=== PATIENT | male | born 1945 | race Caucasian/White ===

== ENCOUNTER 2017-03-28 13:10 | Inpatient (IN) | payer MEDICARE, MEDICAID ==
[2017-03-28 13:56] LABS: #Basophils 0.1 thou/uL (0.0-0.2); #Eosinphils 0.2 thou/uL (0.0-0.7); #Lymphocytes 1.6 thou/uL (1.20-3.40); #Monocytes 0.7 thou/uL (0.11-0.59); %Basophils 0.9 % (0.0-1.0); %Lymphocytes 18.8 % (21.0-51.0); %Monocytes 7.8 % (0.0-10.0); Hematocrit 55.1 % (42.0-52.0); Mean Platelet Volume 7.5 fL (7.4-10.4); Red Blood Cell (RBC) Count 5.49 mill/uL (4.70-6.10); White Blood Cell (WBC) Count 8.6 thou/uL (4.8-10.8)
[2017-03-28 14:22] LABS: ALT (SGPT) 9 U/L (8-55); AST (SGOT) 11 U/L (5-34); Alkaline Phosphatase 122 U/L (40-150); Anion Gap 17 mmol/L (10-20); BUN (Urea Nitrogen) 10 mg/dL (8.4-25.7); Bilirubin, Total 0.6 mg/dL (0.2-1.2); CK (CPK) 36 U/L (30-200); Calc. Creatinine Clearance 0 mL/min (70-130); Calcium 9.3 mg/dL (7.8-10.44); Carbon Dioxide 26 mmol/L (23-31); Chloride 103 mmol/L (98-107); Estimated GFR-MDRD 83; Globulin 3.9 g/dL (2.4-3.5); Magnesium 2.2 mg/dL (1.6-2.6); Protein, Total 7.6 g/dL (5.8-8.1)
[2017-03-28 14:24] LABS: Troponin I 0.022 ng/mL (< 0.028)
--- NOTE | 2017-03-28 14:33 | RAD ---
CHEST ONE VIEW: HISTORY: Atrial fibrillation. COMPARISON: 11/19/2015 FINDINGS: The cardiac silhouette and pulmonary vasculature are unremarkable. The mediastinum is midline with aortic calcification. The lungs remain hyperinflated. Scarring at the left base has progressed shamir ewhat since the previous study. Metallic fragments projecting over the left chest are stable. No l obar consolidation or pneumothorax is apparent. IMPRESSION: 1. Chronic obstructive pulmonary disease. 2. Increase in scarring at the left lung base. 3. Atherosclerosis. POS: MELISSA
--- NOTE | 2017-03-28 16:06 | HP ---
PRIMARY CARE PHYSICIAN: [facility]. REASON FOR ADMISSION: Transfer from primary care physician's office for AFIB with RVR. HISTORY OF PRESENT ILLNESS: A 72-year-old male who had regular followup visit with the primary care physician at [facility]. When they evaluated him there, the patient was having AFIB with RVR and that is why he was sent to emergency room for evaluation. The patient reports that for the last 2-3 days, he is feeling funny in his chest with palpitations, some intermittent dizziness. The patient reports that he is taking all his medications. In the emergency room, his heart rate was 153 and i rregularly irregular. He was given 2 time Cardizem bolus. Even after that, his heart rate was not slowing down and that is why Cardizem drip was started at 10 mg/hour. While on Cardizem drip, rose jara was having fluctuating heart rate with AFIB with RVR and sinus rhythm. He was going back and for th in sinus and AFIB rhythm with RVR. The patient denies any chest pain. He denies any fever or ch ills. He denies any syncope. He denies any orthopnea, PND or leg swelling. REVIEW OF SYSTEMS: The following complete review of systems was negative, unless otherwise mentione d in the HPI or below: Constitutional: Weight loss or gain, ability to conduct usual activities. Skin: Rash, itching. Eyes: Double vision, pain. ENT/Mouth: Nose bleeding, neck stiffness, pain, tenderness. Cardiovascular: Palpitations, dyspnea on exertion, orthopnea. Respiratory: Shortness of breath, wheezing, cough, hemoptysis, fever or night sweats. Gastrointestinal: Poor appetite, abdominal pain, heartburn, nausea, vomiting, constipation, or diar tasha. Genitourinary: Urgency, frequency, dysuria, nocturia. Musculoskeletal: Pain, swelling. Neurologic/Psychiatric: Anxiety, depression. Allergy/Immunologic: Skin rash, bleeding tendency. Please see my HPI for pertinent positive and negative. All other review of systems reviewed and neg ative except as mentioned in the HPI. PAST MEDICAL HISTORY: Peripheral vascular disease, required aortobifemoral bypass grafting; diabete s type 2, on insulin; hypertension; dyslipidemia; morbid obesity; obstructive sleep apnea on CPAP; C OPD; chronic systolic heart failure with EF 30%-35%; paroxysmal atrial fibrillation/flutter on chron ic anticoagulation with warfarin. PAST SURGICAL HISTORY: Bilateral inguinal hernia repair, left humeral fracture repair, aortobifemor al bypass grafting with endarterectomy of bilateral common femoral artery in 2015, facial and neck l aceration repair. PAST PSYCHIATRIC HISTORY: Anxiety and depression. ALLERGIES: ZARA INHIBITOR. FAMILY HISTORY: No strong family history of premature coronary artery disease, stroke or cancer. SOCIAL HISTORY: Patient is smoking about 1 or 2 packs per day. He also drinks alcohol periodically . He denies any other illicit drug abuse. He lives by himself in [place]. CODE STATUS: Patient is FULL CODE. Patient's sister is surrogate decision maker. CURRENT HOME MEDICATIONS: The patient did not bring his home medication, but based on our hospital record, the patient is on following medications; amiodarone 200 mg p.o. daily, aspirin 81 mg p.o. da evette, Lipitor 40 mg p.o. at bedtime, diclofenac 75 mg p.o. b.i.d., Lasix 40 mg p.o. daily, Neurontin 300 mg p.o. b.i.d., Humalog insulin 20 units subcu t.i.d., Lantus insulin 45 units subcu b.i.d., met oprolol tartrate 50 mg p.o. b.i.d., potassium chloride 20 mEq p.o. daily, clonazepam 0.5 mg p.o. dean ly, metformin 1000 mg p.o. b.i.d., tramadol 100 mg p.o. b.i.d. EMERGENCY ROOM COURSE: Patient is given Cardizem bolus x2 and subsequently Cardizem drip was starte d. PHYSICAL EXAMINATION: VITAL SIGNS: Currently, blood pressure 147/108, pulse 144 irregularly irregular, respiratory rate 2 0, temperature 98.2, saturation 95% on room air, and weight 81.6 kilograms. GENERAL: Patient is currently alert, awake, no obvious acute distress. HEAD: Normocephalic, atraumatic. EYES: Pupils round, reactive to light. Extraocular muscles intact. ENT: Oropharynx within normal limits. Moist mucous membranes. No oral lesions. No pharyngeal tanya thema, no exudates. NECK: Supple. Range of motion is normal. No meningeal signs of irritation. LUNGS: Clear to auscultation without any rhonchi or rales. CARDIAC: S1 and S2 irregularly irregular. No murmur, no gallop, no rub. ABDOMEN: Obesity present. Bowel sounds present. Nontender, nondistended. No organomegaly, no mas s, no suprapubic tenderness. Surgical scar present. GENITALIA: Within normal limits. EXTREMITIES: Trace edema noted. Good peripheral pulsation. SKIN: No skin rash. HEMATOLOGICAL SYSTEM: No lymphadenopathy. PSYCHIATRIC: Normal affect. SIGNIFICANT LABORATORY DATA: 1. CBC: WBC 8.6, hemoglobin 18.0, MCV 100, platelet 258. INR 1.6. 2. BMP: Sodium 142, potassium 4.0, chloride 103, carbon dioxide 26, BUN 10, creatinine 0.90, gluco se 114, calcium 9.3, magnesium 2.2. 3. LFT: AST 11, ALT 9, alkaline phosphatase 122, albumin 3.7. CK 36, CK-MB 1.1, troponin I 0.022, BNP 203.4. ASSESSMENT AND PLAN/IMPRESSION: 1. Atrial fibrillation with rapid ventricular response. The patient is on Cardizem drip. At this point, patient has paroxysmal rapid ventricular rate in the emergency room even on Cardizem drip, everardo elva will require admission. We will continue amiodarone 200 mg p.o. daily. We will consult Cardi ology for medication adjustment. We will obtain echocardiography to assess ejection fraction and ot her structural abnormality. We will do serial cardiac enzymes x3 and check thyroid function test. 2. Chronic systolic heart failure. Currently, patient is euvolemic. We will continue Lasix 40 mg p.o. b.i.d. We will continue with metoprolol 50 mg p.o. b.i.d. The patient is allergic to ZARA INHI BITOR and that is why he is not on ZARA inhibitor. We will obtain echocardiography to assess ejectio n fraction and other structural abnormality. If this time, patient's ejection fraction is still low , then we will consider changing metoprolol tartrate to Coreg during this admission. 3. Chronic obstructive pulmonary disease. We will continue with DuoNeb therapy q.6 hourly p.r.n. 4. Obstructive sleep apnea on continuous positive airway pressure. Patient can use his home contin uous positive airway pressure machine while in hospital. 5. Diabetes type 2. We will continue insulin as per sliding scale protocol. Diabetic diet will be given. We will continue Levemir 45 units subcu b.i.d. 6. Diabetic neuropathy. We will continue gabapentin 300 mg twice daily. 7. Dyslipidemia. We will check lipid profile tomorrow and continue Lipitor 40 mg p.o. at bedtime. 8. Morbid obesity. Dietary education given, weight loss education given. Healthy lifestyle measur es discussed with the patient. 9. Tobacco and alcohol abuse. Patient is given counseling to avoid tobacco and alcohol product. 10. Deep venous thrombosis prophylaxis. We will verify patient's home dose of chronic anticoagulat ion, which we will resume while in hospital. 11. Code status: The patient is FULL CODE. Patient's sister is surrogate decision maker. Disposition and plan based on clinical course. We are expecting patient's stay in hospital more guillaume n 2 midnights. Plan of care discussed with the patient in detail.
[2017-03-28] MEDS ORDERED: Artificial Tears 18 DROP/0.9 ML EA EYE PRN (16:51)
[2017-03-28] MEDS ORDERED: Dextrose 50% Abboject 50 ML SYRINGE SLOW IVP PRN (16:51)
[2017-03-28] MEDS ORDERED: Senokot 8.6 MG TAB PO PRN (16:51)
[2017-03-28] MEDS ORDERED: Ondansetron HCl/PF 4 MG/2 ML Vial IVP PRN (16:51)
[2017-03-28] MEDS ORDERED: Sodium Chloride 0.65% Nasal 44 ML BOT EA NARE PRN (16:51)
[2017-03-28] MEDS ORDERED: HumaLOG 300 UNITS/3 ML VIAL SC PRN (16:51)
[2017-03-28] MEDS ORDERED: Mag-Al 1200 mg/1200 mg/30 ML UDCUP PO PRN (16:51)
[2017-03-28] MEDS ORDERED: Acetaminophen 325 MG TAB PO PRN (16:51)
[2017-03-28] MEDS ORDERED: Nitroglycerin 0.4 MG TAB (25 Tab Bottle) SL PRN (16:51)
[2017-03-28] MEDS ORDERED: HYDROcodone/Acetaminophen 5/325 mg Tablet PO PRN (16:51)
[2017-03-28] MEDS ORDERED: Ondansetron ODT 4 MG TAB PO PRN (16:51)
[2017-03-28] MEDS ORDERED: Dextrose 5% in Water 1,000 ML IV PRN (16:51)
[2017-03-28] MEDS ORDERED: Diabetic Tussin 200 MG/10 ML UDCUP PO PRN (16:51)
[2017-03-28] MEDS ORDERED: Loperamide HCl 2 MG CAP PO PRN (16:51)
[2017-03-28] MEDS ORDERED: Milk Of Magnesia 30 ML UDCUP PO PRN (16:51)
[2017-03-28] MEDS ORDERED: Eucerin (Mineral Oil/Petrolatum,White) 30 gm Jar TOP PRN (16:51)
[2017-03-28] MEDS ORDERED: Loratadine 10 MG TAB PO PRN (16:51)
[2017-03-28 17:06] VITALS: BMI 31.2
[2017-03-28 17:11] LABS: Troponin I 0.034 ng/mL (< 0.028)
[2017-03-28 20:14] LABS: Bilirubin Negative (Negative); Blood, Urine Negative (Negative); Glucose, Urine (Dipstick) Negative (Negative); Ketone, Urine Negative (Negative); Nitrite Negative (Negative); Protein, Urine (Dipstick) 30 mg/dL (Neg-Trace); Urobilinogen 0.2 mg/dL (0.2-1.0)
[2017-03-28 20:19] LABS: Bacteria/HPF None Seen HPF (None Seen); Hyaline Casts/LPF 0-3 HYALINE CAST LPF (0-3 Hyaline); RBC/HPF 0-3 HPF (0-3); Squamous Epithelial None Seen HPF (0-3); WBC/HPF None Seen HPF (0-3)
[2017-03-28 20:28] LABS: Troponin I 0.023 ng/mL (< 0.028)
[2017-03-28] MEDS: Zolpidem Tartrate 5 MG TAB PO PRN (23:17)
--- NOTE | 2017-03-29 01:02 | CON ---
DATE OF CONSULTATION: 03/28/2017 REFERRING PHYSICIAN: Dr. Marie REASON FOR CONSULTATION: Atrial fibrillation with rapid ventricular response. PRIMARY CARE PHYSICIAN: Dr. Desouza PRIMARY NEUROSCIENCE SPECIALIST: Dr. Juan Carlos Freeman. HISTORY OF PRESENT ILLNESS: Mr. Briceno is a 72-year-old gentleman who was seeing his primary care phys smiley at [facility] when he was noted to be in rapid atrial fibrillation. He has had rapid irregul ar heartbeats over the last 2-3 days, which making \\\\"feel funny in his chest\\\\" and presented for e valuation. He was sent over to the Emergency Department for further evaluation and treatment, and h eart rates in the 150s-160s on arrival. He was started on a Cardizem drip, which ultimately getting better controlled. He has known paroxysmal atrial fibrillation, it is pretty well controlled, on amiodarone orally and was recently seen in the office with Dr. Freeman in January and due to a rectus sheath hematoma in the past, on Coumadin, was placed on Xarelto 20 mg daily at that time. PAST MEDICAL HISTORY: Significant for: 1. Paroxysmal atrial fibrillation. It is relatively well controlled on amiodarone and Xarelto. Th ere has been no bleeding issues with Xarelto since January. 2. Peripheral vascular disease. 3. Type 2 diabetes mellitus. 4. Hypertension. 5. Dyslipidemia. 6. Obstructive sleep apnea, on CPAP. 7. Chronic obstructive pulmonary disease. 8. Chronic systolic congestive heart failure (ejection fraction of 30%-35%). PAST SURGICAL HISTORY: 1. Bilateral inguinal hernia repair. 2. Left humeral fracture repair. 3. Aortobifemoral bypass grafting. 4. Facial and neck laceration repair. ALLERGIES: ZARA INHIBITORS. SOCIAL HISTORY: He smokes 1-2 packs per day, drinks alcohol periodically. Denies illicit drug use. Lives by himself. FAMILY HISTORY: Negative with respect to premature atherosclerosis. CURRENT MEDICATIONS AT HOME: Include: 1. Pacerone 200 mg daily. 2. Gabapentin 300 mg 3 times daily. 3. Lasix 40 mg b.i.d. 4. Metformin 1000 mg b.i.d. 5. NovoLog q. a.c. 6. Levemir daily. 7. Sertraline 50 mg daily. 8. Klor-Con 10 mEq b.i.d. 9. Lipitor 80 mg daily. 10. Ecotrin 80 mg daily. 11. Xarelto 20 mg daily. 12. Metoprolol 50 mg b.i.d. REVIEW OF SYSTEMS: As per the history of present illness. Remainder of 12-system review is negativ e. PHYSICAL EXAMINATION: VITAL SIGNS: Blood pressure 158/81 pulse 71 and irregular, respiratory rate 20 and nonlabored, temp erature 99.2, oxygen saturation 100% on room air. GENERAL: This is a well-developed, overweight 72-year-old gentleman, in no acute distress . He is alert and oriented x4, answers questions appropriately. HEENT: The head was atraumatic, normocephalic. Pupils are equally round and reactive. Sclerae and conjunctivae are clear. There are no oral lesions. NECK: Supple, no JVD, thyromegaly, carotid bruits. CHEST: Symmetrical inspiration and expiration. HEART: Irregularly irregular. No obvious murmur. PMI is enlarged and laterally displaced. LUNGS: Diminished breath sounds noted in the bases bilaterally. There are no adventitious sounds a ppreciated. ABDOMEN: Soft, nontender, nondistended, without mass or organomegaly. Bowel sounds are present in all 4 quadrants. No flank bruits auscultated. EXTREMITIES: 2+ pulses noted bilaterally. Upper and lower extremity strength 5/5 bilaterally. No clubbing, cyanosis or edema. NEUROLOGIC: Grossly intact with no focal motor deficits appreciated. DATABASE: EKG revealed atrial fibrillation with rapid ventricular response. LABORATORY DATA: CBC reveals a white count 8, H\\T\\H 18 and 55, platelet count 258,000. Differentia l white blood cells normal. Red cell indices normocytic. Coagulation studies: PT 19, INR 1.6. Chemistries: Electrolytes are normal. BUN and creatinine 10 and 0.9, GFR is estimated at 83. LFTs are normal. CK and CK-MB measurements are normal. Troponin indeterminately elevated with a peak of 0.034. BNP is mildly elevated at 203. ASSESSMENTS: 1. Atrial fibrillation with rapid ventricular response. He has a history of paroxysmal atrial fibr illation. 2. Chronic anticoagulation, on Xarelto. We will resume. 3. Chronic systolic heart failure, compensated currently. 4. Chronic obstructive pulmonary disease. 5. Obstructive sleep apnea, using CPAP. 6. Type 2 diabetes mellitus, on oral agents plus insulin. 7. Dyslipidemia, on therapy. 8. Hypertension, marginally controlled. RECOMMENDATIONS: 1. From a cardiac standpoint, he is stable and rate controlled currently. He may come off the dilt iazem drip and resume amiodarone. Recommend resuming Xarelto 20 mg every evening. 2. We would recommend resumption of his routine home medications as listed above. These are his cu rrent medications as documented on his office visit in late 01/2017. Dr. Freeman will resume care tomorrow morning. I appreciate the opportunity to participate.
[2017-03-29] MEDS: Zolpidem Tartrate 5 MG TAB PO PRN (01:17)
[2017-03-29 05:20] LABS: #Basophils 0.1 thou/uL (0.0-0.2); #Eosinphils 0.1 thou/uL (0.0-0.7); #Lymphocytes 1.9 thou/uL (1.20-3.40); #Monocytes 0.8 thou/uL (0.11-0.59); #Neutrophils 7.6 thou/uL (1.40-6.50); %Basophils 1.2 % (0.0-1.0); %Eosinophils 1.2 % (0.0-10.0); %Lymphocytes 18.1 % (21.0-51.0); %Monocytes 7.2 % (0.0-10.0); Hematocrit 51.8 % (42.0-52.0); Mean Platelet Volume 7.2 fL (7.4-10.4); Red Blood Cell (RBC) Count 5.09 mill/uL (4.70-6.10); White Blood Cell (WBC) Count 10.5 thou/uL (4.8-10.8)
[2017-03-29 05:36] LABS: ALT (SGPT) Less than 7 U/L (8-55); AST (SGOT) 10 U/L (5-34); Alkaline Phosphatase 107 U/L (40-150); Anion Gap 11 mmol/L (10-20); BUN (Urea Nitrogen) 9 mg/dL (8.4-25.7); Bilirubin, Total 0.8 mg/dL (0.2-1.2); Calc. Creatinine Clearance 116 mL/min (70-130); Carbon Dioxide 27 mmol/L (23-31); Chloride 104 mmol/L (98-107); Cholesterol 134 mg/dl (< 200 Desired); Estimated GFR-MDRD Greater than 90; Globulin 3.5 g/dL (2.4-3.5); LDL Cholesterol, Calculated 70 mg/dL
[2017-03-29] MEDS: HumaLOG 300 UNITS/3 ML VIAL SC PRN (05:50)
[2017-03-29] MEDS ORDERED: Non-Formulary Item 1 EACH (Metformin Hcl [Metformin Hcl] 1,000 MG) PO SCH (08:00)
[2017-03-29] MEDS: Potassium Chloride 10 MEQ TAB PO SCH ×2 (08:55→17:39)
[2017-03-29] MEDS: Gabapentin 300 MG CAP PO SCH ×3 (08:56→21:36)
[2017-03-29] MEDS: Furosemide 40 MG TAB PO SCH ×2 (08:57→21:36)
[2017-03-29] MEDS: clonazePAM 0.5 MG TAB PO SCH (08:57)
[2017-03-29] MEDS ORDERED: Non-Formulary Item 1 EACH (Atorvastatin Calcium [Atorvastatin Calcium] 80 MG) PO SCH (09:00)
[2017-03-29] MEDS ORDERED: Non-Formulary Item 1 EACH (Sertraline Hcl [Sertraline Hcl] 50 MG) PO SCH (09:00)
[2017-03-29] MEDS ORDERED: Metoprolol Tartrate 50 MG TAB PO SCH (09:00)
[2017-03-29] MEDS ORDERED: ADMIXTURE FEE IVPB SCH ×3 (09:15)
[2017-03-29] MEDS ORDERED: Digoxin 0.5 MG/2 ML AMP SLOW IVP SCH (09:15)
[2017-03-29] MEDS ORDERED: WATER IVPB SCH ×3 (09:15)
[2017-03-29] MEDS ORDERED: DEXTROSE IVPB SCH ×3 (09:15)
[2017-03-29] MEDS ORDERED: AMIODARONE HCL IVPB SCH ×3 (09:15)
--- NOTE | 2017-03-29 13:12 | PDOC.PN ---
- Subjective Encounter Start Date: 03/29/17 Encounter Start Time: 07:00 -: old records requested/rev this morning pt is again in afib with rvr, so cardizem drip restarted, no chest pain - Objective Resuscitation Status: Resuscitation Status FULL:Full Resuscitation MAR Reviewed: Yes Vital Signs & Weight: Vital Signs (12 hours) Temp Pulse Resp BP Pulse Ox 03/29/17 11:35 97.6 F 123 H 24 H 136/91 H 94 L 03/29/17 10:28 122 H 03/29/17 08:00 97.6 F 122 H 16 03/29/17 07:46 97.6 F 122 H 12 143/71 H 94 L 03/29/17 04:00 98.2 F 131 H 18 155/60 H 96 Weight Weight 218 lb I&O: 03/28/17 03/29/17 03/30/17 06:59 06:59 06:59 Intake Total 600 Output Total 925 Balance -325 Result Diagrams: 03/29/17 05:01 03/29/17 05:01 Additional Labs: Accuchecks 03/29/17 03/29/17 03/28/17 10:51 05:06 20:11 POC Glucose 195 H 162 H 139 H 03/28/17 18:35 POC Glucose 133 H EKG Reviewed by me: Yes (afib with rvr) Phys Exam - Physical Examination Constitutional: NAD HEENT: PERRLA, moist MMs, sclera anicteric Neck: no JVD, supple Respiratory: no wheezing, no rales, no rhonchi Cardiovascular: no significant murmur, irregular RVR Gastrointestinal: soft, non-tender, no distention, positive bowel sounds Musculoskeletal: no edema, pulses present Neurological: non-focal, normal sensation, moves all 4 limbs Lymphatic: no nodes Psychiatric: normal affect, A&O x 3 Skin: no rash, normal turgor Dx/Plan (1) Atrial fibrillation with RVR Code(s): I48.91 - UNSPECIFIED ATRIAL FIBRILLATION Status: Acute (2) Anxiety and depression Code(s): F41.8 - OTHER SPECIFIED ANXIETY DISORDERS Status: Chronic (3) COPD (chronic obstructive pulmonary disease) Status: Chronic (4) Chronic anticoagulation Code(s): Z79.01 - JAIL (CURRENT) USE OF 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 Status: Chronic (5) Chronic systolic (congestive) heart failure Code(s): I50.22 - CHRONIC SYSTOLIC (CONGESTIVE) HEART FAILURE Status: Chronic (6) Diabetes type 2, controlled Code(s): E11.9 - TYPE 2 DIABETES MELLITUS WITHOUT COMPLICATIONS Status: Chronic (7) Dyslipidemia Code(s): E78.5 - HYPERLIPIDEMIA, UNSPECIFIED Status: Chronic (8) HTN (hypertension) Code(s): I10 - ESSENTIAL (PRIMARY) HYPERTENSION Status: Chronic (9) Macrocytosis Code(s): D75.89 - OTHER SPECIFIED DISEASES OF BLOOD AND BLOOD-FORMING ORGANS Status: Chronic (10) MEJIA on CPAP Code(s): G47.33 - OBSTRUCTIVE SLEEP APNEA (ADULT) (PEDIATRIC); Z99.89 - DEPENDENCE ON OTHER ENABLING MACHINES AND DEVICES Status: Chronic (11) Obesity (BMI 30.0-34.9) Code(s): E66.9 - OBESITY, UNSPECIFIED Status: Chronic (12) Paroxysmal atrial fibrillation Code(s): I48.0 - PAROXYSMAL ATRIAL FIBRILLATION Status: Chronic - Plan cont current plan of care * cardiology started amiodaron drip with cardizem drip * after this rate was dropped, so cardizem drip kept on hold * will continue amiodaron drip * echo done and result pending * will monitor on tele * medication reviewed as below * symptomatic treatment. Review of Systems - Review of Systems ENT: negative: Ear Pain, Ear Discharge, Nose Pain, Nose Discharge, Nose Congestion, Mouth Pain, Mouth Swelling, Throat Pain, Throat Swelling, Other Respiratory: negative: Cough, Dry, Shortness of Breath, Hemoptysis, SOB with Excertion, Pleuritic Pain, Sputum, Wheezing Cardiovascular: negative: Chest Pain, Palpitations, Orthopnea, Paroxysmal Noc. Dyspnea, Edema, Light Headedness, Other Gastrointestinal: negative: Nausea, Vomiting, Abdominal Pain, Diarrhea, Constipation, Melena, Hematochezia, Other Genitourinary: negative: Dysuria, Frequency, Incontinence, Hematuria, Retention , Other Musculoskeletal: negative: Neck Pain, Shoulder Pain, Arm Pain, Back Pain, Hand Pain, Leg Pain, Foot Pain, Other Skin: negative: Rash, Lesions, Nixon, Bruising, Other - Medications/Allergies Allergies/Adverse Reactions: Allergies Allergy/AdvReac Type Severity Reaction Status Date / Time ZARA Inhibitors Allergy Severe ANGIOEDEMA Verified 10/29/15 00:24 Medications: Current Medications Acetaminophen (Tylenol) 650 mg PO Q4H PRN PRN Reason: Headache/Fever or Pain Hydrocodone Bitart/Acetaminophen ([place] 5/325) 1 tab PO Q4H PRN PRN Reason: Moderate Pain (4-6) Al Hydroxide/Mg Hydroxide (Maalox) 30 ml PO Q6H PRN PRN Reason: Heartburn or Indigestion Albuterol/Ipratropium (Duoneb) 3 ml NEB [id number] PRN PRN Reason: SOB &/or Wheezing Artificial Tears (Tears Naturale) 0 drop EA EYE PRN PRN PRN Reason: Dry Eyes Aspirin (Aspirin Chewable) 81 mg PO QAM [facility] Last Admin: 03/29/17 08:56 Dose: 81 mg Atorvastatin Calcium (Lipitor) 80 mg PO HS [facility] Clonazepam (Klonopin) 0.5 mg PO DAILY [facility] Last Admin: 03/29/17 08:57 Dose: 0.5 mg Dextrose/Water (Dextrose 50%) 25 gm SLOW IVP PRN PRN PRN Reason: Hypoglycemia Furosemide (Lasix) 40 mg PO BID [facility] Last Admin: 03/29/17 08:57 Dose: 40 mg Gabapentin (Neurontin) 300 mg PO TID [facility] Last Admin: 03/29/17 08:56 Dose: 300 mg Glucagon (Glucagon) 1 mg IM PRN PRN PRN Reason: Hypoglycemia Guaifenesin (Robitussin Sf) 200 mg PO Q4H PRN PRN Reason: Cough Hydralazine HCl (Apresoline) 10 mg SLOW IVP Q4H PRN PRN Reason: Systolic BP > 180 Dextrose/Water (D5w) 1,000 mls @ 0 mls/hr IV .Q0M PRN; As Directed PRN Reason: Hypoglycemia Diltiazem HCl 125 mg/ Sodium (Chloride) 125 mls @ 5 mls/hr IVPB INF MARISOL; 5 MG/ HR PRN Reason: Protocol Last Admin: 03/29/17 06:20 Dose: 125 mls Amiodarone HCl 450 mg/Miscellaneous Medication 1 each/ Dextrose/Water 259 mls @ 0 mls/hr IVPB INF MARISOL; Per Protocol PRN Reason: Protocol Last Admin: 03/29/17 10:30 Dose: 259 mls Insulin Human Lispro (Humalog) 0 units SC .AGGRESSIVE SLIDING PRN PRN Reason: Aggressive Correctional Scale Last Admin: 03/29/17 05:50 Dose: 3 unit Insulin Human Lispro (Humalog) 0 units SC .BEDTIME SLIDING SC PRN PRN Reason: Bedtime Correctional Scale Loperamide HCl (Imodium) 2 mg PO PRN PRN PRN Reason: Diarrhea/Loose Stools Loratadine (Claritin) 10 mg PO DAILYPRN PRN PRN Reason: Sinus Symptoms Magnesium Hydroxide (Milk Of Magnesium) 30 ml PO DAILYPRN PRN PRN Reason: Constipation Metformin HCl (Glucophage) 1,000 mg PO BID-[facility] Last Admin: 03/29/17 08:55 Dose: 1,000 mg Metoprolol Tartrate (Lopressor) 50 mg PO BID [facility] Mineral Oil/White Petrolatum (Eucerin Cream) 0 gm TOP BIDPRN PRN PRN Reason: Dry Skin Nitroglycerin (Nitrostat) 0.4 mg SL Q5MIN PRN PRN Reason: Chest Pain Ondansetron HCl (Zofran Odt) 4 mg PO Q6H PRN PRN Reason: Nausea/Vomiting Ondansetron HCl (Zofran) 4 mg IVP Q6H PRN PRN Reason: Nausea/Vomiting Potassium Chloride (Klor-Con 10) 10 meq PO BID-[facility] Last Admin: 03/29/17 08:55 Dose: 10 meq Rivaroxaban (Xarelto) 20 mg PO 1800 [facility] Senna (Senokot) 2 tab PO HSPRN PRN PRN Reason: Constipation Sertraline HCl (Zoloft) 50 mg PO DAILY [facility] Last Admin: 03/29/17 08:56 Dose: 50 mg Sodium Chloride ([place] Nasal Nunda 0.65%) 0 ml EA NARE QIDPRN PRN PRN Reason: Nasal Congestion Sodium Chloride (Flush - Normal Saline) 10 ml IVF Q12HR [facility] Last Admin: 03/29/17 08:57 Dose: Not Given Sodium Chloride (Flush - Normal Saline) 10 ml IVF PRN PRN PRN Reason: Saline Flush Zolpidem Tartrate (Ambien) 5 mg PO HSPRN PRN PRN Reason: Insomnia Last Admin: 03/29/17 01:17 Dose: 5 mg
[2017-03-29] MEDS ORDERED: Rivaroxaban 10 MG TAB PO SCH ×2 (18:00)
[2017-03-29] MEDS ORDERED: Atorvastatin Calcium 40 MG TAB PO SCH (21:00)
[2017-03-29] MEDS: Metoprolol Tartrate 50 MG TAB PO SCH (21:37)
[2017-03-30] MEDS: HumaLOG 300 UNITS/3 ML VIAL SC PRN ×2 (06:10→12:41)
--- NOTE | 2017-03-30 09:32 | PDOC.PN ---
- Subjective Encounter Start Date: 03/30/17 Encounter Start Time: 09:30 Mr. Briceno does not have any medical complaints. He admits that he may need some help at home, with medications ect. - Objective Resuscitation Status: Resuscitation Status FULL:Full Resuscitation MAR Reviewed: Yes Vital Signs & Weight: Vital Signs (12 hours) Temp Pulse Resp BP Pulse Ox 03/30/17 07:58 97.7 F 58 L 22 H 136/63 97 03/30/17 04:00 97.7 F 56 L 20 141/78 H 98 03/30/17 00:00 98.3 F 56 L 20 146/68 H 98 Weight Weight 217 lb 10.598 oz I&O: 03/29/17 03/30/17 03/31/17 06:59 06:59 06:59 Intake Total 600 1678 Output Total 925 1620 Balance -325 58 Result Diagrams: 03/29/17 05:01 03/29/17 05:01 Additional Labs: Accuchecks 03/30/17 03/29/17 03/29/17 05:37 21:29 16:58 POC Glucose 164 H 106 140 H 03/29/17 10:51 POC Glucose 195 H Phys Exam - Physical Examination HEENT: PERRLA Respiratory: no rales, wheezing present Cardiovascular: RRR, no significant murmur, no rub Gastrointestinal: soft, non-tender, positive bowel sounds Musculoskeletal: no edema Dx/Plan (1) Atrial fibrillation with RVR Code(s): I48.91 - UNSPECIFIED ATRIAL FIBRILLATION Status: Acute (2) COPD (chronic obstructive pulmonary disease) Status: Chronic (3) Chronic anticoagulation Code(s): Z79.01 - SKILLED NURSING (CURRENT) USE OF 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 Status: Chronic (4) Diabetes type 2, controlled Code(s): E11.9 - TYPE 2 DIABETES MELLITUS WITHOUT COMPLICATIONS Status: Chronic (5) Dyslipidemia Code(s): E78.5 - HYPERLIPIDEMIA, UNSPECIFIED Status: Chronic (6) HTN (hypertension) Code(s): I10 - ESSENTIAL (PRIMARY) HYPERTENSION Status: Chronic - Plan * AFIB with RVR- his heart rate is stable, he has been placed back on his usual medications for AFIB * He admits that he may not know which medications he should be taking. He went to the pharmacy and knew one or two may have been missing, but not which ones. He also says he needs help making a decision about housing, and help at home * Will consult Case Management, and will recommend Home Health at least .
[2017-03-30] MEDS: Gabapentin 300 MG CAP PO SCH ×2 (09:45→14:49)
[2017-03-30] MEDS: Furosemide 40 MG TAB PO SCH (09:45)
[2017-03-30] MEDS: Metoprolol Tartrate 50 MG TAB PO SCH (09:45)
[2017-03-30] MEDS: Potassium Chloride 10 MEQ TAB PO SCH (09:45)
[2017-03-30] MEDS: clonazePAM 0.5 MG TAB PO SCH (09:46)
--- NOTE | 2017-03-30 11:09 | DIS ---
DATE OF ADMISSION: 03/28/2017 DATE OF DISCHARGE: 03/30/2017 PRIMARY CARE PHYSICIAN: Jahaira Cosme. DISCHARGE DISPOSITION: Home likely with home health. DISCHARGE DIAGNOSES: 1. Atrial fibrillation with rapid ventricular response. 2. Diabetes mellitus, type 2. 3. Chronic obstructive pulmonary disease. 4. Obstructive sleep apnea. 5. Chronic systolic heart failure with an ejection fraction of 30%-35%. 6. Hypertension. 7. Peripheral vascular disease. DISCHARGE MEDICATIONS: Include amiodarone 200 mg daily, metoprolol 50 mg twice a day, metformin 100 0 mg twice daily, clonazepam 0.5 mg daily, sertraline 50 mg daily, Xarelto 20 mg daily, potassium ch loride 10 mEq daily, Neurontin 300 mg t.i.d., Lasix 40 mg twice daily, Lipitor 80 mg at bedtime, and aspirin 81 mg a day. CODE STATUS: FULL CODE. ALLERGIES: To ZARA INHIBITOR. HOSPITAL COURSE: Mr. Briceno is a pleasant 72-year-old gentleman who presented to the emergency room wi complaints of palpitations and a funny feeling in his chest and some intermittent dizziness. He was seen in the ER and found to have a heart rate of 153, which was irregular. He was given Cardize m IV and admitted on a Cardizem drip. He was seen by Cardiology and by the following day, he was ab le to be weaned off of the Cardizem drip. It was noted that he had previously been on metoprolol as well as amiodarone. This was not listed in the patient's home medications and the patient admitted that he does get confused with his medications. He says that he did go to the pharmacy to hot die picker these medicines and knew there were some missing medications, but he did not know which they were an d what they were for. He also says that he has been trying to get some information about different types of housing and what assistance he can achieve at home; however, he has not had any help with t [facility]. Therefore, prior to him being discharged home, we will have him speak with the case management . I have already put him a consult for home health evaluation, so that at minimum, he will likely g o home with home health to help with his medications and disease management, and then possibly they can even give him some additional information about more services which may be available to him. Th erefore, the atrial fibrillation was likely as a result of him being off of his medications, metopro lol and amiodarone which he had been prescribed before by Dr. Freeman.
[2017-03-30 12:15] VITALS: BP 161/79; TEMP 97.9
== END 2017-03-30 15:20 | disposition home health service (06) | DRG 309 ==
LOC: ERS 13:10 → 2SE 15:17
PROVIDERS: ADMIT Internal Medicine; ATTEND Internal Medicine
DX: I48.0 Paroxysmal atrial fibrillation (principal); I50.22 Chronic systolic (congestive) heart failure; E11.40 Type 2 diabetes mellitus with diabetic neuropathy, unspecified; I11.0 Hypertensive heart disease with heart failure; J44.9 Chronic obstructive pulmonary disease, unspecified; E11.9 Type 2 diabetes mellitus without complications; D75.89 Other specified diseases of blood and blood-forming organs; G47.33 Obstructive sleep apnea (adult) (pediatric); E78.00 Pure hypercholesterolemia, unspecified; I73.9 Peripheral vascular disease, unspecified; E66.9 Obesity, unspecified; Z68.32 Body mass index [BMI] 32.0-32.9, adult; F41.8 Other specified anxiety disorders; F17.210 Nicotine dependence, cigarettes, uncomplicated; F10.10 Alcohol abuse, uncomplicated; Z91.19 Patient's noncompliance with other medical treatment and regimen; Z79.01 Long term (current) use of anticoagulants
CPT/HCPCS: 36415; 36416; 71010; 80053; 80061; 81001; 82553; 83735; 83880; 84443; 84484; 85025; 85610; 93005; 93306; 94660; 96365; 96376; A4216; G8978-GP-CL; G8979-GP-CJ; J0282; J1160; J7050; J7070

== ENCOUNTER 2017-03-31 02:38 | Observation (INO) | payer MEDICARE, MEDICAID ==
[2017-03-31 03:13] LABS: #Basophils 0.1 thou/uL (0.0-0.2); #Eosinphils 0.2 thou/uL (0.0-0.7); #Lymphocytes 1.8 thou/uL (1.20-3.40); #Monocytes 0.8 thou/uL (0.11-0.59); #Neutrophils 8.3 thou/uL (1.40-6.50); %Basophils 0.6 % (0.0-1.0); %Eosinophils 1.4 % (0.0-10.0); %Lymphocytes 16.3 % (21.0-51.0); %Monocytes 7.5 % (0.0-10.0); Hematocrit 54.8 % (42.0-52.0); Mean Platelet Volume 7.3 fL (7.4-10.4); Red Blood Cell (RBC) Count 5.51 mill/uL (4.70-6.10); White Blood Cell (WBC) Count 11.1 thou/uL (4.8-10.8)
[2017-03-31 03:39] LABS: PTT 26.6 SEC (22.9-36.1); Prothrombin Time 13.8 SEC (12.0-14.7)
[2017-03-31 03:41] LABS: ALT (SGPT) 12 U/L (8-55); AST (SGOT) 14 U/L (5-34); Alkaline Phosphatase 123 U/L (40-150); Anion Gap 17 mmol/L (10-20); BUN (Urea Nitrogen) 11 mg/dL (8.4-25.7); Bilirubin, Total 0.7 mg/dL (0.2-1.2); CK (CPK) 67 U/L (30-200); Calc. Creatinine Clearance 0 mL/min (70-130); Calcium 9.6 mg/dL (7.8-10.44); Carbon Dioxide 23 mmol/L (23-31); Chloride 102 mmol/L (98-107); Estimated GFR-MDRD Greater than 90; Globulin 4.1 g/dL (2.4-3.5); Magnesium 2.1 mg/dL (1.6-2.6); Protein, Total 8.1 g/dL (5.8-8.1)
[2017-03-31 03:50] LABS: Troponin I 0.013 ng/mL (< 0.028)
[2017-03-31] MEDS ORDERED: Multivitamins, Adult 10 ML, Thiamine HCl 100 MG, Folic Acid 1 MG in Dextrose 5 %-0.45 %... IV SCH ×4 (04:15)
[2017-03-31] MEDS ORDERED: Aspirin 325 MG TAB ONE (04:34)
[2017-03-31] MEDS ORDERED: Enoxaparin Sodium 100 MG/ML SYRINGE ONE (04:34)
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
[2017-03-31] MEDS ORDERED: Ondansetron ODT 4 MG TAB SL PRN (06:07)
[2017-03-31] MEDS ORDERED: Acetaminophen 325 MG TAB PO PRN ×2 (06:07→06:25)
[2017-03-31] MEDS ORDERED: Ondansetron HCl/PF 4 MG/2 ML Vial IVP PRN ×2 (06:07→06:25)
[2017-03-31 06:21] VITALS: BMI 29.1
[2017-03-31] MEDS ORDERED: Diabetic Tussin 200 MG/10 ML UDCUP PO PRN (06:25)
[2017-03-31] MEDS ORDERED: Mag-Al 1200 mg/1200 mg/30 ML UDCUP PO PRN (06:25)
[2017-03-31] MEDS ORDERED: Senokot 8.6 MG TAB PO PRN (06:25)
[2017-03-31] MEDS ORDERED: Ondansetron ODT 4 MG TAB PO PRN (06:25)
[2017-03-31] MEDS ORDERED: Loperamide HCl 2 MG CAP PO PRN (06:25)
[2017-03-31] MEDS ORDERED: Zolpidem Tartrate 5 MG TAB PO PRN (06:25)
[2017-03-31] MEDS ORDERED: Milk Of Magnesia 30 ML UDCUP PO PRN (06:25)
[2017-03-31] MEDS ORDERED: HumaLOG 300 UNITS/3 ML VIAL SC PRN ×2 (06:25)
[2017-03-31] MEDS ORDERED: Eucerin (Mineral Oil/Petrolatum,White) 30 gm Jar TOP PRN (06:25)
[2017-03-31] MEDS ORDERED: Nitroglycerin 0.4 MG TAB (25 Tab Bottle) SL PRN (06:25)
[2017-03-31] MEDS ORDERED: Dextrose 5% in Water 1,000 ML IV PRN (06:25)
[2017-03-31] MEDS ORDERED: Loratadine 10 MG TAB PO PRN (06:25)
[2017-03-31] MEDS ORDERED: Sodium Chloride 0.65% Nasal 44 ML BOT EA NARE PRN (06:25)
[2017-03-31] MEDS ORDERED: HYDROcodone/Acetaminophen 5/325 mg Tablet PO PRN (06:25)
[2017-03-31] MEDS ORDERED: Dextrose 50% Abboject 50 ML SYRINGE SLOW IVP PRN (06:25)
[2017-03-31 06:28] LABS: Troponin I 0.025 ng/mL (< 0.028)
--- NOTE | 2017-03-31 07:43 | RAD ---
SINGLE VIEW OF THE CHEST: COMPARISON: 03/28/17. HISTORY: Atrial fibrillation with rapid ventricular response. FINDINGS: A single view of the chest shows a normal-size cardiomediastinal silhouette. There is no evidence o f consolidation, mass, or pleural effusion. Shrapnel projects over the left chest. IMPRESSION: No evidence of acute cardiopulmonary disease. POS: [facility]
[2017-03-31] MEDS: Potassium Chloride 10 MEQ TAB PO SCH ×2 (08:31→16:44)
[2017-03-31] MEDS: Metoprolol Tartrate 50 MG TAB PO SCH ×2 (08:33→16:44)
[2017-03-31] MEDS: Gabapentin 300 MG CAP PO SCH ×2 (08:34→14:25)
[2017-03-31] MEDS ORDERED: clonazePAM 0.5 MG TAB PO SCH (09:00)
[2017-03-31] MEDS ORDERED: Atorvastatin Calcium 40 MG TAB PO SCH (09:00)
[2017-03-31] MEDS ORDERED: Famotidine 20 MG TAB PO SCH (09:00)
[2017-03-31] MEDS ORDERED: Aspirin 325 MG TAB PO SCH (09:00)
[2017-03-31] MEDS ORDERED: Furosemide 40 MG TAB PO SCH (09:00)
[2017-03-31] MEDS ORDERED: Enoxaparin Sodium 100 MG/ML SYRINGE SC SCH (09:00)
[2017-03-31 09:35] LABS: Troponin I 0.015 ng/mL (< 0.028)
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
[2017-03-31 15:54] VITALS: BP 115/66; TEMP 97.4
[2017-03-31] MEDS ORDERED: Rivaroxaban 10 MG TAB PO SCH (17:00)
[2017-03-31] MEDS ORDERED: Insulin Regular 300 UNITS/3 ML VIAL SC SCH (17:00)
[2017-03-31] MEDS ORDERED: INSULIN REGULAR SC SCH (17:00)
[2017-03-31] MEDS ORDERED: Insulin Detemir 100 UNITS/ML 55 UNITS in Pre-Filled Syringe 1 EACH SC SCH (21:00)
[2017-03-31] MEDS ORDERED: Varenicline Tartrate 0.5 MG TAB PO SCH (21:00)
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
== END 2017-03-31 16:55 ==
LOC: ERS 02:38 → 2NO 04:30
PROVIDERS: ADMIT Internal Medicine; ATTEND Internal Medicine
DX: I48.0 Paroxysmal atrial fibrillation (principal); I11.0 Hypertensive heart disease with heart failure; I50.22 Chronic systolic (congestive) heart failure; E11.51 Type 2 diabetes mellitus with diabetic peripheral angiopathy without gangrene; J44.9 Chronic obstructive pulmonary disease, unspecified; E78.5 Hyperlipidemia, unspecified; F41.9 Anxiety disorder, unspecified; F32.9 Major depressive disorder, single episode, unspecified; G47.33 Obstructive sleep apnea (adult) (pediatric); F10.10 Alcohol abuse, uncomplicated; F17.210 Nicotine dependence, cigarettes, uncomplicated; E66.01 Morbid (severe) obesity due to excess calories; Z68.29 Body mass index [BMI] 29.0-29.9, adult; Z88.8 Allergy status to other drugs, medicaments and biological substances; Z79.01 Long term (current) use of anticoagulants; Z79.4 Long term (current) use of insulin; Z79.899 Other long term (current) drug therapy; Z95.1 Presence of aortocoronary bypass graft; Z91.19 Patient's noncompliance with other medical treatment and regimen; Z99.89 Dependence on other enabling machines and devices
CPT/HCPCS: 71010; 80053; 82550; 82553; 82962; 83735; 83880; 84484 ×2; 85025; 85610; 85730; 93005; 94660; 96365; 96366 ×2; 96372; 96376; 99291; G0378; 36415; 36416; J1650; J1815; J3411; J7042

== ENCOUNTER 2017-10-19 11:52 | Outpatient (CLI) | payer MEDICARE, MEDICAID | END 2017-10-19 11:53 | disposition home or self-care (01) | LOC: BICRAD 11:52 | PROVIDERS: ATTEND Internal Medicine Cardiovascular Disease | DX: I42.9 Cardiomyopathy, unspecified (principal) | CPT/HCPCS: 71046 ==

== ENCOUNTER 2018-01-26 08:16 | Inpatient (IN) | payer MEDICARE, MEDICAID ==
[2018-01-26 08:38] LABS: #Eosinphils 0.1 thou/uL (0.0-0.7); #Monocytes 0.6 thou/uL (0.11-0.59); #Neutrophils 7.5 thou/uL (1.40-6.50); %Basophils 0.5 % (0.0-1.0); %Eosinophils 1.2 % (0.0-10.0); %Lymphocytes 11.1 % (21.0-51.0); %Monocytes 6.8 % (0.0-10.0); %Neutrophils 80.4 % (42.0-75.0); Hemoglobin 13.7 g/dL (14.0-18.0); Mean Corpuscular HGB CONC 32.9 g/dL (32.0-36.0); Mean Corpuscular Hemoglobin 29.9 pg (27.0-31.0); Mean Corpuscular Volume 91.1 fL (78.0-98.0); Mean Platelet Volume 7.5 fL (7.4-10.4); Platelet Count 208 thou/uL (130-400); RBC Distribution Width 15.1 % (11.5-14.5); Red Blood Cell (RBC) Count 4.56 mill/uL (4.70-6.10); White Blood Cell (WBC) Count 9.4 thou/uL (4.8-10.8)
--- NOTE | 2018-01-26 08:55 | RAD ---
CHEST 1 VIEW: HISTORY: Atrial fibrillation. Chest pain. COMPARISON: Chest radiograph 03/31/17. FINDINGS: Mild increased airspace opacity in the left upper lobe. There is mild interstitial prominence in the lower lobes. Layering osseous fusion versus chronic scar. Radiopacities project over the left uppe r lobe. IMPRESSION: 1. Mild cardiomegaly with what appears to be some low-grade edema. 2. Likely some scarring left lateral costophrenic sulcus. 3. Radiopaque material projecting over the left chest wall, likely radiopaque debris. POS: [facility]
[2018-01-26 09:04] LABS: ALT (SGPT) 15 U/L (8-55); AST (SGOT) 14 U/L (5-34); Albumin 3.7 g/dL (3.4-4.8); Alkaline Phosphatase 153 U/L (40-150); Anion Gap 11 mmol/L (10-20); BUN (Urea Nitrogen) 12 mg/dL (8.4-25.7); Bilirubin, Total 0.5 mg/dL (0.2-1.2); CK (CPK) 59 U/L (30-200); Calc. Creatinine Clearance 0 mL/min (70-130); Calcium 9.2 mg/dL (7.8-10.44); Carbon Dioxide 30 mmol/L (23-31); Chloride 101 mmol/L (98-107); Estimated GFR-MDRD Greater than 90; Globulin 3.6 g/dL (2.4-3.5); Glucose 232 mg/dL (83-110); Protein, Total 7.3 g/dL (5.8-8.1); Sodium 138 mmol/L (136-145)
[2018-01-26 09:13] LABS: CKMB 1.7 ng/mL (0-6.6); Troponin I Less than 0.010 ng/mL (< 0.028)
[2018-01-26] MEDS ORDERED: Digoxin 0.5 MG/2 ML AMP ONE (11:24)
[2018-01-26] MEDS ORDERED: Ondansetron ODT 4 MG TAB PO PRN (13:40)
[2018-01-26 14:46] VITALS: BMI 29.7
[2018-01-26] MEDS: Furosemide 20 MG/2 ML VIAL SLOW IVP SCH (14:59)
[2018-01-26 15:34] LABS: Hemoglobin 13.8 g/dL (14.0-18.0); Platelet Count 210 thou/uL (130-400)
--- NOTE | 2018-01-26 16:59 | HP ---
DATE OF ADMISSION: 01/26/2018 CHIEF COMPLAINT: Palpitations, nausea and sweating. HISTORY OF PRESENT ILLNESS: This is a 73-year-old white male with a known history of paroxysmal atri al fibrillation, was in his usual state of health until yesterday. He noticed severe sweating when e verybody were doing fine and he was having severe nausea along with some dizziness. He was having so me palpitations and some chest tightness, so he decided to come to the ER for further evaluation. Wh en patient arrived in the ER, he had markedly elevated blood pressures and his heart rate was in 140s , so the patient actually was brought through EMS. During his way to the hospital, he received almos t 2 boluses of Cardizem of 20 and 30 mg, so altogether 50 mg received and his heart rate was still hi gh at around 130. The patient mentioned that while he was getting the Cardizem bolus, the patient di d feel his sweating was improved. When the patient arrived in the ER, he had amiodarone started by E R physician with 150 mg bolus. Heart rate was still high around 130s, so Cardiology was called and dusty kwan suggested the patient to be started on digoxin along with amiodarone. The patient was alert and o riented, did not appear to be in acute distress, but he continues to complain of swelling of his face , which correlates with a high heart rate. The patient denies having any chest pain at this time. N o nausea, no vomiting. PAST MEDICAL HISTORY: 1. Uncontrolled hypertension. 2. Type 2 diabetes mellitus. 3. Dyslipidemia. 4. Morbid obesity. 5. History of obstructive sleep apnea. 6. History of COPD. 7. History of congestive heart failure with low EF of 30%-35%. 8. Paroxysmal atrial fibrillation, on chronic anticoagulation. PAST SURGICAL HISTORY: 1. Bilateral inguinal hernia repair. 2. Left humeral fracture repair. 3. Aortobifemoral bypass grafting and endarterectomy. ALLERGIES: ZARA INHIBITORS. FAMILY HISTORY: The patient has no significant family history of coronary artery disease, stroke or cancer. SOCIAL HISTORY: The patient is a smoker. No history of alcohol. No history of illicit drug use. H e smokes 1 to 1-1/2 pack a day. He denies drinking any alcohol. CODE STATUS: Has been discussed, he is FULL CODE and the patient's sister is a surrogate decision haim carrera. HOME MEDICATIONS: Amiodarone 200 mg p.o. daily, aspirin 81 mg p.o. daily, atorvastatin 80 mg p.o. da evette, clonazepam 0.5 mg p.o. daily, Lasix 40 mg p.o. b.i.d., gabapentin 300 mg p.o. daily, insulin det yesika 55 units subcu daily, metformin 1000 mg p.o. daily, metoprolol tartrate 50 mg p.o. daily, pantop razole 40 mg p.o. daily, potassium 10 mEq p.o. daily, Xarelto 20 mg p.o. daily, sertraline 50 mg p.o. daily. REVIEW OF SYSTEMS: All 12 systems are reviewed with the patient thoroughly and found to be negative at this time. 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 PHYSICAL EXAMINATION: VITAL SIGNS: Blood pressure is 150/105, pulse is 132, respiratory rate 22, saturation 98% on 2 liter s. GENERAL: The patient is moderately built and moderately nourished, who does not appear to be in acut e distress at this time, alert, oriented x3. HEENT: Atraumatic, normocephalic, PERRLA. Extraocular muscles intact. Oral mucosa is pink and moist . CARDIOVASCULAR: S1, S2 normal. No murmurs, rubs or gallops. LUNGS: Bilateral air entry was equal. No wheezing, no crackles. ABDOMEN: Soft, nontender. No guarding or rebound tenderness. Bowel sounds normal. MUSCULOSKELETAL: No calf tenderness. No pedal edema. No joint tenderness, no joint swelling. SKIN: No cyanosis, no erythema, no rash, no pallor. NEUROLOGIC: Cranial nerve examination II-XII intact. No focal deficits were noted. LABORATORY DATA: WBC 9.5, hemoglobin 13.7, hematocrit is 41.5, platelets 208. Sodium 138, potassium 4.0, chloride 101, bicarb is 30, BUN is 12, creatinine 0.8, glucose 232, alkaline phosphatase 153. BNP 854. Chest x-ray was unremarkable. No evidence of any acute cardiopulmonary process. ASSESSMENT: 1. Atrial fibrillation with rapid ventricular rate. 2. Acute on chronic congestive heart failure with diastolic dysfunction. disease. 3. Chronic obstructive pulmonary disease. 4. Obstructive sleep apnea. 5. Uncontrolled hypertension. 6. Type 2 diabetes mellitus. PLAN: 1. Plan is to closely monitor this patient. At this time, we will continue the amiodarone drip per Cardiology and will continue with the digoxin per his recommendations. The patient is also on metopr olol 50 mg p.o. b.i.d. We will continue with this medication. 2. The patient has evidence of congestive heart failure with elevated BNP and evidence of pulmonary edema on the chest x-ray. We will continue the patient on Lasix 20 mg IV b.i.d. along with potassium supplementation as the patient will be on digoxin. 3. The patient has uncontrolled hypertension. The patient has ZARA INHIBITOR allergy. I would not s tart him on any ZARA inhibitors at this time. We will closely monitor and we will optimize other bloo d pressure medications. We will increase metoprolol from 50 to 100 mg b.i.d. 4. Type 2 diabetes mellitus, well controlled. We will restart the patient's home medications. The patient is on Lantus. We will continue the sliding scale insulin. Plan to keep the blood sugar is 1 40-180. We will get a 2D echo to look for any evidence of wall motion abnormality. 5. Deep venous thrombosis prophylaxis. The patient is on Xarelto. We will continue Xarelto. I spent 75 minutes with this patient. I discussed the patient about the surrogate decision maker. I spent 30 minutes with advance care valentin nning.
[2018-01-26] MEDS ORDERED: Dextrose 5% in Water 1,000 ML IV PRN (17:17)
[2018-01-26] MEDS ORDERED: Dextrose 50% Abboject 50 ML SYRINGE IVP PRN (17:17)
[2018-01-26] MEDS ORDERED: HumaLOG 300 UNITS/3 ML VIAL SC PRN (17:17)
[2018-01-26] MEDS: metFORMIN 500 MG TAB PO SCH (18:00)
[2018-01-26] MEDS: Potassium Chloride 10 MEQ TAB PO SCH (18:00)
[2018-01-26] MEDS: Amiodarone HCl 450 MG, Admixture Fee 1 EACH in Dextrose 5% in Water 250 ML IVPB SCH (19:49)
[2018-01-26] MEDS ORDERED: Enoxaparin Sodium 100 MG/ML SYRINGE SC SCH (21:00)
[2018-01-26] MEDS ORDERED: INSULIN DETEMIR SQ SCH (21:00)
[2018-01-26] MEDS ORDERED: Rivaroxaban 10 MG TAB PO SCH (21:00)
[2018-01-26] MEDS ORDERED: Enoxaparin Sodium 40 MG/0.4 ML SYRINGE SC SCH (21:00)
[2018-01-26] MEDS: Digoxin 0.5 MG/2 ML AMP SLOW IVP SCH (21:02)
[2018-01-26] MEDS: Gabapentin 300 MG CAP PO SCH (21:03)
[2018-01-26] MEDS: Docusate 100 MG CAP PO SCH (21:03)
[2018-01-26] MEDS: Metoprolol Tartrate 50 MG TAB PO SCH (21:04)
[2018-01-26] MEDS: Varenicline Tartrate 0.5 MG TAB PO SCH (21:04)
[2018-01-27] MEDS: HYDROcodone/Acetaminophen 5/325 mg Tablet PO PRN (01:35)
[2018-01-27 05:35] LABS: Anion Gap 13 mmol/L (10-20); BUN (Urea Nitrogen) 12 mg/dL (8.4-25.7); Calc. Creatinine Clearance 101 mL/min (70-130); Calcium 9.4 mg/dL (7.8-10.44); Carbon Dioxide 27 mmol/L (23-31); Chloride 99 mmol/L (98-107); Estimated GFR-MDRD 88; Glucose 176 mg/dL (83-110); Potassium 4.4 mmol/L (3.5-5.1); Sodium 135 mmol/L (136-145)
[2018-01-27 05:38] LABS: Digoxin 1.01 ng/mL (0.8-2.0)
[2018-01-27 05:49] LABS: Band 11 % (5-11); Eosinophils 1 % (0-10); Hemoglobin 14.1 g/dL (14.0-18.0); Lymphocytes 21 % (21-51); MDiff Complete? YES; Mean Corpuscular HGB CONC 32.3 g/dL (32.0-36.0); Mean Corpuscular Hemoglobin 29.3 pg (27.0-31.0); Mean Corpuscular Volume 90.5 fL (78.0-98.0); Mean Platelet Volume 8.1 fL (7.4-10.4); Metamyelocyte 1 % (0-0); Monocytes 5 % (0-10); Neutrophil 61 % (42-75); PLT Morphology Comment Appears Adequate; Platelet Count 232 thou/uL (130-400); RBC Distribution Width 14.8 % (11.5-14.5); Red Blood Cell (RBC) Count 4.81 mill/uL (4.70-6.10); White Blood Cell (WBC) Count 10.9 thou/uL (4.8-10.8)
[2018-01-27] MEDS: Furosemide 20 MG/2 ML VIAL SLOW IVP SCH ×2 (05:49→15:05)
[2018-01-27] MEDS: Insulin Glargine 30 UNITS in Pre-Filled Syringe 1 EACH SC SCH ×2 (08:16→20:55)
[2018-01-27] MEDS: Potassium Chloride 10 MEQ TAB PO SCH ×2 (08:17→17:16)
[2018-01-27] MEDS: metFORMIN 500 MG TAB PO SCH ×2 (08:17→17:17)
[2018-01-27] MEDS: Atorvastatin Calcium 40 MG TAB PO SCH (08:17)
[2018-01-27] MEDS: Gabapentin 300 MG CAP PO SCH ×3 (08:18→21:04)
[2018-01-27] MEDS: Docusate 100 MG CAP PO SCH ×2 (08:18→21:04)
[2018-01-27] MEDS: Digoxin 0.125 MG TAB PO SCH (08:18)
[2018-01-27] MEDS: Metoprolol Tartrate 50 MG TAB PO SCH ×2 (08:19→21:03)
[2018-01-27] MEDS: Insulin Regular 300 UNITS/3 ML VIAL SC SCH ×2 (08:26→17:15)
[2018-01-27] MEDS ORDERED: Lisinopril 2.5 MG TAB PO SCH (09:00)
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
[2018-01-27] MEDS: Varenicline Tartrate 0.5 MG TAB PO SCH ×2 (09:27→21:02)
[2018-01-27] MEDS: clonazePAM 0.5 MG TAB PO SCH (09:28)
[2018-01-27] MEDS ORDERED: Diltiazem 125 MG in Sodium Chloride 0.9% 100 ML IVPB SCH (10:00)
[2018-01-27] MEDS ORDERED: Iopamidol 370 76% 100 ML VIAL ONE (11:33)
[2018-01-27] MEDS: Amiodarone HCl 450 MG, Admixture Fee 1 EACH in Dextrose 5% in Water 250 ML IVPB SCH (11:34)
[2018-01-27] MEDS ORDERED: Amiodarone 200 MG TAB PO SCH (13:00)
--- NOTE | 2018-01-27 14:21 | PDOC.PN ---
- Subjective Encounter Start Date: 01/27/18 Encounter Start Time: 10:00 Brant is seen today, alert and oiented, He is going for CT abd, and pelvis, he has persistent Sweating and nausea. - Objective Resuscitation Status: Resuscitation Status FULL:Full Resuscitation MAR Reviewed: Yes Vital Signs & Weight: Vital Signs (12 hours) Temp Pulse Resp BP BP Pulse Ox 01/27/18 11:11 97.6 F 121 H 18 152/93 H 95 01/27/18 08:18 132 H 01/27/18 08:10 97.6 F 121 H 18 95 01/27/18 08:00 97.8 F 132 H 18 149/110 H 95 01/27/18 07:41 90 L 01/27/18 04:00 99.7 F H 127 H 18 120/84 91 L Weight Weight 199 lb 1.6 oz I&O: 01/26/18 01/27/18 01/28/18 06:59 06:59 06:59 Intake Total 951 Output Total 1100 Balance -149 Result Diagrams: 01/27/18 04:52 01/27/18 04:52 Additional Labs: Accuchecks 01/27/18 01/27/18 01/26/18 10:31 06:04 20:50 POC Glucose 191 H 175 H 172 H 01/26/18 16:46 POC Glucose 234 H Radiology Reviewed by me: Yes Phys Exam - Physical Examination HEENT: PERRLA, moist MMs Neck: no nodes, no JVD Respiratory: no wheezing, no rales Cardiovascular: RRR, no significant murmur Gastrointestinal: soft, non-tender Musculoskeletal: no edema, pulses present Neurological: non-focal, normal sensation Lymphatic: no nodes Dx/Plan (1) Pheochromocytoma Code(s): D35.00 - BENIGN NEOPLASM OF UNSPECIFIED ADRENAL GLAND Status: Acute Comment: Posisble, with Episodic symptoms, will get meanephrin urine and plasma, Jeremie ge CT abd/ pelvis with contrast for Adrenal gland tumor. (2) Atrial fibrillation with RVR Code(s): I48.91 - UNSPECIFIED ATRIAL FIBRILLATION Status: Acute Comment: PT on Amiodarone Drip pr Cardilogy, continued on Bblocker (3) Anxiety and depression Code(s): F41.8 - OTHER SPECIFIED ANXIETY DISORDERS Status: Chronic (4) COPD (chronic obstructive pulmonary disease) Status: Chronic Comment: deanna, Continue on Nebs. (5) Chronic anticoagulation Code(s): Z79.01 - [facility] (CURRENT) USE OF 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 Status: Chronic Comment: Continue on Xaelto (6) Chronic systolic (congestive) heart failure Code(s): I50.22 - CHRONIC SYSTOLIC (CONGESTIVE) HEART FAILURE Status: Chronic Comment: Likely Diastolic HF, contributing to Afib. Will continue with lasix , cannot USe for Allergy. (7) Diabetes type 2, controlled Code(s): E11.9 - TYPE 2 DIABETES MELLITUS WITHOUT COMPLICATIONS Status: Chronic Comment: Continue with lantus/ SSI. (8) Dyslipidemia Code(s): E78.5 - HYPERLIPIDEMIA, UNSPECIFIED Status: Chronic (9) HTN (hypertension) Code(s): I10 - ESSENTIAL (PRIMARY) HYPERTENSION Status: Chronic Comment: remains unconrolled, need to r/o Adenal tumors or secondary HTN causes. - Plan cont current plan of care, plan discussed w/ family, PT/OT, social services technician, respiratory therapy, incentive spirometry, out of bed/ambulate, DVT proph w/ lovenox * . Review of Systems - Review of Systems Eyes: negative: Pain, Vision Change, Conjunctivae Inflammation, Eyelid Inflammation, Redness, Other ENT: negative: Ear Pain, Ear Discharge, Nose Pain, Nose Discharge, Nose Congestion, Mouth Pain, Mouth Swelling, Throat Pain, Throat Swelling, Other Respiratory: negative: Cough, Dry, Shortness of Breath, Hemoptysis, SOB with Excertion, Pleuritic Pain, Sputum, Wheezing Cardiovascular: negative: chest pain, palpitations, orthopnea, paroxysmal nocturnal dyspnea, edema, light headedness, other Gastrointestinal: negative: Nausea, Vomiting, Abdominal Pain, Diarrhea, Constipation, Melena, Hematochezia, Other Genitourinary: negative: Dysuria, Frequency, Incontinence, Hematuria, Retention , Other Musculoskeletal: negative: Neck Pain, Shoulder Pain, Arm Pain, Back Pain, Hand Pain, Leg Pain, Foot Pain, Other - Medications/Allergies Allergies/Adverse Reactions: Allergies Allergy/AdvReac Type Severity Reaction Status Date / Time ZARA Inhibitors Allergy Severe ANGIOEDEMA Verified 10/29/15 00:24 Medications: Current Medications Hydrocodone Bitart/Acetaminophen ([place] 5/325) 1 tab PO Q4H PRN PRN Reason: Moderate Pain (4-6) Last Admin: 01/27/18 01:35 Dose: 1 tab Amiodarone HCl (Cordarone) 400 mg PO TID [facility] Aspirin (Aspirin Chewable) 81 mg PO QAM [facility] Last Admin: 01/27/18 08:17 Dose: 81 mg Atorvastatin Calcium (Lipitor) 80 mg PO DAILY [facility] Last Admin: 01/27/18 08:17 Dose: 80 mg Clonazepam (Klonopin) 0.5 mg PO DAILY [facility] Last Admin: 01/27/18 09:28 Dose: 0.5 mg Dextrose/Water (Dextrose 50%) 25 gm IVP PRN PRN PRN Reason: HYPOGLYCEMIA PROTOCOL Digoxin (Lanoxin) 0.25 mg SLOW IVP NOW [facility] Stop: 01/27/18 22:00 Last Admin: 01/26/18 21:02 Dose: 0.25 mg Digoxin (Lanoxin) 0.125 mg PO DAILY [facility] Last Admin: 01/27/18 08:18 Dose: 0.125 mg Docusate Sodium (Colace) 100 mg PO BID [facility] Last Admin: 01/27/18 08:18 Dose: Not Given Folic Acid (Folvite) 1 mg PO DAILY [facility] Furosemide (Lasix) 20 mg SLOW IVP 0600,1400 [facility] Last Admin: 01/27/18 05:49 Dose: 20 mg Gabapentin (Neurontin) 300 mg PO TID [facility] Last Admin: 01/27/18 08:18 Dose: 300 mg Glucagon (Glucagon) 1 mg IM PRN PRN PRN Reason: HYPOGLYCEMIA PROTOCOL Dextrose/Water (D5w) 1,000 mls @ 0 mls/hr IV INF PRN; As Directed PRN Reason: HYPOGLYCEMIA PROTOCOL Insulin Glargine 30 units/ (Miscellaneous Medication) 0.3 mls @ 0 mls/hr SC BID [facility] Last Admin: 01/27/18 08:16 Dose: 0.3 mls Thiamine HCl 100 mg/ Sodium (Chloride) 51 mls @ 100 mls/hr IVPB Q24HR [facility] Last Admin: 01/27/18 12:55 Dose: 51 mls Insulin Human Lispro (Humalog) 0 units SC .MODERATE SLIDING SC PRN; Protocol PRN Reason: MODERATE SLIDING SCALE Insulin Human Regular (Humulin R) 15 units SC BID-[facility] Last Admin: 01/27/18 08:26 Dose: Not Given Metformin HCl (Glucophage) 1,000 mg PO BID-[facility] Last Admin: 01/27/18 08:17 Dose: 1,000 mg Metoprolol Tartrate (Lopressor) 50 mg PO BID [facility] Last Admin: 01/27/18 08:19 Dose: 50 mg Ondansetron HCl (Zofran Odt) 4 mg PO Q6H PRN PRN Reason: Nausea/Vomiting Pantoprazole Sodium (Protonix) 40 mg PO DAILY [facility] Last Admin: 01/27/18 08:19 Dose: 40 mg Potassium Chloride (Klor-Con 10) 10 meq PO BID-[facility] Last Admin: 01/27/18 08:17 Dose: 10 meq Rivaroxaban (Xarelto) 20 mg PO QPM-[facility] Sertraline HCl (Zoloft) 50 mg PO DAILY [facility] Last Admin: 01/27/18 08:19 Dose: 50 mg Varenicline (Chantix) 1 mg PO BID [facility] Last Admin: 01/27/18 09:27 Dose: 1 mg
[2018-01-27] MEDS: Amiodarone 200 MG TAB PO SCH ×2 (15:06→21:03)
--- NOTE | 2018-01-27 15:19 | CT ---
CT ABDOMEN WITH AND WITHOUT CONTRAST CT PELVIS WITH CONTRAST: DATE: 01/27/18. HISTORY: A 73-year-old male with hypertension. Rule out pheochromocytoma. COMPARISON: 10/28/15. TECHNIQUE: IV Contrast: 100 mL of Isovue 370. Precontrast, 60-second delayed post contrast, and 10-minute delayed postcontrast, scans of abdomen. Sixty-second delayed postcontrast scan of pelvis. FINDINGS: There is no adrenal mass. There are multiple scattered slightly enlarged paraaortic retroperitoneal lymph nodes, unchanged since the previous CT. Again noted are the aortobifemoral graft surgery sánchez es. There are multiple small gallstones. No signs of acute cholecystitis. No hydronephrosis of the kidneys. 2 cortical exophytic cysts protruding from the lateral aspect of the right renal cortex, u nchanged since 2016. There is a 1.5 cm cyst in the medial aspect of the right renal upper pole, unch anged since the previous CT. No other renal abnormality. Liver, adrenals, pancreas, and spleen are normal. No pleural effusion. Numerous diverticula throughout descending colon and sigmoid colon, wi thout acute diverticulitis. The previously demonstrated hematoma of the right rectus abdominus sheat h, is no longer present. Urinary bladder appears normal. No small bowel dilation. No iliac chain l ymphadenopathy. No intrapelvic mass or free fluid. Normal appendix. The left anterior abdominal wa ll is very thin, and results in a mild broad bulge of intraperitoneal contents towards the overlying thin subcutaneous fat. This is somewhat worse than on the previous CT. IMPRESSION: 1. No pheochromocytoma. 2. Colonic diverticulosis without diverticulitis. 3. Status post aortobifemoral bypass graft surgery. 4. Cholelithiasis. POS: [facility]
[2018-01-27] MEDS: Rivaroxaban 10 MG TAB PO SCH (17:17)
[2018-01-27] MEDS: Digoxin 0.5 MG/2 ML AMP SLOW IVP SCH (21:09)
[2018-01-28] MEDS: HYDROcodone/Acetaminophen 5/325 mg Tablet PO PRN (02:41)
[2018-01-28] MEDS: Furosemide 20 MG/2 ML VIAL SLOW IVP SCH ×2 (05:50→13:56)
[2018-01-28 05:55] LABS: Digoxin 1.09 ng/mL (0.8-2.0)
[2018-01-28] MEDS: clonazePAM 0.5 MG TAB PO SCH (08:49)
[2018-01-28] MEDS: Varenicline Tartrate 0.5 MG TAB PO SCH ×2 (08:49→21:37)
[2018-01-28] MEDS: Potassium Chloride 10 MEQ TAB PO SCH ×2 (08:49→16:20)
[2018-01-28] MEDS: Digoxin 0.125 MG TAB PO SCH (08:49)
[2018-01-28] MEDS: Amiodarone 200 MG TAB PO SCH ×3 (08:49→21:04)
[2018-01-28] MEDS: Atorvastatin Calcium 40 MG TAB PO SCH (08:50)
[2018-01-28] MEDS: metFORMIN 500 MG TAB PO SCH (08:50)
[2018-01-28] MEDS: Gabapentin 300 MG CAP PO SCH ×3 (08:50→21:04)
[2018-01-28] MEDS: Folic Acid 1 MG TAB PO SCH (08:50)
[2018-01-28] MEDS: Metoprolol Tartrate 50 MG TAB PO SCH ×2 (08:50→21:04)
[2018-01-28] MEDS: Docusate 100 MG CAP PO SCH ×2 (08:50→21:05)
[2018-01-28] MEDS: Insulin Glargine 30 UNITS in Pre-Filled Syringe 1 EACH SC SCH (08:51)
[2018-01-28] MEDS: Insulin Regular 300 UNITS/3 ML VIAL SC SCH (09:02)
--- NOTE | 2018-01-28 10:26 | PDOC.CTH ---
<Kyung Telles - Last Filed: 01/28/18 10:24> Cardiology Progress Note - Subjective Patient without CP/SOB or LUO. Denies palpitations. felt flushed this morning. Tele shows AF with RVR converted to sinus tushar twice yesterday afternoon. IV Amio stopped. Currently AF 90s. - Objective Vital Signs Temp Pulse Resp BP Pulse Ox 01/28/18 08:49 100 01/28/18 08:41 97.7 F 100 18 131/89 93 L 01/28/18 05:39 91 L 01/28/18 04:00 97.7 F 73 21 H 131/81 91 L Weight 199 lb 3.2 oz 01/27/18 01/28/18 01/29/18 06:59 06:59 06:59 Intake Total 951 1556 Output Total 1100 1225 350 Balance -149 331 -350 - Physical Examination General/Neuro: alert & oriented x3 Lungs: CTA Heart: other: (IRR) Abdomen: soft Extremities: other: (no edema) - Labs Result Diagrams: 01/27/18 04:52 01/27/18 04:52 Troponin/CKMB CK-MB (CK-2) 1.7 ng/mL (0-6.6) 01/26/18 08:31 Troponin I Less than 0.010 ng/mL (< 0.028) 01/26/18 08:31 - Assessment/Plan 1. AF with RVR 2. Acute on chronic systolic CHF 3. History of noncompliance 4. Tobacco Abuse 5. HTN Continue Amio po and Xarelto. Change IV lasix to po starting tomorrow. <Ganga Hernandez - Last Filed: 01/28/18 16:38> Cardiology Progress Note - Objective Vital Signs Temp Pulse Pulse Pulse Resp BP BP 01/28/18 16:23 97.9 F 49 L 18 01/28/18 15:13 47 L 60 124/58 L 145/70 H 01/28/18 12:24 97.8 F 109 H 20 01/28/18 08:49 100 01/28/18 08:41 97.7 F 100 18 01/28/18 05:39 BP Pulse Ox Pulse Ox Pulse Ox 01/28/18 16:23 155/67 H 92 L 01/28/18 15:13 94 L 92 L 01/28/18 12:24 136/89 94 L 01/28/18 08:49 01/28/18 08:41 131/89 93 L 01/28/18 05:39 91 L Weight 199 lb 3.2 oz 01/27/18 01/28/18 01/29/18 06:59 06:59 06:59 Intake Total 951 1556 Output Total 1100 1225 550 Balance -149 331 -550 - Labs Result Diagrams: 01/28/18 14:43 01/28/18 11:56 Troponin/CKMB CK-MB (CK-2) 1.7 ng/mL (0-6.6) 01/26/18 08:31 Troponin I Less than 0.010 ng/mL (< 0.028) 01/26/18 08:31 - Assessment/Plan Pt personally seen and examined. Agree with above. Pt continues with PAF. NOw SR. Continue amiodarone and NOAC. Reassess in am. Not sure [place]/ CV beneficial if continues with intermittent afib.
[2018-01-28 11:34] LABS: Anion Gap 17 mmol/L (10-20); BUN (Urea Nitrogen) 19 mg/dL (8.4-25.7); Calc. Creatinine Clearance 100 mL/min (70-130); Calcium 9.2 mg/dL (7.8-10.44); Carbon Dioxide 22 mmol/L (23-31); Chloride 100 mmol/L (98-107); Estimated GFR-MDRD 87; Glucose 21 mg/dL (83-110); Magnesium 2.3 mg/dL (1.6-2.6); Potassium 4.3 mmol/L (3.5-5.1); Sodium 135 mmol/L (136-145)
[2018-01-28] MEDS ORDERED: Insulin Regular 300 UNITS/3 ML VIAL SC PRN (11:41)
[2018-01-28 12:15] LABS: Glucose 95 mg/dL (83-110)
[2018-01-28 14:50] LABS: Hemoglobin 15.4 g/dL (14.0-18.0); Platelet Count 284 thou/uL (130-400)
[2018-01-28] MEDS: Rivaroxaban 10 MG TAB PO SCH (16:20)
--- NOTE | 2018-01-28 18:53 | PDOC.PN ---
- Subjective Encounter Start Date: 01/28/18 Encounter Start Time: 11:30 Patient seen and examined for CHF/Afib. SOB improving. No CP/Palpitations. No overnight events - Objective Resuscitation Status: Resuscitation Status FULL:Full Resuscitation MAR Reviewed: Yes Vital Signs & Weight: Vital Signs (12 hours) Temp Pulse Pulse Pulse Resp BP BP 01/28/18 16:23 97.9 F 49 L 18 01/28/18 15:13 47 L 60 124/58 L 145/70 H 01/28/18 12:24 97.8 F 109 H 20 01/28/18 08:49 100 01/28/18 08:41 97.7 F 100 18 BP Pulse Ox Pulse Ox Pulse Ox 01/28/18 16:23 155/67 H 92 L 01/28/18 15:13 94 L 92 L 01/28/18 12:24 136/89 94 L 01/28/18 08:49 01/28/18 08:41 131/89 93 L Weight Weight 199 lb 3.2 oz I&O: 01/27/18 01/28/18 01/29/18 06:59 06:59 06:59 Intake Total 951 1556 Output Total 1100 1225 550 Balance -149 331 -550 Result Diagrams: 01/28/18 14:43 01/28/18 11:56 Additional Labs: Accuchecks 01/28/18 01/28/18 01/28/18 17:37 11:40 05:39 POC Glucose 248 H 94 131 H Radiology Reviewed by me: Yes (CT abd - no acute findings) EKG Reviewed by me: Yes (Tele Afib) Phys Exam - Physical Examination Constitutional: NAD Neck: no JVD Respiratory: no wheezing, no rhonchi Scat rales at bases, Symmetrical Cardiovascular: no rub, irregular no heaves/pulsations Gastrointestinal: soft, non-tender, no distention, positive bowel sounds Musculoskeletal: no edema Neurological: non-focal, moves all 4 limbs Psychiatric: normal affect, A&O x 3 Dx/Plan - Plan IMPRESSION: -Afib with RVR - Off Amiodarone drip -Acute on Chronic systolic HF - ACC stage C -DM2 -COPD -MEJIA -HTN -HLD PLAN: Cont Amiodarone loading with Digoxin Monitor electrolytes Cont diuretics AM labs Cont to monitor Hold Metformin due to contrast yesterday Cont current meds as below Start CPAP HS Review of Systems - Review of Systems Constitutional: negative: fever, chills, sweats, weakness, malaise, other Gastrointestinal: negative: Nausea, Vomiting, Abdominal Pain, Diarrhea, Constipation, Melena, Hematochezia, Other - Medications/Allergies Allergies/Adverse Reactions: Allergies Allergy/AdvReac Type Severity Reaction Status Date / Time ZARA Inhibitors Allergy Severe ANGIOEDEMA Verified 10/29/15 00:24 Medications: Current Medications Hydrocodone Bitart/Acetaminophen ([place] 5/325) 1 tab PO Q4H PRN PRN Reason: Moderate Pain (4-6) Last Admin: 01/28/18 02:41 Dose: 1 tab Amiodarone HCl (Cordarone) 400 mg PO TID [facility] Last Admin: 01/28/18 13:56 Dose: 400 mg Aspirin (Aspirin Chewable) 81 mg PO QAM [facility] Last Admin: 01/28/18 08:50 Dose: 81 mg Atorvastatin Calcium (Lipitor) 80 mg PO DAILY [facility] Last Admin: 01/28/18 08:50 Dose: 80 mg Clonazepam (Klonopin) 0.5 mg PO DAILY [facility] Last Admin: 01/28/18 08:49 Dose: 0.5 mg Dextrose/Water (Dextrose 50%) 25 gm IVP PRN PRN PRN Reason: HYPOGLYCEMIA PROTOCOL Digoxin (Lanoxin) 0.125 mg PO DAILY [facility] Last Admin: 01/28/18 08:49 Dose: 0.125 mg Docusate Sodium (Colace) 100 mg PO BID [facility] Last Admin: 01/28/18 08:50 Dose: 100 mg Folic Acid (Folvite) 1 mg PO DAILY [facility] Last Admin: 01/28/18 08:50 Dose: 1 mg Furosemide (Lasix) 20 mg PO 0900,1400 [facility] Gabapentin (Neurontin) 300 mg PO TID [facility] Last Admin: 01/28/18 13:56 Dose: 300 mg Glucagon (Glucagon) 1 mg IM PRN PRN PRN Reason: HYPOGLYCEMIA PROTOCOL Dextrose/Water (D5w) 1,000 mls @ 0 mls/hr IV INF PRN; As Directed PRN Reason: HYPOGLYCEMIA PROTOCOL Thiamine HCl 100 mg/ Sodium (Chloride) 51 mls @ 100 mls/hr IVPB Q24HR [facility] Last Admin: 01/28/18 11:03 Dose: 51 mls Insulin Glargine 30 units/ (Miscellaneous Medication) 0.3 mls @ 0 mls/[facility] [place] Insulin Human Regular (Humulin R) 0 units SC .MILD SLIDING SCALE PRN PRN Reason: Mild Correctional Scale Last Admin: 01/28/18 17:36 Dose: 3 unit Insulin Human Regular (Humulin R) 0 units SC .BEDTIME SLIDING SC PRN PRN Reason: Bedtime Correctional Scale Metoprolol Tartrate (Lopressor) 50 mg PO BID [facility] Last Admin: 01/28/18 08:50 Dose: 50 mg Ondansetron HCl (Zofran Odt) 4 mg PO Q6H PRN PRN Reason: Nausea/Vomiting Pantoprazole Sodium (Protonix) 40 mg PO DAILY [facility] Last Admin: 01/28/18 08:50 Dose: 40 mg Potassium Chloride (Klor-Con 10) 10 meq PO BID[facility] Last Admin: 01/28/18 16:20 Dose: 10 meq Rivaroxaban (Xarelto) 20 mg PO QPM-[facility] Last Admin: 01/28/18 16:20 Dose: 20 mg Sertraline HCl (Zoloft) 50 mg PO DAILY [facility] Last Admin: 01/28/18 08:50 Dose: 50 mg Varenicline (Chantix) 1 mg PO BID [facility] Last Admin: 01/28/18 08:49 Dose: 1 mg
[2018-01-29 05:32] LABS: Anion Gap 12 mmol/L (10-20); BUN (Urea Nitrogen) 29 mg/dL (8.4-25.7); Calc. Creatinine Clearance 89 mL/min (70-130); Carbon Dioxide 28 mmol/L (23-31); Chloride 102 mmol/L (98-107); Estimated GFR-MDRD 76; Glucose 150 mg/dL (83-110); Magnesium 1.9 mg/dL (1.6-2.6); Potassium 4.2 mmol/L (3.5-5.1); Sodium 138 mmol/L (136-145)
[2018-01-29] MEDS: Furosemide 20 MG TAB PO SCH ×3 (06:00→14:18)
--- NOTE | 2018-01-29 09:31 | PDOC.CTH ---
Cardiology Progress Note - Subjective No complaints. Feeling much better overall. Converted to NSR yesterday around 1pm and sinus tushar 47-50bpm since that time. - Objective Vital Signs Temp Pulse Resp Pulse Ox 01/29/18 05:33 96 01/29/18 04:00 97.9 F 58 L 18 96 Weight 199 lb 3.2 oz 01/28/18 01/29/18 01/30/18 06:59 06:59 06:59 Intake Total 1556 Output Total 1225 550 Balance 331 -550 - Physical Examination General/Neuro: alert & oriented x3 Neck: no JVD present Lungs: CTA Heart: RRR Abdomen: NT/ND, other: (abdominal wall hernia) Extremities: other: (no edema) - Telemetry Telemetry Rhythm: SB 48bpm - Labs Result Diagrams: 01/28/18 14:43 01/29/18 04:41 Troponin/CKMB CK-MB (CK-2) 1.7 ng/mL (0-6.6) 01/26/18 08:31 Troponin I Less than 0.010 ng/mL (< 0.028) 01/26/18 08:31 - Assessment/Plan 1. AF with RVR - now converted on IV and po Amio to sinus tushar 2. Acute on chronic systolic CHF 3. History of noncompliance 4. Tobacco Abuse 5. HTN overall more euvolemic. Will decrease Amio to 400mg BID and continue to monitor. ? home tomorrow.
[2018-01-29] MEDS ORDERED: Amiodarone 200 MG TAB PO SCH ×2 (09:45→21:00)
[2018-01-29] MEDS: Potassium Chloride 10 MEQ TAB PO SCH ×2 (09:55→17:55)
[2018-01-29] MEDS: Gabapentin 300 MG CAP PO SCH ×3 (09:57→22:52)
[2018-01-29] MEDS: Atorvastatin Calcium 40 MG TAB PO SCH (09:57)
[2018-01-29] MEDS: Folic Acid 1 MG TAB PO SCH (09:58)
[2018-01-29] MEDS: Docusate 100 MG CAP PO SCH ×2 (09:58→22:52)
[2018-01-29] MEDS: Digoxin 0.125 MG TAB PO SCH (10:18)
[2018-01-29] MEDS: Insulin Glargine 30 UNITS in Pre-Filled Syringe 1 EACH SC SCH (10:19)
[2018-01-29] MEDS: Metoprolol Tartrate 50 MG TAB PO SCH ×2 (10:19→23:00)
[2018-01-29] MEDS: Varenicline Tartrate 0.5 MG TAB PO SCH ×2 (10:58→22:53)
[2018-01-29] MEDS: clonazePAM 0.5 MG TAB PO SCH (10:59)
[2018-01-29] MEDS: Amiodarone 200 MG TAB PO SCH (11:37)
--- NOTE | 2018-01-29 11:37 | PDOC.PN ---
- Subjective Encounter Start Date: 01/29/18 Encounter Start Time: 10:00 Patient seen and examined for CHF and RVR - Feels better. No CP/SOB at rest. No overnight events - Objective Resuscitation Status: Resuscitation Status FULL:Full Resuscitation MAR Reviewed: Yes Vital Signs & Weight: Vital Signs (12 hours) Temp Pulse Pulse Pulse Resp BP BP 01/29/18 10:18 51 L 01/29/18 09:10 98.7 F 51 L 18 01/29/18 09:08 55 L 52 L 155/70 H 156/70 H 01/29/18 05:33 01/29/18 04:00 97.9 F 58 L 18 BP Pulse Ox Pulse Ox Pulse Ox 01/29/18 10:18 01/29/18 09:10 141/67 H 94 L 01/29/18 09:08 93 L 94 L 01/29/18 05:33 96 01/29/18 04:00 96 Weight Weight 199 lb 3.2 oz I&O: 01/28/18 01/29/18 01/30/18 06:59 06:59 06:59 Intake Total 1556 Output Total 1225 550 Balance 331 -550 Result Diagrams: 01/28/18 14:43 01/29/18 04:41 Additional Labs: Accuchecks 01/29/18 01/28/18 01/28/18 05:23 20:08 17:37 POC Glucose 143 H 204 H 248 H 01/28/18 11:40 POC Glucose 94 EKG Reviewed by me: Yes (Tele SB) Phys Exam - Physical Examination Constitutional: NAD Respiratory: no wheezing, no rhonchi Scat rales at bases Cardiovascular: RRR, no rub Gastrointestinal: soft, non-tender, positive bowel sounds Musculoskeletal: no edema Neurological: moves all 4 limbs Dx/Plan - Plan IMPRESSION: -Afib with RVR - on Amiodarone loading - in SR -Acute on Chronic systolic HF - ACC stage C - improving -DM2 with hypoglycemia - Lantus dose reduced to 30 units daily 01/28 -COPD -MEJIA - on CPAP -HTN -HLD PLAN: Cont Amiodarone, Toprol with Digoxin Cont PO Lasix BMP in AM Metformin on hold Cont mild sliding scale Cont Cardiac Rehab Cont current meds as below Review of Systems - Review of Systems Respiratory: negative: Cough, Dry, Shortness of Breath, Hemoptysis, SOB with Excertion, Pleuritic Pain, Sputum, Wheezing Cardiovascular: negative: chest pain, palpitations, orthopnea, paroxysmal nocturnal dyspnea, edema, light headedness, other - Medications/Allergies Allergies/Adverse Reactions: Allergies Allergy/AdvReac Type Severity Reaction Status Date / Time ZARA Inhibitors Allergy Severe ANGIOEDEMA Verified 10/29/15 00:24 Medications: Current Medications Hydrocodone Bitart/Acetaminophen ([place] 5/325) 1 tab PO Q4H PRN PRN Reason: Moderate Pain (4-6) Last Admin: 01/28/18 02:41 Dose: 1 tab Amiodarone HCl (Cordarone) 400 mg PO BID [facility] Amiodarone HCl (Cordarone) 400 mg PO NOW [facility] Stop: 01/29/18 11:45 Last Admin: 01/29/18 10:20 Dose: Not Given Aspirin (Aspirin Chewable) 81 mg PO QAM [facility] Last Admin: 01/29/18 09:55 Dose: 81 mg Atorvastatin Calcium (Lipitor) 80 mg PO DAILY [facility] Last Admin: 01/29/18 09:57 Dose: 80 mg Clonazepam (Klonopin) 0.5 mg PO DAILY [facility] Last Admin: 01/29/18 10:59 Dose: 0.5 mg Dextrose/Water (Dextrose 50%) 25 gm IVP PRN PRN PRN Reason: HYPOGLYCEMIA PROTOCOL Digoxin (Lanoxin) 0.125 mg PO DAILY [facility] Last Admin: 01/29/18 10:18 Dose: 0.125 mg Docusate Sodium (Colace) 100 mg PO BID [facility] Last Admin: 01/29/18 09:58 Dose: Not Given Folic Acid (Folvite) 1 mg PO DAILY [facility] Last Admin: 01/29/18 09:58 Dose: 1 mg Furosemide (Lasix) 20 mg PO 0900,1400 [facility] Last Admin: 01/29/18 09:58 Dose: 20 mg Gabapentin (Neurontin) 300 mg PO TID [facility] Last Admin: 01/29/18 09:57 Dose: 300 mg Glucagon (Glucagon) 1 mg IM PRN PRN PRN Reason: HYPOGLYCEMIA PROTOCOL Dextrose/Water (D5w) 1,000 mls @ 0 mls/hr IV INF PRN; As Directed PRN Reason: HYPOGLYCEMIA PROTOCOL Thiamine HCl 100 mg/ Sodium (Chloride) 51 mls @ 100 mls/hr IVPB Q24HR [facility] Last Admin: 01/28/18 11:03 Dose: 51 mls Insulin Glargine 30 units/ (Miscellaneous Medication) 0.3 mls @ 0 mls/hr SC QAM [facility] Last Admin: 01/29/18 10:19 Dose: 0.3 mls Insulin Human Regular (Humulin R) 0 units SC .MILD SLIDING SCALE PRN PRN Reason: Mild Correctional Scale Last Admin: 01/28/18 17:36 Dose: 3 unit Insulin Human Regular (Humulin R) 0 units SC .BEDTIME SLIDING SC PRN PRN Reason: Bedtime Correctional Scale Metoprolol Tartrate (Lopressor) 50 mg PO BID [facility] Last Admin: 01/29/18 10:19 Dose: Not Given Ondansetron HCl (Zofran Odt) 4 mg PO Q6H PRN PRN Reason: Nausea/Vomiting Pantoprazole Sodium (Protonix) 40 mg PO DAILY [facility] Last Admin: 01/29/18 09:58 Dose: 40 mg Potassium Chloride (Klor-Con 10) 10 meq PO BID-[facility] Last Admin: 01/29/18 09:55 Dose: 10 meq Rivaroxaban (Xarelto) 20 mg PO QPM-[facility] Last Admin: 01/28/18 16:20 Dose: 20 mg Sertraline HCl (Zoloft) 50 mg PO DAILY [facility] Last Admin: 01/29/18 09:55 Dose: 50 mg Varenicline (Chantix) 1 mg PO BID [facility] Last Admin: 01/29/18 10:58 Dose: 1 mg
[2018-01-29] MEDS: Insulin Regular 300 UNITS/3 ML VIAL SC PRN ×2 (14:29→17:55)
[2018-01-29] MEDS: Rivaroxaban 10 MG TAB PO SCH (17:54)
[2018-01-30 05:45] LABS: Anion Gap 13 mmol/L (10-20); BUN (Urea Nitrogen) 21 mg/dL (8.4-25.7); Calc. Creatinine Clearance 104 mL/min (70-130); Calcium 8.8 mg/dL (7.8-10.44); Carbon Dioxide 26 mmol/L (23-31); Chloride 102 mmol/L (98-107); Estimated GFR-MDRD Greater than 90; Glucose 151 mg/dL (83-110); Sodium 137 mmol/L (136-145)
[2018-01-30] MEDS: Insulin Regular 300 UNITS/3 ML VIAL SC PRN ×2 (10:22→12:17)
[2018-01-30] MEDS: Insulin Glargine 30 UNITS in Pre-Filled Syringe 1 EACH SC SCH (10:23)
[2018-01-30] MEDS: Atorvastatin Calcium 40 MG TAB PO SCH (10:24)
[2018-01-30] MEDS: Varenicline Tartrate 0.5 MG TAB PO SCH ×2 (10:25→21:17)
[2018-01-30] MEDS: clonazePAM 0.5 MG TAB PO SCH (10:25)
[2018-01-30] MEDS: Gabapentin 300 MG CAP PO SCH ×3 (10:25→20:39)
[2018-01-30] MEDS: Docusate 100 MG CAP PO SCH ×2 (10:26→20:38)
[2018-01-30] MEDS: Folic Acid 1 MG TAB PO SCH (10:26)
[2018-01-30] MEDS: Amiodarone 200 MG TAB PO SCH ×2 (10:28→20:40)
[2018-01-30] MEDS: hydrALAZINE 25 MG TAB PO SCH ×2 (10:30→20:38)
[2018-01-30] MEDS: Metoprolol Tartrate 25 MG TAB PO SCH ×2 (10:30→20:38)
[2018-01-30] MEDS: Rivaroxaban 10 MG TAB PO SCH (17:37)
--- NOTE | 2018-01-30 18:33 | PDOC.PN ---
- Subjective Encounter Start Date: 01/30/18 Encounter Start Time: 07:15 Patient seen and examined for CHF/ Afib. No new complaints. No overnight events - Objective Resuscitation Status: Resuscitation Status FULL:Full Resuscitation Vital Signs & Weight: Vital Signs (12 hours) Temp Pulse Pulse Pulse Resp BP BP 01/30/18 15:25 97.7 F 59 L 20 01/30/18 12:12 97.7 F 50 L 20 01/30/18 10:30 62 160/95 H 01/30/18 09:13 65 63 186/81 H 01/30/18 07:37 97.7 F 50 L 20 BP BP Pulse Ox Pulse Ox Pulse Ox 01/30/18 15:25 163/72 H 97 01/30/18 12:12 156/69 H 01/30/18 10:30 01/30/18 09:13 190/79 H 96 95 01/30/18 07:37 160/95 H 93 L Weight Weight 197 lb 14.4 oz I&O: 01/29/18 01/30/18 01/31/18 06:59 06:59 06:59 Intake Total 1117 Output Total 550 2180 Balance -550 -1063 Result Diagrams: 01/28/18 14:43 01/30/18 05:06 Additional Labs: Accuchecks 01/30/18 01/30/18 01/30/18 16:56 10:32 06:35 POC Glucose 123 H 242 H 156 H 01/29/18 21:28 POC Glucose 195 H Phys Exam - Physical Examination Constitutional: NAD Respiratory: no wheezing, no rhonchi Cardiovascular: RRR, no rub Gastrointestinal: soft, positive bowel sounds Musculoskeletal: no edema Neurological: moves all 4 limbs Dx/Plan - Plan IMPRESSION: -Afib with RVR - in SR -Acute on Chronic systolic HF - ACC stage C - improving -DM2 with hypoglycemia - Lantus dose reduced to 30 units daily 01/28 -COPD -MEJIA - on CPAP -HTN -HLD PLAN: Cont Amiodarone Metoprolol dose reduced Digoxin on hold Cont PO Lasix at 40 mg daily CBC, BMP in AM Cont mild sliding scale Cont Cardiac Rehab Cont current meds as below Review of Systems - Review of Systems Respiratory: negative: Cough, Dry, Shortness of Breath, Hemoptysis, SOB with Excertion, Pleuritic Pain, Sputum, Wheezing Cardiovascular: negative: chest pain, palpitations, orthopnea, paroxysmal nocturnal dyspnea, edema, light headedness, other - Medications/Allergies Allergies/Adverse Reactions: Allergies Allergy/AdvReac Type Severity Reaction Status Date / Time ZARA Inhibitors Allergy Severe ANGIOEDEMA Verified 10/29/15 00:24 Medications: Current Medications Hydrocodone Bitart/Acetaminophen ([place] 5/325) 1 tab PO Q4H PRN PRN Reason: Moderate Pain (4-6) Last Admin: 01/28/18 02:41 Dose: 1 tab Amiodarone HCl (Cordarone) 200 mg PO BID [facility] Last Admin: 01/30/18 10:28 Dose: 200 mg Aspirin (Aspirin Chewable) 81 mg PO QAM [facility] Last Admin: 01/30/18 10:26 Dose: 81 mg Atorvastatin Calcium (Lipitor) 80 mg PO DAILY [facility] Last Admin: 01/30/18 10:24 Dose: 80 mg Clonazepam (Klonopin) 0.5 mg PO DAILY [facility] Last Admin: 01/30/18 10:25 Dose: 0.5 mg Dextrose/Water (Dextrose 50%) 25 gm IVP PRN PRN PRN Reason: HYPOGLYCEMIA PROTOCOL Docusate Sodium (Colace) 100 mg PO BID [facility] Last Admin: 01/30/18 10:26 Dose: 100 mg Folic Acid (Folvite) 1 mg PO DAILY [facility] Last Admin: 01/30/18 10:26 Dose: 1 mg Furosemide (Lasix) 40 mg PO DAILY-[facility] Gabapentin (Neurontin) 300 mg PO TID [facility] Last Admin: 01/30/18 15:33 Dose: 300 mg Glucagon (Glucagon) 1 mg IM PRN PRN PRN Reason: HYPOGLYCEMIA PROTOCOL Hydralazine HCl (Apresoline) 25 mg PO BID [facility] Last Admin: 01/30/18 10:30 Dose: 25 mg Dextrose/Water (D5w) 1,000 mls @ 0 mls/hr IV INF PRN; As Directed PRN Reason: HYPOGLYCEMIA PROTOCOL Thiamine HCl 100 mg/ Sodium (Chloride) 51 mls @ 100 mls/hr IVPB Q24HR [facility] Last Admin: 01/30/18 12:17 Dose: 51 mls Insulin Glargine 30 units/ (Miscellaneous Medication) 0.3 mls @ 0 mls/hr SC QAM [facility] Last Admin: 01/30/18 10:23 Dose: 0.3 mls Insulin Human Regular (Humulin R) 0 units SC .BEDTIME SLIDING SC PRN PRN Reason: Bedtime Correctional Scale Last Admin: 01/29/18 17:55 Dose: 2 units Insulin Human Regular (Humulin R) 0 units SC .MODERATE SLIDING SC PRN PRN Reason: Moderate Correctional Scale Last Admin: 01/30/18 12:17 Dose: 4 unit Metoprolol Tartrate (Lopressor) 25 mg PO BID [facility] Last Admin: 01/30/18 10:30 Dose: 25 mg Ondansetron HCl (Zofran Odt) 4 mg PO Q6H PRN PRN Reason: Nausea/Vomiting Pantoprazole Sodium (Protonix) 40 mg PO DAILY [facility] Last Admin: 01/30/18 10:25 Dose: 40 mg Potassium Chloride (Klor-Con 10) 10 meq PO QAM-[facility] Rivaroxaban (Xarelto) 20 mg PO QPM-[facility] Last Admin: 01/30/18 17:37 Dose: 20 mg Sertraline HCl (Zoloft) 50 mg PO DAILY [facility] Last Admin: 01/30/18 10:26 Dose: 50 mg Sodium Chloride (Flush - Normal Saline) 10 ml IVF Q12HR [facility] Varenicline (Chantix) 1 mg PO BID [facility] Last Admin: 01/30/18 10:25 Dose: 1 mg
[2018-01-31] MEDS: Potassium Chloride 10 MEQ TAB PO SCH ×2 (04:10→08:26)
[2018-01-31 06:13] LABS: #Eosinphils 0.1 thou/uL (0.0-0.7); #Lymphocytes 1.8 thou/uL (1.20-3.40); #Monocytes 0.9 thou/uL (0.11-0.59); #Neutrophils 7.2 thou/uL (1.40-6.50); %Basophils 0.4 % (0.0-1.0); %Eosinophils 0.7 % (0.0-10.0); %Lymphocytes 17.9 % (21.0-51.0); %Monocytes 9.3 % (0.0-10.0); %Neutrophils 71.6 % (42.0-75.0); Hemoglobin 15.4 g/dL (14.0-18.0); Mean Corpuscular HGB CONC 32.7 g/dL (32.0-36.0); Mean Corpuscular Hemoglobin 29.3 pg (27.0-31.0); Mean Corpuscular Volume 89.7 fL (78.0-98.0); Mean Platelet Volume 7.3 fL (7.4-10.4); Platelet Count 266 thou/uL (130-400); RBC Distribution Width 14.7 % (11.5-14.5); Red Blood Cell (RBC) Count 5.24 mill/uL (4.70-6.10); White Blood Cell (WBC) Count 10.1 thou/uL (4.8-10.8)
[2018-01-31 06:26] LABS: Anion Gap 11 mmol/L (10-20); BUN (Urea Nitrogen) 16 mg/dL (8.4-25.7); Calc. Creatinine Clearance 104 mL/min (70-130); Calcium 9.4 mg/dL (7.8-10.44); Carbon Dioxide 28 mmol/L (23-31); Chloride 103 mmol/L (98-107); Estimated GFR-MDRD Greater than 90; Glucose 164 mg/dL (83-110); Magnesium 2.1 mg/dL (1.6-2.6); Potassium 4.2 mmol/L (3.5-5.1); Sodium 138 mmol/L (136-145)
[2018-01-31] MEDS ORDERED: Metoprolol Tartrate 5 MG/5 ML VIAL IVP ONE (08:00)
[2018-01-31] MEDS: Atorvastatin Calcium 40 MG TAB PO SCH (08:22)
[2018-01-31] MEDS: Varenicline Tartrate 0.5 MG TAB PO SCH ×2 (08:24→22:45)
[2018-01-31] MEDS: clonazePAM 0.5 MG TAB PO SCH (08:24)
[2018-01-31] MEDS: Amiodarone 200 MG TAB PO SCH ×2 (08:25→21:29)
[2018-01-31] MEDS: hydrALAZINE 25 MG TAB PO SCH (08:25)
[2018-01-31] MEDS: Metoprolol Tartrate 25 MG TAB PO SCH (08:25)
[2018-01-31] MEDS: Gabapentin 300 MG CAP PO SCH ×3 (08:25→21:29)
[2018-01-31] MEDS: Folic Acid 1 MG TAB PO SCH (08:25)
[2018-01-31] MEDS: Docusate 100 MG CAP PO SCH ×2 (08:25→21:29)
[2018-01-31] MEDS: Furosemide 40 MG TAB PO SCH (08:26)
[2018-01-31] MEDS: Insulin Glargine 30 UNITS in Pre-Filled Syringe 1 EACH SC SCH (09:30)
[2018-01-31] MEDS ORDERED: Enoxaparin Sodium 80 MG/0.8 ML SYRINGE SC SCH ×2 (12:00)
--- NOTE | 2018-01-31 14:55 | PDOC.PN ---
- Subjective Encounter Start Date: 01/31/18 Encounter Start Time: 09:00 Patient seen and examined for Afib/CHF. Palpitations +. No CP. No overnight events - Objective Resuscitation Status: Resuscitation Status FULL:Full Resuscitation MAR Reviewed: Yes Vital Signs & Weight: Vital Signs (12 hours) Temp Pulse Resp BP BP Pulse Ox 01/31/18 11:25 93 L 01/31/18 11:24 95 20 128/94 H 93 L 01/31/18 08:25 119 H 119/74 01/31/18 07:11 96.8 F L 119 H 18 92 L 01/31/18 06:55 96.8 F L 119 H 18 119/74 92 L 01/31/18 04:00 97.5 F L 110 H 18 135/73 93 L Weight Weight 196 lb 9.6 oz I&O: 01/30/18 01/31/18 02/01/18 06:59 06:59 06:59 Intake Total 1117 1452 Output Total 2180 2400 Balance -1063 -694 Result Diagrams: 01/31/18 05:40 01/31/18 05:40 Additional Labs: Accuchecks 01/31/18 01/31/18 01/30/18 10:53 05:45 20:36 POC Glucose 142 H 150 H 166 H 01/30/18 01/30/18 16:56 10:32 POC Glucose 123 H 242 H Radiology Reviewed by me: No (Echo - EF 40-45%) EKG Reviewed by me: Yes (Tele Afib with RVR) Phys Exam - Physical Examination Constitutional: NAD Respiratory: no wheezing, no rhonchi Cardiovascular: no rub, irregular Gastrointestinal: soft, non-tender, positive bowel sounds Musculoskeletal: no edema Neurological: moves all 4 limbs Dx/Plan - Plan DVT proph w/lovenox IMPRESSION: -Afib with RVR -Acute on Chronic systolic HF - ACC stage C - improving -DM2 with hypoglycemia - Lantus dose reduced to 30 units daily 01/28 -COPD -MEJIA - on CPAP -HTN -HLD PLAN: Cont Amiodarone - dose increased to 400 mg BID One dose IV Metoprolol Metoprolol dose increased Xarelto on hold Lovenox started Cont PO Lasix at 40 mg daily CBC and BMP in AM Cont mild sliding scale with Lantus 30 units daily Cont other meds as below Review of Systems - Review of Systems Respiratory: negative: Cough, Dry, Shortness of Breath, Hemoptysis, SOB with Excertion, Pleuritic Pain, Sputum, Wheezing Cardiovascular: palpitations. negative: chest pain, orthopnea, paroxysmal nocturnal dyspnea, edema, light headedness, other - Medications/Allergies Allergies/Adverse Reactions: Allergies Allergy/AdvReac Type Severity Reaction Status Date / Time ZARA Inhibitors Allergy Severe ANGIOEDEMA Verified 10/29/15 00:24 Medications: Current Medications Hydrocodone Bitart/Acetaminophen ([place] 5/325) 1 tab PO Q4H PRN PRN Reason: Moderate Pain (4-6) Last Admin: 01/28/18 02:41 Dose: 1 tab Amiodarone HCl (Cordarone) 400 mg PO BID [facility] Aspirin (Aspirin Chewable) 81 mg PO QAM [facility] Last Admin: 01/31/18 08:26 Dose: 81 mg Atorvastatin Calcium (Lipitor) 80 mg PO DAILY [facility] Last Admin: 01/31/18 08:22 Dose: 80 mg Clonazepam (Klonopin) 0.5 mg PO DAILY [facility] Last Admin: 01/31/18 08:24 Dose: 0.5 mg Dextrose/Water (Dextrose 50%) 25 gm IVP PRN PRN PRN Reason: HYPOGLYCEMIA PROTOCOL Docusate Sodium (Colace) 100 mg PO BID [facility] Last Admin: 01/31/18 08:25 Dose: 100 mg Enoxaparin Sodium (Lovenox) 90 mg SC 1200,0000 [facility] Stop: 02/01/18 15:00 Last Admin: 01/31/18 11:51 Dose: 90 mg Folic Acid (Folvite) 1 mg PO DAILY [facility] Last Admin: 01/31/18 08:25 Dose: 1 mg Furosemide (Lasix) 40 mg PO DAILY-[facility] Last Admin: 01/31/18 08:26 Dose: 40 mg Gabapentin (Neurontin) 300 mg PO TID [facility] Last Admin: 01/31/18 08:25 Dose: 300 mg Glucagon (Glucagon) 1 mg IM PRN PRN PRN Reason: HYPOGLYCEMIA PROTOCOL Dextrose/Water (D5w) 1,000 mls @ 0 mls/hr IV INF PRN; As Directed PRN Reason: HYPOGLYCEMIA PROTOCOL Insulin Glargine 30 units/ (Miscellaneous Medication) 0.3 mls @ 0 mls/hr SC QAM [facility] Last Admin: 01/31/18 09:30 Dose: 0.3 mls Insulin Human Regular (Humulin R) 0 units SC .BEDTIME SLIDING SC PRN PRN Reason: Bedtime Correctional Scale Last Admin: 01/29/18 17:55 Dose: 2 units Insulin Human Regular (Humulin R) 0 units SC .MODERATE SLIDING SC PRN PRN Reason: Moderate Correctional Scale Last Admin: 01/30/18 12:17 Dose: 4 unit Metoprolol Tartrate (Lopressor) 50 mg PO BID [facility] Ondansetron HCl (Zofran Odt) 4 mg PO Q6H PRN PRN Reason: Nausea/Vomiting Pantoprazole Sodium (Protonix) 40 mg PO DAILY [facility] Last Admin: 01/31/18 08:25 Dose: 40 mg Potassium Chloride (Klor-Con 10) 10 meq PO QAM-[facility] Last Admin: 01/31/18 08:26 Dose: 10 meq Sertraline HCl (Zoloft) 50 mg PO DAILY [facility] Last Admin: 01/31/18 08:22 Dose: 50 mg Sodium Chloride (Flush - Normal Saline) 10 ml IVF Q12HR [facility] Last Admin: 01/31/18 08:21 Dose: 10 ml Thiamine HCl (Thiamine) 100 mg PO DAILY [facility] Last Admin: 01/31/18 08:24 Dose: 100 mg Varenicline (Chantix) 1 mg PO BID [facility] Last Admin: 01/31/18 08:24 Dose: 1 mg
[2018-01-31] MEDS: Metoprolol Tartrate 50 MG TAB PO SCH (21:29)
[2018-01-31] MEDS: Enoxaparin Sodium 100 MG/ML SYRINGE SC SCH (23:47)
[2018-02-01] MEDS: Insulin Regular 300 UNITS/3 ML VIAL SC PRN (02:12)
[2018-02-01 06:07] LABS: Hemoglobin 16.4 g/dL (14.0-18.0); Platelet Count 272 thou/uL (130-400)
[2018-02-01 06:23] LABS: Anion Gap 14 mmol/L (10-20); BUN (Urea Nitrogen) 16 mg/dL (8.4-25.7); Calc. Creatinine Clearance 99 mL/min (70-130); Calcium 9.4 mg/dL (7.8-10.44); Carbon Dioxide 26 mmol/L (23-31); Chloride 102 mmol/L (98-107); Estimated GFR-MDRD 87; Magnesium 2.1 mg/dL (1.6-2.6); Potassium 4.3 mmol/L (3.5-5.1); Sodium 138 mmol/L (136-145)
[2018-02-01 06:27] LABS: Glucose 43 mg/dL (83-110)
[2018-02-01] MEDS: Docusate 100 MG CAP PO SCH ×2 (09:02→20:37)
[2018-02-01] MEDS: Gabapentin 300 MG CAP PO SCH ×3 (09:02→20:36)
[2018-02-01] MEDS: Amiodarone 200 MG TAB PO SCH ×2 (09:02→20:36)
[2018-02-01] MEDS: Metoprolol Tartrate 50 MG TAB PO SCH ×2 (09:02→20:36)
[2018-02-01] MEDS: Atorvastatin Calcium 40 MG TAB PO SCH (09:02)
[2018-02-01] MEDS: Furosemide 40 MG TAB PO SCH (09:03)
[2018-02-01] MEDS: Folic Acid 1 MG TAB PO SCH (09:03)
[2018-02-01] MEDS: clonazePAM 0.5 MG TAB PO SCH (09:03)
[2018-02-01] MEDS: Potassium Chloride 10 MEQ TAB PO SCH (09:03)
[2018-02-01] MEDS: Insulin Glargine 15 UNITS in Pre-Filled Syringe 1 EACH SC SCH (09:04)
[2018-02-01] MEDS: Varenicline Tartrate 0.5 MG TAB PO SCH ×2 (09:12→20:36)
[2018-02-01] MEDS: Enoxaparin Sodium 100 MG/ML SYRINGE SC SCH (11:30)
[2018-02-01 13:22] LABS: Metanephrine,Plasma <10 pg/mL (0-62); Normetanephrine,Pl 22 pg/mL (0-145)
--- NOTE | 2018-02-01 19:58 | PDOC.PN ---
- Subjective Encounter Start Date: 02/01/18 Encounter Start Time: 08:30 Patient seen and examined for Afib. No new complaints. No overnight events - Objective Resuscitation Status: Resuscitation Status FULL:Full Resuscitation MAR Reviewed: Yes Vital Signs & Weight: Weight Weight 197 lb 3.2 oz I&O: 01/31/18 02/01/18 02/02/18 06:59 06:59 06:59 Intake Total 1452 1042 Output Total 2400 1275 Balance -948 -233 Result Diagrams: 02/01/18 05:13 02/01/18 05:13 Additional Labs: Accuchecks 02/01/18 02/01/18 02/01/18 16:32 11:18 06:32 POC Glucose 258 H 213 H 127 H 02/01/18 02/01/18 01/31/18 05:42 02:01 19:53 POC Glucose 68 L 335 H 81 EKG Reviewed by me: Yes (Tele Afib) Phys Exam - Physical Examination Constitutional: NAD Respiratory: no wheezing, no rhonchi Cardiovascular: no rub, irregular Gastrointestinal: soft, non-tender, positive bowel sounds Musculoskeletal: no edema Neurological: moves all 4 limbs Dx/Plan - Plan DVT proph w/SCDs IMPRESSION: -Afib with RVR - on Amiodarone loading -Acute on Chronic systolic HF - ACC stage C - improving -DM2 with hypoglycemia -COPD -MEJIA - on CPAP -HTN -HLD PLAN: Reduce Lantus to 15 units daily NPO past MN for PM Cont Amiodarone/Metoprolol/Lasix Xarelto on hold CBC and BMP in AM Cont other meds as below Review of Systems - Review of Systems Respiratory: negative: Cough, Dry, Shortness of Breath, Hemoptysis, SOB with Excertion, Pleuritic Pain, Sputum, Wheezing Cardiovascular: negative: chest pain, palpitations, orthopnea, paroxysmal nocturnal dyspnea, edema, light headedness, other - Medications/Allergies Allergies/Adverse Reactions: Allergies Allergy/AdvReac Type Severity Reaction Status Date / Time ZARA Inhibitors Allergy Severe ANGIOEDEMA Verified 10/29/15 00:24 Medications: Current Medications Hydrocodone Bitart/Acetaminophen ([place] 5/325) 1 tab PO Q4H PRN PRN Reason: Moderate Pain (4-6) Last Admin: 01/28/18 02:41 Dose: 1 tab Amiodarone HCl (Cordarone) 400 mg PO BID [facility] Last Admin: 02/01/18 09:02 Dose: 400 mg Aspirin (Aspirin Chewable) 81 mg PO QAM [facility] Last Admin: 02/01/18 09:03 Dose: 81 mg Atorvastatin Calcium (Lipitor) 80 mg PO DAILY [facility] Last Admin: 02/01/18 09:02 Dose: 80 mg Clonazepam (Klonopin) 0.5 mg PO DAILY [facility] Last Admin: 02/01/18 09:03 Dose: 0.5 mg Dextrose/Water (Dextrose 50%) 25 gm IVP PRN PRN PRN Reason: HYPOGLYCEMIA PROTOCOL Docusate Sodium (Colace) 100 mg PO BID [facility] Last Admin: 02/01/18 09:02 Dose: 100 mg Folic Acid (Folvite) 1 mg PO DAILY [facility] Last Admin: 02/01/18 09:03 Dose: 1 mg Furosemide (Lasix) 40 mg PO DAILY-AC [facility] Last Admin: 02/01/18 09:03 Dose: 40 mg Gabapentin (Neurontin) 300 mg PO TID [facility] Last Admin: 02/01/18 15:51 Dose: 300 mg Glucagon (Glucagon) 1 mg IM PRN PRN PRN Reason: HYPOGLYCEMIA PROTOCOL Dextrose/Water (D5w) 1,000 mls @ 0 mls/hr IV INF PRN; As Directed PRN Reason: HYPOGLYCEMIA PROTOCOL Insulin Glargine 15 units/ (Miscellaneous Medication) 0.15 mls @ 0 mls/hr [place] [facility] Last Admin: 02/01/18 09:04 Dose: 0.15 mls Sodium Chloride (Normal Saline 0.9%) 1,000 mls @ 50 mls/hr IV .Q20H [facility] Insulin Human Regular (Humulin R) 0 units SC .BEDTIME SLIDING SC PRN PRN Reason: Bedtime Correctional Scale Last Admin: 02/01/18 02:12 Dose: 4 units Insulin Human Regular (Humulin R) 0 units SC .MODERATE SLIDING SC PRN PRN Reason: Moderate Correctional Scale Last Admin: 01/30/18 12:17 Dose: 4 unit Metoprolol Tartrate (Lopressor) 50 mg PO BID [facility] Last Admin: 02/01/18 09:02 Dose: 50 mg Ondansetron HCl (Zofran Odt) 4 mg PO Q6H PRN PRN Reason: Nausea/Vomiting Pantoprazole Sodium (Protonix) 40 mg PO DAILY [facility] Last Admin: 02/01/18 09:03 Dose: 40 mg Potassium Chloride (Klor-Con 10) 10 meq PO QAM-WM [facility] Last Admin: 02/01/18 09:03 Dose: 10 meq Sertraline HCl (Zoloft) 50 mg PO DAILY [facility] Last Admin: 02/01/18 09:03 Dose: 50 mg Sodium Chloride (Flush - Normal Saline) 10 ml IVF Q12HR [facility] Sodium Chloride (Flush - Normal Saline) 10 ml IVF PRN PRN PRN Reason: Saline Flush Thiamine HCl (Thiamine) 100 mg PO DAILY [facility] Last Admin: 02/01/18 09:03 Dose: 100 mg Varenicline (Chantix) 1 mg PO BID [facility] Last Admin: 02/01/18 09:12 Dose: 1 mg
[2018-02-02] MEDS ORDERED: CEFAZOLIN/Water 2 GM/20 ML SYRINGE SLOW IVP SCH (03:15)
[2018-02-02] MEDS: Furosemide 40 MG TAB PO SCH (05:48)
[2018-02-02] MEDS ORDERED: Sodium Chloride 0.9% 1,000 ML IV SCH (06:00)
[2018-02-02 06:23] LABS: #Basophils 0.1 thou/uL (0.0-0.2); #Eosinphils 0.2 thou/uL (0.0-0.7); #Lymphocytes 2.1 thou/uL (1.20-3.40); #Monocytes 0.7 thou/uL (0.11-0.59); #Neutrophils 5.9 thou/uL (1.40-6.50); %Basophils 1.2 % (0.0-1.0); %Eosinophils 2.1 % (0.0-10.0); %Monocytes 8.1 % (0.0-10.0); %Neutrophils 65.6 % (42.0-75.0); Hemoglobin 15.2 g/dL (14.0-18.0); Mean Corpuscular HGB CONC 31.9 g/dL (32.0-36.0); Mean Corpuscular Hemoglobin 28.8 pg (27.0-31.0); Mean Corpuscular Volume 90.3 fL (78.0-98.0); Mean Platelet Volume 7.5 fL (7.4-10.4); Platelet Count 279 thou/uL (130-400); RBC Distribution Width 14.7 % (11.5-14.5); Red Blood Cell (RBC) Count 5.27 mill/uL (4.70-6.10)
[2018-02-02 06:42] LABS: Anion Gap 14 mmol/L (10-20); BUN (Urea Nitrogen) 20 mg/dL (8.4-25.7); Calc. Creatinine Clearance 90 mL/min (70-130); Calcium 9.4 mg/dL (7.8-10.44); Carbon Dioxide 26 mmol/L (23-31); Chloride 102 mmol/L (98-107); Estimated GFR-MDRD 78; Glucose 183 mg/dL (83-110); Potassium 4.6 mmol/L (3.5-5.1); Sodium 137 mmol/L (136-145)
[2018-02-02] MEDS ORDERED: CEFAZOLIN/Water 2 GM/20 ML SYRINGE ONE (08:48)
[2018-02-02] MEDS ORDERED: Gentamicin 80 MG/2 ML VIAL ONE (08:48)
[2018-02-02] MEDS ORDERED: CEFAZOLIN 1 GM VIAL ONE (08:48)
[2018-02-02] MEDS ORDERED: Lidocaine 1% (PF) 30 ML VIAL ONE ×2 (09:14→09:38)
[2018-02-02] MEDS ORDERED: Midazolam HCl 2 mg/2 ml Vial ONE (09:27)
[2018-02-02] MEDS ORDERED: Fentanyl 100 MCG/2 ML VIAL ONE (09:27)
[2018-02-02] MEDS ORDERED: Acetaminophen/Codeine 30-300mg Tablet PO PRN ×2 (11:02)
[2018-02-02] MEDS: Gabapentin 300 MG CAP PO SCH ×3 (12:05→20:54)
[2018-02-02] MEDS: Insulin Glargine 15 UNITS in Pre-Filled Syringe 1 EACH SC SCH (12:05)
[2018-02-02] MEDS: Varenicline Tartrate 0.5 MG TAB PO SCH ×2 (12:12→20:55)
[2018-02-02] MEDS: Amiodarone 200 MG TAB PO SCH ×2 (12:13→20:55)
[2018-02-02] MEDS: Potassium Chloride 10 MEQ TAB PO SCH (12:13)
[2018-02-02] MEDS: clonazePAM 0.5 MG TAB PO SCH (12:13)
[2018-02-02] MEDS: Docusate 100 MG CAP PO SCH ×2 (12:14→20:55)
[2018-02-02] MEDS: Atorvastatin Calcium 40 MG TAB PO SCH (12:14)
[2018-02-02] MEDS: Metoprolol Tartrate 50 MG TAB PO SCH ×2 (12:14→20:55)
[2018-02-02] MEDS: Folic Acid 1 MG TAB PO SCH (12:14)
[2018-02-02 12:15] LABS: Metanephrine,Ur 65 ug/L (Undefined); Metanephrines Total-24H 138 ug/24 hr (45-290); Normetanephrine,Ur 163 ug/L (Undefined); Normetanephrines-24H U 346 ug/24 hr (82-500)
--- NOTE | 2018-02-02 13:22 | RAD ---
CHEST 1 VIEW: Date: 02/02/18 HISTORY: Post cardiac device placement. COMPARISON: 01/26/18. FINDINGS: Dual lead pacer is present. Radiopaque material projects over the left hemithorax. No pneumothorax. Mild pulmonary venous congestion. Chronic scarring left lateral costophrenic sulcus. IMPRESSION: Uncomplicated placement of dual lead pacer. POS: [facility]
--- NOTE | 2018-02-02 13:48 | PDOC.PN ---
- Subjective Encounter Start Date: 02/02/18 Encounter Start Time: 08:00 Patient seen and examined for Afib/CHF. Converted to SR earlier today. No new complaints. No overnight events - Objective Resuscitation Status: Resuscitation Status FULL:Full Resuscitation MAR Reviewed: Yes Vital Signs & Weight: Vital Signs (12 hours) Temp Pulse Resp BP BP Pulse Ox 02/02/18 07:36 97.6 F 48 L 16 98 02/02/18 07:35 97.6 F 48 L 16 119/58 L 98 02/02/18 04:47 46 L 20 149/74 H 02/02/18 03:59 98.4 F 91 20 155/73 H 95 Weight Weight 197 lb 8 oz I&O: 02/01/18 02/02/18 02/03/18 06:59 06:59 06:59 Intake Total 1042 315 Output Total 1275 925 Balance -233 -610 Result Diagrams: 02/02/18 06:04 02/02/18 06:04 Additional Labs: Accuchecks 02/02/18 02/02/18 02/01/18 05:47 01:45 20:27 POC Glucose 167 H 153 H 248 H 02/01/18 02/01/18 16:32 11:18 POC Glucose 258 H 213 H EKG Reviewed by me: Yes (Tele SB) Phys Exam - Physical Examination Constitutional: NAD Respiratory: no wheezing, no rhonchi Cardiovascular: RRR, no rub Gastrointestinal: soft, non-tender, positive bowel sounds Musculoskeletal: no edema Neurological: moves all 4 limbs Dx/Plan - Plan DVT proph w/SCDs IMPRESSION: 1. Afib with RVR - in SR For dual chamber PM today Cont Amiodarone 400 mg BID with Lopressor Anticoag on hold due to PM 2. Acute on Chronic systolic HF - ACC stage C - improving (10 lb wt loss since admission) Cont PO Lasix with Potassium chloride AM labs Cont Fluid restriction 3. DM2 with hypoglycemia Cont Lantus at 15 units daily with sliding scale 4. MEJIA Cont CPAP HS 5. HTN Cont current meds as below 6. HLD Cont Statins 7. Depression Cont Zoloft 8. GERD Cont PPI Review of Systems - Review of Systems Respiratory: negative: Cough, Dry, Shortness of Breath, Hemoptysis, SOB with Excertion, Pleuritic Pain, Sputum, Wheezing Cardiovascular: negative: chest pain, palpitations, orthopnea, paroxysmal nocturnal dyspnea, edema, light headedness, other - Medications/Allergies Allergies/Adverse Reactions: Allergies Allergy/AdvReac Type Severity Reaction Status Date / Time ZARA Inhibitors Allergy Severe ANGIOEDEMA Verified 10/29/15 00:24 Medications: Current Medications Acetaminophen/Codeine Phosphate (Tylenol #3) 1 tab PO Q4H PRN PRN Reason: Mild Pain (1-3) Acetaminophen/Codeine Phosphate (Tylenol #3) 2 tab PO Q4H PRN PRN Reason: Moderate Pain (4-6) Hydrocodone Bitart/Acetaminophen ([place] 5/325) 1 tab PO Q4H PRN PRN Reason: Moderate Pain (4-6) Last Admin: 01/28/18 02:41 Dose: 1 tab Amiodarone HCl (Cordarone) 400 mg PO BID [facility] Last Admin: 02/02/18 12:13 Dose: 400 mg Aspirin (Aspirin Chewable) 81 mg PO QAM [facility] Last Admin: 02/02/18 12:14 Dose: 81 mg Atorvastatin Calcium (Lipitor) 80 mg PO DAILY [facility] Last Admin: 02/02/18 12:14 Dose: 80 mg Cephalexin (Keflex) 250 mg PO TID [facility] Stop: 02/07/18 15:01 Clonazepam (Klonopin) 0.5 mg PO DAILY [facility] Last Admin: 02/02/18 12:13 Dose: 0.5 mg Dextrose/Water (Dextrose 50%) 25 gm IVP PRN PRN PRN Reason: HYPOGLYCEMIA PROTOCOL Docusate Sodium (Colace) 100 mg PO BID [facility] Last Admin: 02/02/18 12:14 Dose: 100 mg Folic Acid (Folvite) 1 mg PO DAILY [facility] Last Admin: 02/02/18 12:14 Dose: 1 mg Furosemide (Lasix) 40 mg PO DAILY-AC [facility] Last Admin: 02/02/18 05:48 Dose: 40 mg Gabapentin (Neurontin) 300 mg PO TID [facility] Last Admin: 02/02/18 12:05 Dose: Not Given Glucagon (Glucagon) 1 mg IM PRN PRN PRN Reason: HYPOGLYCEMIA PROTOCOL Dextrose/Water (D5w) 1,000 mls @ 0 mls/hr IV INF PRN; As Directed PRN Reason: HYPOGLYCEMIA PROTOCOL Insulin Glargine 15 units/ (Miscellaneous Medication) 0.15 mls @ 0 mls/hr SC QAM [facility] Last Admin: 02/02/18 12:05 Dose: Not Given Insulin Human Regular (Humulin R) 0 units SC .BEDTIME SLIDING SC PRN PRN Reason: Bedtime Correctional Scale Last Admin: 02/01/18 02:12 Dose: 4 units Insulin Human Regular (Humulin R) 0 units SC .MODERATE SLIDING SC PRN PRN Reason: Moderate Correctional Scale Last Admin: 01/30/18 12:17 Dose: 4 unit Metoprolol Tartrate (Lopressor) 50 mg PO BID [facility] Last Admin: 02/02/18 12:14 Dose: 50 mg Ondansetron HCl (Zofran Odt) 4 mg PO Q6H PRN PRN Reason: Nausea/Vomiting Pantoprazole Sodium (Protonix) 40 mg PO DAILY [facility] Last Admin: 02/02/18 12:13 Dose: 40 mg Potassium Chloride (Klor-Con 10) 10 meq PO QAM-WM [facility] Last Admin: 02/02/18 12:13 Dose: 10 meq Sertraline HCl (Zoloft) 50 mg PO DAILY [facility] Last Admin: 02/02/18 12:14 Dose: 50 mg Sodium Chloride (Flush - Normal Saline) 10 ml IVF Q12HR [facility] Last Admin: 02/02/18 12:15 Dose: 10 ml Sodium Chloride (Flush - Normal Saline) 10 ml IVF PRN PRN PRN Reason: Saline Flush Last Admin: 02/02/18 05:50 Dose: 10 ml Thiamine HCl (Thiamine) 100 mg PO DAILY [facility] Last Admin: 02/02/18 12:14 Dose: 100 mg Varenicline (Chantix) 1 mg PO BID [facility] Last Admin: 02/02/18 12:12 Dose: 1 mg
[2018-02-02] MEDS: Cephalexin 250 MG CAP PO SCH ×2 (14:54→20:55)
[2018-02-02] MEDS: Insulin Regular 300 UNITS/3 ML VIAL SC PRN (17:24)
[2018-02-02] MEDS: HYDROcodone/Acetaminophen 5/325 mg Tablet PO PRN ×2 (17:26→21:53)
--- NOTE | 2018-02-02 18:34 | CCL ---
INDICATION: Atrial fibrillation with fast ventricular response, extremely sinus bradycardia when in sinus rhythm with heart rates in the 30s. PROCEDURE: Dual chamber pacemaker insertion. The patient was brought to the cardiac lab pack chemist and left subclavian prepped and draped. 1% lidocaine was infiltrated. The patient received Versed 1 mg IV and fentanyl 25 mg IV for moderate conscious sedation for 90 minutes. A J-wire was placed into the left subclavian vein. Pacemaker pocket was manufactured using blunt and sharp dissection with electrocautery for hemostasis. Antibiotic solution soaked gauze was placed into the subcutaneous pocket. A second J-wire was placed in the left subclavian vein. Using 7- Swazi peel- away sheaths, the atrial and ventricular leads were inserted. The ventricular lead was advanced to the RV apex and screwed in place. The atrial lead was screwed into the right atrium. Right ventricular lead - R-wave 10.0, impedance, 617 threshold 0.5 volts. Right atrial lead - P-wave 6.1, impedance 714, threshold 1.2 volts. With 10 volt pacing from each wire, there was no muscle or diaphragmatic stimulation. The tabs on the suture tie downs were removed and both leads were secured in place with two sutures of 0 silk. The leads were attached to the pacemaker generator. The pocket was irrigated with copious amounts of antibiotic solution after the gauze had been removed. The pacemaker was placed into the pocket and secured in place with one suture of 0 silk. The incision was closed using two layers of running 3-0 Vicryl, one layer running 4-0 Vicryl. Dermabond was placed on the incision. Patient tolerated the procedure well This is an MRI compatible pacemaker with atrial therapies. [facility]
[2018-02-03] MEDS: Insulin Regular 300 UNITS/3 ML VIAL SC PRN ×2 (01:43→21:54)
[2018-02-03] MEDS: HYDROcodone/Acetaminophen 5/325 mg Tablet PO PRN ×2 (02:29→08:15)
[2018-02-03 06:09] LABS: #Basophils 0.1 thou/uL (0.0-0.2); #Eosinphils 0.2 thou/uL (0.0-0.7); #Lymphocytes 1.6 thou/uL (1.20-3.40); #Monocytes 0.7 thou/uL (0.11-0.59); #Neutrophils 5.1 thou/uL (1.40-6.50); %Basophils 1.1 % (0.0-1.0); %Eosinophils 2.2 % (0.0-10.0); %Lymphocytes 20.7 % (21.0-51.0); %Monocytes 9.5 % (0.0-10.0); %Neutrophils 66.5 % (42.0-75.0); Hemoglobin 15.4 g/dL (14.0-18.0); Mean Corpuscular HGB CONC 33.4 g/dL (32.0-36.0); Mean Corpuscular Hemoglobin 30.3 pg (27.0-31.0); Mean Corpuscular Volume 90.7 fL (78.0-98.0); Mean Platelet Volume 7.2 fL (7.4-10.4); Platelet Count 234 thou/uL (130-400); RBC Distribution Width 14.7 % (11.5-14.5); Red Blood Cell (RBC) Count 5.07 mill/uL (4.70-6.10); White Blood Cell (WBC) Count 7.7 thou/uL (4.8-10.8)
[2018-02-03 06:27] LABS: Anion Gap 13 mmol/L (10-20); BUN (Urea Nitrogen) 21 mg/dL (8.4-25.7); Calc. Creatinine Clearance 99 mL/min (70-130); Calcium 9.1 mg/dL (7.8-10.44); Carbon Dioxide 26 mmol/L (23-31); Chloride 102 mmol/L (98-107); Estimated GFR-MDRD 87; Glucose 161 mg/dL (83-110); Potassium 4.6 mmol/L (3.5-5.1); Sodium 136 mmol/L (136-145)
[2018-02-03] MEDS: Furosemide 40 MG TAB PO SCH (08:13)
[2018-02-03] MEDS: Cephalexin 250 MG CAP PO SCH ×3 (08:13→21:56)
[2018-02-03] MEDS: Gabapentin 300 MG CAP PO SCH ×3 (08:14→21:56)
[2018-02-03] MEDS: Amiodarone 200 MG TAB PO SCH ×2 (08:14→21:56)
[2018-02-03] MEDS: Docusate 100 MG CAP PO SCH ×2 (08:15→21:56)
[2018-02-03] MEDS: Potassium Chloride 10 MEQ TAB PO SCH (08:15)
[2018-02-03] MEDS: Folic Acid 1 MG TAB PO SCH (08:15)
[2018-02-03] MEDS: Atorvastatin Calcium 40 MG TAB PO SCH (08:15)
[2018-02-03] MEDS: Metoprolol Tartrate 50 MG TAB PO SCH ×2 (08:15→21:56)
[2018-02-03] MEDS: Silver Sulfadiazine 1% Cream 50 GM JAR TOP SCH ×2 (08:16→21:57)
[2018-02-03] MEDS: Insulin Glargine 15 UNITS in Pre-Filled Syringe 1 EACH SC SCH (08:17)
[2018-02-03] MEDS: Varenicline Tartrate 0.5 MG TAB PO SCH ×2 (10:00→21:58)
[2018-02-03] MEDS: clonazePAM 0.5 MG TAB PO SCH (10:00)
[2018-02-03] MEDS ORDERED: Labetalol HCl 100 MG/20 ML VIAL SLOW IVP PRN (12:38)
[2018-02-03] MEDS ORDERED: hydrALAZINE 20 MG/ML VIAL SLOW IVP PRN (12:38)
--- NOTE | 2018-02-03 20:57 | PDOC.PN ---
- Subjective Encounter Start Date: 02/03/18 Encounter Start Time: 16:00 Patient seen and examined for Afib/CHF. No new complaints. No overnight events - Objective Resuscitation Status: Resuscitation Status FULL:Full Resuscitation MAR Reviewed: Yes Vital Signs & Weight: Vital Signs (12 hours) Temp Pulse Resp BP Pulse Ox 02/03/18 15:52 97.8 F 61 18 159/81 H 96 02/03/18 12:05 98.3 F 56 L 18 134/70 97 Weight Weight 198 lb 3.2 oz I&O: 02/02/18 02/03/18 02/04/18 06:59 06:59 06:59 Intake Total 315 1364 1288 Output Total 925 1125 1680 Balance -610 239 -392 Result Diagrams: 02/04/18 05:08 02/04/18 05:08 Additional Labs: Accuchecks 02/03/18 02/03/18 02/03/18 20:21 16:17 11:05 POC Glucose 321 H 168 H 251 H 02/03/18 02/03/18 05:42 01:38 POC Glucose 167 H 203 H EKG Reviewed by me: Yes (Tele paced) Phys Exam - Physical Examination Constitutional: NAD Respiratory: no wheezing, no rhonchi Cardiovascular: RRR, no rub Gastrointestinal: soft, non-tender, positive bowel sounds Musculoskeletal: no edema Neurological: moves all 4 limbs Dx/Plan - Plan IMPRESSION: 1. Afib with RVR - in SR s/p dual chamber PM today Cont Amiodarone 400 mg BID taper with Lopressor Anticoag to be restarted on 02/07 2. Acute on Chronic systolic HF - ACC stage C - improving (10 lb wt loss since admission) Cont PO Lasix with Potassium chloride Cont Fluid restriction 3. DM2 with hypoglycemia Cont Lantus at 15 units daily with sliding scale 4. MEJIA Cont CPAP HS 5. HTN Cont current meds as below 6. HLD Cont Statins 7. Depression Cont Zoloft 8. GERD Cont PPI Stable for dc. Med rec completed. However, [place] unable to take him today. Review of Systems - Review of Systems Respiratory: negative: Cough, Dry, Shortness of Breath, Hemoptysis, SOB with Excertion, Pleuritic Pain, Sputum, Wheezing Cardiovascular: negative: chest pain, palpitations, orthopnea, paroxysmal nocturnal dyspnea, edema, light headedness, other - Medications/Allergies Allergies/Adverse Reactions: Allergies Allergy/AdvReac Type Severity Reaction Status Date / Time ZARA Inhibitors Allergy Severe ANGIOEDEMA Verified 10/29/15 00:24 Medications: Current Medications Acetaminophen/Codeine Phosphate (Tylenol #3) 1 tab PO Q4H PRN PRN Reason: Mild Pain (1-3) Acetaminophen/Codeine Phosphate (Tylenol #3) 2 tab PO Q4H PRN PRN Reason: Moderate Pain (4-6) Hydrocodone Bitart/Acetaminophen ([place] 5/325) 1 tab PO Q4H PRN PRN Reason: Moderate Pain (4-6) Last Admin: 02/03/18 08:15 Dose: 1 tab Amiodarone HCl (Cordarone) 400 mg PO BID [facility] Last Admin: 02/03/18 08:14 Dose: 400 mg Aspirin (Aspirin Chewable) 81 mg PO QAM [facility] Last Admin: 02/03/18 08:15 Dose: 81 mg Atorvastatin Calcium (Lipitor) 80 mg PO DAILY [facility] Last Admin: 02/03/18 08:15 Dose: 80 mg Cephalexin (Keflex) 250 mg PO TID [facility] Stop: 02/07/18 15:01 Last Admin: 02/03/18 15:50 Dose: 250 mg Clonazepam (Klonopin) 0.5 mg PO DAILY [facility] Last Admin: 02/03/18 10:00 Dose: 0.5 mg Dextrose/Water (Dextrose 50%) 25 gm IVP PRN PRN PRN Reason: HYPOGLYCEMIA PROTOCOL Docusate Sodium (Colace) 100 mg PO BID [facility] Last Admin: 02/03/18 08:15 Dose: 100 mg Folic Acid (Folvite) 1 mg PO DAILY [facility] Last Admin: 02/03/18 08:15 Dose: 1 mg Furosemide (Lasix) 40 mg PO DAILY-AC [facility] Last Admin: 02/03/18 08:13 Dose: 40 mg Gabapentin (Neurontin) 300 mg PO TID [facility] Last Admin: 02/03/18 15:50 Dose: 300 mg Glucagon (Glucagon) 1 mg IM PRN PRN PRN Reason: HYPOGLYCEMIA PROTOCOL Hydralazine HCl (Apresoline) 10 mg SLOW IVP Q4H PRN PRN Reason: SBP Greater Than 180 Dextrose/Water (D5w) 1,000 mls @ 0 mls/hr IV INF PRN; As Directed PRN Reason: HYPOGLYCEMIA PROTOCOL Insulin Glargine 15 units/ (Miscellaneous Medication) 0.15 mls @ 0 mls/hr SC QAM [facility] Last Admin: 02/03/18 08:17 Dose: 0.15 mls Insulin Human Regular (Humulin R) 0 units SC .BEDTIME SLIDING SC PRN PRN Reason: Bedtime Correctional Scale Last Admin: 02/03/18 01:43 Dose: 2 units Insulin Human Regular (Humulin R) 0 units SC .MODERATE SLIDING SC PRN PRN Reason: Moderate Correctional Scale Last Admin: 02/02/18 17:24 Dose: 4 unit Labetalol HCl (Normodyne) 10 mg SLOW IVP Q4H PRN PRN Reason: Systolic BP > 180 Metoprolol Tartrate (Lopressor) 50 mg PO BID [facility] Last Admin: 02/03/18 08:15 Dose: 50 mg Ondansetron HCl (Zofran Odt) 4 mg PO Q6H PRN PRN Reason: Nausea/Vomiting Pantoprazole Sodium (Protonix) 40 mg PO DAILY [facility] Last Admin: 02/03/18 08:15 Dose: 40 mg Potassium Chloride (Klor-Con 10) 10 meq PO QAM[facility] Last Admin: 02/03/18 08:15 Dose: 10 meq Sertraline HCl (Zoloft) 50 mg PO DAILY [facility] Last Admin: 02/03/18 10:00 Dose: 50 mg Silver Sulfadiazine (Silvadene) 0 gm TOP BID [facility] Last Admin: 02/03/18 08:16 Dose: 1 applic Sodium Chloride (Flush - Normal Saline) 10 ml IVF Q12HR [facility] Last Admin: 02/03/18 10:01 Dose: 10 ml Sodium Chloride (Flush - Normal Saline) 10 ml IVF PRN PRN PRN Reason: Saline Flush Last Admin: 02/02/18 05:50 Dose: 10 ml Thiamine HCl (Thiamine) 100 mg PO DAILY [facility] Last Admin: 02/03/18 08:14 Dose: 100 mg Varenicline (Chantix) 1 mg PO BID [facility] Last Admin: 02/03/18 10:00 Dose: 1 mg
[2018-02-04 05:59] LABS: #Basophils 0.1 thou/uL (0.0-0.2); #Eosinphils 0.2 thou/uL (0.0-0.7); #Lymphocytes 1.5 thou/uL (1.20-3.40); #Monocytes 0.6 thou/uL (0.11-0.59); #Neutrophils 5.5 thou/uL (1.40-6.50); %Basophils 1.3 % (0.0-1.0); %Eosinophils 2.2 % (0.0-10.0); %Lymphocytes 18.8 % (21.0-51.0); %Neutrophils 69.7 % (42.0-75.0); Hemoglobin 14.4 g/dL (14.0-18.0); Mean Corpuscular HGB CONC 32.9 g/dL (32.0-36.0); Mean Corpuscular Hemoglobin 29.7 pg (27.0-31.0); Mean Corpuscular Volume 90.2 fL (78.0-98.0); Mean Platelet Volume 7.6 fL (7.4-10.4); Platelet Count 224 thou/uL (130-400); RBC Distribution Width 14.5 % (11.5-14.5); Red Blood Cell (RBC) Count 4.87 mill/uL (4.70-6.10); White Blood Cell (WBC) Count 7.9 thou/uL (4.8-10.8)
[2018-02-04 06:18] LABS: Anion Gap 14 mmol/L (10-20); BUN (Urea Nitrogen) 17 mg/dL (8.4-25.7); Calc. Creatinine Clearance 103 mL/min (70-130); Calcium 9.1 mg/dL (7.8-10.44); Carbon Dioxide 27 mmol/L (23-31); Chloride 100 mmol/L (98-107); Estimated GFR-MDRD 90; Glucose 174 mg/dL (83-110); Potassium 4.4 mmol/L (3.5-5.1); Sodium 137 mmol/L (136-145)
[2018-02-04] MEDS: Potassium Chloride 10 MEQ TAB PO SCH (08:34)
[2018-02-04] MEDS: Amiodarone 200 MG TAB PO SCH (08:34)
[2018-02-04] MEDS: Furosemide 40 MG TAB PO SCH (08:34)
[2018-02-04] MEDS: Insulin Glargine 15 UNITS in Pre-Filled Syringe 1 EACH SC SCH (08:35)
[2018-02-04] MEDS: Cephalexin 250 MG CAP PO SCH (08:35)
[2018-02-04] MEDS: Gabapentin 300 MG CAP PO SCH (08:35)
[2018-02-04] MEDS: Atorvastatin Calcium 40 MG TAB PO SCH (08:35)
[2018-02-04] MEDS: Folic Acid 1 MG TAB PO SCH (08:35)
[2018-02-04] MEDS: Docusate 100 MG CAP PO SCH (08:35)
[2018-02-04] MEDS: Metoprolol Tartrate 50 MG TAB PO SCH (08:36)
[2018-02-04] MEDS: Silver Sulfadiazine 1% Cream 50 GM JAR TOP SCH (08:37)
[2018-02-04] MEDS: Varenicline Tartrate 0.5 MG TAB PO SCH (09:31)
[2018-02-04] MEDS: clonazePAM 0.5 MG TAB PO SCH (09:31)
[2018-02-04 11:06] VITALS: BP 140/67; TEMP 98
--- NOTE | 2018-02-04 12:08 | DIS ---
DATE OF ADMISSION: 01/26/2018 DATE OF DISCHARGE: 02/03/2018 Please note that patient was unable to leave due to social issues. He will be discharged today (10/2017). DISCHARGE DISPOSITION: Home. FOLLOWUP: 1. Follow up with Cardiology, Dr. Juan Carlos Freeman in 3-4 weeks. 2. Follow up with primary care physician Dr. Desouza next week. 3. Heart Failure Clinic has been arranged. ALLERGIES: The patient is allergic to ZARA INHIBITOR. DISCHARGE MEDICATIONS: 1. Amiodarone taper. 2. Aspirin 81 mg daily. 3. Lipitor 80 mg daily. 4. Keflex for infection prophylaxis due to recent pacemaker. 5. Clonazepam 0.5 mg daily. 6. Lasix 40 mg daily. 7. Gabapentin 300 mg 3 times daily. 8. Levemir 30 units b.i.d. 9. Novolin R 15 units b.i.d. with meals. 10. Metformin 1000 mg b.i.d. 11. Lopressor 50 mg b.i.d. 12. Protonix 40 mg daily. 13. Xarelto to be restarted on 02/07/2018. 14. Potassium chloride 10 mEq daily. 15. Zoloft 50 mg daily. 16. Thiamine 100 mg daily. INPATIENT CONSULTANTS: Cardiology, Dr. Freeman. INPATIENT PROCEDURES: Dual-chamber pacemaker placement on 02/02/[address] Freeman. BRIEF HOSPITAL COURSE: The patient is a 73-year-old male with diabetes mellitus type 2, hypertension , chronic systolic heart failure and atrial fibrillation on anticoagulation who presented to the hosp ital with nausea, vomiting along with palpitations. Please refer to the history and physical for fur ther details. The patient was admitted to the hospital with a diagnosis of congestive heart failure exacerbation as well as atrial fibrillation with rapid ventricular response. The patient was seen by Cardiology, Dr Aidan Freeman. He showed good improvement with diuretics. He was placed on amiodarone drip that was la ter changed to oral. The patient went back and forth from rapid ventricular tachycardia with signifi cant sinus bradycardia. For this reason, a dual chamber pacemaker has been placed by Dr. Freeman. Anticoagulation will be resumed on 02/07/2018. He has been cleared by Cardiology for discharge. FINAL DIAGNOSES: 1. Atrial fibrillation with rapid ventricular response. 2. Acute on chronic systolic heart failure exacerbation, improved. 3. Diabetes mellitus type 2. 4. Episodes of hypoglycemia. The patient was advised to monitor his blood sugar on a daily basis. He was also advised to cut his insulin dose into half if his blood sugar remains on the lower side. 5. Hypertension. 6. Hyperlipidemia. 7. Depression. 8. Gastroesophageal reflux disease. 9. Chronic obstructive pulmonary disease. Plan of care was discussed with the patient in detail. He stated understanding. [facility] LABORATORIES: 1. Urine metanephrines were negative. 2. Digoxin level was 1.09. Total time coordinating the discharge of this patient was 38 minutes.
--- NOTE | 2018-02-05 23:14 | EKG ---
Test Reason : Blood Pressure : / mmHG Vent. Rate : 064 BPM Atrial Rate : 064 BPM P-R Int : 154 ms QRS Dur : 170 ms QT Int : 514 ms P-R-T Axes : 000 -72 080 degrees QTc Int : 530 ms AV sequential or dual chamber electronic pacemaker When compared with ECG of 26-JAN-2018 08:24, Electronic ventricular pacemaker has replaced Atrial fibrillation Vent. rate has decreased BY 54 BPM Confirmed by Markus WU ([id number]) on 02/05/2018 11:14:16 PM Referred By: WOLF Confirmed By:Markus WU
== END 2018-02-04 11:57 | disposition home or self-care (01) | DRG 242 ==
LOC: ERS 08:16 → ERHOLD 11:12 → 2NO 14:21
PROVIDERS: ADMIT Family Medicine; ATTEND Family Medicine
PROC: 0JH606Z Insertion of Pacemaker, Dual Chamber into Chest Subcutaneous Tissue and Fascia, Open Approach (ICD-10-PCS; principal; 2018-01-26)
PROC: 02H63JZ Insertion of Pacemaker Lead into Right Atrium, Percutaneous Approach (ICD-10-PCS; 2018-01-26)
PROC: 02HK3JZ Insertion of Pacemaker Lead into Right Ventricle, Percutaneous Approach (ICD-10-PCS; 2018-01-26)
DX: I48.0 Paroxysmal atrial fibrillation (principal); I50.23 Acute on chronic systolic (congestive) heart failure; I11.0 Hypertensive heart disease with heart failure; E78.5 Hyperlipidemia, unspecified; E66.01 Morbid (severe) obesity due to excess calories; G47.33 Obstructive sleep apnea (adult) (pediatric); J44.9 Chronic obstructive pulmonary disease, unspecified; Z79.01 Long term (current) use of anticoagulants; F17.210 Nicotine dependence, cigarettes, uncomplicated; Z79.82 Long term (current) use of aspirin; Z79.4 Long term (current) use of insulin; Z79.84 Long term (current) use of oral hypoglycemic drugs; E11.649 Type 2 diabetes mellitus with hypoglycemia without coma; F32.9 Major depressive disorder, single episode, unspecified; K21.9 Gastro-esophageal reflux disease without esophagitis; Z91.14 Patient's other noncompliance with medication regimen; E11.51 Type 2 diabetes mellitus with diabetic peripheral angiopathy without gangrene; E78.00 Pure hypercholesterolemia, unspecified
CPT/HCPCS: 33208; 36415; 36416; 71045; 74178; 80048; 80053; 80162; 82550; 82553; 83735; 83835; 83880; 84443; 84484; 85014; 85018; 85025; 85049; 93005; 93010; 93306; 93798; 94660; 94760; 96361; 96365; 96366; 96375; 96376; 99152; 99153; A4216; C1785; C1898; G8978-GP-CI; G8979-GP-CI; G8980-GP-CI; G8987-GO-CI; G8988-GO-CI; G8989-GO-CI; J0282; J0690; J1160; J1580; J1650; J1815; J1940; J2001; J2250; J3010; J3411; J7050; J7070

== ENCOUNTER 2018-03-16 10:55 | Inpatient (IN) | payer MEDICARE, MEDICAID ==
[2018-03-16 11:27] LABS: #Eosinphils 0.1 thou/uL (0.0-0.7); #Lymphocytes 1.8 thou/uL (1.20-3.40); #Monocytes 1.1 thou/uL (0.11-0.59); #Neutrophils 7.4 thou/uL (1.40-6.50); %Basophils 0.2 % (0.0-1.0); %Eosinophils 0.7 % (0.0-10.0); %Monocytes 10.4 % (0.0-10.0); %Neutrophils 71.7 % (42.0-75.0); Hemoglobin 15.1 g/dL (14.0-18.0); Mean Corpuscular HGB CONC 33.4 g/dL (32.0-36.0); Mean Corpuscular Hemoglobin 30.3 pg (27.0-31.0); Mean Corpuscular Volume 90.8 fL (78.0-98.0); Mean Platelet Volume 8.1 fL (7.4-10.4); Platelet Count 259 thou/uL (130-400); RBC Distribution Width 14.5 % (11.5-14.5); Red Blood Cell (RBC) Count 4.99 mill/uL (4.70-6.10); White Blood Cell (WBC) Count 10.3 thou/uL (4.8-10.8)
[2018-03-16 11:50] LABS: ALT (SGPT) 17 U/L (8-55); AST (SGOT) 14 U/L (5-34); Albumin 3.6 g/dL (3.4-4.8); Alkaline Phosphatase 146 U/L (40-150); Anion Gap 16 mmol/L (10-20); BUN (Urea Nitrogen) 44 mg/dL (8.4-25.7); Bilirubin, Total 0.4 mg/dL (0.2-1.2); CK (CPK) 198 U/L (30-200); Calc. Creatinine Clearance 0 mL/min (70-130); Calcium 9.3 mg/dL (7.8-10.44); Carbon Dioxide 21 mmol/L (23-31); Estimated GFR-MDRD 25; Globulin 4.1 g/dL (2.4-3.5); Glucose 255 mg/dL (83-110); Potassium 4.6 mmol/L (3.5-5.1); Protein, Total 7.7 g/dL (5.8-8.1)
[2018-03-16 11:55] LABS: Troponin I Less than 0.010 ng/mL (< 0.028)
[2018-03-16 11:59] LABS: CKMB 8.5 ng/mL (0-6.6)
[2018-03-16 12:02] LABS: Chloride 99 mmol/L (98-107); Sodium 131 mmol/L (136-145)
--- NOTE | 2018-03-16 12:17 | RAD ---
CHEST 1 VIEW: HISTORY: Syncope. COMPARISON: Chest radiograph 02/02/18. FINDINGS: There is blunting of the left lateral costophrenic sulcus. Radiopacity projects below the hemithorax , similar. Mild increased interstitial markings lung bases may be sequelae of fibrosis. No pneumothorax. Cardiac device is similar. IMPRESSION: Chronic changes. No acute intrathoracic abnormality. POS: [facility]
--- NOTE | 2018-03-16 12:28 | CT ---
CT BRAIN WITHOUT CONTRAST: HISTORY: Trauma. Fall. COMPARISON: CT brain from 2009. FINDINGS: No acute hemorrhage or infarct. NO midline shift or mass effect. Ventricular size and extraaxial CS F spaces are normal for age. Left parietal soft tissue contusion is present. The underlying calvarium is without fracture. The m astoids are clear. IMPRESSION: No acute posttraumatic intracranial sequelae. POS: [facility]
--- NOTE | 2018-03-16 12:38 | CT ---
CT CERVICAL SPINE WITHOUT COTNRAST: HISTORY: Fall. COMPARISON: CT cervical spine from 2009. FINDINGS: The occipital condyles are intact. The odontoid process is intact. The skull base is intact. There are erosive degenerative changes of the right C4-C7 facets. Severe degenerative disk space hei ght loss at C6-7. There is lack of normal cortical medullary differentiation and suggests hyperparat hyroidism. The visualized portion of the thyroid is unremarkable. There are emphysematous changes in the lung a pices. Visualized ribs are without fracture. No paraspinal hematoma. No adenopathy. IMPRESSION: 1. No acute cervical spine fracture. 2. Evidence of hyperparathyroidism. 3. Progressive spondylosis from 2008. POS: [facility]
[2018-03-16 12:39] LABS: Digoxin Less than 0.15 ng/mL (0.8-2.0)
[2018-03-16 15:35] LABS: Lactic Acid 1.9 mmol/L (0.5-2.2)
[2018-03-16 15:44] LABS: Troponin I 0.015 ng/mL (< 0.028)
[2018-03-16] MEDS ORDERED: Ondansetron HCl/PF 4 MG/2 ML Vial IVP PRN ×2 (15:52→16:25)
[2018-03-16] MEDS ORDERED: Ondansetron ODT 4 MG TAB SL PRN (15:52)
[2018-03-16] MEDS ORDERED: Acetaminophen 325 MG TAB PO PRN (15:52)
[2018-03-16] MEDS ORDERED: cloNIDine 0.1 MG TAB PO PRN (16:25)
[2018-03-16] MEDS ORDERED: Dextrose 5% in Water 1,000 ML IV PRN (16:25)
[2018-03-16] MEDS ORDERED: Dextrose 50% Abboject 50 ML SYRINGE SLOW IVP PRN (16:25)
[2018-03-16] MEDS ORDERED: hydrALAZINE 20 MG/ML VIAL SLOW IVP PRN (16:25)
[2018-03-16 17:03] VITALS: BMI 28.5
[2018-03-16] MEDS: Sodium Chloride 0.9% 1,000 ML IV SCH (17:33)
[2018-03-16] MEDS: Acetaminophen 500 MG TAB PO PRN (17:34)
[2018-03-16] MEDS: HumaLOG 300 UNITS/3 ML VIAL SC PRN ×2 (17:34→20:12)
[2018-03-16 17:54] LABS: Troponin I 0.014 ng/mL (< 0.028)
--- NOTE | 2018-03-16 19:17 | ULT ---
CAROTID ULTRASOUND 03/16/18 COMPARISON: None. HISTORY: Syncope. TECHNIQUE: Multiplanar snell scale and color doppler images were obtained in a carotid ultrasound. Spectral abdulkadir sis of the doppler waveforms were performed. FINDINGS: There is complex plaque in the proximal left internal carotid artery. A small amount of plaque is see n in the right internal carotid artery. Normal waveforms could not be seen in the left common or inte rnal carotid artery. There may be a minimal amount of monophasic flow in these vessels. Peak systolic velocity in the right ICA is 118 cm/s. Peak systolic velocity in the right CCA is 87 cm /s. The right ICA/CCA ratio is 1.4. Peak systolic velocities in the common carotid artery and internal carotid artery on the left could n ot be performed as good waveforms could not be obtained. There may be a small amount of trickle flow. The vertebral arteries were not visualized. IMPRESSION: There is either occlusion or high grade stenosis of the left internal carotid artery and common carot id artery. A CTA of the neck is recommended for further evaluation. POS: [facility]
[2018-03-16] MEDS: Amiodarone 200 MG TAB PO SCH (20:11)
[2018-03-16] MEDS: Gabapentin 300 MG CAP PO SCH (20:12)
[2018-03-16] MEDS: Insulin Glargine 30 UNITS in Pre-Filled Syringe 1 EACH SC SCH (20:12)
[2018-03-16] MEDS ORDERED: Non-Formulary Item 1 EACH (Insulin Detemir 100 Units/Ml [Levemir] 30 UNIT) SQ SCH (21:00)
[2018-03-16] MEDS: traZODone HCl 150 MG TAB PO SCH (21:17)
--- NOTE | 2018-03-17 00:10 | HP ---
DATE OF ADMISSION: 03/16/2018 PRIMARY CARE PHYSICIAN: Dr. Franklyn Desouza. CHIEF COMPLAINT: Passing out. HISTORY OF PRESENT ILLNESS: This is a 73-year-old male who presents to [facility] and transported by EMS personnel after apparently sustaining a syncopal episode while attempting to get out of a vehicle and go into [facility] this morning. Patient states that he took an Uber taxi to [facility] when he was attempting to get his rolling walker out of the back of the vehicle. Patient states he became dizzy and was holding onto the side of the vehicle and suddenly passed out , striking his head on the pavement. Patient states he is unsure of the amount of time he was lying on the pavement, but when he woke up many people were standing around and telling him to lie still. Patient sustained contusion to the back portion of his scalp with small laceration. Patient admits t o multiple falling episodes over the last 6 to 8 months up to 5 episodes that he can recall. Patient does admit that he is taking Xarelto due to history of atrial fibrillation and tachyarrhythmias. Velasquez stevenson also admits that his chronic medications are somewhat disorganized and he is confused about wha t he is supposed to be taking at home. Patient states he resides at [facility] and re ceives approximately 18 hours of assistance with daily chores laundry and meal preparation. Patient admits to feeling dizzy over the last 48 hours, but denied any unilateral weakness, difficulty with s peech, or facial asymmetry. Patient states he did take his morning insulin regimen after noting his sugar was elevated over 300. Patient took an additional 10 units of NovoLog in addition to his regul ar maintenance regimen of Levemir. Patient states he took the insulin approximately an hour prior to this episode of syncope occurring. Patient's history also significant for recent severe sinus tushar cardia undergoing a dual-chamber pacemaker placement on 02/02/2018. In the emergency room, patient u nderwent general evaluation including CT of the brain showing no acute intracranial process. Patient received IV normal saline x1 liter after patient was noted with hypotension and acute kidney injury. Patient was transferred to the stroke unit for further evaluation. PAST MEDICAL HISTORY: 1. Sick sinus syndrome, status post dual-chamber pacemaker placement on 02/02/2018. 2. History of atrial fibrillation with rapid ventricular response. 3. Acute on chronic systolic congestive heart failure with ejection fraction of 45%-50%. 4. Diabetes mellitus type 2, insulin-requiring. 5. History of hypoglycemia. 6. Hypertension. 7. Hyperlipidemia. 8. Depression. 9. Gastroesophageal reflux disease. 10. History of multiple falls. 11. Chronic obstructive pulmonary disease. 12. Tobacco abuse. PAST SURGICAL HISTORY: 1. Status post bilateral inguinal hernia repair. 2. Status post left humeral fracture repair. 3. Status post aortobifemoral bypass grafting and endarterectomy. CURRENT MEDICATIONS: Based on previous admission: 1. Lipitor 80 mg p.o. daily. 2. Clonazepam 0.5 mg p.o. daily. 3. Gabapentin 300 mg p.o. t.i.d. 4. Levemir 30 units subcutaneously b.i.d. 5. Regular insulin 15 units subcutaneously b.i.d. with meals. 6. Metformin 1000 mg p.o. b.i.d. 7. Protonix 40 mg p.o. daily. 8. Sertraline 50 mg p.o. daily. 9. Amiodarone 200 mg p.o. daily. 10. Aspirin 81 mg p.o. daily. 11. Lasix 40 mg p.o. daily. 12. Metoprolol tartrate 50 mg p.o. b.i.d. 13. Potassium chloride 10 mEq p.o. daily. 14. Xarelto 20 mg p.o. daily. 15. Thiamin 100 mg p.o. daily. ALLERGIES: ZARA INHIBITORS. FAMILY HISTORY: No inheritable diseases per patient report. SOCIAL HISTORY: Patient smokes up to one and a half pack of cigarettes daily. Occasional alcohol us e. No illicit drug use. Ambulates with a rolling walker with history of multiple falls. REVIEW OF SYSTEMS: The following complete review of systems was otherwise negative, except as stated per HPI: Constitutional: Weight loss or gain, ability to conduct usual activities. Skin: Rash, i tching. Eyes: Double vision, pain. ENT/Mouth: Nose bleeding, neck stiffness, pain, tenderness. C ardiovascular: Palpitations, dyspnea on exertion, orthopnea. Respiratory: Shortness of breath, whe ezing, cough, hemoptysis, fever, or night sweats. Gastrointestinal: Poor appetite, abdominal pain, heartburn, nausea, vomiting, constipation, or diarrhea. Genitourinary: Urgency, frequency, dysuria, nocturia. Musculoskeletal: Pain, swelling. Neurologic/Psychiatric: Anxiety, depression. Allergy /Immunologic: Skin rash, bleeding tendency. PHYSICAL EXAMINATION: VITAL SIGNS: On admission blood pressure 111/72, pulse 104, respiratory rate 22, temperature 98 degr ees Fahrenheit, O2 saturation 98% on room air. GENERAL APPEARANCE: This is a 73-year-old male, alert and oriented x3, pleasant and in no acute distress. HEENT: Pupils are equal, round, and reactive to light and accommodation. Extraocular muscles are in tact. No scleral icterus, no conjunctival injection. Nares patent. OP is clear. Teeth in fair rep air. Left occiput with large hematoma with tenderness to palpation. No active bleeding noted. NECK: Supple, no cervical adenopathy, no thyromegaly, no carotid bruits, no JVD appreciated. Cervic al spine with full active and passive range of motion. No meningeal signs appreciated. CHEST: Lungs are clear to auscultation bilaterally. CARDIOVASCULAR: S1, S2 with distant heart sounds. ABDOMEN: Obese, soft, nontender, nondistended. Bowel sounds are positive in all four quadrants. Th ere is no hepatosplenomegaly, no abdominal bruits, no rebound or guarding appreciated. EXTREMITIES: Warm and dry with fair turgor. No clubbing, cyanosis, or asymmetric edema appreciated. Pulses palpable distally at the dorsalis pedis, posterior tibial, and popliteal arteries bilaterall y. Capillary refill less than 2 seconds. NEUROLOGIC: Cranial nerves II-XII are grossly intact. No focal or lateralizing signs appreciated. Patient not observed ambulatory during this exam. PERTINENT LABORATORY AND X-RAY FINDINGS: Sodium 131, potassium 4.6, chloride 99, CO2 of 21, BUN 44, creatinine 2.51, estimated GFR of 25. Previous creatinine noted 0.84 on 02/04/2018. Lactic acid lev el ranged between 1.9-3.1. LFTs within normal limits. Troponin I negative x2. Albumin 3.6. CBC sh owed a white blood cell count of 10.3, hemoglobin 15, hematocrit 45, platelet count 259 with 72% neut rophils. Portable chest x-ray dated 03/16/2018 showed chronic changes without acute process. CT of the cervical spine dated 03/16/2018 showed degenerative changes without acute process. CT of the bra in without contrast dated 03/16/2018 showed large parietal soft tissue contusion without acute intrac ranial process. EKG dated 03/16/2018 by my interpretation shows sinus tachycardia with heart rates i n the 110s. Normal R-wave progression noted in the precordial leads. Right bundle branch block tiara yasemin noted. Normal axis. ASSESSMENT AND PLAN: 1. Syncopal episode. Exact etiology unclear. Patient with significant cardiac history with sick si nus syndrome, status post pacemaker placement on 02/02/2018. We will continue general syncopal hetal p to include orthostatic vital signs. Initiate intravenous normal saline at 50 mL per hour. Continu e telemetry monitoring. Check carotid ultrasounds. 2. Acute kidney injury likely secondary to dehydration. We will continue intravenous normal saline at 50 mL per hour. Avoid nephrotoxic agents and contrast media. Repeat creatinine in the a.m. 3. Dehydration. We will continue IV fluids as outlined previously. Encourage increased free oral i ntake of water. 4. Sick sinus syndrome, status post pacemaker placement. We will continue telemetry monitoring. In terrogate pacemaker device. Rule out underlying acute arrhythmia. 5. Multiple falls. Obtain PT evaluation for functional assessment. Patient may benefit from [facility] nursing facility placement and ongoing home physical therapy. General fall risk precautions. 6. Chronic combined congestive heart failure. Stable currently. No evidence of clinical decompensa tion. Hold Lasix due to dehydration and acute kidney injury. 7. Prophylaxis. Sequential compression devices while in bed. Pepcid 20 mg p.o. b.i.d. 8. Physical therapy evaluation in the a.m. 9. Code status is FULL. Surrogate medical decision maker is patient's nephew.
[2018-03-17 04:41] LABS: Band 11 % (5-11); Eosinophils 1 % (0-10); Hemoglobin 13.7 g/dL (14.0-18.0); Lymphocytes 27 % (21-51); MDiff Complete? YES; Mean Corpuscular HGB CONC 33.8 g/dL (32.0-36.0); Mean Corpuscular Hemoglobin 30.7 pg (27.0-31.0); Mean Corpuscular Volume 90.8 fL (78.0-98.0); Mean Platelet Volume 8.5 fL (7.4-10.4); Monocytes 12 % (0-10); Neutrophil 49 % (42-75); Platelet Count 230 thou/uL (130-400); RBC Distribution Width 14.2 % (11.5-14.5); Red Blood Cell (RBC) Count 4.45 mill/uL (4.70-6.10); White Blood Cell (WBC) Count 9.5 thou/uL (4.8-10.8)
[2018-03-17 04:45] LABS: Anion Gap 13 mmol/L (10-20); BUN (Urea Nitrogen) 40 mg/dL (8.4-25.7); Calc. Creatinine Clearance 65 mL/min (70-130); Calcium 8.7 mg/dL (7.8-10.44); Carbon Dioxide 24 mmol/L (23-31); Chloride 103 mmol/L (98-107); Estimated GFR-MDRD 51; Glucose 124 mg/dL (83-110); Sodium 136 mmol/L (136-145)
[2018-03-17] MEDS: Amiodarone 200 MG TAB PO SCH ×2 (08:28→20:47)
[2018-03-17] MEDS: Gabapentin 300 MG CAP PO SCH ×3 (08:28→20:47)
[2018-03-17] MEDS: Famotidine 20 MG TAB PO SCH (08:28)
[2018-03-17] MEDS: Atorvastatin Calcium 40 MG TAB PO SCH (08:29)
[2018-03-17] MEDS ORDERED: Prevnar 13-Val Conj/PF 0.5 ML SYRINGE IM ONE (09:00)
--- NOTE | 2018-03-17 09:46 | PRG ---
DATE OF SERVICE: 03/17/2018 SUBJECTIVE: The patient reports that he feels generally okay this morning. He has no specific compl aints or concerns. PHYSICAL EXAMINATION: VITAL SIGNS: Temperature 97.9, pulse 113, respirations 16, O2 sat 94% on nasal cannula, BP 96/59 to 118/73. GENERAL: Age appropriate male in no distress. Awake, alert, oriented, pleasant, cooperative. HEART: Faint, irregular, tachycardic with no murmurs. LUNGS: Diminished throughout with no wheezes or rales. ABDOMEN: Soft, nontender. Very large ventral hernia. EXTREMITIES: Warm and dry without edema. LABORATORY DATA: White count 9.5, hemoglobin 13.7, platelets 230, BUN 40, creatinine 1.37, glucose 1 24 up to 306, calcium 8.7. Carotid Doppler study reports there is either occlusion or high grade dustin nosis in the left internal carotid artery and common carotid artery. CT is recommended. IMPRESSION AND PLAN: 1. Syncopal episode. Currently, there are multiple potential etiologies including carotid stenosis, atrial fibrillation with RVR and/or related hypotension. Hypoglycemia was also in the differential, but looks less likely. 2. Atrial fibrillation with rapid ventricular response. The patient has a history of atrial fibrill ation, had sick sinus syndrome, had a pacemaker placed last month. He had been on amiodarone, but is not currently rate controlled. His amiodarone has been increased to 400 mg p.o. b.i.d. from 200 zuhair ry day. We will go ahead and consult Cardiology as well. His blood pressure is too low to add signi ficant addition of beta blockade or calcium channel blockers. We will also get a pacemaker interroga tion report. 3. Possible left carotid stenosis. The patient has a history of vascular disease. He reports he powell d bilateral iliac disease addressed by Dr. Domínguez. He continues to smoke until fairly recently. We will need a confirmatory study with a CT or MRA of neck with angiogram; however, given his renal func tion can hold off on that for now. 4. Acute renal insufficiency. The patient's creatinine is substantially improved today. It is not back to baseline. We will continue with hydration and continue to monitor. Still avoiding nephrotox ins. 5. Diabetes mellitus. The patient has variable blood sugars, but most recent are improved. We will continue to monitor and use insulin as needed. 6. Tobacco abuse. The patient reports he has substantially decreased, especially now because he is living in assisted living. 7. History of alcohol use. The patient has a history of multiple DWI charges. There is no evidence that he is actively involved in significant use. 8. Dehydration. The patient had some evidence of prerenal azotemia based on his lab work. He also had borderline blood pressures. He received initial fluid resuscitation. His numbers are improved. It is unclear if this was prerenal azotemia secondary to pure dehydration or if there was some eleme nt of poor pump function related to the atrial fibrillation and hypotension. It is improving with hy dration. 9. History of combined chronic congestive heart failure. The patient has no evidence of decompensat ion at this point. Diuretics are being held in light of his renal function. 10. Large ventral hernia, stable. 11. Lightheadedness. The patient reports multiple episodes lightheadedness with multiple recurrent falls. He has some peripheral neuropathy because of the diabetes and is using a walker primarily bec ause of the dizziness and to avoid falls. Physical therapy has been asked to evaluate the patient. 12. History of hyperlipidemia. Continue with the oral Lipitor.
[2018-03-17] MEDS: Insulin Glargine 30 UNITS in Pre-Filled Syringe 1 EACH SC SCH ×2 (10:20→20:48)
[2018-03-17] MEDS: HumaLOG 300 UNITS/3 ML VIAL SC PRN ×2 (11:58→17:49)
[2018-03-17] MEDS: Sodium Chloride 0.9% 1,000 ML IV SCH (11:59)
[2018-03-17] MEDS: Diltiazem 125 MG in Sodium Chloride 0.9% 100 ML IVPB SCH (13:35)
--- NOTE | 2018-03-17 16:36 | CON ---
DATE OF CONSULTATION: 03/17/2018 HISTORY OF PRESENT ILLNESS: The patient is a 73-year-old gentleman with a history of atrial fibrillation/flutter who presented after losing consciousness. The patient has a history of peripheral vascular disease. He is status post an aortofemoral bypass. He also has a history of a cardiomyopathy. The patient has previously undergone ablation for atrial flutter. The patient has a history of atrial fibrillation and has been on amiodarone. The patient has had difficulty with several falls. The patient most recently had a loop monitor placed. The patient presented after once again losing consciousness. The patient was getting out of a car when he suddenly became dizzy, fell down and lost consciousness. The patient denied having any chest pain or palpitations. He subsequently had placement of an electronic pacemaker. PAST MEDICAL HISTORY: 1. Atrial flutter/fibrillation. 2. Cardiomyopathy. 3. Peripheral vascular disease. 4. Hypertension. 5. History of a left atrial thrombus. 6. Diabetes mellitus. PAST SURGICAL HISTORY: Femoral endarterectomy, aortobifemoral bypass, left shoulder surgery, hernia surgery. SOCIAL HISTORY: The patient has a long history of tobacco abuse. MEDICATIONS: See nursing list. ALLERGIES: ZARA INHIBITOR THERAPY. FAMILY HISTORY: No strong family history of heart disease. REVIEW OF SYSTEMS: Ten-point system otherwise unremarkable. No history of easy bruising or bleeding, bright red blood per rectum. PHYSICAL EXAMINATION: GENERAL: This is an elderly gentleman, in no acute distress. VITAL SIGNS: Blood pressure was 122/71. NECK: Showed no jugular venous distention. LUNGS: Clear to auscultation. HEART: Regular rate and rhythm, normal S1, S2 with no murmurs. ABDOMEN: Distended with a ventral hernia and a midline scar. EXTREMITIES: Showed no edema. VASCULAR: Radial pulses are 2+. LABORATORY DATA: White blood cell count 9.5, hemoglobin 13.7, hematocrit 40.4 and platelets are 230,000. Sodium was 136, potassium 4.0, chloride 103, bicarbonate 24, BUN 40, creatinine is 1.37, glucose 124, troponin 0.014. EKG revealed atrial flutter with 2:1 conduction and right bundle branch block and a left anterior fascicular block. IMAGING: His EKG today revealed atrial flutter 2:1 conduction. IMPRESSION: 1. Syncope. 2. Recurrent atrial flutter. 3. History of cardiomyopathy. 4. History of pacemaker placement. 5. Hypertension. 6. Peripheral vascular disease. 7. Diabetes mellitus. 8. History of noncompliance. This gentleman presents with recurrent syncope and atrial flutter. He has an electronic ventricular pacemaker. From a cardiac standpoint, we will ask EP to evaluate whether he should undergo repeat ablation for atrial flutter. We will start the patient on IV Cardizem. We will hold anticoagulation with this patient's history of falls. He may not be an appropriate patient for taking Xarelto. KAREND
[2018-03-17] MEDS: Vancomycin HCl 1.75 GM in Sodium Chloride 0.9% 500 ML IVPB SCH (17:41)
[2018-03-17] MEDS ORDERED: Piperacillin/Tazobactam 3.375 GM in Sodium Chloride 0.9% 100 ML IVPB SCH (18:00)
[2018-03-17] MEDS: Piperacillin/Tazobactam 3.375 GM in Sodium Chloride 0.9% 100 ML IVPB SCH (20:47)
[2018-03-17] MEDS ORDERED: Vancomycin HCl 1 GM in Premix Bag 1 BAG IVPB SCH (21:00)
[2018-03-17] MEDS: traZODone HCl 150 MG TAB PO SCH (23:00)
[2018-03-18] MEDS: Piperacillin/Tazobactam 3.375 GM in Sodium Chloride 0.9% 100 ML IVPB SCH ×4 (03:03→20:28)
[2018-03-18 04:42] LABS: #Basophils 0.1 thou/uL (0.0-0.2); #Lymphocytes 2.3 thou/uL (1.20-3.40); #Monocytes 0.9 thou/uL (0.11-0.59); #Neutrophils 6.9 thou/uL (1.40-6.50); %Basophils 0.6 % (0.0-1.0); %Eosinophils 0.3 % (0.0-10.0); %Lymphocytes 22.6 % (21.0-51.0); %Monocytes 9.2 % (0.0-10.0); %Neutrophils 67.4 % (42.0-75.0); Hemoglobin 13.7 g/dL (14.0-18.0); Mean Corpuscular HGB CONC 32.9 g/dL (32.0-36.0); Mean Corpuscular Hemoglobin 30.1 pg (27.0-31.0); Mean Corpuscular Volume 91.6 fL (78.0-98.0); Mean Platelet Volume 8.6 fL (7.4-10.4); Platelet Count 222 thou/uL (130-400); RBC Distribution Width 14.3 % (11.5-14.5); Red Blood Cell (RBC) Count 4.55 mill/uL (4.70-6.10); White Blood Cell (WBC) Count 10.2 thou/uL (4.8-10.8)
[2018-03-18 05:04] LABS: Anion Gap 13 mmol/L (10-20); BUN (Urea Nitrogen) 21 mg/dL (8.4-25.7); Calc. Creatinine Clearance 90 mL/min (70-130); Calcium 8.3 mg/dL (7.8-10.44); Carbon Dioxide 24 mmol/L (23-31); Chloride 103 mmol/L (98-107); Estimated GFR-MDRD 75; Glucose 165 mg/dL (83-110); Potassium 3.9 mmol/L (3.5-5.1); Sodium 136 mmol/L (136-145)
[2018-03-18] MEDS: Diltiazem 125 MG in Sodium Chloride 0.9% 100 ML IVPB SCH (06:23)
[2018-03-18] MEDS ORDERED: Enoxaparin Sodium 40 MG/0.4 ML SYRINGE SC SCH (09:00)
[2018-03-18] MEDS: Amiodarone 200 MG TAB PO SCH (09:35)
[2018-03-18] MEDS: Acetaminophen 500 MG TAB PO PRN (09:35)
[2018-03-18] MEDS: Insulin Glargine 30 UNITS in Pre-Filled Syringe 1 EACH SC SCH ×2 (09:35→20:30)
[2018-03-18] MEDS: Atorvastatin Calcium 40 MG TAB PO SCH (09:36)
[2018-03-18] MEDS: Gabapentin 300 MG CAP PO SCH ×3 (09:36→20:29)
[2018-03-18] MEDS: Famotidine 20 MG TAB PO SCH (09:36)
--- NOTE | 2018-03-18 10:43 | CON ---
DATE OF CONSULTATION: 03/17/2018 REFERRING PHYSICIAN: Dr. Aldair Cline PRIMARY FURNISHINGS CONSERVATOR: Juan Carlos Freeman M.D. PRIMARY CARE PROVIDER: Franklyn Desouza M.D. CHIEF COMPLAINT: Upon presentation was passing out and dizziness. HISTORY OF PRESENT ILLNESS: Ms. Briceno is a gentleman who is previously known to our practice for histo ry of typical atrial flutter as well as atrial fibrillation. Some back story, he was initially under going workup for an aortobifemoral bypass with Dr. Domínguez and was found to be in atrial flutter with RVR. He was brought for [place] and ablation, but was found to have a left atrial appendage thrombus, wa s anticoagulated and then brought back for ablation. He was placed on amiodarone in 2013 for suppres reji of atrial fibrillation as well. We have not seen him back in clinic since 03/2014. He is regul wilfred patient of Dr. Freeman's and has a history of cardiomyopathy with an ejection fraction previous ly 30%-35%, but since returned to 60%-65% by transthoracic echo on 08/25/2017. Currently, he is a re sident at [facility] living and has a substantial amount of assistance with his ADLs. He end orses being very overwhelmed and inconsistent with his medications and is not confident that he is ta christine his medications appropriately. He does have amiodarone and Xarelto prescribed for his atrial fi brillation and stroke prophylaxis. Compliance is suspect in the past. He had a more recent history of severe bradycardia and sick sinus syndrome and underwent dual-chamber pacemaker implantation on with Dr. Freeman. He thinks that he finished his antibiotic course, but was concerned that there were some complications at the site, though did not further seek out medical attention or jerad tional evaluation. He presented to the emergency room on the after having an episode of syncope and collapse. He w as getting out of an [employer] taxi at [facility] and had stood up out of his door, turned to get the walker out from the backseat and became dizzy and passed out, striking his head on the ground. 911 was call ed and he was moved to a stretcher and brought into the hospital for additional evaluation. Since ar riving to the hospital, he has had his device interrogated, has been placed on a diltiazem drip for r ate control as he was found to be in atrial fibrillation/atrial flutter with RVR with rates sustainin g at 120-130 beats per minute. By review of records from Dr. Freeman's office, he had recently incr eased Mr. Briceno's amiodarone to 400 mg daily, though it is unsure if the patient was taking this medica tion at all or as prescribed. The patient endorses that he has had multiple dizzy episodes that happ en upon standing. He denies any dizziness or syncopal episodes that happened at rest. He denies any heart racing, palpitations, chest pain, pressure, stroke or stroke-like symptoms. His most pressing concern is wishing for help at home with his medications and also chronic fatigue. REVIEW OF SYSTEMS: A 12-point review of systems was conducted and is negative except that listed abo ve in the HPI. PAST MEDICAL HISTORY: 1. Typical atrial flutter, status post ablation in 09/[address] Schmitz. 2. Paroxysmal atrial fibrillation with increasing burden, would prescribe amiodarone for suppression . 3. History of left atrial appendage thrombus by [place] in 06/2013, near the time of diagnosis of his at rial arrhythmias. 4. Prior aortobifemoral bypass with Dr. Domínguez. 5. Ventral hernia. 6. Anticoagulation, on warfarin initially, but most recently documented on Xarelto. 7. Sick sinus syndrome, prompting dual chamber pacemaker implantation on 02/02/2018. 8. Type 2 diabetes, insulin-dependent. 9. Hypertension 10. Chronic systolic congestive heart failure, cardiomyopathy with an ejection fraction most recentl y documented at 60%-65%, though previously as low as 30%-35% by Dr. Freeman's records. 11. Peripheral vascular disease. 12. Hypercholesterolemia. 13. Depression. 14. Gastroesophageal reflux disease. 15. COPD. 16. Tobacco abuse. ALLERGIES: ZARA INHIBITORS. HOME MEDICATIONS: The patient does not have an accurate list reflecting his home medications, but ac cording to office visit by Dr. Freeman in October of this year, this list was determined. 1. Gabapentin 300 mg p.o. t.i.d. 2. Metformin 1000 mg p.o. b.i.d. 3. NovoLog FlexPen as directed. 4. Levemir FlexPen as directed. 5. Sertraline 100 mg p.o. daily. 6. Clonazepam 0.5 mg p.o. b.i.d. 7. Pravastatin 40 mg 2 tabs b.i.d. 8. Aspirin 81 mg p.o. daily. 9. Xarelto 20 mg daily with evening meal. 10. Metoprolol tartrate 50 mg b.i.d. 11. Potassium chloride 10 mEq p.o. b.i.d. 12. Furosemide 40 mg daily. 13. Amiodarone 400 mg p.o. daily. 14. Atorvastatin 80 mg p.o. daily. FAMILY HISTORY: As far as the patient can recall, negative for sudden cardiac or early onset c oronary artery disease. SOCIAL HISTORY: Current tobacco abuse up to 1-1/2 packs daily. Occasional alcohol. Denies illicit drug use. Lives in [facility]. Minimal support structure, ambulates with a ro llator, but has multiple falls. Home Health For ADLs. No assistance with medications. PHYSICAL EXAMINATION: VITAL SIGNS: Most recent vital signs include 97.6 degrees Fahrenheit, pulse 115, respirations 20, ox ygen is 98% on room air, blood pressure is 107/70. GENERAL: This is a 73-year-old gentleman who appears much older than his stated age. He is alert an d oriented. He is a poor historian. He is pleasant, in no apparent distress, resting comfortably in bed during: He is normocephalic. He does have a small hematoma in the occipital portion of his hea d just consistent with him falling and hitting the pavement. Pupils are equal, round, reactive and a ccommodating to light. His sclerae are anicteric. His oral mucosa is moist and pink with fair denti tion. NECK: Supple without jugular venous distention. His thyroid is nonpalpable. LUNGS: Clear to auscultation bilaterally. Respirations are even and unlabored with good bilateral e xcursion. CARDIAC: Heart rate is irregularly irregular, with distant heart tones. No obvious murmur, rubs or gallops are appreciated. EXTREMITIES: Warm and dry to touch. No clubbing or cyanosis. There is some trace bilateral edema t o lower extremities. ABDOMEN: Obese, soft, and nontender without tenderness or guarding. There is a large ventral hernia appreciated. Positive bowel tones are noted throughout. NEUROLOGIC: Grossly intact and nonfocal. Gait was not assessed. DATABASE: Recent Hematology: WBC 9.5, hemoglobin 13.7, hematocrit 40.4, platelet count 230. Chemis try: Sodium 136, potassium 4.0, BUN is 40, creatinine 1.37. AST and ALT are within normal limits. Serial troponins are negative. Glucose levels are consistently elevated. Digoxin level less than 0. 15. Carotid Doppler study on 03/16/2018 indicated either occlusion or high grade stenosis of the lef t ICA and CCA recommending CT of the neck for further evaluation. Chest x-ray on 03/16/2018, chronic changes, but no acute intrathoracic abnormalities. Review of telemetry and EKG were personally reviewed and largely reflect atrial fibrillation/atypical atrial flutter with RVR, ventricular rates are least in between 110 and 130 beats per minute. Device interrogation: Patient has a [employer] [place] dual chamber pacemaker that was implanted 2017. Lead parameters are stable with adequate sensing and threshold impedances are stable to AP 32. 7%. PRECONSTRUCTION MANAGER 1.2%. MODE is currently AAIR-DDDR with a lower rate limit of 60 beats per minute. Interroga tion reveals a substantial atrial arrhythmia burden calculated at 60%, though appears to have some un dersensing. There is frequent RVR with average ventricular rates of 130-140 beat per minute range. Overall, reveals substantial atrial fibrillation and atypical atrial flutter burden with poorly contr olled ventricular rates. Otherwise, device is functioning normally. IMPRESSION: 1. Recurrent atrial arrhythmias, now with a burden currently 60% and poorly controlled ventricular r ates. 2. History of typical atrial flutter, status post CTI ablation in 09/2013. 3. Chronic amiodarone use since 2013 for suppression of atrial fibrillation and atypical atrial flut ter. 4. Recent dual chamber pacemaker implantation on 02/02/2018 for sick sinus syndrome, now with an inc isional infection. 5. Right bundle branch block. 6. History of cardiomyopathy, ejection fraction as low as 30%-35% in the past, but most recently ass essed at 60%-65% by echo on 08/25/2017. 7. Recent falls. 8. Acute kidney injury as well as chronic combined congestive heart failure. PLAN: I have spoken with the hospitalist for initiation of broad spectrum antibiotics in the setting of possibly infected pacemaker. I have ordered wound culture and blood cultures were performed on 0 03/16/2018 which so far do not reflect any growth. I will have wound care stop by, evaluate and begin treatment for the pacemaker site. He does have high burden of atrial arrhythmias, so oral anticoagu lation is needed with an elevated CHADS VASc score of 5 on the basis of advancing age, vascular disea se, heart failure, diabetes and hypertension, so anticoagulation is indicated. The patient did not r eport Xarelto, as home medications and though it is on record that anticoagulation has been ordered d ecreasing. For now, we will order therapeutically dosed Lovenox, but the patient will require long-t erm anticoagulation upon discharge. We will reevaluate his heart function with a repeat transthoraci c echocardiogram and he may have some tachycardia-induced cardiomyopathy. His pacemaker site is quit e concerning and he may require extraction early next week if he does not significantly improve betwe en now and then. We will keep him on amiodarone 400 mg daily for his atrial fibrillation. He is com pliant with his medication at home is unknown, so for now, we will just continue with this and the di ltiazem for rate control as per Cardiology. Thank you for allowing us to participate in the care of this patient. We will continue to follow and will reevaluate on Tuesday.
[2018-03-18] MEDS ORDERED: Amiodarone In Dextrose 200 ML IVPB SCH (10:45)
[2018-03-18] MEDS: Amiodarone HCl 450 MG, Admixture Fee 1 EACH in Dextrose 5% in Water 250 ML IVPB SCH ×2 (11:48→20:26)
[2018-03-18] MEDS: HumaLOG 300 UNITS/3 ML VIAL SC PRN ×2 (11:48→17:19)
[2018-03-18] MEDS: Sodium Chloride 0.9% 1,000 ML IV SCH (11:58)
--- NOTE | 2018-03-18 12:09 | PRG ---
DATE OF SERVICE: 03/18/2018 SUBJECTIVE: The patient has no specific physical complaints today. He is a little grumpy, wants to know when he will be able to get out of here. He says he was tired telling people about his pacemake r problem and nobody doing anything about it and then recounted back to me all the things that had be en done about it including a trial of antibiotics. OBJECTIVE: VITAL SIGNS: T-max 98.5, pulse 82-109, respirations 16-20, O2 sat 93%-95% on room air, BP 109/75 wit h a low of 88/70. GENERAL: Age-appropriate male. He is in no distress. He is awake, alert, oriented, pleasant, coope rative. HEENT: PERRL. No OP lesions. NECK: Supple, symmetric. HEART: Regular, without murmurs. LUNGS: Diminished, but clear bilaterally without significant wheezes or rales. Left chest pacemaker site has some halo of erythema around the incision site with a slight lateral dehiscence and some mu coid-type purulence around that area. ABDOMEN: A large ventral hernia. No tenderness to palpation. Positive bowel sounds. EXTREMITIES: Warm and dry without any edema. LABORATORY DATA: White count 10.2, hemoglobin 13.7. Sodium 136, potassium 3.9, chloride 103, CO2 of 24, glucose 165-291, calcium 8.3. Wound culture from pacemaker site growing Staph aureus. IMPRESSION AND PLAN: 1. Syncopal episode, likely secondary to arrhythmia. The patient has a pacemaker in place, shows so me recurrent atrial arrhythmias, is now in atrial fibrillation with rapid ventricular response, curre ntly getting IV Cardizem to the degree his blood pressure will allow along with amiodarone. Cardiolo gy and EP following. 2. History of cardiomyopathy with an EF of 30%-35%, most recently found to be up to 60%-65%. 3. Infected pacemaker site. The patient is on vancomycin and Zosyn, growing Staphylococcus. EP ant icipates likely needing to remove the pacemaker next week. 4. Acute renal insufficiency. Creatinine has normalized with fluids. Likely combination of arrhyth katie with poor forward flow from cardiac dysfunction and possibly some dehydration. 5. Possible left carotid stenosis. The patient will need a CT angiogram once he is more stable from a cardiac perspective with reasonable rate control and blood pressure before going on to CT. 6. Dehydration, improved. 7. Combined chronic congestive heart failure, well compensated. 8. Large ventral hernia, stable. 9. Hyperlipidemia. Continue with the Lipitor. 10. Tobacco abuse. 11. Diabetes mellitus with variable control, no change at this time.
[2018-03-18] MEDS: Vancomycin HCl 1.75 GM in Sodium Chloride 0.9% 500 ML IVPB SCH (17:19)
[2018-03-18] MEDS: Enoxaparin Sodium 100 MG/ML SYRINGE SC SCH (20:28)
[2018-03-18] MEDS: traZODone HCl 150 MG TAB PO SCH (20:29)
[2018-03-19] MEDS: Piperacillin/Tazobactam 3.375 GM in Sodium Chloride 0.9% 100 ML IVPB SCH ×4 (03:01→21:24)
[2018-03-19 04:59] LABS: #Eosinphils 0.1 thou/uL (0.0-0.7); #Lymphocytes 1.6 thou/uL (1.20-3.40); #Monocytes 0.6 thou/uL (0.11-0.59); #Neutrophils 5.6 thou/uL (1.40-6.50); %Basophils 0.2 % (0.0-1.0); %Eosinophils 1.7 % (0.0-10.0); %Lymphocytes 19.5 % (21.0-51.0); %Monocytes 8.1 % (0.0-10.0); %Neutrophils 70.5 % (42.0-75.0); Hemoglobin 12.4 g/dL (14.0-18.0); Mean Corpuscular HGB CONC 33.3 g/dL (32.0-36.0); Mean Corpuscular Hemoglobin 30.8 pg (27.0-31.0); Mean Corpuscular Volume 92.5 fL (78.0-98.0); Mean Platelet Volume 8.7 fL (7.4-10.4); Platelet Count 189 thou/uL (130-400); RBC Distribution Width 14.2 % (11.5-14.5); Red Blood Cell (RBC) Count 4.05 mill/uL (4.70-6.10)
[2018-03-19 05:15] LABS: Anion Gap 14 mmol/L (10-20); BUN (Urea Nitrogen) 12 mg/dL (8.4-25.7); Calc. Creatinine Clearance 97 mL/min (70-130); Calcium 8.3 mg/dL (7.8-10.44); Carbon Dioxide 21 mmol/L (23-31); Chloride 108 mmol/L (98-107); Estimated GFR-MDRD 81; Glucose 167 mg/dL (83-110); Potassium 3.8 mmol/L (3.5-5.1); Sodium 139 mmol/L (136-145)
[2018-03-19] MEDS: Sodium Chloride 0.9% 1,000 ML IV SCH ×2 (05:41→14:10)
[2018-03-19] MEDS: Insulin Glargine 30 UNITS in Pre-Filled Syringe 1 EACH SC SCH ×2 (09:02→21:14)
[2018-03-19] MEDS: Enoxaparin Sodium 100 MG/ML SYRINGE SC SCH ×2 (09:02→21:14)
[2018-03-19] MEDS: Famotidine 20 MG TAB PO SCH (09:03)
[2018-03-19] MEDS: Atorvastatin Calcium 40 MG TAB PO SCH (09:03)
[2018-03-19] MEDS: Gabapentin 300 MG CAP PO SCH ×3 (09:03→21:14)
--- NOTE | 2018-03-19 13:26 | PDOC.PN ---
- Subjective Encounter Start Date: 03/19/18 Encounter Start Time: 13:23 Feels ok. No new complaints. No pain with the PM site. - Objective Resuscitation Status: Resuscitation Status FULL:Full Resuscitation Vital Signs & Weight: Vital Signs (12 hours) Temp Pulse Resp BP BP Pulse Ox 03/19/18 12:00 98.5 F 67 20 139/66 91 L 03/19/18 08:00 98.4 F 51 L 20 119/63 94 L 03/19/18 04:00 97.8 F 53 L 17 101/65 95 Weight Admit Weight 205 lb 1.6 oz Weight 205 lb I&O: 03/18/18 03/19/18 03/20/18 06:59 06:59 06:59 Intake Total 480 Output Total 600 625 Balance -120 -625 Result Diagrams: 03/19/18 03:57 03/19/18 03:57 Additional Labs: Accuchecks 03/19/18 03/19/18 03/18/18 10:37 05:23 20:25 POC Glucose 151 H 162 H 160 H 03/18/18 16:31 POC Glucose 169 H Phys Exam - Physical Examination Constitutional: NAD Respiratory: no wheezing, no rales, no rhonchi, clear to auscultation bilateral Cardiovascular: no significant murmur Irreg Gastrointestinal: soft, non-tender, no distention, positive bowel sounds Large ventral hernia Deviation from normal: Left upper chest PPM site dressed with modest drainage. Dx/Plan (1) Syncope Code(s): R55 - SYNCOPE AND COLLAPSE Status: Acute Comment: Multifactorial. Infection, atrial arrhythmias, dehydration, possibly carotid disease. (2) Infection of pacemaker pocket Code(s): T82.7XXA - INFECT/INFLM REACT D/T OTH CARDI/VASC DEV/IMPLNT/GRFT, INIT Status: Acute Comment: On Vanc and Zosyn. May need removal. Growing staph. (3) Paroxysmal atrial fibrillation Code(s): I48.0 - PAROXYSMAL ATRIAL FIBRILLATION Status: Chronic Comment: EP following. Will need to address the infection of the PPM pocket. On amiodarone gtt. (4) Acute renal insufficiency Code(s): N28.9 - DISORDER OF KIDNEY AND URETER, UNSPECIFIED Status: Acute Comment: Much improved with hydration. (5) Carotid stenosis Code(s): I65.29 - OCCLUSION AND STENOSIS OF UNSPECIFIED CAROTID ARTERY Status : Acute Comment: Based on US. Have not been able to get CT to confirm because of the renal insufficiency. Should be able to arrange that tomorrow. (6) Dehydration Code(s): E86.0 - DEHYDRATION Status: Resolved (7) Diabetes mellitus Code(s): E11.9 - TYPE 2 DIABETES MELLITUS WITHOUT COMPLICATIONS Status: Acute Qualifiers: Diabetes mellitus type: type 2 Comment: Controlled with Insulin Glargine 30 bid. SSI just in case. (8) Tobacco abuse Code(s): Z72.0 - TOBACCO USE Status: Acute (9) Hyperlipidemia Code(s): E78.5 - HYPERLIPIDEMIA, UNSPECIFIED Status: Acute Comment: Continue home statin. - Plan * above.
[2018-03-19] MEDS: HumaLOG 300 UNITS/3 ML VIAL SC PRN (17:12)
[2018-03-19] MEDS: Vancomycin HCl 1.75 GM in Sodium Chloride 0.9% 500 ML IVPB SCH (17:12)
[2018-03-19] MEDS: Vancomycin HCl 1.25 GM in Sodium Chloride 0.9% 250 ML 250 ML IVPB SCH (17:45)
[2018-03-19] MEDS: traZODone HCl 150 MG TAB PO SCH (21:14)
[2018-03-19] MEDS ORDERED: Amiodarone HCl 150 MG, Admixture Fee 1 EACH in Dextrose 5% in Water 100 ML IVPB SCH (23:30)
[2018-03-20] MEDS: Sodium Chloride 0.9% 1,000 ML IV SCH (01:02)
[2018-03-20] MEDS: Piperacillin/Tazobactam 3.375 GM in Sodium Chloride 0.9% 100 ML IVPB SCH ×4 (02:04→20:40)
[2018-03-20 04:37] LABS: #Eosinphils 0.1 thou/uL (0.0-0.7); #Lymphocytes 1.5 thou/uL (1.20-3.40); #Monocytes 0.7 thou/uL (0.11-0.59); #Neutrophils 5.4 thou/uL (1.40-6.50); %Basophils 0.3 % (0.0-1.0); %Eosinophils 1.2 % (0.0-10.0); %Lymphocytes 19.1 % (21.0-51.0); %Monocytes 9.2 % (0.0-10.0); %Neutrophils 70.3 % (42.0-75.0); Hemoglobin 12.2 g/dL (14.0-18.0); Mean Corpuscular HGB CONC 33.6 g/dL (32.0-36.0); Mean Corpuscular Hemoglobin 30.7 pg (27.0-31.0); Mean Corpuscular Volume 91.3 fL (78.0-98.0); Mean Platelet Volume 8.4 fL (7.4-10.4); Platelet Count 170 thou/uL (130-400); RBC Distribution Width 14.1 % (11.5-14.5); Red Blood Cell (RBC) Count 3.98 mill/uL (4.70-6.10); White Blood Cell (WBC) Count 7.6 thou/uL (4.8-10.8)
[2018-03-20 04:45] LABS: Anion Gap 12 mmol/L (10-20); BUN (Urea Nitrogen) 10 mg/dL (8.4-25.7); Calc. Creatinine Clearance 107 mL/min (70-130); Calcium 8.4 mg/dL (7.8-10.44); Carbon Dioxide 22 mmol/L (23-31); Chloride 110 mmol/L (98-107); Estimated GFR-MDRD Greater than 90; Glucose 121 mg/dL (83-110); Potassium 3.9 mmol/L (3.5-5.1); Sodium 140 mmol/L (136-145)
[2018-03-20] MEDS: Vancomycin HCl 1.25 GM in Sodium Chloride 0.9% 250 ML 250 ML IVPB SCH ×2 (06:38→18:29)
[2018-03-20] MEDS: Enoxaparin Sodium 100 MG/ML SYRINGE SC SCH ×2 (08:30→20:40)
[2018-03-20] MEDS: Insulin Glargine 30 UNITS in Pre-Filled Syringe 1 EACH SC SCH ×2 (08:30→20:40)
[2018-03-20] MEDS: Gabapentin 300 MG CAP PO SCH ×3 (08:31→20:40)
[2018-03-20] MEDS: Atorvastatin Calcium 40 MG TAB PO SCH (08:31)
[2018-03-20] MEDS: Famotidine 20 MG TAB PO SCH (08:31)
--- NOTE | 2018-03-20 08:50 | PDOC.PN ---
- Subjective Encounter Start Date: 03/20/18 Encounter Start Time: 08:48 Feels ok. Concerned about the dressing change on the PM site. - Objective Resuscitation Status: Resuscitation Status FULL:Full Resuscitation Vital Signs & Weight: Vital Signs (12 hours) Temp Pulse Resp BP BP Pulse Ox 03/20/18 07:57 97.9 F 114 H 16 116/82 94 L 03/20/18 04:00 97.6 F 120 H 20 115/70 97 03/19/18 23:54 97.6 F 125 H 20 108/65 94 L Weight Admit Weight 205 lb 1.6 oz Weight 205 lb I&O: 03/19/18 03/20/18 03/21/18 06:59 06:59 06:59 Intake Total 2232 Output Total 625 2000 Balance -625 232 Result Diagrams: 03/20/18 04:09 03/20/18 04:09 Additional Labs: Accuchecks 03/20/18 03/19/18 03/19/18 06:26 21:33 16:28 POC Glucose 82 111 H 269 H 03/19/18 10:37 POC Glucose 151 H Phys Exam - Physical Examination Constitutional: NAD Respiratory: no wheezing, no rales, no rhonchi, clear to auscultation bilateral Diminished Cardiovascular: no significant murmur Irreg Gastrointestinal: soft, non-tender, no distention, positive bowel sounds Large ventral hernia Psychiatric: normal affect, A&O x 3 Dx/Plan (1) Syncope Code(s): R55 - SYNCOPE AND COLLAPSE Status: Acute Comment: Multifactorial. Infection, atrial arrhythmias, dehydration, possibly carotid disease. (2) Infection of pacemaker pocket Code(s): T82.7XXA - INFECT/INFLM REACT D/T OTH CARDI/VASC DEV/IMPLNT/GRFT, INIT Status: Acute Comment: MRSA. On Vanc and Zosyn. Will stop the Zosyn. May need removal. (3) Paroxysmal atrial fibrillation Code(s): I48.0 - PAROXYSMAL ATRIAL FIBRILLATION Status: Chronic Comment: EP following. Will need to address the infection of the PPM pocket. On amiodarone gtt. PPM report apparently indicated that he has been in afib the majority of time. (4) Acute renal insufficiency Code(s): N28.9 - DISORDER OF KIDNEY AND URETER, UNSPECIFIED Status: Acute Comment: Much improved with hydration. (5) Carotid stenosis Code(s): I65.29 - OCCLUSION AND STENOSIS OF UNSPECIFIED CAROTID ARTERY Status : Acute Comment: Based on US. Have not been able to get CT to confirm because of the renal insufficiency. Should be able to arrange that tomorrow. (6) Dehydration Code(s): E86.0 - DEHYDRATION Status: Resolved (7) Diabetes mellitus Code(s): E11.9 - TYPE 2 DIABETES MELLITUS WITHOUT COMPLICATIONS Status: Acute Qualifiers: Diabetes mellitus type: type 2 Comment: Controlled with Insulin Glargine 30 bid. SSI just in case. (8) Tobacco abuse Code(s): Z72.0 - TOBACCO USE Status: Acute (9) Hyperlipidemia Code(s): E78.5 - HYPERLIPIDEMIA, UNSPECIFIED Status: Acute Comment: Continue home statin. - Plan * EP to address the PM infection and the afib. Cardiology following as well. * Attempt to get CTA of carotid today as well.
[2018-03-20] MEDS: Amiodarone HCl 450 MG, Admixture Fee 1 EACH in Dextrose 5% in Water 250 ML IVPB SCH (09:08)
[2018-03-20] MEDS: HumaLOG 300 UNITS/3 ML VIAL SC PRN ×2 (12:17→17:13)
[2018-03-20] MEDS ORDERED: Metoprolol Tartrate 25 MG TAB PO SCH (13:45)
[2018-03-20] MEDS ORDERED: Digoxin 0.5 MG/2 ML AMP SLOW IVP SCH (14:00)
--- NOTE | 2018-03-20 14:52 | CT ---
CT ANGIOGRAM NECK WITH CONTRAST: HISTORY: Carotid stenosis. COMPARISON: Ultrasound 03/16/18. TECHNIQUE: CT angiogram of the neck preformed after the intravenous administration of contrast. Thre e-D rendering provided. FINDINGS: Severe emphysematous changes lung apices. No solid mass. Advanced degenerative change of the cervical spine. There is anterolisthesis at C3-4 due to severe f acet arthropathy. No adenopathy. There is occlusion of the left internal carotid artery from the origin of the aortic arch with some faint distal reconstitution of the cavernous and clinoid portion. There is also faint contrast at the level of C1-C3. Right common carotid artery is patent. There is occlusion of the right vertebral artery of the level of C2. There is a high-grade stenosis left vertebral artery with basilic confluence. IMPRESSION: 1. Occlusion of the left common carotid artery at the aortic origin with some distal faint reconstit ution of the level of C3. 2. Occluded right vertebral artery at the level of C2. The vertebral artery is patent from the orig in to the level of C2. 3. Severe emphysematous changes of the lungs. POS: SENG
--- NOTE | 2018-03-20 17:57 | ULT ---
LATERAL UPPER LEFT CHEST LIMITED SOFT TISSUE ULTRASOUND: 03/20/2018 HISTORY: Fluid adjacent to pacemaker. TECHNIQUE: A limited sonographic evaluation of the left upper chest is performed. FINDINGS: There is shadowing secondary to the patient's electronic device from a cardiac pacemaker, in the left upper chest region. No fluid or fluid collection is appreciated on this examination, adjacent to th e cardiac pacemaker device. IMPRESSION: No fluid or fluid collection is seen adjacent to the cardiac pacemaker device on this examination. POS: SENG
--- NOTE | 2018-03-20 19:00 | CON ---
DATE OF CONSULTATION: 03/20/2018 REQUESTING PHYSICIAN: Francesco Bautista M.D. CHIEF COMPLAINT: Syncope. 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 The patient is followe d in our practice for his peripheral vascular disease, having undergone an aortobifemoral procedure 3 years ago. I saw him as part of his regular followup on 02/28/2018. At that time, the patient desc ribes relatively frequent falls, prompting his use of a walker. [facility] and completely lost consciousness and fell. Here, at the emergency r oom, he was found to be in atrial fibrillation with a rapid ventricular response that has since been brought under better control and the working supposition at this point is that his syncope was relate d to his arrhythmia. The patient denies any antecedent focal eye, speech, facial or extremity sympto ms that suggest TIAs. PAST MEDICAL HISTORY: Significant for vascular disease, cardiomyopathy, although by echocardiography , he has recently had significant improvement in the EF, has atrial fibrillation and has undergone a previous ablation procedure, diabetes, COPD and obstructive sleep apnea. There has been sufficient q uestion about medical management compliance that in our office notes, he is even listed as medical no ncompliance as a diagnosis in his past medical history. HOME MEDICATIONS: His stated home medications are insulin, metformin, Xarelto, baby aspirin, Lopress or, amiodarone, clonazepam, Zoloft, Neurontin, trazodone and he is currently taking a course of cipro floxacin. SOCIAL HISTORY: He only recently quit smoking, previously smoked 1-2 packs of cigarettes a day for m any years. FAMILY HISTORY: Significant for Alzheimer's in his father. Mother lived to age 93. REVIEW OF SYSTEMS: As above. PHYSICAL EXAMINATION: GENERAL: He appears older than his stated age. VITAL SIGNS: Heart rate currently is 120 with blood pressure 138/86, room air O2 sats are 94%, tempe rature is 97.9 and he has been afebrile his entire hospital stay. NECK: He has no carotid bruits. LUNGS: Chest is clear to auscultation. CARDIOVASCULAR: He has an irregular rate and rhythm. ABDOMEN: Obese with a large reducible hernia. EXTREMITIES: He has palpable femoral pulses, but no palpable pulses in his feet. NEUROLOGIC: Cranial nerves II-XII and extremity strength are grossly intact. He has deformity of hi s left foot from an old crush injury. Capillary refill in his feet is around 1 to 1-1/2 seconds. LABORATORY DATA: Shows white count of 10.3 on admission, 7.6 today, hemoglobin is 15.1, hematocrit 4 5.3, MCV 90.8, his platelet count was 259,000. His hemoglobins have drifted down and this morning wa s 12.2. On admission, his glucose was 255, BUN 44 and creatinine 2.51. His blood sugars have come u nder better control and this morning his BUN was 10 and his creatinine 0.83. Carotid ultrasonography showed no apparent flow in the cervical carotid with right-sided carotid velocities of 118, 106 and 69 in the internal and 64, 83 and 68 in the common for a ratio of 1.36. On CT angiography, one can s ee a little bit of plaque in the right carotid system, but no apparent stenosis, but the left carotid system was occluded starting near the arch. IMPRESSION AND RECOMMENDATIONS: The patient did not appear to have any transient ischemic attacks. It is unclear how long his left carotid has been occluded. With it completely occluded, there probab ly is no particular benefit, only risk to attempting any sort of revascularization, which would have to involve carotid subclavian bypass. It is probably worth including carotid studies as part of his annual followup, which I can arrange through the office.
[2018-03-20] MEDS: traZODone HCl 150 MG TAB PO SCH (20:40)
[2018-03-20] MEDS: Metoprolol Tartrate 25 MG TAB PO SCH (20:40)
--- NOTE | 2018-03-20 22:25 | PRG ---
DATE OF SERVICE: 03/20/2018 ELECTROPHYSIOLOGY FOLLOWUP NOTE SUBJECTIVE: Mr. Briceno seems to be doing fair, still has mild palpitations. Denies dizziness, loss of consciousness. No fever, chills, or cough. No stroke-like symptoms. OBJECTIVE: VITAL SIGNS: Blood pressure is 138/86, heart rate 120, respirations 20, temperature 97.9 degrees Fah renheit. GENERAL: Alert and oriented man in no apparent distress. NECK: Supple. Jugular veins not distended. CHEST: Coarse without crackles. CARDIOVASCULAR: Heart sounds are regular to rate and rhythm. No murmur or gallop. ABDOMEN: Benign. Bowel sounds positive. EXTREMITIES: No edema, clubbing or cyanosis. LABORATORY DATA: White count 7.6, hemoglobin 12.2, platelet count is 170. Electrolytes with normal sodium, potassium, BUN and creatinine. The microbiology cultures revealed from the th and 14, no growth 48 hours from the blood, but the wound culture grows methicillin-resistant Staph aureus. Telemetry strips do reveal persisting atrial fibrillation with rapid rates on intermittent conversion to sinus rhythm is noted this afternoon at 3:00 p.m. ASSESSMENT AND PLAN: Mr. Briceno is a 73-year-old man with a prior history of atrial arrhythmias, typica l atrial flutter, status post cavotricuspid isthmus ablation in the past. Now, he has atrial fibrill ation. He recently had a dual-chamber pacemaker implantation by Dr. Freeman in 02/2018, since then had epis ode of syncope which was associated with documented atrial fibrillation. His device is functioning a dequately though but his device site seems to have positive discharge, which is growing MRSA. Amioda cedric was increased, but still intermittently is in atrial fibrillation with rapid rates. He received extra beta blockers today. PLAN: At this point: 1. We will discuss the progress of wound care with Dr. Freeman as well as the wound care team. If indeed, low chance of saving his device present likely removal of device might need to be necessary. 2. Atrial fibrillation is difficult to control with increasing dose of amiodarone. At this point, I would recommend rate control until resolution of his infectious issues are made. We can continue am iodarone during the interim. 3. He is a [id number] score likely would benefit from anticoagulation long-term and continue Loveno x in the interim. 4. We will follow.
[2018-03-21] MEDS: Piperacillin/Tazobactam 3.375 GM in Sodium Chloride 0.9% 100 ML IVPB SCH ×3 (03:18→14:06)
[2018-03-21] MEDS: Sodium Chloride 0.9% 1,000 ML IV SCH ×2 (04:47→16:56)
[2018-03-21] MEDS: Amiodarone HCl 450 MG, Admixture Fee 1 EACH in Dextrose 5% in Water 250 ML IVPB SCH ×2 (04:47→20:31)
[2018-03-21] MEDS: Vancomycin HCl 1.25 GM in Sodium Chloride 0.9% 250 ML 250 ML IVPB SCH ×2 (06:06→18:32)
[2018-03-21 06:39] LABS: Vancomycin, Trough 16.4 ug/mL
[2018-03-21 06:43] LABS: Anion Gap 12 mmol/L (10-20); BUN (Urea Nitrogen) 11 mg/dL (8.4-25.7); Calc. Creatinine Clearance 96 mL/min (70-130); Calcium 8.7 mg/dL (7.8-10.44); Carbon Dioxide 24 mmol/L (23-31); Cardiac Risk 3.1 (Less than 4.5); Chloride 108 mmol/L (98-107); Cholesterol 133 mg/dl (< 200 Desired); Estimated GFR-MDRD 80; Glucose 192 mg/dL (83-110); HDL Cholesterol 43 mg/dL (>60 Neg Risk); LDL Cholesterol, Calculated 65 mg/dL; Potassium 3.8 mmol/L (3.5-5.1); Sodium 140 mmol/L (136-145); Triglycerides 127 mg/dL (Less than 150)
[2018-03-21 06:51] LABS: #Lymphocytes 1.2 thou/uL (1.20-3.40); #Monocytes 0.6 thou/uL (0.11-0.59); #Neutrophils 5.9 thou/uL (1.40-6.50); %Basophils 0.2 % (0.0-1.0); %Eosinophils 0.6 % (0.0-10.0); %Lymphocytes 15.8 % (21.0-51.0); %Monocytes 8.2 % (0.0-10.0); %Neutrophils 75.1 % (42.0-75.0); Hemoglobin 11.5 g/dL (14.0-18.0); Mean Corpuscular HGB CONC 31.5 g/dL (32.0-36.0); Mean Corpuscular Hemoglobin 29.6 pg (27.0-31.0); Mean Corpuscular Volume 93.8 fL (78.0-98.0); Mean Platelet Volume 8.6 fL (7.4-10.4); Platelet Count 213 thou/uL (130-400); RBC Distribution Width 14.3 % (11.5-14.5); Red Blood Cell (RBC) Count 3.88 mill/uL (4.70-6.10); White Blood Cell (WBC) Count 7.8 thou/uL (4.8-10.8)
[2018-03-21] MEDS ORDERED: Digoxin 0.5 MG/2 ML AMP SLOW IVP SCH (08:00)
[2018-03-21] MEDS: Atorvastatin Calcium 40 MG TAB PO SCH (08:36)
[2018-03-21] MEDS: Metoprolol Tartrate 25 MG TAB PO SCH ×2 (08:36→20:29)
[2018-03-21] MEDS: Gabapentin 300 MG CAP PO SCH ×3 (08:37→20:29)
[2018-03-21] MEDS: Enoxaparin Sodium 100 MG/ML SYRINGE SC SCH ×2 (08:37→20:29)
[2018-03-21] MEDS: Famotidine 20 MG TAB PO SCH (08:37)
[2018-03-21] MEDS: Insulin Glargine 30 UNITS in Pre-Filled Syringe 1 EACH SC SCH ×2 (08:38→20:30)
--- NOTE | 2018-03-21 09:48 | PDOC.PN ---
- Subjective Encounter Start Date: 03/21/18 Encounter Start Time: 09:46 Feels well. Has no specific complaints. - Objective Resuscitation Status: Resuscitation Status FULL:Full Resuscitation Vital Signs & Weight: Vital Signs (12 hours) Temp Pulse Resp BP Pulse Ox 03/21/18 08:31 90 03/21/18 08:00 97.4 F L 72 18 101/73 94 L 03/21/18 04:00 97.9 F 100 20 119/61 94 L 03/21/18 00:00 97.9 F 96 19 154/90 H 95 Weight Admit Weight 205 lb 1.6 oz Weight 205 lb I&O: 03/20/18 03/21/18 03/22/18 06:59 06:59 06:59 Intake Total 223 970 Output Total 1999 1900 Balance 232 -930 Result Diagrams: 03/21/18 05:22 03/21/18 05:22 Additional Labs: Accuchecks 03/20/18 03/20/18 03/20/18 20:20 16:47 10:45 POC Glucose 181 H 174 H 161 H Phys Exam - Physical Examination Constitutional: NAD Respiratory: no wheezing, no rales, no rhonchi, clear to auscultation bilateral Cardiovascular: no significant murmur, irregular Gastrointestinal: soft, non-tender, no distention, positive bowel sounds Musculoskeletal: no edema Deviation from normal: PPM site dressed with wound dressing. Dx/Plan (1) Syncope Code(s): R55 - SYNCOPE AND COLLAPSE Status: Acute Comment: Multifactorial. Infection, atrial arrhythmias, dehydration, possibly carotid disease. (2) Infection of pacemaker pocket Code(s): T82.7XXA - INFECT/INFLM REACT D/T OTH CARDI/VASC DEV/IMPLNT/GRFT, INIT Status: Acute Comment: MRSA. Substantial resistance pattern. On Vanc. May need removal. (3) Paroxysmal atrial fibrillation Code(s): I48.0 - PAROXYSMAL ATRIAL FIBRILLATION Status: Chronic Comment: EP following. Will need to address the infection of the PPM pocket. On amiodarone gtt. PPM report apparently indicated that he has been in afib the majority of time. (4) Acute renal insufficiency Code(s): N28.9 - DISORDER OF KIDNEY AND URETER, UNSPECIFIED Status: Acute Comment: Much improved with hydration. (5) Carotid stenosis Code(s): I65.29 - OCCLUSION AND STENOSIS OF UNSPECIFIED CAROTID ARTERY Status : Acute Comment: CT confirmed complete occlusion of the left carotid very proximally. Appreciate CV surg consult. No intervention indicated now. (6) Dehydration Code(s): E86.0 - DEHYDRATION Status: Resolved (7) Diabetes mellitus Code(s): E11.9 - TYPE 2 DIABETES MELLITUS WITHOUT COMPLICATIONS Status: Acute Qualifiers: Diabetes mellitus type: type 2 Comment: Controlled with Insulin Glargine 30 bid. SSI just in case. (8) Tobacco abuse Code(s): Z72.0 - TOBACCO USE Status: Acute (9) Hyperlipidemia Code(s): E78.5 - HYPERLIPIDEMIA, UNSPECIFIED Status: Acute Comment: Continue home statin. - Plan * EP to make decision on removing the PPM with the infected pocket vs continued abx. Given the nature of the MRSA, doubt it can be salvaged. Amio gtt starting to slow the rate of afib a bit.
[2018-03-21] MEDS: HumaLOG 300 UNITS/3 ML VIAL SC PRN ×2 (11:13→16:58)
[2018-03-21] MEDS: Acetaminophen 500 MG TAB PO PRN ×2 (14:13→23:06)
--- NOTE | 2018-03-21 16:52 | PDOC.CTH ---
Cardiology Progress Note - Subjective EP progress note: patient seen and evaluated. No new cardiac concerns or complaints. Denies heart racing, palpitations, chest pain/pressure, dizziness, passing out. + groin pain /itching - Objective Vital Signs Temp Pulse Resp BP Pulse Ox 03/21/18 15:15 97.8 F 59 L 18 115/59 L 91 L 03/21/18 11:53 97.9 F 102 H 20 115/64 94 L 03/21/18 08:38 94 L 03/21/18 08:31 90 03/21/18 08:00 97.4 F L 72 18 101/73 94 L Admit Weight 205 lb 1.6 oz Weight 205 lb 03/20/18 03/21/18 03/22/18 06:59 06:59 06:59 Intake Total 2232 970 500 Output Total 1999 1900 675 Balance 232 -790 -175 - Physical Examination General/Neuro: alert & oriented x3, NAD Neck: carotid US brisk, no JVD present Lungs: CTA, unlabored respirations Heart: PMI normal, RRR (just converted to NSR) Abdomen: NT/ND, soft (large hernia) Other PE findings: groin red/excoriated. - Telemetry Telemetry Rhythm: was AF RVR now SR - Labs Result Diagrams: 03/21/18 05:22 03/21/18 05:22 Troponin/CKMB CK-MB (CK-2) 8.5 ng/mL (0-6.6) H* 03/16/18 11:16 Troponin I 0.014 ng/mL (< 0.028) 03/16/18 17:19 - Assessment/Plan 1. Atrial fibrillation with RVR, on amiodarone gtt. Converted to SR this afternoon. Ventricular rates 50-65. Continue amio gtt. 2. Dual chamber PPM that was placed for tachy/tushar, currently set to VVI 40, minimal pacing seen. Wound care is involved. Site continues to show purulent drainage and had culture + for MRSA. ID was consulted today. Will keep NPO after MN and schedule for extraction tomorrow afternoon around 2:30. The question remains whether he will require immediate re-implant of right sided device now that he is on AAD which will inevitably slow his heart rate. Ideally we would allow him to heal and this infection resolve before new device implant. Will watch rhythm overnight and make final decision tomorrow. Appreciate ID recommendations. 3. Elevated chads-vasc: on lovenox for CVA prophylaxis with atrial arrhythmias. Will require resumed OAC once device has been dealt with and for intermediate treatment.
[2018-03-21] MEDS: traZODone HCl 150 MG TAB PO SCH (20:29)
--- NOTE | 2018-03-21 23:58 | CON ---
DATE OF CONSULTATION: 03/21/2018 REASON FOR CONSULTATION: Pacemaker site infection. HISTORY OF PRESENT ILLNESS: A 73-year-old gentleman who has a history of prior sick sinus syndrome with pacemaker placement in February with episodes of syncopal event after that. This precipitated his admission to this time. On , he has had some problems taking his medications and being confused about the long list of medications he takes and he was brought to the emergency room and had a CT of brain with no acute intracranial process, given IV fluids because of initial hypotension. Initial blood pressure 111/72, pulse 104, respirations 22. He was alert, oriented, pleasant. Patient had noticed inflammatory changes in the left pacemaker site from this February with purulent drainage, but this is not described in the admit note. Initial labs demonstrated white cell count 10.3, hemoglobin 15, platelets 259 with 71% neutrophils and creatinine 2.51, and sodium of 131. The patient had cultures from the site, which revealed methicillin-resistant Staphylococcus aureus. The vancomycin WILLOW was 1, was sensitive to gentamicin also linezolid, rifampin, tetracycline, Bactrim. Two sets of blood cultures have been submitted. He had evaluation by the compo caster and a soft tissue ultrasound was obtained. No evidence of fluid collection seen adjacent to the cardiac pacemaker device. Currently, he denies any headaches, no visual symptoms, sore throat, odynophagia, dysphagia, no back pain. He has abdominal protrusion because of chronic mid abdominal hernia. He has chronic neuropathic symptoms in the lower extremities. PAST MEDICAL HISTORY: Type 2 diabetes, peripheral vascular disease with prior aortobifemoral bypass, CHF, EF 45% to 50%, hypertension, hyperlipidemia, recurrent falls, COPD. Former smoker. PAST SURGICAL HISTORY: Inguinal hernia repair, left humeral fracture repair, aortobifemoral bypass, endarterectomy. ALLERGIES: ZARA INHIBITORS. FAMILY HISTORY: Noncontributory. SOCIAL HISTORY: Still actively smoking. Drinks occasionally. Lives in [place]. CURRENT MEDICATIONS: Tylenol, amiodarone, aspirin, atorvastatin, clonidine, dextrose, diltiazem, enoxaparin, gabapentin, famotidine, insulin, metoprolol, Zosyn, vancomycin. PHYSICAL EXAMINATION: VITAL SIGNS: T-max 98, blood pressure 115/59, pulse 59, respirations 18, O2 sat 91%. SKIN: Remarkable for the pacer site with erythema surrounding the incision. There is a dehiscence at the lateral margin of the incision, the last 1.5 cm. A little bit of area of purulence noticed at the edge. I could not visualize any parts of the pacemaker being exposed at this time. No lymphadenopathy. Patient has peripheral IV access. HEENT: Ocular movements conjugate. Oral cavity normal. NECK: Supple. LUNGS: Symmetric clear breath sounds. HEART: S1, S2, regular rate. No S3, S4. ABDOMEN: With the midline hernia with protrusion. The patient has an area of erythema in the left side of his perineal area next to the scrotum with some tenderness and induration. EXTREMITIES: No joint inflammatory activity. Pulses are 1+ in dorsalis pedis and 2+ in popliteals. Cap refill less than 3 seconds. He is able to move extremities equally. NEUROLOGIC: His cognitive function appears to be intact. LABORATORY AND X-RAY FINDINGS: White cell count now is 7.8, hemoglobin 11, platelets 213, 75% neutrophils. Sodium 131, creatinine 2.51. Liver profile within normal limits. Vancomycin was started apparently on 03/17/2018. ASSESSMENT: Ischemic cardiomyopathy, atrial fibrillation on sick sinus syndrome with syncopal events with a pacemaker placement few weeks ago. Inflammatory changes, pacemaker site. No evidence of fluid around the pacemaker pocket. There is cellulitis a little bit of dehiscence at the lateral edge of the incision. The patient also has an area of inflammatory change, likely skin abscess with some cellulitis left groin region and perineal region, likely due to methicillin-resistant Staphylococcus aureus as well. DISCUSSION: Pacemaker/AICD site infection are divided in superficial cellulitis vs pocket infection. Pocket infections will lead to removal of the device. Superficial cellulitis can be treated conservatively. Although there is no evidence of fluid around the device, a deeper inflammatory process is not ruled out. Discontinue Zosyn, continue vancomycin, target vancomycin trough between 15 and 20 mcg per mL. The eventual outcome will depend of the next few days progress. He has been receiving treatment now since the 14 and this is the fifth day after admission and not a lot of improvement, may be, I would say 40% improvement. If not much improvement in the next 48 hours, may have to have the device removed. [facility]
[2018-03-22] MEDS: Vancomycin HCl 1.25 GM in Sodium Chloride 0.9% 250 ML 250 ML IVPB SCH ×2 (06:49→19:19)
[2018-03-22 08:33] LABS: #Basophils 0.1 thou/uL (0.0-0.2); #Eosinphils 0.1 thou/uL (0.0-0.7); #Lymphocytes 1.3 thou/uL (1.20-3.40); #Monocytes 0.8 thou/uL (0.11-0.59); #Neutrophils 5.9 thou/uL (1.40-6.50); %Basophils 1.1 % (0.0-1.0); %Eosinophils 0.6 % (0.0-10.0); %Lymphocytes 15.8 % (21.0-51.0); %Monocytes 9.7 % (0.0-10.0); %Neutrophils 72.8 % (42.0-75.0); Hemoglobin 10.8 g/dL (14.0-18.0); Mean Corpuscular HGB CONC 30.5 g/dL (32.0-36.0); Mean Corpuscular Hemoglobin 28.5 pg (27.0-31.0); Mean Corpuscular Volume 93.6 fL (78.0-98.0); Mean Platelet Volume 8.1 fL (7.4-10.4); Platelet Count 214 thou/uL (130-400); RBC Distribution Width 14.6 % (11.5-14.5); Red Blood Cell (RBC) Count 3.78 mill/uL (4.70-6.10); White Blood Cell (WBC) Count 8.1 thou/uL (4.8-10.8)
[2018-03-22 08:54] LABS: Anion Gap 8 mmol/L (10-20); BUN (Urea Nitrogen) 13 mg/dL (8.4-25.7); Calc. Creatinine Clearance 105 mL/min (70-130); Calcium 8.5 mg/dL (7.8-10.44); Carbon Dioxide 26 mmol/L (23-31); Chloride 110 mmol/L (98-107); Estimated GFR-MDRD 89; Glucose 64 mg/dL (83-110); Potassium 4.2 mmol/L (3.5-5.1); Sodium 140 mmol/L (136-145)
[2018-03-22] MEDS: Gabapentin 300 MG CAP PO SCH ×3 (09:01→22:00)
[2018-03-22] MEDS: Metoprolol Tartrate 25 MG TAB PO SCH ×2 (09:01→22:00)
[2018-03-22] MEDS: Famotidine 20 MG TAB PO SCH (09:01)
[2018-03-22] MEDS: Enoxaparin Sodium 100 MG/ML SYRINGE SC SCH ×2 (09:42→22:00)
[2018-03-22] MEDS: Insulin Glargine 30 UNITS in Pre-Filled Syringe 1 EACH SC SCH ×2 (09:43→22:01)
[2018-03-22] MEDS ORDERED: Glycopyrrolate 0.2 MG/ML 5 ML SYRINGE ONE (09:57)
[2018-03-22] MEDS ORDERED: PROPOFOL 200 MG/20 ML VIAL ONE (09:57)
[2018-03-22] MEDS ORDERED: PHENYLEPHRINE-NS 100 MCG/ML 10 ML SYRINGE ONE (09:57)
[2018-03-22] MEDS ORDERED: Ondansetron HCl/PF 4 MG/2 ML Vial ONE (09:57)
[2018-03-22] MEDS ORDERED: Succinylcholine Chloride 20 MG/ML 10 ml SYRINGE FS ONE (09:57)
[2018-03-22] MEDS ORDERED: Dexamethasone 20 MG/5 ML VIAL ONE (09:57)
[2018-03-22] MEDS: Acetaminophen 500 MG TAB PO PRN (12:37)
[2018-03-22] MEDS ORDERED: CEFAZOLIN/Water 2 GM/20 ML SYRINGE ONE (13:37)
[2018-03-22] MEDS ORDERED: Lidocaine 1% (PF) 30 ML VIAL ONE (13:37)
[2018-03-22] MEDS ORDERED: Midazolam HCl 2 mg/2 ml Vial ONE (15:27)
--- NOTE | 2018-03-22 15:30 | PDOC.PN ---
- Subjective Encounter Start Date: 03/22/18 Encounter Start Time: 11:30 Feels ok. No specific complaints except being hungry while NPO for possible procedure. - Objective Resuscitation Status: Resuscitation Status FULL:Full Resuscitation Vital Signs & Weight: Vital Signs (12 hours) Temp Pulse Resp BP Pulse Ox 03/22/18 12:00 96.1 F L 58 L 18 170/81 H 92 L 03/22/18 08:00 97.2 F L 48 L 18 103/59 L 97 03/22/18 04:00 98.0 F 57 L 19 119/65 98 Weight Admit Weight 205 lb 1.6 oz Weight 205 lb I&O: 03/21/18 03/22/18 03/23/18 06:59 06:59 06:59 Intake Total 970 1815 Output Total 1900 900 Balance -930 915 Result Diagrams: 03/22/18 08:26 03/22/18 08:26 Additional Labs: Accuchecks 03/22/18 03/22/18 03/22/18 13:49 13:03 10:52 POC Glucose 62 L 52 L* 63 L 03/22/18 03/21/18 03/21/18 06:29 20:27 16:43 POC Glucose 82 194 H 455 H Phys Exam - Physical Examination Constitutional: NAD Respiratory: no wheezing, no rales, no rhonchi, clear to auscultation bilateral Cardiovascular: RRR, no significant murmur Gastrointestinal: soft, non-tender, no distention, positive bowel sounds Musculoskeletal: no edema Neurological: non-focal Psychiatric: normal affect Deviation from normal: Dressing over left chest PPM site. Erythema of the parascrotal area. Dx/Plan (1) Syncope Code(s): R55 - SYNCOPE AND COLLAPSE Status: Acute Comment: Multifactorial. Infection, atrial arrhythmias, dehydration, possibly carotid disease. (2) Infection of pacemaker pocket Code(s): T82.7XXA - INFECT/INFLM REACT D/T OTH CARDI/VASC DEV/IMPLNT/GRFT, INIT Status: Acute Comment: MRSA. Substantial resistance pattern. On Vanc. Anticipate removal today. (3) Paroxysmal atrial fibrillation Code(s): I48.0 - PAROXYSMAL ATRIAL FIBRILLATION Status: Chronic Comment: converted to sinus. EP following. (4) Acute renal insufficiency Code(s): N28.9 - DISORDER OF KIDNEY AND URETER, UNSPECIFIED Status: Acute Comment: Much improved with hydration. (5) Carotid stenosis Code(s): I65.29 - OCCLUSION AND STENOSIS OF UNSPECIFIED CAROTID ARTERY Status : Acute Comment: CT confirmed complete occlusion of the left carotid very proximally. Appreciate CV surg consult. No intervention indicated now. (6) Dehydration Code(s): E86.0 - DEHYDRATION Status: Resolved (7) Diabetes mellitus Code(s): E11.9 - TYPE 2 DIABETES MELLITUS WITHOUT COMPLICATIONS Status: Acute Qualifiers: Diabetes mellitus type: type 2 Comment: Controlled with Insulin Glargine 30 bid. SSI just in case. (8) Tobacco abuse Code(s): Z72.0 - TOBACCO USE Status: Acute (9) Hyperlipidemia Code(s): E78.5 - HYPERLIPIDEMIA, UNSPECIFIED Status: Acute Comment: Continue home statin. - Plan * above.
[2018-03-22] MEDS ORDERED: Propofol 500 MG/50 ML VIAL ONE (15:45)
[2018-03-22] MEDS ORDERED: Fentanyl 100 MCG/2 ML VIAL ONE ×2 (17:12→18:08)
[2018-03-22] MEDS: Sodium Chloride 0.9% 1,000 ML IV SCH ×2 (18:26→22:02)
[2018-03-22 21:42] LABS: Vancomycin, Trough 44.1 ug/mL
[2018-03-22] MEDS: traZODone HCl 150 MG TAB PO SCH (22:00)
[2018-03-22] MEDS: Atorvastatin Calcium 40 MG TAB PO SCH (22:00)
[2018-03-23] MEDS: Acetaminophen 500 MG TAB PO PRN ×2 (00:43→11:58)
[2018-03-23 05:16] LABS: #Eosinphils 0.1 thou/uL (0.0-0.7); #Lymphocytes 0.7 thou/uL (1.20-3.40); #Monocytes 0.4 thou/uL (0.11-0.59); #Neutrophils 10.2 thou/uL (1.40-6.50); %Eosinophils 0.9 % (0.0-10.0); %Lymphocytes 6.1 % (21.0-51.0); %Monocytes 3.8 % (0.0-10.0); %Neutrophils 89.2 % (42.0-75.0); Hemoglobin 12.2 g/dL (14.0-18.0); Mean Corpuscular HGB CONC 32.1 g/dL (32.0-36.0); Mean Corpuscular Hemoglobin 30.2 pg (27.0-31.0); Mean Corpuscular Volume 94.2 fL (78.0-98.0); Mean Platelet Volume 8.5 fL (7.4-10.4); Platelet Count 257 thou/uL (130-400); RBC Distribution Width 14.2 % (11.5-14.5); Red Blood Cell (RBC) Count 4.05 mill/uL (4.70-6.10); White Blood Cell (WBC) Count 11.5 thou/uL (4.8-10.8)
[2018-03-23 05:24] LABS: Anion Gap 11 mmol/L (10-20); BUN (Urea Nitrogen) 14 mg/dL (8.4-25.7); Calc. Creatinine Clearance 86 mL/min (70-130); Calcium 8.3 mg/dL (7.8-10.44); Carbon Dioxide 23 mmol/L (23-31); Chloride 104 mmol/L (98-107); Estimated GFR-MDRD 70; Glucose 387 mg/dL (83-110); Potassium 4.7 mmol/L (3.5-5.1); Sodium 133 mmol/L (136-145); Vancomycin, Trough 22.9 ug/mL
[2018-03-23] MEDS: HumaLOG 300 UNITS/3 ML VIAL SC PRN ×3 (06:26→18:23)
[2018-03-23] MEDS: Vancomycin HCl 1.25 GM in Sodium Chloride 0.9% 250 ML 250 ML IVPB SCH (08:08)
--- NOTE | 2018-03-23 08:52 | PDOC.PN ---
- Subjective Encounter Start Date: 03/23/18 Encounter Start Time: 08:30 Feels well. Only complaint it about his breakfast order not being exactly correct. No pain. - Objective Resuscitation Status: Resuscitation Status FULL:Full Resuscitation Vital Signs & Weight: Vital Signs (12 hours) Temp Pulse Resp BP BP Pulse Ox 03/23/18 08:00 97.6 F 78 16 115/63 92 L 03/23/18 04:00 98.2 F 97 20 89/54 L 88 L 03/23/18 00:00 98.1 F 107 H 18 101/59 L 95 Weight Admit Weight 205 lb 1.6 oz Weight 205 lb I&O: 03/22/18 03/23/18 03/24/18 06:59 06:59 06:59 Intake Total 8108 693 3371 Output Total 900 1500 Balance 915 480 -100 Result Diagrams: 03/23/18 04:54 03/23/18 04:54 Additional Labs: Accuchecks 03/23/18 03/22/18 03/22/18 06:03 20:28 19:10 POC Glucose 343 H 99 92 03/22/18 03/22/18 03/22/18 18:03 15:30 13:49 POC Glucose 68 L 67 L 62 L 03/22/18 03/22/18 13:03 10:52 POC Glucose 52 L* 63 L Phys Exam - Physical Examination Constitutional: NAD Respiratory: no wheezing, no rales, no rhonchi, clear to auscultation bilateral Cardiovascular: RRR, no significant murmur Gastrointestinal: soft, non-tender, no distention, positive bowel sounds Musculoskeletal: no edema Deviation from normal: L upper chest with packing in the old PPM site that was extracted. -: New PPM, R upper chest looks good. Dx/Plan (1) Syncope Code(s): R55 - SYNCOPE AND COLLAPSE Status: Acute Comment: Multifactorial. Infection, atrial arrhythmias, dehydration, possibly carotid disease. (2) Infection of pacemaker pocket Code(s): T82.7XXA - INFECT/INFLM REACT D/T OTH CARDI/VASC DEV/IMPLNT/GRFT, INIT Status: Acute Comment: MRSA. Substantial resistance pattern. On Vanc. PPM removed. Pocket packed with iodoform packing. Given the MRSA, suspect he will need continued IV abx for a period of time to ensure the new PM does not get seeded. ID following. (3) Paroxysmal atrial fibrillation Code(s): I48.0 - PAROXYSMAL ATRIAL FIBRILLATION Status: Chronic Comment: converted to sinus. EP following. New PPM placed. (4) Acute renal insufficiency Code(s): N28.9 - DISORDER OF KIDNEY AND URETER, UNSPECIFIED Status: Acute Comment: Much improved with hydration. (5) Carotid stenosis Code(s): I65.29 - OCCLUSION AND STENOSIS OF UNSPECIFIED CAROTID ARTERY Status : Acute Comment: CT confirmed complete occlusion of the left carotid very proximally. Appreciate CV surg consult. No intervention indicated now. (6) Dehydration Code(s): E86.0 - DEHYDRATION Status: Resolved (7) Diabetes mellitus Code(s): E11.9 - TYPE 2 DIABETES MELLITUS WITHOUT COMPLICATIONS Status: Acute Qualifiers: Diabetes mellitus type: type 2 Comment: Controlled with Insulin Glargine 30 bid. SSI just in case. (8) Tobacco abuse Code(s): Z72.0 - TOBACCO USE Status: Acute (9) Hyperlipidemia Code(s): E78.5 - HYPERLIPIDEMIA, UNSPECIFIED Status: Acute Comment: Continue home statin. - Plan * .
--- NOTE | 2018-03-23 09:02 | RAD ---
RADIOGRAPH CHEST: DATE: 03/23/18. COMPARISON: 10/29/15. HISTORY: Evaluate chest following cardiac device placement. FINDINGS: There is a new dual-lead transvenous acing device inserted via right subclavian approach. There is n o evidence for pneumothorax. There is diffuse increased linear interstitial density with pulmonary h yperinflation, suggesting air trapping on the basis of COPD in the proper clinical setting. Multiple punctate metallic densities overlie the left hemithorax, stable. Stable blunting of the left costop hrenic angle, which may signify left pleural effusion and/or pleural scar/thickening. IMPRESSION: New transvenous pacing device with no evidence for pneumothorax. POS: SENG
--- NOTE | 2018-03-23 09:09 | OP ---
DATE OF PROCEDURE: 03/22/2018 This is a dual-pacemaker system evacuation report. REFERRING PHYSICIAN: Dr. Freeman. REASON FOR PROCEDURE: Mr. Briceno is a 73-year-old male with history of paroxysmal atrial fibrillation, on amiodarone; tachybrady syndrome with syncopal spells, seen with sick sinus syndrome with over 3-se cond pauses, which were symptomatic, who underwent a dual-chamber pacemaker implantation in 02/2018. He presented with positive drainage with MRSA-positive wound cultures, but negative blood cultures. He underwent dual-chamber pacemaker implantation on the control lateral side. The pacemaker generat or and lead extraction were performed hence persisting infection. DESCRIPTION OF PROCEDURE: The patient received propofol by anesthesia specialist. After adequate le sabine of sedation achieved, the left prepectoral area was prepped and the incision was made over the pr e-existing device with an eye-shaped pattern. The infected edges of the previous wound were removed. Hemostasis was obtained. The pacemaker itself was removed from the pocket. The pacemaker leads we re removed from the device and the lead sutures were freed up. Stylets were placed and under fluoros copy, the leads were removed from the body with single traction without difficulty. The patient tole rated the procedure well. No complication noted. The wound was left open and packed with iodoform tape. CONCLUSION: 1. Successful evacuation of a dual-lead pacing system due to methicillin-resistant Staphylococcus au reus infection. 2. Wound was left open for secondary healing. Wound culture was sent. 3. Wound Care Team consult is to continue.
[2018-03-23] MEDS: Sodium Chloride 0.9% 1,000 ML IV SCH ×2 (09:37→18:36)
[2018-03-23] MEDS: Enoxaparin Sodium 100 MG/ML SYRINGE SC SCH (09:37)
[2018-03-23] MEDS: Metoprolol Tartrate 25 MG TAB PO SCH (09:37)
[2018-03-23] MEDS: Gabapentin 300 MG CAP PO SCH ×3 (09:38→22:26)
[2018-03-23] MEDS: Famotidine 20 MG TAB PO SCH (09:38)
[2018-03-23] MEDS: Cepastat Lozenges 1 LOZ PO PRN (10:31)
[2018-03-23] MEDS: Insulin Glargine 30 UNITS in Pre-Filled Syringe 1 EACH SC SCH ×2 (10:31→22:27)
[2018-03-23] MEDS: Vancomycin HCl 1 GM in Premix Bag 1 BAG IVPB SCH ×2 (12:31→23:26)
[2018-03-23] MEDS ORDERED: Digoxin 0.5 MG/2 ML AMP SLOW IVP SCH (16:45)
[2018-03-23] MEDS: Rivaroxaban 10 MG TAB PO SCH (18:21)
[2018-03-23] MEDS: traZODone HCl 150 MG TAB PO SCH (22:26)
[2018-03-23] MEDS: Atorvastatin Calcium 40 MG TAB PO SCH (22:26)
[2018-03-23] MEDS: Amiodarone 200 MG TAB PO SCH (22:26)
[2018-03-23] MEDS: Metoprolol Tartrate 50 MG TAB PO SCH (22:27)
[2018-03-24 05:43] LABS: #Eosinphils 0.3 thou/uL (0.0-0.7); #Monocytes 0.8 thou/uL (0.11-0.59); #Neutrophils 5.3 thou/uL (1.40-6.50); %Basophils 0.2 % (0.0-1.0); %Eosinophils 3.2 % (0.0-10.0); %Lymphocytes 23.3 % (21.0-51.0); %Monocytes 9.7 % (0.0-10.0); %Neutrophils 63.6 % (42.0-75.0); Hemoglobin 10.6 g/dL (14.0-18.0); Mean Corpuscular HGB CONC 31.7 g/dL (32.0-36.0); Mean Corpuscular Hemoglobin 29.7 pg (27.0-31.0); Mean Corpuscular Volume 93.7 fL (78.0-98.0); Mean Platelet Volume 8.4 fL (7.4-10.4); Platelet Count 229 thou/uL (130-400); RBC Distribution Width 14.3 % (11.5-14.5); Red Blood Cell (RBC) Count 3.57 mill/uL (4.70-6.10); White Blood Cell (WBC) Count 8.4 thou/uL (4.8-10.8)
[2018-03-24 05:54] LABS: ALT (SGPT) 18 U/L (8-55); AST (SGOT) 22 U/L (5-34); Albumin 2.9 g/dL (3.4-4.8); Alkaline Phosphatase 88 U/L (40-150); Anion Gap 9 mmol/L (10-20); BUN (Urea Nitrogen) 16 mg/dL (8.4-25.7); Bilirubin, Total 0.3 mg/dL (0.2-1.2); Calc. Creatinine Clearance 105 mL/min (70-130); Calcium 8.7 mg/dL (7.8-10.44); Carbon Dioxide 26 mmol/L (23-31); Chloride 109 mmol/L (98-107); Estimated GFR-MDRD 89; Glucose 167 mg/dL (83-110); Potassium 4.2 mmol/L (3.5-5.1); Protein, Total 5.9 g/dL (5.8-8.1); Sodium 140 mmol/L (136-145)
[2018-03-24] MEDS: HumaLOG 300 UNITS/3 ML VIAL SC PRN ×2 (06:38→17:50)
[2018-03-24] MEDS: Sodium Chloride 0.9% 1,000 ML IV SCH ×3 (06:39→21:17)
[2018-03-24] MEDS: Insulin Glargine 30 UNITS in Pre-Filled Syringe 1 EACH SC SCH ×2 (09:14→21:45)
[2018-03-24] MEDS: Metoprolol Tartrate 50 MG TAB PO SCH ×2 (09:14→20:19)
[2018-03-24] MEDS: Amiodarone 200 MG TAB PO SCH ×2 (09:15→20:18)
[2018-03-24] MEDS: Famotidine 20 MG TAB PO SCH (09:15)
[2018-03-24] MEDS: Gabapentin 300 MG CAP PO SCH ×3 (09:15→20:19)
--- NOTE | 2018-03-24 11:56 | PDOC.PN ---
- Subjective Encounter Start Date: 03/24/18 Encounter Start Time: 09:15 Subjective: no sob or palp -: feels a bit weak -: no fever - Objective Resuscitation Status: Resuscitation Status FULL:Full Resuscitation MAR Reviewed: Yes Vital Signs & Weight: Vital Signs (12 hours) Temp Pulse Resp BP Pulse Ox 03/24/18 11:43 98.1 F 99 18 130/73 92 L 03/24/18 08:35 95 03/24/18 07:53 98.4 F 63 18 114/60 95 03/24/18 03:00 97.6 F 62 18 95 Weight Admit Weight 205 lb 1.6 oz Weight 205 lb I&O: 03/23/18 03/24/18 03/25/18 06:59 06:59 06:59 Intake Total 480 1400 Output Total 1500 Balance 480 -100 Result Diagrams: 03/24/18 05:23 03/24/18 05:23 Additional Labs: Accuchecks 03/24/18 03/24/18 03/23/18 10:41 06:27 21:14 POC Glucose 144 H 218 H 211 H 03/23/18 17:13 POC Glucose 340 H Phys Exam - Physical Examination HEENT: PERRLA, moist MMs Neck: no JVD, supple Respiratory: no wheezing, no rales Cardiovascular: RRR, no significant murmur Gastrointestinal: soft, non-tender, positive bowel sounds Musculoskeletal: no edema, pulses present Neurological: non-focal, moves all 4 limbs Psychiatric: normal affect, A&O x 3 Dx/Plan (1) Infection of pacemaker pocket Code(s): T82.7XXA - INFECT/INFLM REACT D/T OTH CARDI/VASC DEV/IMPLNT/GRFT, INIT Status: Acute Comment: MRSA. Substantial resistance pattern. On Vanc. PPM removed. Pocket packed with iodoform packing. Given the MRSA, suspect he will need continued IV abx for a period of time to ensure the new PM does not get seeded. ID following. (2) Carotid stenosis Code(s): I65.29 - OCCLUSION AND STENOSIS OF UNSPECIFIED CAROTID ARTERY Status : Acute Comment: CT confirmed complete occlusion of the left carotid very proximally. Appreciate CV surg consult. No intervention indicated now. (3) Syncope Code(s): R55 - SYNCOPE AND COLLAPSE Status: Resolved Comment: Multifactorial. Infection, atrial arrhythmias, dehydration, possibly carotid disease. (4) Dehydration Code(s): E86.0 - DEHYDRATION Status: Resolved (5) Atrial fibrillation with RVR Code(s): I48.91 - UNSPECIFIED ATRIAL FIBRILLATION Status: Acute Comment: PT on Amiodarone, continued on Bblocker (6) Anxiety and depression Code(s): F41.8 - OTHER SPECIFIED ANXIETY DISORDERS Status: Chronic (7) COPD (chronic obstructive pulmonary disease) Status: Chronic Comment: stable, Continue on Nebs. (8) Chronic anticoagulation Code(s): Z79.01 - CORPORATE TRAVEL CONSULTANT (CURRENT) USE OF 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 Status: Chronic Comment: Continue on Xaelto (9) Diabetes type 2, controlled Code(s): E11.9 - TYPE 2 DIABETES MELLITUS WITHOUT COMPLICATIONS Status: Chronic Qualifiers: Diabetes mellitus intermediate teacher insulin use: with chcf use Diabetes mellitus complication status: with unspecified complications Qualified Code(s) : E11.8 - Type 2 diabetes mellitus with unspecified complications; Z79.4 - longterm (current) use of insulin Comment: Continue with lantus/ SSI. (10) Dyslipidemia Code(s): E78.5 - HYPERLIPIDEMIA, UNSPECIFIED Status: Chronic (11) HTN (hypertension) Code(s): I10 - ESSENTIAL (PRIMARY) HYPERTENSION Status: Chronic Qualifiers: Hypertension type: essential hypertension Qualified Code(s): I10 - Essential (primary) hypertension (12) MEJIA on CPAP Code(s): G47.33 - OBSTRUCTIVE SLEEP APNEA (ADULT) (PEDIATRIC); Z99.89 - DEPENDENCE ON OTHER ENABLING MACHINES AND DEVICES Status: Chronic - Plan is on vanc, duration, ?picc line per ID advice -: amiodarone 400mg bid -: asp, lipitor and lantus -: continue xarelto -: to mobilize as tolerated, encourage po intake * . Review of Systems - Medications/Allergies Allergies/Adverse Reactions: Allergies Allergy/AdvReac Type Severity Reaction Status Date / Time ZARA Inhibitors Allergy Severe ANGIOEDEMA Verified 03/16/18 17:52 Medications: Current Medications Acetaminophen (Tylenol) 1,000 mg PO Q6H PRN PRN Reason: Headache/Fever or Mild Pain Last Admin: 03/23/18 11:58 Dose: 1,000 mg Amiodarone HCl (Cordarone) 400 mg PO BID [facility] Last Admin: 03/24/18 09:15 Dose: 400 mg Aspirin (Aspirin Chewable) 81 mg PO QAM [facility] Last Admin: 03/24/18 09:15 Dose: 81 mg Atorvastatin Calcium (Lipitor) 80 mg PO HS [facility] Last Admin: 03/23/18 22:26 Dose: 80 mg Clonidine (Catapres) 0.1 mg PO Q4H PRN PRN Reason: Systolic BP > 180 Dextrose/Water (Dextrose 50%) 25 gm SLOW IVP PRN PRN PRN Reason: Hypoglycemia Famotidine (Pepcid) 20 mg PO DAILY [facility] Last Admin: 03/24/18 09:15 Dose: 20 mg Gabapentin (Neurontin) 300 mg PO TID [facility] Last Admin: 03/24/18 09:15 Dose: 300 mg Glucagon (Glucagon) 1 mg IM PRN PRN PRN Reason: Hypoglycemia Hydralazine HCl (Apresoline) 10 mg SLOW IVP Q4H PRN PRN Reason: Systolic BP > 180 Dextrose/Water (D5w) 1,000 mls @ 0 mls/hr IV .Q0M PRN PRN Reason: Hypoglycemia Last Admin: 03/22/18 13:09 Dose: 1,000 mls Sodium Chloride (Normal Saline 0.9%) 1,000 mls @ 50 mls/hr IV .Q20H [facility] Last Admin: 03/24/18 06:39 Dose: 1,000 mls Insulin Glargine 30 units/ (Miscellaneous Medication) 0.3 mls @ 0 mls/hr SC BID [facility] Last Admin: 03/24/18 09:14 Dose: 0.3 mls Diltiazem HCl 125 mg/ Sodium (Chloride) 125 mls @ 5 mls/hr IVPB INF [facility]; Protocol Last Admin: 03/18/18 06:23 Dose: 125 mls Vancomycin HCl 1 gm/ Device 200 mls @ 200 mls/hr IVPB 1100,2300 [facility] Last Admin: 03/23/18 23:26 Dose: 200 mls Sodium Chloride (Normal Saline 0.9%) 1,000 mls @ 100 mls/hr IV .Q10H [facility] Last Admin: 03/24/18 07:45 Dose: Not Given Insulin Human Lispro (Humalog) 0 units SC .MILD SLIDING SCALE PRN PRN Reason: Mild Correctional Scale Last Admin: 03/24/18 06:38 Dose: 3 unit Insulin Human Lispro (Humalog) 0 units SC .BEDTIME SLIDING SC PRN PRN Reason: Bedtime Correctional Scale Last Admin: 03/16/18 20:12 Dose: 4 units Metoprolol Tartrate (Lopressor) 50 mg PO BID [facility] Last Admin: 03/24/18 09:14 Dose: 50 mg Miscellaneous Medication (Pharmacy To Dose) 1 each IVPB PRN PRN PRN Reason: . Ondansetron HCl (Zofran Odt) 4 mg PO Q6H PRN PRN Reason: Nausea/Vomiting Ondansetron HCl (Zofran) 4 mg IVP Q6H PRN PRN Reason: Nausea/Vomiting Rivaroxaban (Xarelto) 20 mg PO 1800 [facility] Last Admin: 03/23/18 18:21 Dose: 20 mg Sertraline HCl (Zoloft) 50 mg PO DAILY [facility] Last Admin: 03/24/18 09:15 Dose: 50 mg Sodium Chloride (Flush - Normal Saline) 10 ml IVF Q12HR [facility] Last Admin: 03/24/18 09:16 Dose: Not Given Sodium Chloride (Flush - Normal Saline) 10 ml IVF PRN PRN PRN Reason: Saline Flush Thiamine HCl (Thiamine) 100 mg PO DAILY [facility] Last Admin: 03/24/18 09:15 Dose: 100 mg Throat Lozenges (Cepastat Lozenges) 1 carlos PO PRN PRN PRN Reason: SORE THROAT Last Admin: 03/23/18 10:31 Dose: 1 carlos Trazodone HCl (Desyrel) 150 mg PO HS [facility] Last Admin: 03/23/18 22:26 Dose: 150 mg
--- NOTE | 2018-03-24 12:29 | PDOC.CTH ---
Cardiology Progress Note - Subjective EP progress note: Patient seen and evaluated. No new cardiac concerns or complaints. Denies fever , dizziness, passing out. Wanting to go home - Objective Vital Signs Temp Pulse Resp BP Pulse Ox 03/24/18 11:43 98.1 F 99 18 130/73 92 L 03/24/18 08:35 95 03/24/18 07:53 98.4 F 63 18 114/60 95 03/24/18 03:00 97.6 F 62 18 95 Admit Weight 205 lb 1.6 oz Weight 205 lb 03/23/18 03/24/18 03/25/18 06:59 06:59 06:59 Intake Total 480 1400 Output Total 1500 Balance 480 -100 - Physical Examination General/Neuro: alert & oriented x3, NAD Neck: no JVD present Lungs: unlabored respirations Heart: PMI normal, RRR Abdomen: NT/ND, soft Other PE findings: left chest wall PM explant site open/packed - Telemetry Telemetry Rhythm: SR with demand pacing, occasional AF - Labs Result Diagrams: 03/24/18 05:23 03/24/18 05:23 Troponin/CKMB CK-MB (CK-2) 8.5 ng/mL (0-6.6) H* 03/16/18 11:16 Troponin I 0.014 ng/mL (< 0.028) 03/16/18 17:19 - Assessment/Plan 1. Atrial fibrillation with RVR. Converted to SR 60s, transitioned to PO amiodarone 400mg PO BID for now. Continues to have parox episodes of AF with VR 90-110. 2. Left sided Dual chamber PPM that was placed for tachy/tushar, explanted Tuesday for infected pocket. Wound care is involved as wound culture + for MRSA. BC negative. ID managing antibiotics. Appreciate wound care recommendations for buttermaker management of secondary wound healing at left chest wall. Consider wound vac which could possibly allow patient to return to his home. There is substantial concern for further infection of new device if he does home without home care/close attention. Case management may help in the coordination of care/DC planning. 3. Elevated chads-vasc >2: Xarelto. Continue OAC 4. Left sided dual chamber PPM implanted Tuesday with extraction of other device. Site dressing remains CDI with minimal swelling and bruising. No drainage. Continue post implant antibiotics. Demand pacing
[2018-03-24] MEDS ORDERED: Sodium Chloride 0.9% 1,000 ML IV SCH (12:40)
[2018-03-24] MEDS: Vancomycin HCl 1 GM in Premix Bag 1 BAG IVPB SCH (12:41)
[2018-03-24] MEDS: Cepastat Lozenges 1 LOZ PO PRN ×2 (15:13→20:21)
[2018-03-24] MEDS: Rivaroxaban 10 MG TAB PO SCH (17:28)
[2018-03-24] MEDS: Sulfameth/Trimethoprim DS 800-160mg TAB PO SCH (20:19)
[2018-03-24] MEDS: traZODone HCl 150 MG TAB PO SCH (20:19)
[2018-03-24] MEDS: Atorvastatin Calcium 40 MG TAB PO SCH (20:19)
[2018-03-24] MEDS: Rifampin 300 MG CAP PO SCH (20:21)
[2018-03-24] MEDS: Acetaminophen 500 MG TAB PO PRN (21:45)
[2018-03-25] MEDS: Ondansetron ODT 4 MG TAB PO PRN (02:11)
[2018-03-25] MEDS: Metoprolol Tartrate 50 MG TAB PO SCH ×2 (09:47→19:56)
[2018-03-25] MEDS: Amiodarone 200 MG TAB PO SCH ×2 (09:47→19:56)
[2018-03-25] MEDS: Famotidine 20 MG TAB PO SCH (09:47)
[2018-03-25] MEDS: Gabapentin 300 MG CAP PO SCH ×3 (09:47→19:56)
[2018-03-25] MEDS: Sulfameth/Trimethoprim DS 800-160mg TAB PO SCH ×2 (09:48→19:56)
[2018-03-25] MEDS: Rifampin 300 MG CAP PO SCH ×2 (09:48→19:56)
[2018-03-25] MEDS: Insulin Glargine 30 UNITS in Pre-Filled Syringe 1 EACH SC SCH ×2 (09:49→19:57)
[2018-03-25] MEDS: HumaLOG 300 UNITS/3 ML VIAL SC PRN (11:20)
--- NOTE | 2018-03-25 12:43 | PDOC.PN ---
- Subjective Encounter Start Date: 03/25/18 Encounter Start Time: 08:00 Subjective: awake, no sob or palp -: feels better - Objective Resuscitation Status: Resuscitation Status FULL:Full Resuscitation MAR Reviewed: Yes Vital Signs & Weight: Vital Signs (12 hours) Temp Pulse Resp BP Pulse Ox 03/25/18 11:46 98.4 F 71 16 135/60 88 L 03/25/18 08:00 98.6 F 78 16 133/66 89 L 03/25/18 07:10 92 L 03/25/18 03:47 97.2 F L 60 16 131/63 93 L Weight Admit Weight 205 lb 1.6 oz Weight 205 lb I&O: 03/24/18 03/25/18 03/26/18 06:59 06:59 06:59 Intake Total 1400 340 300 Output Total 1500 1300 1050 Balance -100 -960 -750 Result Diagrams: 03/24/18 05:23 03/24/18 05:23 Additional Labs: Accuchecks 03/25/18 03/25/18 03/24/18 11:03 05:37 21:18 POC Glucose 232 H 164 H 251 H 03/24/18 17:34 POC Glucose 222 H Phys Exam - Physical Examination HEENT: PERRLA, moist MMs Neck: no JVD, supple Respiratory: no wheezing, no rales Cardiovascular: RRR, no significant murmur Gastrointestinal: soft, non-tender, positive bowel sounds Musculoskeletal: no edema, pulses present Neurological: non-focal, moves all 4 limbs Psychiatric: A&O x 3 Dx/Plan (1) Infection of pacemaker pocket Code(s): T82.7XXA - INFECT/INFLM REACT D/T OTH CARDI/VASC DEV/IMPLNT/GRFT, INIT Status: Acute Comment: MRSA. PPM removed. (2) Carotid stenosis Code(s): I65.29 - OCCLUSION AND STENOSIS OF UNSPECIFIED CAROTID ARTERY Status : Acute Comment: CT confirmed complete occlusion of the left carotid very proximally. Appreciate CV surg consult. No intervention indicated now. (3) Syncope Code(s): R55 - SYNCOPE AND COLLAPSE Status: Resolved Comment: Multifactorial. Infection, atrial arrhythmias, dehydration, possibly carotid disease. (4) Dehydration Code(s): E86.0 - DEHYDRATION Status: Resolved (5) Atrial fibrillation with RVR Code(s): I48.91 - UNSPECIFIED ATRIAL FIBRILLATION Status: Acute Comment: PT on Amiodarone, continued on Bblocker (6) Anxiety and depression Code(s): F41.8 - OTHER SPECIFIED ANXIETY DISORDERS Status: Chronic (7) COPD (chronic obstructive pulmonary disease) Status: Chronic Comment: stable, Continue on Nebs. (8) Chronic anticoagulation Code(s): Z79.01 - ALF (CURRENT) USE OF 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 Status: Chronic Comment: Continue on Xaelto (9) Diabetes type 2, controlled Code(s): E11.9 - TYPE 2 DIABETES MELLITUS WITHOUT COMPLICATIONS Status: Chronic Qualifiers: Diabetes mellitus truck terminal manager insulin use: with truck terminal manager use Diabetes mellitus complication status: with unspecified complications Qualified Code(s) : E11.8 - Type 2 diabetes mellitus with unspecified complications; Z79.4 - terminal operator (current) use of insulin Comment: Continue with lantus/ SSI. (10) Dyslipidemia Code(s): E78.5 - HYPERLIPIDEMIA, UNSPECIFIED Status: Chronic (11) HTN (hypertension) Code(s): I10 - ESSENTIAL (PRIMARY) HYPERTENSION Status: Chronic Qualifiers: Hypertension type: essential hypertension Qualified Code(s): I10 - Essential (primary) hypertension (12) MEJIA on CPAP Code(s): G47.33 - OBSTRUCTIVE SLEEP APNEA (ADULT) (PEDIATRIC); Z99.89 - DEPENDENCE ON OTHER ENABLING MACHINES AND DEVICES Status: Chronic - Plan is on rifampin and bactrim for pcm pocket mrsa infection -: awaiting placement and wound vac as well -: afib is rate controlled, continue amio, lopressor -: may tx to med floor -: on amiodarone taper per , asp, lipitor and xarelto * . Review of Systems - Medications/Allergies Allergies/Adverse Reactions: Allergies Allergy/AdvReac Type Severity Reaction Status Date / Time ZARA Inhibitors Allergy Severe ANGIOEDEMA Verified 03/16/18 17:52 Medications: Current Medications Acetaminophen (Tylenol) 1,000 mg PO Q6H PRN PRN Reason: Headache/Fever or Mild Pain Last Admin: 03/24/18 21:45 Dose: 1,000 mg Amiodarone HCl (Cordarone) 400 mg PO BID [facility] Last Admin: 03/25/18 09:47 Dose: 400 mg Aspirin (Aspirin Chewable) 81 mg PO QAM [facility] Last Admin: 03/25/18 09:47 Dose: 81 mg Atorvastatin Calcium (Lipitor) 80 mg PO HS [facility] Last Admin: 03/24/18 20:19 Dose: 80 mg Clonidine (Catapres) 0.1 mg PO Q4H PRN PRN Reason: Systolic BP > 180 Dextrose/Water (Dextrose 50%) 25 gm SLOW IVP PRN PRN PRN Reason: Hypoglycemia Famotidine (Pepcid) 20 mg PO DAILY [facility] Last Admin: 03/25/18 09:47 Dose: 20 mg Gabapentin (Neurontin) 300 mg PO TID [facility] Last Admin: 03/25/18 09:47 Dose: 300 mg Glucagon (Glucagon) 1 mg IM PRN PRN PRN Reason: Hypoglycemia Hydralazine HCl (Apresoline) 10 mg SLOW IVP Q4H PRN PRN Reason: Systolic BP > 180 Dextrose/Water (D5w) 1,000 mls @ 0 mls/hr IV .Q0M PRN PRN Reason: Hypoglycemia Last Admin: 03/22/18 13:09 Dose: 1,000 mls Insulin Glargine 30 units/ (Miscellaneous Medication) 0.3 mls @ 0 mls/hr SC BID [facility] Last Admin: 03/25/18 09:49 Dose: 0.3 mls Insulin Human Lispro (Humalog) 0 units SC .MILD SLIDING SCALE PRN PRN Reason: Mild Correctional Scale Last Admin: 03/25/18 11:20 Dose: 3 unit Insulin Human Lispro (Humalog) 0 units SC .BEDTIME SLIDING SC PRN PRN Reason: Bedtime Correctional Scale Last Admin: 03/16/18 20:12 Dose: 4 units Metoprolol Tartrate (Lopressor) 50 mg PO BID [facility] Last Admin: 03/25/18 09:47 Dose: 50 mg Ondansetron HCl (Zofran Odt) 4 mg PO Q6H PRN PRN Reason: Nausea/Vomiting Last Admin: 03/25/18 02:11 Dose: 4 mg Ondansetron HCl (Zofran) 4 mg IVP Q6H PRN PRN Reason: Nausea/Vomiting Rifampin (Rifadin) 300 mg PO 1000,2200 [facility] Last Admin: 03/25/18 09:48 Dose: 300 mg Rivaroxaban (Xarelto) 20 mg PO 1800 [facility] Last Admin: 03/24/18 17:28 Dose: 20 mg Sertraline HCl (Zoloft) 50 mg PO DAILY [facility] Last Admin: 03/25/18 09:47 Dose: 50 mg Sodium Chloride (Flush - Normal Saline) 10 ml IVF Q12HR [facility] Last Admin: 03/25/18 09:47 Dose: Not Given Sodium Chloride (Flush - Normal Saline) 10 ml IVF PRN PRN PRN Reason: Saline Flush Thiamine HCl (Thiamine) 100 mg PO DAILY [facility] Last Admin: 03/25/18 09:48 Dose: 100 mg Throat Lozenges (Cepastat Lozenges) 1 carlos PO PRN PRN PRN Reason: SORE THROAT Last Admin: 03/24/18 20:21 Dose: 1 carlos Trazodone HCl (Desyrel) 150 mg PO HS [facility] Last Admin: 03/24/18 20:19 Dose: 150 mg Trimethoprim/Sulfamethoxazole (Bactrim Ds) 1 tab PO BID [facility] Last Admin: 03/25/18 09:48 Dose: 1 tab
--- NOTE | 2018-03-25 13:29 | PDOC.CTH ---
Cardiology Progress Note - Subjective No complaints. Plan for move to floor today. Unsure of placement to NH or home with wound care. - Objective Vital Signs Temp Pulse Resp BP Pulse Ox 03/25/18 11:46 98.4 F 71 16 135/60 88 L 03/25/18 08:00 98.6 F 78 16 133/66 89 L 03/25/18 07:10 92 L 03/25/18 03:47 97.2 F L 60 16 131/63 93 L Admit Weight 205 lb 1.6 oz Weight 205 lb 03/24/18 03/25/18 03/26/18 06:59 06:59 06:59 Intake Total 1400 340 600 Output Total 1500 1300 1050 Balance -100 964 -450 - Physical Examination General/Neuro: alert & oriented x3 Lungs: CTA Heart: RRR Abdomen: NT/ND Other PE findings: Left sided dressing in place - Labs Result Diagrams: 03/24/18 05:23 03/24/18 05:23 Troponin/CKMB CK-MB (CK-2) 8.5 ng/mL (0-6.6) H* 03/16/18 11:16 Troponin I 0.014 ng/mL (< 0.028) 03/16/18 17:19 - Assessment/Plan 1. Paroxysmal AF with RVR - now in SR on Amio. 2. MRSA infection to left pacer s/p removal 3. s/p implant new device to right chest wall Continue antibiotics and wound care. No changes at this time.
[2018-03-25] MEDS: Rivaroxaban 10 MG TAB PO SCH (17:09)
[2018-03-25] MEDS: Atorvastatin Calcium 40 MG TAB PO SCH (19:56)
[2018-03-25] MEDS: traZODone HCl 150 MG TAB PO SCH (19:56)
[2018-03-26] MEDS: Rifampin 300 MG CAP PO SCH ×2 (08:38→22:04)
[2018-03-26] MEDS: Metoprolol Tartrate 50 MG TAB PO SCH ×2 (08:38→22:03)
[2018-03-26] MEDS: Amiodarone 200 MG TAB PO SCH ×2 (08:38→22:03)
[2018-03-26] MEDS: Gabapentin 300 MG CAP PO SCH ×3 (08:38→22:03)
[2018-03-26] MEDS: Famotidine 20 MG TAB PO SCH (08:38)
[2018-03-26] MEDS: Sulfameth/Trimethoprim DS 800-160mg TAB PO SCH ×2 (08:39→22:04)
[2018-03-26] MEDS: Insulin Glargine 30 UNITS in Pre-Filled Syringe 1 EACH SC SCH ×2 (08:39→22:04)
[2018-03-26] MEDS: Acetaminophen 500 MG TAB PO PRN (11:23)
--- NOTE | 2018-03-26 13:47 | PDOC.PN ---
- Subjective Encounter Start Date: 03/26/18 Encounter Start Time: 12:00 Subjective: no sob, feels better -: says he is ambulating in hallway now - Objective Resuscitation Status: Resuscitation Status FULL:Full Resuscitation MAR Reviewed: Yes Vital Signs & Weight: Vital Signs (12 hours) Temp Pulse Resp BP BP Pulse Ox 03/26/18 11:07 98.3 F 89 18 142/91 H 92 L 03/26/18 07:14 98.5 F 82 18 123/75 03/26/18 02:40 97.9 F 79 20 153/69 H 93 L Weight Admit Weight 205 lb 1.6 oz Weight 205 lb I&O: 03/25/18 03/26/18 03/27/18 06:59 06:59 06:59 Intake Total 340 1400 Output Total 1300 1250 Balance -960 150 Result Diagrams: 03/24/18 05:23 03/24/18 05:23 Additional Labs: Accuchecks 03/26/18 03/25/18 03/25/18 10:59 19:28 16:22 POC Glucose 106 192 H 155 H Phys Exam - Physical Examination HEENT: PERRLA, moist MMs Neck: no JVD, supple Respiratory: no wheezing, no rales Cardiovascular: RRR, no significant murmur Gastrointestinal: soft, non-tender, positive bowel sounds Musculoskeletal: no edema, pulses present Neurological: non-focal, moves all 4 limbs Psychiatric: normal affect, A&O x 3 Dx/Plan (1) Infection of pacemaker pocket Code(s): T82.7XXA - INFECT/INFLM REACT D/T OTH CARDI/VASC DEV/IMPLNT/GRFT, INIT Status: Acute Comment: MRSA. s/p removal of pcm with replacement over right infraclavicular area (2) Carotid stenosis Code(s): I65.29 - OCCLUSION AND STENOSIS OF UNSPECIFIED CAROTID ARTERY Status : Acute Comment: CT confirmed complete occlusion of the left carotid very proximally. Appreciate CV surg consult. No intervention indicated now. (3) Syncope Code(s): R55 - SYNCOPE AND COLLAPSE Status: Resolved Comment: Multifactorial. Infection, atrial arrhythmias, dehydration, possibly carotid disease. (4) Dehydration Code(s): E86.0 - DEHYDRATION Status: Resolved (5) Atrial fibrillation with RVR Code(s): I48.91 - UNSPECIFIED ATRIAL FIBRILLATION Status: Acute Comment: PT on Amiodarone, continued on Bblocker (6) Anxiety and depression Code(s): F41.8 - OTHER SPECIFIED ANXIETY DISORDERS Status: Chronic (7) COPD (chronic obstructive pulmonary disease) Status: Chronic Comment: stable, Continue on Nebs. (8) Chronic anticoagulation Code(s): Z79.01 - FIRE FIGHTER CRASH FIRE AND RESCUE (CURRENT) USE OF 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 Status: Chronic Comment: Continue on Xaelto (9) Diabetes type 2, controlled Code(s): E11.9 - TYPE 2 DIABETES MELLITUS WITHOUT COMPLICATIONS Status: Chronic Qualifiers: Diabetes mellitus intermediate designer insulin use: with intermediate designer use Diabetes mellitus complication status: with unspecified complications Qualified Code(s) : E11.8 - Type 2 diabetes mellitus with unspecified complications; Z79.4 - snf (current) use of insulin Comment: Continue with lantus/ SSI. (10) Dyslipidemia Code(s): E78.5 - HYPERLIPIDEMIA, UNSPECIFIED Status: Chronic (11) HTN (hypertension) Code(s): I10 - ESSENTIAL (PRIMARY) HYPERTENSION Status: Chronic Qualifiers: Hypertension type: essential hypertension Qualified Code(s): I10 - Essential (primary) hypertension (12) MEJIA on CPAP Code(s): G47.33 - OBSTRUCTIVE SLEEP APNEA (ADULT) (PEDIATRIC); Z99.89 - DEPENDENCE ON OTHER ENABLING MACHINES AND DEVICES Status: Chronic - Plan hemostable -: on rifampin and bactrim -: amiodarone dose per cardio, xarelto -: awaiting wound vac set up for outpt use -: is medically stable for discharge if above is arranged * . Review of Systems - Medications/Allergies Allergies/Adverse Reactions: Allergies Allergy/AdvReac Type Severity Reaction Status Date / Time ZARA Inhibitors Allergy Severe ANGIOEDEMA Verified 03/16/18 17:52 Medications: Current Medications Acetaminophen (Tylenol) 1,000 mg PO Q6H PRN PRN Reason: Headache/Fever or Mild Pain Last Admin: 03/26/18 11:23 Dose: 1,000 mg Amiodarone HCl (Cordarone) 400 mg PO BID [facility] Last Admin: 03/26/18 08:38 Dose: 400 mg Aspirin (Aspirin Chewable) 81 mg PO QAM [facility] Last Admin: 03/26/18 08:38 Dose: 81 mg Atorvastatin Calcium (Lipitor) 80 mg PO HS [facility] Last Admin: 03/25/18 19:56 Dose: 80 mg Clonidine (Catapres) 0.1 mg PO Q4H PRN PRN Reason: Systolic BP > 180 Dextrose/Water (Dextrose 50%) 25 gm SLOW IVP PRN PRN PRN Reason: Hypoglycemia Famotidine (Pepcid) 20 mg PO DAILY [facility] Last Admin: 03/26/18 08:38 Dose: 20 mg Gabapentin (Neurontin) 300 mg PO TID [facility] Last Admin: 03/26/18 08:38 Dose: 300 mg Glucagon (Glucagon) 1 mg IM PRN PRN PRN Reason: Hypoglycemia Hydralazine HCl (Apresoline) 10 mg SLOW IVP Q4H PRN PRN Reason: Systolic BP > 180 Dextrose/Water (D5w) 1,000 mls @ 0 mls/hr IV .Q0M PRN PRN Reason: Hypoglycemia Last Admin: 03/22/18 13:09 Dose: 1,000 mls Insulin Glargine 30 units/ (Miscellaneous Medication) 0.3 mls @ 0 mls/hr SC BID [facility] Last Admin: 03/26/18 08:39 Dose: 0.3 mls Insulin Human Lispro (Humalog) 0 units SC .MILD SLIDING SCALE PRN PRN Reason: Mild Correctional Scale Last Admin: 03/25/18 11:20 Dose: 3 unit Insulin Human Lispro (Humalog) 0 units SC .BEDTIME SLIDING SC PRN PRN Reason: Bedtime Correctional Scale Last Admin: 03/16/18 20:12 Dose: 4 units Metoprolol Tartrate (Lopressor) 50 mg PO BID [facility] Last Admin: 03/26/18 08:38 Dose: 50 mg Ondansetron HCl (Zofran Odt) 4 mg PO Q6H PRN PRN Reason: Nausea/Vomiting Last Admin: 03/25/18 02:11 Dose: 4 mg Ondansetron HCl (Zofran) 4 mg IVP Q6H PRN PRN Reason: Nausea/Vomiting Rifampin (Rifadin) 300 mg PO 1000,2200 [facility] Last Admin: 03/26/18 08:38 Dose: 300 mg Rivaroxaban (Xarelto) 20 mg PO 1800 [facility] Last Admin: 03/25/18 17:09 Dose: 20 mg Sertraline HCl (Zoloft) 50 mg PO DAILY [facility] Last Admin: 03/26/18 08:39 Dose: 50 mg Sodium Chloride (Flush - Normal Saline) 10 ml IVF Q12HR [facility] Last Admin: 03/26/18 08:39 Dose: Not Given Sodium Chloride (Flush - Normal Saline) 10 ml IVF PRN PRN PRN Reason: Saline Flush Thiamine HCl (Thiamine) 100 mg PO DAILY [facility] Last Admin: 03/26/18 08:38 Dose: 100 mg Throat Lozenges (Cepastat Lozenges) 1 carlos PO PRN PRN PRN Reason: SORE THROAT Last Admin: 03/24/18 20:21 Dose: 1 carlos Trazodone HCl (Desyrel) 150 mg PO HS [facility] Last Admin: 03/25/18 19:56 Dose: 150 mg Trimethoprim/Sulfamethoxazole (Bactrim Ds) 1 tab PO BID [facility] Last Admin: 03/26/18 08:39 Dose: 1 tab
--- NOTE | 2018-03-26 14:30 | EKG ---
Test Reason : Blood Pressure : / mmHG Vent. Rate : 120 BPM Atrial Rate : 127 BPM P-R Int : 000 ms QRS Dur : 142 ms QT Int : 392 ms P-R-T Axes : 000 021 -04 degrees QTc Int : 554 ms Undetermined rhythm Right bundle branch block Abnormal ECG Confirmed by RADHA BLOOM (2) on 03/26/2018 2:30:12 PM Referred By: WOLF Confirmed By:RADHA BLOOM
[2018-03-26] MEDS: HumaLOG 300 UNITS/3 ML VIAL SC PRN (16:32)
[2018-03-26] MEDS: Rivaroxaban 10 MG TAB PO SCH (16:32)
--- NOTE | 2018-03-26 17:36 | EKG ---
Test Reason : Blood Pressure : / mmHG Vent. Rate : 103 BPM Atrial Rate : 117 BPM P-R Int : 000 ms QRS Dur : 152 ms QT Int : 404 ms P-R-T Axes : 000 003 -11 degrees QTc Int : 529 ms Atrial fibrillation with rapid ventricular response Right bundle branch block Abnormal ECG Confirmed by RADHA BLOOM (2) on 03/26/2018 5:36:31 PM Referred By: MIA Confirmed By:RADHA BLOOM
[2018-03-26] MEDS: Atorvastatin Calcium 40 MG TAB PO SCH (22:03)
[2018-03-26] MEDS: traZODone HCl 150 MG TAB PO SCH (22:04)
[2018-03-27] MEDS: Insulin Glargine 30 UNITS in Pre-Filled Syringe 1 EACH SC SCH ×2 (09:47→22:15)
[2018-03-27] MEDS: Rifampin 300 MG CAP PO SCH ×2 (09:48→23:09)
[2018-03-27] MEDS: Sulfameth/Trimethoprim DS 800-160mg TAB PO SCH ×2 (09:48→22:08)
[2018-03-27] MEDS: Metoprolol Tartrate 50 MG TAB PO SCH ×2 (09:48→22:07)
[2018-03-27] MEDS: Famotidine 20 MG TAB PO SCH (09:48)
[2018-03-27] MEDS: Amiodarone 200 MG TAB PO SCH ×2 (09:48→22:08)
[2018-03-27] MEDS: Gabapentin 300 MG CAP PO SCH ×3 (09:48→22:08)
--- NOTE | 2018-03-27 11:16 | PDOC.PN ---
- Subjective Encounter Start Date: 03/27/18 Encounter Start Time: 10:45 Subjective: no sob or palp -: his wound vac is coming out repeatedly due to ?adhesive issue/sweating/pick - Objective Resuscitation Status: Resuscitation Status FULL:Full Resuscitation MAR Reviewed: Yes Vital Signs & Weight: Vital Signs (12 hours) Temp Pulse Resp BP BP Pulse Ox 03/27/18 07:38 97.6 F 93 16 125/79 93 L 03/27/18 04:00 98.2 F 88 16 127/70 93 L Weight Admit Weight 205 lb 1.6 oz Weight 205 lb I&O: 03/26/18 03/27/18 03/28/18 06:59 06:59 06:59 Intake Total 1400 800 Output Total 1250 1750 Balance 150 -950 Result Diagrams: 03/24/18 05:23 03/24/18 05:23 Additional Labs: Accuchecks 03/27/18 03/26/18 03/26/18 04:25 20:35 16:04 POC Glucose 156 H 132 H 219 H Phys Exam - Physical Examination HEENT: PERRLA, moist MMs Neck: no JVD, supple Respiratory: no wheezing, no rales Cardiovascular: RRR, no significant murmur Gastrointestinal: soft, non-tender, positive bowel sounds Musculoskeletal: no edema, pulses present Neurological: non-focal, moves all 4 limbs Psychiatric: normal affect, A&O x 3 Dx/Plan (1) Infection of pacemaker pocket Code(s): T82.7XXA - INFECT/INFLM REACT D/T OTH CARDI/VASC DEV/IMPLNT/GRFT, INIT Status: Acute Comment: MRSA. s/p removal of pcm with replacement over right infraclavicular area (2) Carotid stenosis Code(s): I65.29 - OCCLUSION AND STENOSIS OF UNSPECIFIED CAROTID ARTERY Status : Acute Comment: CT confirmed complete occlusion of the left carotid very proximally. Appreciate CV surg consult. No intervention indicated now. (3) Syncope Code(s): R55 - SYNCOPE AND COLLAPSE Status: Resolved Comment: Multifactorial. Infection, atrial arrhythmias, dehydration, possibly carotid disease. (4) Dehydration Code(s): E86.0 - DEHYDRATION Status: Resolved (5) Atrial fibrillation with RVR Code(s): I48.91 - UNSPECIFIED ATRIAL FIBRILLATION Status: Resolved Comment: PT on Amiodarone, continued on Bblocker (6) Anxiety and depression Code(s): F41.8 - OTHER SPECIFIED ANXIETY DISORDERS Status: Chronic (7) COPD (chronic obstructive pulmonary disease) Status: Chronic Comment: stable, Continue on Nebs. (8) Chronic anticoagulation Code(s): Z79.01 - BELL MAKER (CURRENT) USE OF 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 Status: Chronic Comment: Continue on Xaelto (9) Diabetes type 2, controlled Code(s): E11.9 - TYPE 2 DIABETES MELLITUS WITHOUT COMPLICATIONS Status: Chronic Qualifiers: Diabetes mellitus roasterman insulin use: with custodial use Diabetes mellitus complication status: with unspecified complications Qualified Code(s) : E11.8 - Type 2 diabetes mellitus with unspecified complications; Z79.4 - residential (current) use of insulin Comment: Continue with lantus/ SSI. (10) Dyslipidemia Code(s): E78.5 - HYPERLIPIDEMIA, UNSPECIFIED Status: Chronic (11) HTN (hypertension) Code(s): I10 - ESSENTIAL (PRIMARY) HYPERTENSION Status: Chronic Qualifiers: Hypertension type: essential hypertension Qualified Code(s): I10 - Essential (primary) hypertension (12) MEJIA on CPAP Code(s): G47.33 - OBSTRUCTIVE SLEEP APNEA (ADULT) (PEDIATRIC); Z99.89 - DEPENDENCE ON OTHER ENABLING MACHINES AND DEVICES Status: Chronic - Plan hemostable -: is on rifampin and bactrim x 10 days -: may dc when wound vac is arranged along with HH and PT -: medically stable for discharge -: meds are reconciled, start amio taper * . Review of Systems - Medications/Allergies Allergies/Adverse Reactions: Allergies Allergy/AdvReac Type Severity Reaction Status Date / Time ZARA Inhibitors Allergy Severe ANGIOEDEMA Verified 03/16/18 17:52 Medications: Current Medications Acetaminophen (Tylenol) 1,000 mg PO Q6H PRN PRN Reason: Headache/Fever or Mild Pain Last Admin: 03/26/18 11:23 Dose: 1,000 mg Amiodarone HCl (Cordarone) 400 mg PO BID [facility] Last Admin: 03/27/18 09:48 Dose: 400 mg Aspirin (Aspirin Chewable) 81 mg PO QAM [facility] Last Admin: 03/27/18 09:48 Dose: 81 mg Atorvastatin Calcium (Lipitor) 80 mg PO HS [facility] Last Admin: 03/26/18 22:03 Dose: 80 mg Clonidine (Catapres) 0.1 mg PO Q4H PRN PRN Reason: Systolic BP > 180 Dextrose/Water (Dextrose 50%) 25 gm SLOW IVP PRN PRN PRN Reason: Hypoglycemia Famotidine (Pepcid) 20 mg PO DAILY [facility] Last Admin: 03/27/18 09:48 Dose: 20 mg Gabapentin (Neurontin) 300 mg PO TID [facility] Last Admin: 03/27/18 09:48 Dose: 300 mg Glucagon (Glucagon) 1 mg IM PRN PRN PRN Reason: Hypoglycemia Hydralazine HCl (Apresoline) 10 mg SLOW IVP Q4H PRN PRN Reason: Systolic BP > 180 Dextrose/Water (D5w) 1,000 mls @ 0 mls/hr IV .Q0M PRN PRN Reason: Hypoglycemia Last Admin: 03/22/18 13:09 Dose: 1,000 mls Insulin Glargine 30 units/ (Miscellaneous Medication) 0.3 mls @ 0 mls/hr SC BID [facility] Last Admin: 03/27/18 09:47 Dose: 0.3 mls Insulin Human Lispro (Humalog) 0 units SC .MILD SLIDING SCALE PRN PRN Reason: Mild Correctional Scale Last Admin: 03/26/18 16:32 Dose: 3 unit Insulin Human Lispro (Humalog) 0 units SC .BEDTIME SLIDING SC PRN PRN Reason: Bedtime Correctional Scale Last Admin: 03/16/18 20:12 Dose: 4 units Metoprolol Tartrate (Lopressor) 50 mg PO BID [facility] Last Admin: 03/27/18 09:48 Dose: 50 mg Ondansetron HCl (Zofran Odt) 4 mg PO Q6H PRN PRN Reason: Nausea/Vomiting Last Admin: 03/25/18 02:11 Dose: 4 mg Ondansetron HCl (Zofran) 4 mg IVP Q6H PRN PRN Reason: Nausea/Vomiting Rifampin (Rifadin) 300 mg PO 1000,2200 [facility] Last Admin: 03/27/18 09:48 Dose: 300 mg Rivaroxaban (Xarelto) 20 mg PO 1800 [facility] Last Admin: 03/26/18 16:32 Dose: 20 mg Sertraline HCl (Zoloft) 50 mg PO DAILY [facility] Last Admin: 03/27/18 09:48 Dose: 50 mg Sodium Chloride (Flush - Normal Saline) 10 ml IVF Q12HR [facility] Last Admin: 03/27/18 09:49 Dose: Not Given Sodium Chloride (Flush - Normal Saline) 10 ml IVF PRN PRN PRN Reason: Saline Flush Thiamine HCl (Thiamine) 100 mg PO DAILY [facility] Last Admin: 03/27/18 09:49 Dose: 100 mg Throat Lozenges (Cepastat Lozenges) 1 carlos PO PRN PRN PRN Reason: SORE THROAT Last Admin: 03/24/18 20:21 Dose: 1 carlos Trazodone HCl (Desyrel) 150 mg PO HS [facility] Last Admin: 03/26/18 22:04 Dose: 150 mg Trimethoprim/Sulfamethoxazole (Bactrim Ds) 1 tab PO BID [facility] Last Admin: 03/27/18 09:48 Dose: 1 tab
[2018-03-27] MEDS: HumaLOG 300 UNITS/3 ML VIAL SC PRN ×3 (12:30→22:11)
[2018-03-27] MEDS: Rivaroxaban 10 MG TAB PO SCH (17:54)
[2018-03-27] MEDS ORDERED: Famotidine 20 MG TAB PO SCH (22:00)
[2018-03-27] MEDS: Mag-Al 1200 mg/1200 mg/30 ML UDCUP PO PRN (22:05)
[2018-03-27] MEDS: traZODone HCl 150 MG TAB PO SCH (22:08)
[2018-03-27] MEDS: Atorvastatin Calcium 40 MG TAB PO SCH (22:08)
[2018-03-27] MEDS: Ondansetron ODT 4 MG TAB PO PRN (22:20)
[2018-03-28] MEDS: Mag-Al 1200 mg/1200 mg/30 ML UDCUP PO PRN ×2 (03:46→14:41)
[2018-03-28] MEDS: HumaLOG 300 UNITS/3 ML VIAL SC PRN ×2 (06:03→18:11)
[2018-03-28] MEDS: Amiodarone 200 MG TAB PO SCH ×2 (10:29→21:09)
[2018-03-28] MEDS: Metoprolol Tartrate 50 MG TAB PO SCH ×2 (10:29→21:08)
[2018-03-28] MEDS: Rifampin 300 MG CAP PO SCH ×2 (10:29→22:19)
[2018-03-28] MEDS: Famotidine 20 MG TAB PO SCH ×2 (10:30→21:08)
[2018-03-28] MEDS: metFORMIN 850 MG TAB PO SCH ×2 (10:30→18:10)
[2018-03-28] MEDS: Gabapentin 300 MG CAP PO SCH ×3 (10:30→21:08)
[2018-03-28] MEDS: Insulin Glargine 30 UNITS in Pre-Filled Syringe 1 EACH SC SCH ×2 (10:31→22:23)
[2018-03-28] MEDS: Sulfameth/Trimethoprim DS 800-160mg TAB PO SCH ×2 (11:20→21:08)
[2018-03-28] MEDS: Acetaminophen 500 MG TAB PO PRN (11:20)
--- NOTE | 2018-03-28 11:57 | PDOC.PN ---
- Subjective Encounter Start Date: 03/28/18 Encounter Start Time: 08:45 Subjective: feels better -: is eating breakfast -: ambulating in hallway and room - Objective Resuscitation Status: Resuscitation Status FULL:Full Resuscitation MAR Reviewed: Yes Vital Signs & Weight: Vital Signs (12 hours) Temp Pulse Resp BP BP Pulse Ox 03/28/18 07:33 97.7 F 97 16 137/81 92 L 03/28/18 04:00 97.7 F 83 20 137/81 92 L Weight Admit Weight 205 lb 1.6 oz Weight 205 lb I&O: 03/27/18 03/28/18 03/29/18 06:59 06:59 06:59 Intake Total 800 1200 Output Total 1750 500 Balance -950 700 Result Diagrams: 03/24/18 05:23 03/24/18 05:23 Additional Labs: Accuchecks 03/28/18 03/27/18 03/27/18 04:17 20:05 16:11 POC Glucose 190 H 269 H 251 H 03/27/18 11:12 POC Glucose 225 H Phys Exam - Physical Examination HEENT: PERRLA, moist MMs Neck: no JVD, supple Respiratory: no wheezing, no rales Cardiovascular: RRR, no significant murmur Gastrointestinal: soft, non-tender, positive bowel sounds Musculoskeletal: no edema, pulses present Neurological: non-focal, moves all 4 limbs Psychiatric: normal affect, A&O x 3 Dx/Plan (1) Infection of pacemaker pocket Code(s): T82.7XXA - INFECT/INFLM REACT D/T OTH CARDI/VASC DEV/IMPLNT/GRFT, INIT Status: Acute Comment: MRSA. s/p removal of pcm with replacement over right infraclavicular area (2) Carotid stenosis Code(s): I65.29 - OCCLUSION AND STENOSIS OF UNSPECIFIED CAROTID ARTERY Status : Acute Comment: CT confirmed complete occlusion of the left carotid very proximally. Appreciate CV surg consult. No intervention indicated now. (3) Syncope Code(s): R55 - SYNCOPE AND COLLAPSE Status: Resolved Comment: Multifactorial. Infection, atrial arrhythmias, dehydration, possibly carotid disease. (4) Dehydration Code(s): E86.0 - DEHYDRATION Status: Resolved (5) Atrial fibrillation with RVR Code(s): I48.91 - UNSPECIFIED ATRIAL FIBRILLATION Status: Resolved Comment: PT on Amiodarone, continued on Bblocker (6) Anxiety and depression Code(s): F41.8 - OTHER SPECIFIED ANXIETY DISORDERS Status: Chronic (7) COPD (chronic obstructive pulmonary disease) Status: Chronic Comment: stable, Continue on Nebs. (8) Chronic anticoagulation Code(s): Z79.01 - SKILLED NURSING (CURRENT) USE OF 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 Status: Chronic Comment: Continue on Xaelto (9) Diabetes type 2, controlled Code(s): E11.9 - TYPE 2 DIABETES MELLITUS WITHOUT COMPLICATIONS Status: Chronic Qualifiers: Diabetes mellitus usp insulin use: with usp use Diabetes mellitus complication status: with unspecified complications Qualified Code(s) : E11.8 - Type 2 diabetes mellitus with unspecified complications; Z79.4 - longterm (current) use of insulin Comment: Continue with lantus/ SSI. (10) Dyslipidemia Code(s): E78.5 - HYPERLIPIDEMIA, UNSPECIFIED Status: Chronic (11) HTN (hypertension) Code(s): I10 - ESSENTIAL (PRIMARY) HYPERTENSION Status: Chronic Qualifiers: Hypertension type: essential hypertension Qualified Code(s): I10 - Essential (primary) hypertension (12) MEJIA on CPAP Code(s): G47.33 - OBSTRUCTIVE SLEEP APNEA (ADULT) (PEDIATRIC); Z99.89 - DEPENDENCE ON OTHER ENABLING MACHINES AND DEVICES Status: Chronic - Plan dc plan to [facility] living with HH when wound vac is arranged -: hemostable -: is on rifampin and bactrim for mrsa pcm pocket infection -: asp, lipitor, amiodarone, lopressor, zoloft -: lantus 30 u bid, add metformin bid * . Review of Systems - Medications/Allergies Allergies/Adverse Reactions: Allergies Allergy/AdvReac Type Severity Reaction Status Date / Time ZARA Inhibitors Allergy Severe ANGIOEDEMA Verified 03/16/18 17:52 Medications: Current Medications Acetaminophen (Tylenol) 1,000 mg PO Q6H PRN PRN Reason: Headache/Fever or Mild Pain Last Admin: 03/28/18 11:20 Dose: 1,000 mg Al Hydroxide/Mg Hydroxide (Maalox) 30 ml PO Q6H PRN PRN Reason: Heartburn or Indigestion Last Admin: 03/28/18 03:46 Dose: 30 ml Amiodarone HCl (Cordarone) 200 mg PO BID [facility] Last Admin: 03/28/18 10:29 Dose: 200 mg Aspirin (Aspirin Chewable) 81 mg PO QAM [facility] Last Admin: 03/28/18 10:30 Dose: 81 mg Atorvastatin Calcium (Lipitor) 80 mg PO HS [facility] Last Admin: 03/27/18 22:08 Dose: 80 mg Clonidine (Catapres) 0.1 mg PO Q4H PRN PRN Reason: Systolic BP > 180 Dextrose/Water (Dextrose 50%) 25 gm SLOW IVP PRN PRN PRN Reason: Hypoglycemia Famotidine (Pepcid) 20 mg PO BID [facility] Last Admin: 03/28/18 10:30 Dose: 20 mg Gabapentin (Neurontin) 300 mg PO TID [facility] Last Admin: 03/28/18 10:30 Dose: 300 mg Glucagon (Glucagon) 1 mg IM PRN PRN PRN Reason: Hypoglycemia Hydralazine HCl (Apresoline) 10 mg SLOW IVP Q4H PRN PRN Reason: Systolic BP > 180 Dextrose/Water (D5w) 1,000 mls @ 0 mls/hr IV .Q0M PRN PRN Reason: Hypoglycemia Last Admin: 03/22/18 13:09 Dose: 1,000 mls Insulin Glargine 30 units/ (Miscellaneous Medication) 0.3 mls @ 0 mls/hr SC BID [facility] Last Admin: 03/28/18 10:31 Dose: 0.3 mls Insulin Human Lispro (Humalog) 0 units SC .MILD SLIDING SCALE PRN PRN Reason: Mild Correctional Scale Last Admin: 03/28/18 06:03 Dose: 2 unit Insulin Human Lispro (Humalog) 0 units SC .BEDTIME SLIDING SC PRN PRN Reason: Bedtime Correctional Scale Last Admin: 03/27/18 22:11 Dose: 3 units Metformin HCl (Glucophage) 850 mg PO BID[facility] Last Admin: 03/28/18 10:30 Dose: 850 mg Metoprolol Tartrate (Lopressor) 50 mg PO BID [facility] Last Admin: 03/28/18 10:29 Dose: 50 mg Ondansetron HCl (Zofran Odt) 4 mg PO Q6H PRN PRN Reason: Nausea/Vomiting Last Admin: 03/27/18 22:20 Dose: 4 mg Ondansetron HCl (Zofran) 4 mg IVP Q6H PRN PRN Reason: Nausea/Vomiting Rifampin (Rifadin) 300 mg PO 1000,2200 [facility] Last Admin: 03/28/18 10:29 Dose: 300 mg Rivaroxaban (Xarelto) 20 mg PO 1800 [facility] Last Admin: 03/27/18 17:54 Dose: 20 mg Sertraline HCl (Zoloft) 50 mg PO DAILY [facility] Last Admin: 03/28/18 10:29 Dose: 50 mg Sodium Chloride (Flush - Normal Saline) 10 ml IVF Q12HR [facility] Last Admin: 03/28/18 11:20 Dose: Not Given Sodium Chloride (Flush - Normal Saline) 10 ml IVF PRN PRN PRN Reason: Saline Flush Thiamine HCl (Thiamine) 100 mg PO DAILY [facility] Last Admin: 03/28/18 10:29 Dose: 100 mg Throat Lozenges (Cepastat Lozenges) 1 carlos PO PRN PRN PRN Reason: SORE THROAT Last Admin: 03/24/18 20:21 Dose: 1 carlos Trazodone HCl (Desyrel) 150 mg PO HS [facility] Last Admin: 03/27/18 22:08 Dose: 150 mg Trimethoprim/Sulfamethoxazole (Bactrim Ds) 1 tab PO BID [facility] Last Admin: 03/28/18 11:20 Dose: 1 tab
--- NOTE | 2018-03-28 16:18 | PDOC.CTH ---
Cardiology Progress Note - Subjective EP progress note: Patient seen and evaluated. Eager to go home. Has been challenging with wound care/wound vac compliance. No new cardiac concerns or complaints. - Objective Vital Signs Temp Pulse Resp BP Pulse Ox 03/28/18 07:33 97.7 F 97 16 137/81 92 L Admit Weight 205 lb 1.6 oz Weight 205 lb 03/27/18 03/28/18 03/29/18 06:59 06:59 06:59 Intake Total 800 1200 Output Total 1750 500 Balance -950 700 - Physical Examination General/Neuro: alert & oriented x3, NAD Neck: no JVD present Lungs: CTA, unlabored respirations Heart: PMI normal, RRR Abdomen: NT/ND, soft Other PE findings: left chest wound vac. Right chest incision CDI - Telemetry Telemetry Rhythm: No tele - Labs Result Diagrams: 03/30/18 04:45 03/30/18 04:45 Troponin/CKMB CK-MB (CK-2) 8.5 ng/mL (0-6.6) H* 03/16/18 11:16 Troponin I 0.014 ng/mL (< 0.028) 03/16/18 17:19 - Assessment/Plan 1. Atrial fibrillation with RVR. Now in SR. transitioned to PO amiodarone 200mg PO BID x two weeks then reduce to 200mg PO daily for maintenance dose. 2. Left sided Dual chamber PPM that was placed for tachy/tushar, explanted Tuesday for infected pocket. Wound care is involved as wound culture + for MRSA. BC negative. ID managing antibiotics. Appreciate wound care recommendations for usp management of secondary wound healing at left chest wall. Consider wound vac which could possibly allow patient to return to his home. There is substantial concern for further infection of new device if he does home without home care/close attention. Wound vac in place over explant site. Pending approval of home wound vac vs wet to dry dressings. Either way he will require home RN assistance with wound care. He is challenging and high risk for recurrent infections with his medical noncompliance and poor self care. If home health RN is not available he may need SNF care for wound care and medication management. 3. Elevated chads-vasc >2: Xarelto. Continue OAC 4. Left sided dual chamber PPM implanted Tuesday with extraction of other device. Old dressing removed. No drainage or signs of infection present at new implant site. Dermabond in place over incision. Will have nursing re-dress. Keep covered to prevent contamination and pt from picking at wound. EP signing off. Sites appear stable and appreciate recommendations/plan from wound care for continued secondary healing of this wound. A wound vac would be most beneficial if possible. Will see back [facility] in 1-2 week for close follow up. Attending Addendum - Attending Addendum Date/Time: 03/30/18 1072 I personally evaluated the patient and discussed the management with Ms Parish. I agree with the History, Examination, Assessment and Plan documented above with any addition or exceptions noted below.
[2018-03-28] MEDS: Rivaroxaban 10 MG TAB PO SCH (18:10)
[2018-03-28] MEDS: traZODone HCl 150 MG TAB PO SCH (21:08)
[2018-03-28] MEDS: Atorvastatin Calcium 40 MG TAB PO SCH (21:09)
[2018-03-29] MEDS: Sulfameth/Trimethoprim DS 800-160mg TAB PO SCH ×2 (09:33→20:58)
[2018-03-29] MEDS: Famotidine 20 MG TAB PO SCH ×2 (09:34→20:58)
[2018-03-29] MEDS: Gabapentin 300 MG CAP PO SCH ×3 (09:34→20:58)
[2018-03-29] MEDS: Amiodarone 200 MG TAB PO SCH ×2 (09:34→20:58)
[2018-03-29] MEDS: Metoprolol Tartrate 50 MG TAB PO SCH ×2 (09:34→20:58)
[2018-03-29] MEDS: Rifampin 300 MG CAP PO SCH ×2 (09:35→20:58)
[2018-03-29] MEDS: metFORMIN 850 MG TAB PO SCH ×2 (09:35→17:37)
[2018-03-29] MEDS: Insulin Glargine 30 UNITS in Pre-Filled Syringe 1 EACH SC SCH ×2 (09:43→20:59)
--- NOTE | 2018-03-29 10:27 | PDOC.PN ---
- Subjective Encounter Start Date: 03/29/18 Encounter Start Time: 08:00 Subjective: is eating breakfast, feels good -: is ambulating, no palp or chest pain or sob -: wound vac over left infraclavicular area+ - Objective Resuscitation Status: Resuscitation Status FULL:Full Resuscitation MAR Reviewed: Yes Vital Signs & Weight: Vital Signs (12 hours) Temp Pulse Resp BP BP Pulse Ox 03/29/18 08:05 97.9 F 118 H 18 152/94 H 95 03/29/18 04:00 97.9 F 103 H 20 130/86 92 L 03/29/18 00:00 97.9 F 100 20 149/63 H 93 L Weight Admit Weight 205 lb 1.6 oz Weight 205 lb I&O: 03/28/18 03/29/18 03/30/18 06:59 06:59 06:59 Intake Total 1200 1000 Output Total 500 700 Balance 700 300 Result Diagrams: 03/24/18 05:23 03/24/18 05:23 Additional Labs: Accuchecks 03/29/18 03/28/18 03/28/18 04:29 20:16 16:15 POC Glucose 70 134 H 227 H 03/28/18 11:27 POC Glucose 107 Phys Exam - Physical Examination HEENT: PERRLA, moist MMs Neck: no JVD, supple Respiratory: no wheezing, no rales Cardiovascular: RRR, no significant murmur Gastrointestinal: soft, non-tender, positive bowel sounds Musculoskeletal: no edema, pulses present Neurological: non-focal, moves all 4 limbs Psychiatric: normal affect, A&O x 3 Dx/Plan (1) Infection of pacemaker pocket Code(s): T82.7XXA - INFECT/INFLM REACT D/T OTH CARDI/VASC DEV/IMPLNT/GRFT, INIT Status: Acute Comment: MRSA. s/p removal of pcm with replacement over right infraclavicular area (2) Carotid stenosis Code(s): I65.29 - OCCLUSION AND STENOSIS OF UNSPECIFIED CAROTID ARTERY Status : Acute Comment: CT confirmed complete occlusion of the left carotid very proximally. (3) Syncope Code(s): R55 - SYNCOPE AND COLLAPSE Status: Resolved Comment: Multifactorial. Infection, atrial arrhythmias, dehydration, possibly carotid disease. (4) Dehydration Code(s): E86.0 - DEHYDRATION Status: Resolved (5) Atrial fibrillation with RVR Code(s): I48.91 - UNSPECIFIED ATRIAL FIBRILLATION Status: Resolved Comment: PT on Amiodarone, continued on Bblocker (6) Anxiety and depression Code(s): F41.8 - OTHER SPECIFIED ANXIETY DISORDERS Status: Chronic (7) COPD (chronic obstructive pulmonary disease) Status: Chronic Comment: stable, Continue on Nebs. (8) Chronic anticoagulation Code(s): Z79.01 - AVIATION PROJECT ENGINEER (CURRENT) USE OF 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 Status: Chronic Comment: Continue on Xaelto (9) Diabetes type 2, controlled Code(s): E11.9 - TYPE 2 DIABETES MELLITUS WITHOUT COMPLICATIONS Status: Chronic Qualifiers: Diabetes mellitus termite control service representative insulin use: with mcfp use Diabetes mellitus complication status: with unspecified complications Qualified Code(s) : E11.8 - Type 2 diabetes mellitus with unspecified complications; Z79.4 - assisted (current) use of insulin Comment: Continue with lantus/ SSI. (10) Dyslipidemia Code(s): E78.5 - HYPERLIPIDEMIA, UNSPECIFIED Status: Chronic (11) HTN (hypertension) Code(s): I10 - ESSENTIAL (PRIMARY) HYPERTENSION Status: Chronic Qualifiers: Hypertension type: essential hypertension Qualified Code(s): I10 - Essential (primary) hypertension (12) MEJIA on CPAP Code(s): G47.33 - OBSTRUCTIVE SLEEP APNEA (ADULT) (PEDIATRIC); Z99.89 - DEPENDENCE ON OTHER ENABLING MACHINES AND DEVICES Status: Chronic - Plan hemostable -: may dc home if wound vac for outpt use is arranged -: on rifampin and bactrim for mrsa pcm pocket infection -: continue lantus, metformin, lopressor, amiodarone taper per -: xarelot, asp, lipitor. * . Review of Systems - Medications/Allergies Allergies/Adverse Reactions: Allergies Allergy/AdvReac Type Severity Reaction Status Date / Time ZARA Inhibitors Allergy Severe ANGIOEDEMA Verified 03/16/18 17:52 Medications: Current Medications Acetaminophen (Tylenol) 1,000 mg PO Q6H PRN PRN Reason: Headache/Fever or Mild Pain Last Admin: 03/28/18 11:20 Dose: 1,000 mg Al Hydroxide/Mg Hydroxide (Maalox) 30 ml PO Q6H PRN PRN Reason: Heartburn or Indigestion Last Admin: 03/28/18 14:41 Dose: 30 ml Amiodarone HCl (Cordarone) 200 mg PO BID [facility] Last Admin: 03/29/18 09:34 Dose: 200 mg Aspirin (Aspirin Chewable) 81 mg PO QAM [facility] Last Admin: 03/29/18 09:35 Dose: 81 mg Atorvastatin Calcium (Lipitor) 80 mg PO HS [facility] Last Admin: 03/28/18 21:09 Dose: 80 mg Clonidine (Catapres) 0.1 mg PO Q4H PRN PRN Reason: Systolic BP > 180 Dextrose/Water (Dextrose 50%) 25 gm SLOW IVP PRN PRN PRN Reason: Hypoglycemia Famotidine (Pepcid) 20 mg PO BID [facility] Last Admin: 03/29/18 09:34 Dose: 20 mg Gabapentin (Neurontin) 300 mg PO TID [facility] Last Admin: 03/29/18 09:34 Dose: 300 mg Glucagon (Glucagon) 1 mg IM PRN PRN PRN Reason: Hypoglycemia Hydralazine HCl (Apresoline) 10 mg SLOW IVP Q4H PRN PRN Reason: Systolic BP > 180 Dextrose/Water (D5w) 1,000 mls @ 0 mls/hr IV .Q0M PRN PRN Reason: Hypoglycemia Last Admin: 03/22/18 13:09 Dose: 1,000 mls Insulin Glargine 30 units/ (Miscellaneous Medication) 0.3 mls @ 0 mls/hr SC BID [facility] Last Admin: 03/29/18 09:43 Dose: 0.3 mls Insulin Human Lispro (Humalog) 0 units SC .MILD SLIDING SCALE PRN PRN Reason: Mild Correctional Scale Last Admin: 03/28/18 18:11 Dose: 3 unit Insulin Human Lispro (Humalog) 0 units SC .BEDTIME SLIDING SC PRN PRN Reason: Bedtime Correctional Scale Last Admin: 03/27/18 22:11 Dose: 3 units Metformin HCl (Glucophage) 850 mg PO BID[facility] Last Admin: 03/29/18 09:35 Dose: 850 mg Metoprolol Tartrate (Lopressor) 50 mg PO BID [facility] Last Admin: 03/29/18 09:34 Dose: 50 mg Ondansetron HCl (Zofran Odt) 4 mg PO Q6H PRN PRN Reason: Nausea/Vomiting Last Admin: 03/27/18 22:20 Dose: 4 mg Ondansetron HCl (Zofran) 4 mg IVP Q6H PRN PRN Reason: Nausea/Vomiting Rifampin (Rifadin) 300 mg PO 1000,2200 [facility] Last Admin: 03/29/18 09:35 Dose: 300 mg Rivaroxaban (Xarelto) 20 mg PO 1800 [facility] Last Admin: 03/28/18 18:10 Dose: 20 mg Sertraline HCl (Zoloft) 50 mg PO DAILY [facility] Last Admin: 03/29/18 09:34 Dose: 50 mg Sodium Chloride (Flush - Normal Saline) 10 ml IVF Q12HR [facility] Last Admin: 03/29/18 09:37 Dose: Not Given Sodium Chloride (Flush - Normal Saline) 10 ml IVF PRN PRN PRN Reason: Saline Flush Thiamine HCl (Thiamine) 100 mg PO DAILY [facility] Last Admin: 03/29/18 09:35 Dose: 100 mg Throat Lozenges (Cepastat Lozenges) 1 carlos PO PRN PRN PRN Reason: SORE THROAT Last Admin: 03/24/18 20:21 Dose: 1 carlos Trazodone HCl (Desyrel) 150 mg PO HS [facility] Last Admin: 03/28/18 21:08 Dose: 150 mg Trimethoprim/Sulfamethoxazole (Bactrim Ds) 1 tab PO BID [facility] Last Admin: 03/29/18 09:33 Dose: 1 tab
[2018-03-29] MEDS: HumaLOG 300 UNITS/3 ML VIAL SC PRN (13:47)
[2018-03-29] MEDS: Rivaroxaban 10 MG TAB PO SCH (17:37)
[2018-03-29] MEDS: traZODone HCl 150 MG TAB PO SCH (20:58)
[2018-03-29] MEDS: Atorvastatin Calcium 40 MG TAB PO SCH (20:58)
[2018-03-30 05:05] LABS: Hemoglobin 12.6 g/dL (14.0-18.0); Platelet Count 334 thou/uL (130-400)
[2018-03-30] MEDS: metFORMIN 850 MG TAB PO SCH ×2 (08:08→16:38)
[2018-03-30] MEDS: Famotidine 20 MG TAB PO SCH ×2 (08:08→19:54)
[2018-03-30] MEDS: Metoprolol Tartrate 50 MG TAB PO SCH ×2 (08:09→19:54)
[2018-03-30] MEDS: Sulfameth/Trimethoprim DS 800-160mg TAB PO SCH ×2 (08:09→19:55)
[2018-03-30] MEDS: Gabapentin 300 MG CAP PO SCH ×3 (08:09→19:54)
[2018-03-30] MEDS: Amiodarone 200 MG TAB PO SCH ×2 (08:09→19:55)
[2018-03-30] MEDS: Insulin Glargine 30 UNITS in Pre-Filled Syringe 1 EACH SC SCH ×2 (08:13→19:55)
[2018-03-30] MEDS: Rifampin 300 MG CAP PO SCH ×2 (10:05→19:55)
[2018-03-30] MEDS ORDERED: Nystatin Powder 15 GM BOT TOP PRN (11:47)
--- NOTE | 2018-03-30 13:32 | PDOC.PN ---
- Subjective Encounter Start Date: 03/30/18 Encounter Start Time: 10:30 Subjective: no sob or pain -: is ambulating in room - Objective Resuscitation Status: Resuscitation Status FULL:Full Resuscitation MAR Reviewed: Yes Vital Signs & Weight: Vital Signs (12 hours) Temp Pulse Resp BP Pulse Ox 03/30/18 08:00 96 03/30/18 07:26 97.7 F 105 H 20 113/79 96 Weight Admit Weight 205 lb 1.6 oz Weight 205 lb I&O: 03/29/18 03/30/18 03/31/18 06:59 06:59 06:59 Intake Total 1000 3160 360 Output Total 700 1000 Balance 300 2160 360 Result Diagrams: 03/30/18 04:45 03/30/18 04:45 Additional Labs: Accuchecks 03/30/18 03/30/18 03/29/18 11:24 04:37 20:11 POC Glucose 129 H 254 H 172 H 03/29/18 15:50 POC Glucose 134 H Phys Exam - Physical Examination HEENT: PERRLA, moist MMs Neck: no JVD, supple Respiratory: no wheezing, no rales Cardiovascular: RRR, no significant murmur Gastrointestinal: soft, non-tender, positive bowel sounds Musculoskeletal: no edema, pulses present Neurological: non-focal, moves all 4 limbs Psychiatric: normal affect, A&O x 3 Dx/Plan (1) Infection of pacemaker pocket Code(s): T82.7XXA - INFECT/INFLM REACT D/T OTH CARDI/VASC DEV/IMPLNT/GRFT, INIT Status: Acute Comment: MRSA. s/p removal of pcm with replacement over right infraclavicular area (2) Carotid stenosis Code(s): I65.29 - OCCLUSION AND STENOSIS OF UNSPECIFIED CAROTID ARTERY Status : Acute Comment: CT confirmed complete occlusion of the left carotid very proximally. (3) Syncope Code(s): R55 - SYNCOPE AND COLLAPSE Status: Resolved Comment: Multifactorial. Infection, atrial arrhythmias, dehydration, possibly carotid disease. (4) Dehydration Code(s): E86.0 - DEHYDRATION Status: Resolved (5) Atrial fibrillation with RVR Code(s): I48.91 - UNSPECIFIED ATRIAL FIBRILLATION Status: Resolved Comment: PT on Amiodarone, continued on Bblocker (6) Anxiety and depression Code(s): F41.8 - OTHER SPECIFIED ANXIETY DISORDERS Status: Chronic (7) COPD (chronic obstructive pulmonary disease) Status: Chronic Comment: stable, Continue on Nebs. 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 (10) Dyslipidemia Code(s): E78.5 - HYPERLIPIDEMIA, UNSPECIFIED Status: Chronic (11) HTN (hypertension) Code(s): I10 - ESSENTIAL (PRIMARY) HYPERTENSION Status: Chronic Qualifiers: Hypertension type: essential hypertension Qualified Code(s): I10 - Essential (primary) hypertension (12) MEJIA on CPAP Code(s): G47.33 - OBSTRUCTIVE SLEEP APNEA (ADULT) (PEDIATRIC); Z99.89 - DEPENDENCE ON OTHER ENABLING MACHINES AND DEVICES Status: Chronic - Plan awaiting wound vac approval -: on amiodarone 200mg bid, asp, lipitor, lopressor and xarelto -: dm is better controlled on lantus and metformin -: hemostable -: may dc home with HH if vac is approved * . Review of Systems - Medications/Allergies Allergies/Adverse Reactions: Allergies Allergy/AdvReac Type Severity Reaction Status Date / Time ZARA Inhibitors Allergy Severe ANGIOEDEMA Verified 03/16/18 17:52 Medications: Current Medications Acetaminophen (Tylenol) 1,000 mg PO Q6H PRN PRN Reason: Headache/Fever or Mild Pain Last Admin: 03/28/18 11:20 Dose: 1,000 mg Al Hydroxide/Mg Hydroxide (Maalox) 30 ml PO Q6H PRN PRN Reason: Heartburn or Indigestion Last Admin: 03/28/18 14:41 Dose: 30 ml Amiodarone HCl (Cordarone) 200 mg PO BID [facility] Last Admin: 03/30/18 08:09 Dose: 200 mg Aspirin (Aspirin Chewable) 81 mg PO QAM [facility] Last Admin: 03/30/18 08:13 Dose: 81 mg Atorvastatin Calcium (Lipitor) 80 mg PO [facility] Last Admin: 03/29/18 20:58 Dose: 80 mg Clonidine (Catapres) 0.1 mg PO Q4H PRN PRN Reason: Systolic BP > 180 Dextrose/Water (Dextrose 50%) 25 gm SLOW IVP PRN PRN PRN Reason: Hypoglycemia Famotidine (Pepcid) 20 mg PO BID [facility] Last Admin: 03/30/18 08:08 Dose: 20 mg Gabapentin (Neurontin) 300 mg PO TID [facility] Last Admin: 03/30/18 08:09 Dose: 300 mg Glucagon (Glucagon) 1 mg IM PRN PRN PRN Reason: Hypoglycemia Hydralazine HCl (Apresoline) 10 mg SLOW IVP Q4H PRN PRN Reason: Systolic BP > 180 Dextrose/Water (D5w) 1,000 mls @ 0 mls/hr IV .Q0M PRN PRN Reason: Hypoglycemia Last Admin: 03/22/18 13:09 Dose: 1,000 mls Insulin Glargine 30 units/ (Miscellaneous Medication) 0.3 mls @ 0 mls/hr SC BID [facility] Last Admin: 03/30/18 08:13 Dose: 0.3 mls Insulin Human Lispro (Humalog) 0 units SC .MILD SLIDING SCALE PRN PRN Reason: Mild Correctional Scale Last Admin: 03/29/18 13:47 Dose: 4 unit Insulin Human Lispro (Humalog) 0 units SC .BEDTIME SLIDING SC PRN PRN Reason: Bedtime Correctional Scale Last Admin: 03/27/18 22:11 Dose: 3 units [facility] ([facility]ucophage) [facility] Last Admin: 03/30/18 08:08 Dose: 850 mg Metoprolol Tartrate (Lopressor) 50 mg PO BID [facility] Last Admin: 03/30/18 08:09 Dose: 50 mg Nystatin (Mycostatin Powder) 0 gm TOP TIDPRN PRN PRN Reason: . Ondansetron HCl (Zofran Odt) 4 mg PO Q6H PRN PRN Reason: Nausea/Vomiting Last Admin: 03/27/18 22:20 Dose: 4 mg Ondansetron HCl (Zofran) 4 mg IVP Q6H PRN PRN Reason: Nausea/Vomiting Rifampin (Rifadin) 300 mg PO 1000,2200 [facility] Last Admin: 03/30/18 10:05 Dose: 300 mg Rivaroxaban (Xarelto) 20 mg PO 1800 [facility] Last Admin: 03/29/18 17:37 Dose: 20 mg Sertraline HCl (Zoloft) 50 mg PO DAILY [facility] Last Admin: 03/30/18 08:08 Dose: 50 mg Sodium Chloride (Flush - Normal Saline) 10 ml IVF Q12HR [facility] Last Admin: 03/30/18 08:09 Dose: Not Given Sodium Chloride (Flush - Normal Saline) 10 ml IVF PRN PRN PRN Reason: Saline Flush Thiamine HCl (Thiamine) 100 mg PO DAILY [facility] Last Admin: 03/30/18 08:08 Dose: 100 mg Throat Lozenges (Cepastat Lozenges) 1 carlos PO PRN PRN PRN Reason: SORE THROAT Last Admin: 03/24/18 20:21 Dose: 1 carlos Trazodone HCl (Desyrel) 150 mg PO HS [facility] Last Admin: 03/29/18 20:58 Dose: 150 mg Trimethoprim/Sulfamethoxazole (Bactrim Ds) 1 tab PO BID [facility] Last Admin: 03/30/18 08:09 Dose: 1 tab
[2018-03-30] MEDS ORDERED: Fluconazole 100 MG TAB PO SCH (14:30)
[2018-03-30] MEDS: Ondansetron ODT 4 MG TAB PO PRN (16:38)
[2018-03-30] MEDS: Rivaroxaban 10 MG TAB PO SCH (17:21)
[2018-03-30] MEDS: Mag-Al 1200 mg/1200 mg/30 ML UDCUP PO PRN (19:54)
[2018-03-30] MEDS: Atorvastatin Calcium 40 MG TAB PO SCH (19:54)
[2018-03-30] MEDS: traZODone HCl 150 MG TAB PO SCH (19:55)
[2018-03-31 08:58] LABS: #Basophils 0.1 thou/uL (0.0-0.2); #Eosinphils 0.3 thou/uL (0.0-0.7); #Lymphocytes 1.6 thou/uL (1.20-3.40); %Basophils 0.6 % (0.0-1.0); %Lymphocytes 14.8 % (21.0-51.0); %Monocytes 9.3 % (0.0-10.0); %Neutrophils 72.3 % (42.0-75.0); Hemoglobin 13.9 g/dL (14.0-18.0); Mean Corpuscular HGB CONC 30.9 g/dL (32.0-36.0); Mean Corpuscular Hemoglobin 28.7 pg (27.0-31.0); Mean Corpuscular Volume 93.1 fL (78.0-98.0); Mean Platelet Volume 7.6 fL (7.4-10.4); Platelet Count 345 thou/uL (130-400); RBC Distribution Width 14.8 % (11.5-14.5); Red Blood Cell (RBC) Count 4.84 mill/uL (4.70-6.10); White Blood Cell (WBC) Count 11.1 thou/uL (4.8-10.8)
[2018-03-31] MEDS ORDERED: Amiodarone 200 MG TAB PO SCH (09:00)
[2018-03-31 09:15] LABS: ALT (SGPT) 22 U/L (8-55); AST (SGOT) 20 U/L (5-34); Albumin 3.8 g/dL (3.4-4.8); Alkaline Phosphatase 181 U/L (40-150); Anion Gap 12 mmol/L (10-20); BUN (Urea Nitrogen) 21 mg/dL (8.4-25.7); Bilirubin, Total 0.3 mg/dL (0.2-1.2); Calc. Creatinine Clearance 87 mL/min (70-130); Calcium 9.8 mg/dL (7.8-10.44); Carbon Dioxide 25 mmol/L (23-31); Chloride 105 mmol/L (98-107); Estimated GFR-MDRD 72; Globulin 4.4 g/dL (2.4-3.5); Glucose 98 mg/dL (83-110); Potassium 4.8 mmol/L (3.5-5.1); Protein, Total 8.2 g/dL (5.8-8.1); Sodium 137 mmol/L (136-145)
[2018-03-31] MEDS: Famotidine 20 MG TAB PO SCH ×2 (09:29→20:45)
[2018-03-31] MEDS: Gabapentin 300 MG CAP PO SCH ×3 (09:29→20:45)
[2018-03-31] MEDS: Fluconazole 100 MG TAB PO SCH (09:30)
[2018-03-31] MEDS: metFORMIN 850 MG TAB PO SCH ×2 (09:30→17:16)
[2018-03-31] MEDS: Sulfameth/Trimethoprim DS 800-160mg TAB PO SCH ×2 (09:31→20:43)
[2018-03-31] MEDS: Amiodarone 200 MG TAB PO SCH ×2 (09:31→20:45)
[2018-03-31] MEDS: Insulin Glargine 30 UNITS in Pre-Filled Syringe 1 EACH SC SCH ×2 (09:32→20:46)
[2018-03-31] MEDS: Rifampin 300 MG CAP PO SCH ×2 (09:37→23:01)
[2018-03-31] MEDS: Metoprolol Tartrate 50 MG TAB PO SCH ×2 (09:42→20:45)
--- NOTE | 2018-03-31 14:23 | PDOC.PN ---
- Subjective Encounter Start Date: 03/31/18 Encounter Start Time: 12:00 Subjective: feels better, wants to go home -: is ambulating in hallway per patient -: no nausea or abd pain - Objective Resuscitation Status: Resuscitation Status FULL:Full Resuscitation MAR Reviewed: Yes Vital Signs & Weight: Vital Signs (12 hours) Temp Pulse Resp BP BP Pulse Ox 03/31/18 12:30 98.1 F 107 H 16 107/75 95 03/31/18 10:00 94 L 03/31/18 09:30 111 H 94 L 03/31/18 07:59 97.7 F 122 H 18 109/69 91 L Weight Admit Weight 205 lb 1.6 oz Weight 205 lb I&O: 03/30/18 03/31/18 04/01/18 06:59 06:59 06:59 Intake Total 3160 1560 Output Total 1000 Balance 2160 1560 Result Diagrams: 03/31/18 08:45 03/31/18 08:45 Additional Labs: Accuchecks 03/31/18 03/31/18 03/30/18 11:23 06:15 19:45 POC Glucose 138 H 129 H 171 H 03/30/18 16:08 POC Glucose 223 H Phys Exam - Physical Examination HEENT: PERRLA, moist MMs Neck: no JVD, supple Respiratory: no wheezing, no rales Cardiovascular: RRR, no significant murmur Gastrointestinal: soft, non-tender, positive bowel sounds Musculoskeletal: no edema, pulses present Neurological: non-focal, moves all 4 limbs Psychiatric: normal affect, A&O x 3 Dx/Plan (1) Infection of pacemaker pocket Code(s): T82.7XXA - INFECT/INFLM REACT D/T OTH CARDI/VASC DEV/IMPLNT/GRFT, INIT Status: Acute Comment: MRSA. s/p removal of pcm with replacement over right infraclavicular area (2) Carotid stenosis Code(s): I65.29 - OCCLUSION AND STENOSIS OF UNSPECIFIED CAROTID ARTERY Status : Acute Comment: CT confirmed complete occlusion of the left carotid very proximally. (3) Syncope Code(s): R55 - SYNCOPE AND COLLAPSE Status: Resolved Comment: Multifactorial. Infection, atrial arrhythmias, dehydration, possibly carotid disease. (4) Dehydration Code(s): E86.0 - DEHYDRATION Status: Resolved (5) Atrial fibrillation with RVR Code(s): I48.91 - UNSPECIFIED ATRIAL FIBRILLATION Status: Resolved Comment: PT on Amiodarone, continued on Bblocker (6) Anxiety and depression Code(s): F41.8 - OTHER SPECIFIED ANXIETY DISORDERS Status: Chronic (7) COPD (chronic obstructive pulmonary disease) Status: Chronic Comment: stable, Continue on Nebs. (8) Chronic anticoagulation Code(s): Z79.01 - CARE HOME (CURRENT) USE OF 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 Status: Chronic Comment: Continue on Xaelto (9) Diabetes type 2, controlled Code(s): E11.9 - TYPE 2 DIABETES MELLITUS WITHOUT COMPLICATIONS Status: Chronic Qualifiers: Diabetes mellitus skilled nursing insulin use: with skilled nursing use Diabetes mellitus complication status: with unspecified complications Qualified Code(s) : E11.8 - Type 2 diabetes mellitus with unspecified complications; Z79.4 - [facility] (current) use of insulin Comment: Continue with lantus/ SSI. (10) Dyslipidemia Code(s): E78.5 - HYPERLIPIDEMIA, UNSPECIFIED Status: Chronic (11) HTN (hypertension) Code(s): I10 - ESSENTIAL (PRIMARY) HYPERTENSION Status: Chronic Qualifiers: Hypertension type: essential hypertension Qualified Code(s): I10 - Essential (primary) hypertension (12) MEJIA on CPAP Code(s): G47.33 - OBSTRUCTIVE SLEEP APNEA (ADULT) (PEDIATRIC); Z99.89 - DEPENDENCE ON OTHER ENABLING MACHINES AND DEVICES Status: Chronic - Plan hemostable -: still awaiting wound vac approval to go home -: has HH set up -: right pcm site is clean, left explantation site is in wound vac -: on rifampin and bactrim duration per * . continue amiodarone bid, asp, lipitor, added cardizem cd from this am with hr around 100. Lantus and metformin for dm. Review of Systems - Medications/Allergies Allergies/Adverse Reactions: Allergies Allergy/AdvReac Type Severity Reaction Status Date / Time ZARA Inhibitors Allergy Severe ANGIOEDEMA Verified 03/16/18 17:52 Medications: Current Medications Acetaminophen (Tylenol) 1,000 mg PO Q6H PRN PRN Reason: Headache/Fever or Mild Pain Last Admin: 03/28/18 11:20 Dose: 1,000 mg Al Hydroxide/Mg Hydroxide (Maalox) 30 ml PO Q6H PRN PRN Reason: Heartburn or Indigestion Last Admin: 03/30/18 19:54 Dose: 30 ml Amiodarone HCl (Cordarone) 200 mg PO BID [facility] Last Admin: 03/31/18 09:31 Dose: 200 mg Aspirin (Aspirin Chewable) 81 mg PO QAM [facility] Last Admin: 03/31/18 09:31 Dose: 81 mg Atorvastatin Calcium (Lipitor) 80 mg PO HS [facility] Last Admin: 03/30/18 19:54 Dose: 80 mg Clonidine (Catapres) 0.1 mg PO Q4H PRN PRN Reason: Systolic BP > 180 Dextrose/Water (Dextrose 50%) 25 gm SLOW IVP PRN PRN PRN Reason: Hypoglycemia Diltiazem HCl (Cardizem Cd) 120 mg PO DAILY [facility] Last Admin: 03/31/18 09:30 Dose: 120 mg Famotidine (Pepcid) 20 mg PO BID [facility] Last Admin: 03/31/18 09:29 Dose: 20 mg Fluconazole (Diflucan) 100 mg PO DAILY [facility] Last Admin: 03/31/18 09:30 Dose: 100 mg Gabapentin (Neurontin) 300 mg PO TID [facility] Last Admin: 03/31/18 09:29 Dose: 300 mg Glucagon (Glucagon) 1 mg IM PRN PRN PRN Reason: Hypoglycemia Hydralazine HCl (Apresoline) 10 mg SLOW IVP Q4H PRN PRN Reason: Systolic BP > 180 Dextrose/Water (D5w) 1,000 mls @ 0 mls/hr IV .Q0M PRN PRN Reason: Hypoglycemia Last Admin: 03/22/18 13:09 Dose: 1,000 mls Insulin Glargine 30 units/ (Miscellaneous Medication) 0.3 mls @ 0 mls/hr SC BID [facility] Last Admin: 03/31/18 09:32 Dose: 0.3 mls Insulin Human Lispro (Humalog) 0 units SC .MILD SLIDING SCALE PRN PRN Reason: Mild Correctional Scale Last Admin: 03/29/18 13:47 Dose: 4 unit Insulin Human Lispro (Humalog) 0 units SC .BEDTIME SLIDING SC PRN PRN Reason: Bedtime Correctional Scale Last Admin: 03/27/18 22:11 Dose: 3 units Metformin HCl (Glucophage) 850 mg PO BID[facility] Last Admin: 03/31/18 09:30 Dose: 850 mg Metoprolol Tartrate (Lopressor) 50 mg PO BID [facility] Last Admin: 03/31/18 09:42 Dose: 50 mg Nystatin (Mycostatin Powder) 0 gm TOP TIDPRN PRN PRN Reason: . Ondansetron HCl (Zofran Odt) 4 mg PO Q6H PRN PRN Reason: Nausea/Vomiting Last Admin: 03/30/18 16:38 Dose: 4 mg Ondansetron HCl (Zofran) 4 mg IVP Q6H PRN PRN Reason: Nausea/Vomiting Rifampin (Rifadin) 300 mg PO 1000,2200 [facility] Last Admin: 03/31/18 09:37 Dose: 300 mg Rivaroxaban (Xarelto) 20 mg PO 1800 [facility] Last Admin: 03/30/18 17:21 Dose: 20 mg Sertraline HCl (Zoloft) 50 mg PO DAILY [facility] Last Admin: 03/31/18 09:29 Dose: 50 mg Sodium Chloride (Flush - Normal Saline) 10 ml IVF Q12HR [facility] Last Admin: 03/31/18 09:32 Dose: Not Given Sodium Chloride (Flush - Normal Saline) 10 ml IVF PRN PRN PRN Reason: Saline Flush Thiamine HCl (Thiamine) 100 mg PO DAILY [facility] Last Admin: 03/31/18 09:32 Dose: 100 mg Throat Lozenges (Cepastat Lozenges) 1 carlos PO PRN PRN PRN Reason: SORE THROAT Last Admin: 03/24/18 20:21 Dose: 1 carlos Trazodone HCl (Desyrel) 150 mg PO [facility] Last Admin: 03/30/18 19:55 Dose: 150 mg Trimethoprim/Sulfamethoxazole (Bactrim Ds) 1 tab PO BID [facility] Last Admin: 03/31/18 09:31 Dose: 1 tab
[2018-03-31] MEDS: Rivaroxaban 10 MG TAB PO SCH (17:16)
[2018-03-31] MEDS ORDERED: diphenhydrAMINE 25 MG CAP PO SCH (18:45)
[2018-03-31] MEDS: Atorvastatin Calcium 40 MG TAB PO SCH (20:43)
[2018-03-31] MEDS: traZODone HCl 150 MG TAB PO SCH (20:45)
[2018-04-01] MEDS: Sulfameth/Trimethoprim DS 800-160mg TAB PO SCH ×2 (08:41→21:28)
[2018-04-01] MEDS: Rifampin 300 MG CAP PO SCH ×2 (08:41→21:28)
[2018-04-01] MEDS: Fluconazole 100 MG TAB PO SCH (08:41)
[2018-04-01] MEDS: Amiodarone 200 MG TAB PO SCH ×2 (08:41→21:29)
[2018-04-01] MEDS: Famotidine 20 MG TAB PO SCH ×2 (08:42→21:29)
[2018-04-01] MEDS: Metoprolol Tartrate 50 MG TAB PO SCH ×2 (08:42→21:29)
[2018-04-01] MEDS: Gabapentin 300 MG CAP PO SCH ×3 (08:42→21:28)
[2018-04-01] MEDS: metFORMIN 850 MG TAB PO SCH ×2 (08:42→17:33)
[2018-04-01] MEDS: Insulin Glargine 30 UNITS in Pre-Filled Syringe 1 EACH SC SCH ×2 (09:38→21:29)
--- NOTE | 2018-04-01 11:14 | PDOC.PN ---
- Subjective Encounter Start Date: 04/01/18 Encounter Start Time: 08:30 Subjective: no c/o palp or sob -: is ambulating in hallway - Objective Resuscitation Status: Resuscitation Status FULL:Full Resuscitation MAR Reviewed: Yes Vital Signs & Weight: Vital Signs (12 hours) Temp Pulse Resp BP BP Pulse Ox 04/01/18 08:42 114 H 126/78 04/01/18 08:00 93 L 04/01/18 07:31 97.8 F 114 H 20 128/75 92 L 04/01/18 02:14 111 H 20 96 Weight Admit Weight 205 lb 1.6 oz Weight 205 lb I&O: 03/31/18 04/01/18 04/02/18 06:59 06:59 06:59 Intake Total 1560 1220 Output Total 1600 Balance 1560 -380 Result Diagrams: 03/31/18 08:45 03/31/18 08:45 Additional Labs: Accuchecks 04/01/18 03/31/18 03/31/18 04:46 19:18 16:20 POC Glucose 88 117 H 112 H 03/31/18 11:23 POC Glucose 138 H Phys Exam - Physical Examination HEENT: PERRLA, moist MMs Neck: no JVD, supple Respiratory: no wheezing, no rales Cardiovascular: no significant murmur, irregular Gastrointestinal: soft, positive bowel sounds Musculoskeletal: no edema, pulses present Neurological: non-focal, moves all 4 limbs Psychiatric: normal affect, A&O x 3 Dx/Plan (1) Infection of pacemaker pocket Code(s): T82.7XXA - INFECT/INFLM REACT D/T OTH CARDI/VASC DEV/IMPLNT/GRFT, INIT Status: Acute Comment: MRSA. s/p removal of pcm with replacement over right infraclavicular area (2) Carotid stenosis Code(s): I65.29 - OCCLUSION AND STENOSIS OF UNSPECIFIED CAROTID ARTERY Status : Acute Comment: CT confirmed complete occlusion of the left carotid very proximally. (3) Syncope Code(s): R55 - SYNCOPE AND COLLAPSE Status: Resolved Comment: Multifactorial. Infection, atrial arrhythmias, dehydration, possibly carotid disease. (4) Dehydration Code(s): E86.0 - DEHYDRATION Status: Resolved (5) Atrial fibrillation with RVR Code(s): I48.91 - UNSPECIFIED ATRIAL FIBRILLATION Status: Resolved Comment: PT on Amiodarone, continued on Bblocker (6) Anxiety and depression Code(s): F41.8 - OTHER SPECIFIED ANXIETY DISORDERS Status: Chronic (7) COPD (chronic obstructive pulmonary disease) Status: Chronic Comment: stable, Continue on Nebs. 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 (10) Dyslipidemia Code(s): E78.5 - HYPERLIPIDEMIA, UNSPECIFIED Status: Chronic (11) HTN (hypertension) Code(s): I10 - ESSENTIAL (PRIMARY) HYPERTENSION Status: Chronic Qualifiers: Hypertension type: essential hypertension Qualified Code(s): I10 - Essential (primary) hypertension (12) MEJIA on CPAP Code(s): G47.33 - OBSTRUCTIVE SLEEP APNEA (ADULT) (PEDIATRIC); Z99.89 - DEPENDENCE ON OTHER ENABLING MACHINES AND DEVICES Status: Chronic - Plan thyroid function tests in am, persistent pulse around 110's -: increase cardizem cd to bid 120mg, is on amiod 200mg bid, lopressor 50 bid -: continue metformin and lantus, xarelto -: still waiting for wound vac approval, may dc home if its arranged for home * . Review of Systems - Medications/Allergies Allergies/Adverse Reactions: Allergies Allergy/AdvReac Type Severity Reaction Status Date / Time ZARA Inhibitors Allergy Severe ANGIOEDEMA Verified 03/16/18 17:52 Medications: Current Medications Acetaminophen (Tylenol) 1,000 mg PO Q6H PRN PRN Reason: Headache/Fever or Mild Pain Last Admin: 03/28/18 11:20 Dose: 1,000 mg Al Hydroxide/Mg Hydroxide (Maalox) 30 ml PO Q6H PRN PRN Reason: Heartburn or Indigestion Last Admin: 03/30/18 19:54 Dose: 30 ml Amiodarone HCl (Cordarone) 200 mg PO BID [facility] Last Admin: 04/01/18 08:41 Dose: 200 mg Aspirin (Aspirin Chewable) 81 mg PO QAM [facility] Last Admin: 04/01/18 08:42 Dose: 81 mg Atorvastatin Calcium (Lipitor) 80 mg PO HS [facility] Last Admin: 03/31/18 20:43 Dose: 80 mg Clonidine (Catapres) 0.1 mg PO Q4H PRN PRN Reason: Systolic BP > 180 Dextrose/Water (Dextrose 50%) 25 gm SLOW IVP PRN PRN PRN Reason: Hypoglycemia Diltiazem HCl (Cardizem Cd) 120 mg PO BID [facility] Famotidine (Pepcid) 20 mg PO BID [facility] Last Admin: 04/01/18 08:42 Dose: 20 mg Fluconazole (Diflucan) 100 mg PO DAILY [facility] Last Admin: 04/01/18 08:41 Dose: 100 mg Gabapentin (Neurontin) 300 mg PO TID [facility] Last Admin: 04/01/18 08:42 Dose: 300 mg Glucagon (Glucagon) 1 mg IM PRN PRN PRN Reason: Hypoglycemia Hydralazine HCl (Apresoline) 10 mg SLOW IVP Q4H PRN PRN Reason: Systolic BP > 180 Dextrose/Water (D5w) 1,000 mls @ 0 mls/hr IV .Q0M PRN PRN Reason: Hypoglycemia Last Admin: 03/22/18 13:09 Dose: 1,000 mls Insulin Glargine 30 units/ (Miscellaneous Medication) 0.3 mls @ 0 mls/hr SC BID [facility] Last Admin: 04/01/18 09:38 Dose: 0.3 mls Insulin Human Lispro (Humalog) 0 units SC .MILD SLIDING SCALE PRN PRN Reason: Mild Correctional Scale Last Admin: 03/29/18 13:47 Dose: 4 unit Insulin Human Lispro (Humalog) 0 units SC .BEDTIME SLIDING SC PRN PRN Reason: Bedtime Correctional Scale Last Admin: 03/27/18 22:11 Dose: 3 units Metformin HCl (Glucophage) 850 mg PO BID[facility] Last Admin: 04/01/18 08:42 Dose: 850 mg Metoprolol Tartrate (Lopressor) 50 mg PO BID [facility] Last Admin: 04/01/18 08:42 Dose: 50 mg Nystatin (Mycostatin Powder) 0 gm TOP TIDPRN PRN PRN Reason: . Ondansetron HCl (Zofran Odt) 4 mg PO Q6H PRN PRN Reason: Nausea/Vomiting Last Admin: 03/30/18 16:38 Dose: 4 mg Ondansetron HCl (Zofran) 4 mg IVP Q6H PRN PRN Reason: Nausea/Vomiting Rifampin (Rifadin) 300 mg PO 1000,2200 [facility] Last Admin: 04/01/18 08:41 Dose: 300 mg Rivaroxaban (Xarelto) 20 mg PO 1800 [facility] Last Admin: 03/31/18 17:16 Dose: 20 mg Sertraline HCl (Zoloft) 50 mg PO DAILY [facility] Last Admin: 04/01/18 08:42 Dose: 50 mg Sodium Chloride (Flush - Normal Saline) 10 ml IVF Q12HR [facility] Last Admin: 04/01/18 08:43 Dose: Not Given Sodium Chloride (Flush - Normal Saline) 10 ml IVF PRN PRN PRN Reason: Saline Flush Thiamine HCl (Thiamine) 100 mg PO DAILY [facility] Last Admin: 04/01/18 08:41 Dose: 100 mg Throat Lozenges (Cepastat Lozenges) 1 carlos PO PRN PRN PRN Reason: SORE THROAT Last Admin: 03/24/18 20:21 Dose: 1 carlos Trazodone HCl (Desyrel) 150 mg PO HS [facility] Last Admin: 03/31/18 20:45 Dose: 150 mg Trimethoprim/Sulfamethoxazole (Bactrim Ds) 1 tab PO BID [facility] Last Admin: 04/01/18 08:41 Dose: 1 tab
[2018-04-01] MEDS: Acetaminophen 500 MG TAB PO PRN (14:37)
[2018-04-01] MEDS: Rivaroxaban 10 MG TAB PO SCH (17:33)
[2018-04-01] MEDS: Mag-Al 1200 mg/1200 mg/30 ML UDCUP PO PRN (21:27)
[2018-04-01] MEDS: Atorvastatin Calcium 40 MG TAB PO SCH (21:28)
[2018-04-01] MEDS: traZODone HCl 150 MG TAB PO SCH (21:28)
[2018-04-02 06:24] LABS: Free T4 (Free Thyroxine) 1.2 ng/dL (0.70-1.48); Thyroid Stimulating Hormone 4.8807 uIU/mL (0.35-4.94)
[2018-04-02 07:47] VITALS: BP 134/86; TEMP 98
[2018-04-02] MEDS: Fluconazole 100 MG TAB PO SCH (08:11)
[2018-04-02] MEDS: Amiodarone 200 MG TAB PO SCH (08:11)
[2018-04-02] MEDS: Sulfameth/Trimethoprim DS 800-160mg TAB PO SCH (08:11)
[2018-04-02] MEDS: Metoprolol Tartrate 50 MG TAB PO SCH (08:11)
[2018-04-02] MEDS: Gabapentin 300 MG CAP PO SCH (08:13)
[2018-04-02] MEDS: Insulin Glargine 30 UNITS in Pre-Filled Syringe 1 EACH SC SCH (08:13)
[2018-04-02] MEDS: Famotidine 20 MG TAB PO SCH (08:13)
[2018-04-02] MEDS: metFORMIN 850 MG TAB PO SCH (08:13)
[2018-04-02] MEDS: Rifampin 300 MG CAP PO SCH (11:20)
--- NOTE | 2018-04-02 11:57 | PDOC.PN ---
- Subjective Encounter Start Date: 04/02/18 Encounter Start Time: 10:30 Subjective: no sob or palp -: feels better, is amb -: groin rash is getting better - Objective Resuscitation Status: Resuscitation Status FULL:Full Resuscitation MAR Reviewed: Yes Vital Signs & Weight: Vital Signs (12 hours) Temp Pulse Resp BP BP Pulse Ox 04/02/18 08:12 102 H 134/86 04/02/18 08:00 94 L 04/02/18 07:45 98.0 F 102 H 18 134/86 94 L Weight Admit Weight 205 lb 1.6 oz Weight 205 lb I&O: 04/01/18 04/02/18 04/03/18 06:59 06:59 06:59 Intake Total 1220 750 240 Output Total 1600 600 Balance -380 150 240 Result Diagrams: 03/31/18 08:45 03/31/18 08:45 Additional Labs: Accuchecks 04/02/18 04/01/18 04/01/18 04:14 19:39 16:17 POC Glucose 86 138 H 144 H 04/01/18 11:24 POC Glucose 108 Phys Exam - Physical Examination HEENT: PERRLA, moist MMs Neck: no JVD, supple Respiratory: no wheezing, no rales Cardiovascular: RRR, no significant murmur Gastrointestinal: soft, non-tender, positive bowel sounds Musculoskeletal: no edema, pulses present Neurological: non-focal, moves all 4 limbs Psychiatric: normal affect, A&O x 3 Dx/Plan (1) Infection of pacemaker pocket Code(s): T82.7XXA - INFECT/INFLM REACT D/T OTH CARDI/VASC DEV/IMPLNT/GRFT, INIT Status: Acute Comment: MRSA. s/p removal of pcm with replacement over right infraclavicular area (2) Carotid stenosis Code(s): I65.29 - OCCLUSION AND STENOSIS OF UNSPECIFIED CAROTID ARTERY Status : Acute Comment: CT confirmed complete occlusion of the left carotid very proximally. (3) Syncope Code(s): R55 - SYNCOPE AND COLLAPSE Status: Resolved Comment: Multifactorial. Infection, atrial arrhythmias, dehydration, possibly carotid disease. (4) Dehydration Code(s): E86.0 - DEHYDRATION Status: Resolved (5) Atrial fibrillation with RVR Code(s): I48.91 - UNSPECIFIED ATRIAL FIBRILLATION Status: Resolved Comment: PT on Amiodarone, continued on Bblocker (6) Anxiety and depression Code(s): F41.8 - OTHER SPECIFIED ANXIETY DISORDERS Status: Chronic (7) COPD (chronic obstructive pulmonary disease) Status: Chronic Comment: stable, Continue on Nebs. (8) Chronic anticoagulation Code(s): Z79.01 - SNF (CURRENT) USE OF 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 Status: Chronic Comment: Continue on Xaelto (9) Diabetes type 2, controlled Code(s): E11.9 - TYPE 2 DIABETES MELLITUS WITHOUT COMPLICATIONS Status: Chronic Qualifiers: Diabetes mellitus termite inspector insulin use: with correction use Diabetes mellitus complication status: with unspecified complications Qualified Code(s) : E11.8 - Type 2 diabetes mellitus with unspecified complications; Z79.4 - termite inspector (current) use of insulin Comment: Continue with lantus/ SSI. (10) Dyslipidemia Code(s): E78.5 - HYPERLIPIDEMIA, UNSPECIFIED Status: Chronic (11) HTN (hypertension) Code(s): I10 - ESSENTIAL (PRIMARY) HYPERTENSION Status: Chronic Qualifiers: Hypertension type: essential hypertension Qualified Code(s): I10 - Essential (primary) hypertension (12) MEJIA on CPAP Code(s): G47.33 - OBSTRUCTIVE SLEEP APNEA (ADULT) (PEDIATRIC); Z99.89 - DEPENDENCE ON OTHER ENABLING MACHINES AND DEVICES Status: Chronic - Plan might have his home wound vac ready, if so may dc home -: HH has already been arranged -: to continue amio taper as presc -: rifampin and bactrim x 10 days, to see in 1 week * .
--- NOTE | 2018-04-04 00:55 | DIS ---
DATE OF ADMISSION: 03/17/2018 DATE OF DISCHARGE: 04/02/2018 DISCHARGE DISPOSITION: To home. PRIMARY DISCHARGE DIAGNOSES: Pacemaker pocket infection status post removal from left infraclavicula r area and replacement of pacemaker with defibrillator under right infraclavicular area; chronic occl usion of left carotid artery; syncope on arrival with dehydration resolved; chronic atrial fibrillati on with rapid ventricular response, currently in sinus rhythm, chronic obstructive pulmonary disease, diabetes mellitus type 2, dyslipidemia, hypertension, obstructive sleep apnea on CPAP, anxiety, depr ession. PROCEDURES DONE DURING HOSPITALIZATION: Carotid ultrasound done showed high-grade stenosis or occlus ion of left internal carotid artery and common carotid artery. CT cervical spine done showed no acut e C-spine fracture. There is evidence of hyperparathyroidism, progressive spondylosis is seen. CT b rain without contrast done showed no acute intracranial process. Echo with 2D Doppler done showed an EF of 50-55%, mild to moderate tricuspid regurgitation. CT angio of neck showed occlusion of left c ommon carotid artery at the aortic origin with some distant faint reconstitution at the level of C3, occluded right vertebral artery at the level of C2. Again, it is patent from the origin to the level of C2, severe emphysematous changes to the lungs. Soft tissue ultrasound of left infraclavicular ar ea showed no fluid or fluid collection adjacent to the pacemaker device. The patient had explantatio n of left pacemaker with AICD on the left side and reimplantation of new pacemaker with defibrillator under the right infraclavicular area. The left infraclavicular area wound was left open for seconda ry healing. Wound cultures grew Staph aureus. Blood cultures x2 no growth. H&H of 13 and 45, plate let count 345. Free T4 1.20, free T3 1.98. TSH 4.8, BUN 21, creatinine 1.0, total cholesterol 133, triglycerides 127, LDL 65, HDL 43. Initial BUN and creatinine were 44 and 2.5. INPATIENT CONSULTS: Dr. Edil Aguirre for Electrophysiology, Dr. Resendiz for Infectious Disease, Dr. Yeyo fitch for Cardiothoracic Surgery, Dr. Aldair Cline for Cardiology. DISCHARGE MEDICATIONS: Rifampin and Bactrim Double Strength twice daily for 10 days; Xarelto 20 mg d aily; sertraline 50 mg daily; Lopressor 50 mg twice daily; Cardizem CD 120 mg twice daily; aspirin 81 mg p.o. daily; amiodarone 200 mg p.o. twice daily for 10 days, then daily thereafter; trazodone 150 mg p.o. at bedtime; Levemir 30 units subcu twice daily; Neurontin 300 mg p.o. 3 times daily; clonazep am 0.5 mg p.o. twice daily. ALLERGIES: ZARA INHIBITOR. DISCHARGE PLAN: The patient to follow up with Dr. Edil Aguirre in 1 week, with Dr. Cline as advise d, and primary care physician in 1 week. BRIEF COURSE DURING HOSPITALIZATION: The patient initially got admitted on the after he had a s yncopal episode and was severely dehydrated. He was initially admitted to telemetry. He had acute k idney injury and was gently hydrated. The patient's left infraclavicular AICD pacemaker device site grew MRSA. He was evaluated by Dr. Edil Aguirre. The patient initially with IV antibiotics and later as he was getting worse, a decision was made to explant the device and place a new device in the rig ht infraclavicular area for sick sinus syndrome. The patient has been on rifampin. The patient was on IV antibiotics and switched over to rifampin and Bactrim. He needs to continue for another 10 day s. Prior to discontinuing the antibiotic, he is to see Dr. Edil Aguirre in 1 week. Wound Care consul tation was requested and his left infraclavicular pacemaker explantation site was in a wound VAC. He is recovering well and is ambulating. The patient needs to follow up with primary care physician in 1 week. Procurement of wound VAC for home use delayed his discharge. This has been obtained today and will be shortly discharged home.
[2018-04-15] MEDS ORDERED: Amiodarone 200 MG TAB PO SCH (09:00)
== END 2018-04-02 14:35 | disposition home health service (06) | DRG 243 ==
LOC: ERS 10:55 → 2SE 15:57 → OBSVTOIN 03-17 09:33 → T4-A 03-25 13:07
PROVIDERS: ADMIT Family Medicine; ATTEND Family Medicine
PROC: 0JH606Z Insertion of Pacemaker, Dual Chamber into Chest Subcutaneous Tissue and Fascia, Open Approach (ICD-10-PCS; principal; 2018-03-22)
PROC: 02H63JZ Insertion of Pacemaker Lead into Right Atrium, Percutaneous Approach (ICD-10-PCS; 2018-03-22)
PROC: 02PA3MZ Removal of Cardiac Lead from Heart, Percutaneous Approach (ICD-10-PCS; 2018-03-22)
PROC: 0JPT0PZ Removal of Cardiac Rhythm Related Device from Trunk Subcutaneous Tissue and Fascia, Open Approach (ICD-10-PCS; 2018-03-22)
PROC: 02HK3JZ Insertion of Pacemaker Lead into Right Ventricle, Percutaneous Approach (ICD-10-PCS; 2018-03-22)
DX: I48.2 Chronic atrial fibrillation (principal); T82.7XXA Infection and inflammatory reaction due to other cardiac and vascular devices, implants and grafts, initial encounter; N17.9 Acute kidney failure, unspecified; I50.42 Chronic combined systolic (congestive) and diastolic (congestive) heart failure; T81.31XA Disruption of external operation (surgical) wound, not elsewhere classified, initial encounter; B95.62 Methicillin resistant Staphylococcus aureus infection as the cause of diseases classified elsewhere; R55 Syncope and collapse; I48.3 Typical atrial flutter; I45.10 Unspecified right bundle-branch block; I42.9 Cardiomyopathy, unspecified; E11.51 Type 2 diabetes mellitus with diabetic peripheral angiopathy without gangrene; I11.0 Hypertensive heart disease with heart failure; E86.0 Dehydration; S01.01XA Laceration without foreign body of scalp, initial encounter; E11.42 Type 2 diabetes mellitus with diabetic polyneuropathy; Z95.820 Peripheral vascular angioplasty status with implants and grafts; J44.9 Chronic obstructive pulmonary disease, unspecified; I65.22 Occlusion and stenosis of left carotid artery; E78.5 Hyperlipidemia, unspecified; K43.9 Ventral hernia without obstruction or gangrene; G47.33 Obstructive sleep apnea (adult) (pediatric); K21.9 Gastro-esophageal reflux disease without esophagitis; R21 Rash and other nonspecific skin eruption; Z91.19 Patient's noncompliance with other medical treatment and regimen; F41.8 Other specified anxiety disorders; Z91.81 History of falling; Z87.891 Personal history of nicotine dependence; Z79.01 Long term (current) use of anticoagulants; Z79.82 Long term (current) use of aspirin; Z79.4 Long term (current) use of insulin; W18.39XA Other fall on same level, initial encounter; Y92.512 Supermarket, store or market as the place of occurrence of the external cause; Y83.1 Surgical operation with implant of artificial internal device as the cause of abnormal reaction of the patient, or of later complication, without mention of misadventure at the time of the procedure
CPT/HCPCS: 33208; 33233; 33235; 36415; 36416; 70450; 70498; 71045; 72125; 80048; 80053; 80061; 80162; 80202; 80307; 82553; 82565; 83605; 84439; 84443; 84481; 84484; 85007; 85014; 85018; 85025; 85027; 85049; 87040; 87070; 87077; 87186; 87205; 90471; 90670; 93005; 93010; 93306; 93880; 96360; A4216; C1785; C1898; G0009; G8978-GP-CJ; G8979-GP-CI; G8979-GP-CJ; G8980-GP-CJ; J0282; J1100; J1160; J1650; J2001; J2250; J2405; J2543; J2704; J3010; J3370; J3490; J7050; J7070; Q0162

== ENCOUNTER 2018-04-17 14:11 | Inpatient (IN) | payer MEDICARE, MEDICAID ==
[~2018-04-17 14:11] MED LIST: ISOVUE-370 76%-LOCM 1 ML ONE
[2018-04-17 14:48] LABS: #Basophils 0.1 thou/uL (0.0-0.2); #Eosinphils 0.3 thou/uL (0.0-0.7); #Lymphocytes 1.6 thou/uL (1.20-3.40); #Monocytes 0.5 thou/uL (0.11-0.59); #Neutrophils 5.1 thou/uL (1.40-6.50); %Basophils 0.9 % (0.0-1.0); %Eosinophils 3.4 % (0.0-10.0); %Lymphocytes 21.2 % (21.0-51.0); %Neutrophils 67.5 % (42.0-75.0); Mean Corpuscular HGB CONC 31.8 g/dL (32.0-36.0); Mean Corpuscular Hemoglobin 29.9 pg (27.0-31.0); Mean Corpuscular Volume 94.1 fL (78.0-98.0); Platelet Count 360 thou/uL (130-400); RBC Distribution Width 14.4 % (11.5-14.5); Red Blood Cell (RBC) Count 5.01 mill/uL (4.70-6.10); White Blood Cell (WBC) Count 7.6 thou/uL (4.8-10.8)
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
[2018-04-17] MEDS ORDERED: Diltiazem 125 MG/25 ML ONE (15:01)
[2018-04-17 15:06] LABS: CKMB 1.3 ng/mL (0-6.6); Troponin I Less than 0.010 ng/mL (< 0.028)
[2018-04-17 15:08] LABS: Acetaminophen Less than 6.0 mcg/mL (10.0-30.0); Alcohol Less than 10 mg/dL (Less than 10); Salicylate Less than 8.0 mg/dL (15.0-30.0)
[2018-04-17 15:09] LABS: ALT (SGPT) 21 U/L (8-55); AST (SGOT) 21 U/L (5-34); Albumin 4.1 g/dL (3.4-4.8); Alkaline Phosphatase 136 U/L (40-150); Anion Gap 18 mmol/L (10-20); BUN (Urea Nitrogen) 14 mg/dL (8.4-25.7); Bilirubin, Total 0.2 mg/dL (0.2-1.2); CK (CPK) 43 U/L (30-200); Calc. Creatinine Clearance 0 mL/min (70-130); Calcium 9.7 mg/dL (7.8-10.44); Carbon Dioxide 19 mmol/L (23-31); Chloride 101 mmol/L (98-107); Estimated GFR-MDRD 63; Globulin 5.1 g/dL (2.4-3.5); Glucose 267 mg/dL (83-110); Lipase 90 U/L (8-78); Protein, Total 9.2 g/dL (5.8-8.1); Sodium 133 mmol/L (136-145)
[2018-04-17 15:13] LABS: Bilirubin Negative (Negative); Blood, Urine Negative (Negative); Clarity CLEAR (Clear); Glucose, Urine (Dipstick) >=1000 mg/dL (Negative); Leukocyte Negative (Negative); Nitrite Negative (Negative); Protein, Urine (Dipstick) 100 mg/dL (Neg-Trace); Specific Gravity, Urine 1.018 (1.002-1.036); Urobilinogen 0.2 mg/dL (0.2-1.0)
[2018-04-17] MEDS ORDERED: Diltiazem HCl 125 MG, Admixture Fee 1 EACH in Sodium Chloride 0.9% 100 ML IVPB SCH (15:15)
[2018-04-17 15:21] LABS: Bacteria/HPF None Seen HPF (None Seen); Hyaline Casts/LPF 0-3 HYALINE CAST LPF (0-3 Hyaline); RBC/HPF 0-3 HPF (0-3); Squamous Epithelial None Seen HPF (0-3); WBC/HPF None Seen HPF (0-3)
[2018-04-17 15:22] LABS: Amphetamine Not Detected (NotDetected); Barbiturates Screen Not Detected (NotDetected); Benzodiazepine Screen Not Detected (NotDetected); Cocaine Metabolite Screen Not Detected (NotDetected); Medtox Control Line Valid? VALID (VALID); Medtox Reader # READER 1; Methadone Not Detected (NotDetected); Methamphetamine Not Detected (NotDetected); Opiate Screen Not Detected (NotDetected); Oxycodone Screen Not Detected (NotDetected); Phencyclidine (PCP) Not Detected (NotDetected); THC/Cannabinoid Screen Not Detected (NotDetected); Tricyclic Screen Not Detected (NotDetected)
[2018-04-17 15:23] LABS: Base Excess-Venous 1.5 mmol/L (0 (+/- 2.5)); Bicarbonate (HCO3v) 27.7 mmol/L (1.0-85.0); CO2 Tension (PvCO2) 48.2 mmHg (41.0-51.0); Calcium, Ionized 1.15 mmol/L (1.12-1.32); Hemoglobin - Calc 16.2 g/dL (12.0-18.0); O2 Tension (PvO2) 39.9 mmHg (35.0-45.0); Potassium 4.8 mmol/L (3.4-4.7); T. Carbon Dioxide 29.2 mmol/L (1.0-85.0); pH (Venous) 7.368 (7.35-7.45); vO2 Saturation-calc 72.4 % (94-98)
--- NOTE | 2018-04-17 16:32 | CT ---
CT ANGIOGRAM OF CHEST: Date: 04/17/18 HISTORY: Difficulty breathing. Altered mental status. COMPARISON: None. TECHNIQUE: CT angiogram of the chest is performed in the axial plane. Three-dimensional reformatted images are s ubmitted for interpretation. FINDINGS: Nonspecific, mildly enlarged right paratracheal lymph node measuring 1.9 x 1.4 cm. Additional scatter ed nonspecific mediastinal lymph nodes are noted. Heart size is within normal limits. There is a smal l amount of pericardial fluid. There are coronary artery calcifications. Visualized aorta does demonstrate atherosclerosis. No aneurysm. Visualized upper solid organs are unremarkable. Reflux of contrast suggests right heart failure. Trachea and central bronchi are patent. Extensive emphysematous changes throughout the lung parenchym a. There appear to be areas of scarring in the medial left and right upper lobe. There is irregular o pacity involving the middle lobe, which likely represents areas of scar. There is a slightly more foc al opacity involving the right lower lobe measuring 1.2 x 1.3 cm. A second opacity in the right lower lobe measuring 1.7 x 0.8 cm. Findings may represent a component of chronic change. However, developi ng mass-like process cannot be excluded. Follow-up CT in 6 months is recommended. Adequate contrast opacification of the pulmonary arterial system to the level of the segmental arteri es. No filling defect to suggest thromboembolism. There appears to be a thrombus with resultant occlusion involving the visualized proximal left caroti d artery. Evaluation is incomplete. IMPRESSION: 1. Left carotid artery occlusion secondary to thrombus. Limited and incomplete evaluation of the gre at vessels of the neck. 2. No evidence of pulmonary artery embolism to the level of the segmental arteries. 3. Irregular opacities in the right lower lobe with superimposed emphysematous change. These opaciti es may be chronic. However, follow-up CT in 6 months is recommended. 4. Right heart failure with reflux of contrast into the inferior vena cava. 5. Occlusion of the left carotid artery corresponds to CT angiogram of the neck 03/20/2018. Results of study discussed with Dr. Crenshaw on 04/17/18 at 1614 hours. CODE CR. POS: [facility]
[2018-04-17] MEDS ORDERED: Magnesium 2 GM/50 ML 2 GM in Premix Bag 1 BAG IVPB ONE (17:30)
[2018-04-17] MEDS ORDERED: Enoxaparin Sodium 100 MG/ML SYRINGE ONE (17:30)
[2018-04-17 18:03] LABS: Troponin I Less than 0.010 ng/mL (< 0.028)
[2018-04-17] MEDS ORDERED: hydrALAZINE 20 MG/ML VIAL SLOW IVP PRN (18:58)
[2018-04-17] MEDS ORDERED: Ondansetron HCl/PF 4 MG/2 ML Vial IVP PRN (18:58)
[2018-04-17] MEDS ORDERED: HumaLOG 300 UNITS/3 ML VIAL SC PRN (18:58)
[2018-04-17] MEDS ORDERED: Dextrose 5% in Water 1,000 ML IV PRN (18:58)
[2018-04-17] MEDS ORDERED: Dextrose 50% Abboject 50 ML SYRINGE SLOW IVP PRN (18:58)
[2018-04-17] MEDS ORDERED: Acetaminophen 500 MG TAB PO PRN (18:58)
[2018-04-17] MEDS ORDERED: Ondansetron ODT 4 MG TAB PO PRN (18:58)
[2018-04-17] MEDS ORDERED: cloNIDine 0.1 MG TAB PO PRN (18:58)
[2018-04-17] MEDS ORDERED: Diltiazem 125 MG in Sodium Chloride 0.9% 100 ML IVPB SCH (20:00)
[2018-04-17] MEDS: clonazePAM 0.5 MG TAB PO SCH (20:47)
[2018-04-17] MEDS: Metoprolol Tartrate 50 MG TAB PO SCH (20:47)
[2018-04-17] MEDS: Famotidine 20 MG TAB PO SCH (20:47)
[2018-04-17] MEDS: Gabapentin 300 MG CAP PO SCH (20:56)
[2018-04-17] MEDS: Insulin Glargine 30 UNITS in Pre-Filled Syringe 1 EACH SC SCH (20:56)
[2018-04-17] MEDS ORDERED: Non-Formulary Item 1 EACH (Insulin Detemir 100 Units/Ml [Levemir] 30 UNIT) SQ SCH (21:00)
[2018-04-17 21:02] LABS: Troponin I Less than 0.010 ng/mL (< 0.028)
[2018-04-17 22:36] VITALS: BMI 28.5
--- NOTE | 2018-04-18 01:23 | HP ---
DATE OF ADMISSION: 04/17/2018 PRIMARY CARE PHYSICIAN: Dr. Desouza. CHIEF COMPLAINT: Suicidal ideation. HISTORY OF PRESENT ILLNESS: This is a 73-year-old male who presents to [facility] Emergency Department and transferred from [facility], where patient states he has bee n a resident over the last 2 months. Patient states he was formerly living at [facility] but has lived in the [facility] area since the . Patient states he has had difficulty de aling with his multiple medical issues and is tired of battling his chronic diseases. Patient states he has been evaluated and admitted to [facility] approximately 4 times in the last several months to year, most recently in the last few months prior to this evaluation. Patient stat es he has a history of depression and has been treated with multiple medications that he says does no t help him. Patient states he is also concerned about being evicted from his current residence at [facility] due to the persistent smoking, which is against the policy of [place]. Patient states he h as basically giving up on trying to get better and manages diseases and wanted to [facility] most of his [facility] so that he could "end it all." Patient denies any strong family support locally but does have a sister and brother who live out of town. In the emergency room, patient underwent general evaluati on by [facility] services and was deemed appropriate for inpatient transfer care for psychiatric assistance . However, patient was noted with atrial fibrillation with rapid ventricular response in the 120s to 140s and placed on a Cardizem infusion. Patient received a large bolus of Cardizem causing hypotens ion. At which point, patient was fluid persisted with intravenous normal saline bolus. Patient curr ently stabilizing in regard to vital signs and hemodynamics. However, it is referred to the [facility] ist Service for admission. PAST MEDICAL HISTORY: 1. Pacemaker pocket infection of the left chest wall, status post removal in 03/2018. 2. Status post pacemaker removal and subsequent replacement. 3. Chronic occlusion of the left carotid artery. 4. History of syncope secondarily to dehydration. 5. Chronic atrial fibrillation on chronic anticoagulation with Xarelto. 6. Chronic obstructive pulmonary disease. 7. Tobacco abuse, ongoing. 8. Diabetes mellitus, type 2, insulin-requiring. 9. Dyslipidemia. 10. Hypertension. 11. Obstructive sleep apnea on nocturnal CPAP. 12. Anxiety/depression. 13. History of suicidal ideation with multiple admissions to inpatient psychiatric care. 14. History of sick sinus syndrome, status post dual-chamber pacemaker placement. 15. 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 PAST SURGICAL HISTORY: 1. Status post bilateral inguinal hernia repair. 2. Status post left humeral fracture repair. 3. Status post aortobifemoral bypass grafting and endarterectomy. 4. Status post AICD/pacemaker removal with subsequent replacement. CURRENT MEDICATIONS: 1. Clonazepam 0.5 mg p.o. b.i.d. 2. Gabapentin 300 mg p.o. t.i.d. 3. Lipitor 80 mg p.o. at bedtime. 4. Levemir 30 units subcutaneously b.i.d. 5. Regular insulin 15 units subcutaneously b.i.d. with meals. 6. Metformin 1000 mg p.o. b.i.d. 7. Protonix 40 mg p.o. daily. 8. Sertraline 50 mg p.o. daily. 9. Amiodarone 200 mg 1 tab p.o. daily. 10. Enteric-coated aspirin 81 mg p.o. daily. 11. Lasix 40 mg p.o. daily. 12. Metoprolol tartrate 50 mg p.o. b.i.d. 13. Potassium chloride 10 mEq p.o. daily. 14. Xarelto 20 mg p.o. daily. 15. Thiamine 100 mg p.o. daily. ALLERGIES: ZARA INHIBITORS. FAMILY HISTORY: No inheritable diseases per patient report. SOCIAL HISTORY: Patient smokes up to one and half packs of cigarettes daily. Occasional alcohol use . No illicit drug use. Ambulates with a rolling walker with history of multiple falls. Resides at [facility]. REVIEW OF SYSTEMS: The following complete review of systems was otherwise negative, except as stated per HPI: Constitutional: Weight loss or gain, ability to conduct usual activities. Skin: Rash, i tching. Eyes: Double vision, pain. ENT/Mouth: Nose bleeding, neck stiffness, pain, tenderness. C ardiovascular: Palpitations, dyspnea on exertion, orthopnea. Respiratory: Shortness of breath, whe ezing, cough, hemoptysis, fever, or night sweats. Gastrointestinal: Poor appetite, abdominal pain, heartburn, nausea, vomiting, constipation, or diarrhea. Genitourinary: Urgency, frequency, dysuria, nocturia. Musculoskeletal: Pain, swelling. Neurologic/Psychiatric: Anxiety, depression. Allergy /Immunologic: Skin rash, bleeding tendency. PHYSICAL EXAMINATION: VITAL SIGNS: Blood pressure 143/110, pulse 105, respiratory rate 16, temperature 98 degrees Fahrenhe it, O2 saturation 98% on room air. GENERAL APPEARANCE: This is a 73-year-old male lying on the [facility], alert and res ponsive, flat affect, depressed appearing in no acute distress. HEENT: Pupils are equal, round, and reactive to light and accommodation. Extraocular muscles are in tact. No scleral icterus, no conjunctival injection. Nares patent. OP is clear. Teeth in fair rep air. NECK: Supple, no cervical adenopathy, no thyromegaly, no carotid bruits, no JVD noted. Cervical spi ne with full active and passive range of motion. No meningeal signs appreciated. CHEST: Diminished breath sounds in the bases bilaterally. CARDIOVASCULAR: S1, S2 with irregular rate and rhythm. Tachycardia noted. ABDOMEN: Protuberant with large ventral midline abdominal hernia chronic. Bowel sounds are positive in all four quadrants. No palpable mass. No rebound or guarding noted. EXTREMITIES: Warm and dry with fair turgor. No clubbing, cyanosis, or asymmetric edema appreciated. Pulses are palpable distally at the dorsalis pedis, posterior tibial, and popliteal arteries bilate rally. Capillary refill less than 2 seconds. NEUROLOGIC: Cranial nerves II-XII are grossly intact. No focal or lateralizing signs appreciated. PERTINENT LABORATORY AND X-RAY FINDINGS: Sodium 138, potassium 4.8, chloride 102, CO2 of 19, BUN 14, creatinine 1.15. Estimated GFR 63, glucose 267, calcium 9.7. LFTs within normal limits. Troponin I negative x2. BNP 255, previously noted 635 on 01/28/2018. Lipase 90. CBC showed a white blood ce ll count of 7.6, hemoglobin 15, hematocrit 47, platelet count 360 with normal differential. D-dimer 3.35. Urinalysis positive for glucose and protein. Urine drug screen dated on 04/17/2018 showed neg ative results. Beta hydroxybutyrate level 0.08. Portable chest x-ray dated 04/17/2018 showed no acu te cardiopulmonary process. CT angiogram of the chest dated 04/17/2018 showed left carotid artery oc clusion secondary to thrombus, chronic. No evidence for pulmonary artery embolism. Chronic opacitie s in the right lower lobe. Emphysematous changes noted. Telemetry monitoring shows atrial fibrillat ion with heart rates in the 105 to 110s. ASSESSMENT AND PLAN: 1. Atrial fibrillation with rapid ventricular response. Patient will be admitted to the telemetry u nit. We will continue Cardizem infusion at 5 mg per hour. Consider additional digoxin dosing for ra te control. Consult Cardiology service in the a.m. Review of echocardiogram 03/18/2018 showed eject ion fraction of 50%-55%. Mild biatrial enlargement. Continue Xarelto 20 mg p.o. at bedtime. 2. Suicidal ideation. Recurrent. Reevaluation when medically stabilizing. Recurrent episodes of s uicidal ideation with multiple inpatient psychiatric admissions. Sitter for one-on-one observation. 3. Chronic anticoagulation. We will continue Xarelto 20 mg p.o. daily. No current evidence to sugg est acute blood loss. 4. Left internal carotid artery occlusion, chronic. Continue anticoagulation as outlined previously . Continue aspirin 81 mg daily. 5. Hypertension, labile. Resume home antihypertensive regimen and monitor serial blood pressures. 6. Deconditioning. PT evaluation for functional assessment. General fall risk precautions. 7. Tobacco abuse. Offer tobacco cessation resources prior to discharge. 8. Prophylaxis. Sequential compression devices while in bed. Pepcid 20 mg p.o. b.i.d. PT evaluati on for functional assessment. 9. Code status is FULL. Surrogate medical decision maker is patient's sister.
[2018-04-18 05:49] LABS: Anion Gap 10 mmol/L (10-20); BUN (Urea Nitrogen) 12 mg/dL (8.4-25.7); Calc. Creatinine Clearance 99 mL/min (70-130); Calcium 8.9 mg/dL (7.8-10.44); Carbon Dioxide 27 mmol/L (23-31); Chloride 103 mmol/L (98-107); Estimated GFR-MDRD 87; Glucose 175 mg/dL (83-110); Lipase 27 U/L (8-78); Potassium 4.7 mmol/L (3.5-5.1); Sodium 135 mmol/L (136-145)
[2018-04-18 06:16] LABS: Band 5 % (5-11); Eosinophils 8 % (0-10); Hemoglobin 13.5 g/dL (14.0-18.0); Lymphocytes 21 % (21-51); MDiff Complete? YES; Mean Corpuscular HGB CONC 32.3 g/dL (32.0-36.0); Mean Corpuscular Hemoglobin 30.1 pg (27.0-31.0); Mean Corpuscular Volume 93.3 fL (78.0-98.0); Mean Platelet Volume 7.3 fL (7.4-10.4); Monocytes 11 % (0-10); Neutrophil 55 % (42-75); Platelet Count 318 thou/uL (130-400); RBC Distribution Width 14.3 % (11.5-14.5); Red Blood Cell (RBC) Count 4.47 mill/uL (4.70-6.10); White Blood Cell (WBC) Count 8.4 thou/uL (4.8-10.8)
[2018-04-18] MEDS: clonazePAM 0.5 MG TAB PO SCH ×2 (08:58→21:01)
[2018-04-18] MEDS: Famotidine 20 MG TAB PO SCH ×2 (08:58→21:02)
[2018-04-18] MEDS: Metoprolol Tartrate 50 MG TAB PO SCH ×2 (08:59→21:02)
[2018-04-18] MEDS: Insulin Glargine 30 UNITS in Pre-Filled Syringe 1 EACH SC SCH ×2 (09:00→21:02)
[2018-04-18] MEDS: Gabapentin 300 MG CAP PO SCH ×3 (09:00→21:02)
[2018-04-18] MEDS ORDERED: Digoxin 0.5 MG/2 ML AMP SLOW IVP SCH ×2 (11:30→14:00)
[2018-04-18] MEDS: HumaLOG 300 UNITS/3 ML VIAL SC PRN ×2 (13:19→18:29)
--- NOTE | 2018-04-18 15:37 | CON ---
DATE OF CONSULTATION: 04/18/2018 HISTORY: The patient is an unfortunate 73-year-old gentleman with a long history of atrial fibrillation and a cardiomyopathy who presented with suicidal ideation and was noted to have a rapid heart rate. The patient has been admitted on multiple occasions with atrial fibrillation. He also has a history of a known cardiomyopathy and atrial fibrillation. The patient was admitted in March with an infected pacemaker lead which had to be repositioned and was in atrial flutter. The patient has a long history of noncompliance. He states it is unclear how much of his medications he has been taking. . The patient denies having any palpitations. PAST MEDICAL HISTORY: 1. Atrial fibrillation. 2. Cardiomyopathy. 3. Peripheral vascular disease. 4. Hypertension. 5. History of left atrial thrombus. 6. Diabetes mellitus. PAST SURGICAL HISTORY: Femoral endarterectomy, aortobifemoral bypass, left shoulder surgery,and hernia surgery. SOCIAL HISTORY: Long history of tobacco abuse. ALLERGIES: ZARA INHIBITOR THERAPY. MEDICATIONS: See nursing list. FAMILY HISTORY: No strong family history of heart disease. REVIEW OF SYSTEMS: Noticeable for depression. Otherwise, unremarkable. PHYSICAL EXAMINATION: GENERAL: Elderly gentleman in no acute distress with a blood pressure of 105/ 73. NECK: No jugular venous distention. LUNGS: Clear to auscultation. HEART: Irregular rate and rhythm with normal S1, S2 with no murmurs. ABDOMEN: Nondistended. EXTREMITIES: No edema. LABORATORY RESULTS: White blood count of 8.4, hemoglobin 13.5, hematocrit 41.7 , platelets 318. His sodium was 135, potassium 4.7, chloride 103, bicarbonate 27, BUN 12, creatinine 0.87, glucose 175. Troponin less than 0.01. nuclear monitoring technician revealed atrial fibrillation with a rapid ventricular response. IMPRESSION: 1. Atrial fibrillation with rapid ventricular rate. 2. History of pacemaker placement, status post replacement. 3. History of cardiomyopathy. 4. Hypertension. 5. Peripheral vascular disease. 6. Diabetes mellitus. 7. Hypertension. This gentleman presents with suicidal ideation. From a cardiac standpoint, his heart rate is markedly elevated. It is unclear how much he was taking his medications. I will restart him on amiodarone since it is unclear how long he has been in atrial fibrillation. We will try to control the rate with digoxin. We will follow this patient with you during this hospitalization. [facility]
[2018-04-18] MEDS: Rivaroxaban 10 MG TAB PO SCH (16:41)
--- NOTE | 2018-04-18 17:23 | PDOC.PN ---
- Subjective Encounter Start Date: 04/18/18 Encounter Start Time: 17:15 Subjective: f/u with A-fib RVR on Cardizem gtt, Digoxin and rate variable. Also with SI -: and [facility] evaluated with recs for inpt admit when medically stable. - Objective Resuscitation Status: Resuscitation Status FULL:Full Resuscitation MAR Reviewed: Yes Vital Signs & Weight: Vital Signs (12 hours) Temp Pulse Pulse Resp BP BP BP 04/18/18 16:40 04/18/18 16:36 98.0 F 85 16 04/18/18 16:30 116 H 04/18/18 13:04 96.3 F L 116 H 16 04/18/18 09:39 105 H 119/89 126/83 04/18/18 08:00 98.1 F 93 16 105/73 BP Pulse Ox 04/18/18 16:40 151/88 H 04/18/18 16:36 154/124 H 95 04/18/18 16:30 04/18/18 13:04 145/92 H 95 04/18/18 09:39 04/18/18 08:00 93 L Weight Weight 196 lb 6.4 oz I&O: 04/17/18 04/18/18 04/19/18 06:59 06:59 06:59 Intake Total 160 Output Total 800 Balance -640 Result Diagrams: 04/18/18 04:43 04/18/18 04:43 Additional Labs: Accuchecks 04/18/18 04/18/18 04/18/18 16:52 11:28 05:54 POC Glucose 246 H 256 H 196 H 04/17/18 20:51 POC Glucose 271 H Laboratory Tests 04/17/18 04/18/18 14:34 04:43 Lipase 90 H 27 EKG Reviewed by me: Yes (Tele - A-fib in 100's) Phys Exam - Physical Examination Constitutional: NAD HEENT: PERRLA, sclera anicteric, oral pharynx no lesions Neck: no nodes, no JVD, supple, full ROM Respiratory: no wheezing, no rales, no rhonchi, clear to auscultation bilateral S1, S2 Cardiovascular: no significant murmur, no rub, irregular Gastrointestinal: soft, non-tender, no distention, positive bowel sounds Musculoskeletal: no edema, pulses present Neurological: normal sensation, moves all 4 limbs flat affect Psychiatric: A&O x 3 Skin: normal turgor, cap refill <2 seconds Dx/Plan (1) Atrial fibrillation with RVR Code(s): I48.91 - UNSPECIFIED ATRIAL FIBRILLATION Status: Resolved Comment: Cardizem gtt, Cardizem 120mg po BID, Digoxin IV x 2 doses, Metoprolol 50mg BID, Xarelto 20mg daily (2) Suicidal ideation Code(s): R45.851 - SUICIDAL IDEATIONS Status: Acute Comment: [facility] re- evaluation when medically stabilized, inpt psych admit pending, sitter 1:1 (3) Carotid stenosis Code(s): I65.29 - OCCLUSION AND STENOSIS OF UNSPECIFIED CAROTID ARTERY Status : Chronic Qualifiers: Laterality: left Qualified Code(s): I65.22 - Occlusion and stenosis of left carotid artery Comment: CT confirmed complete occlusion of the left carotid, medical mgmt (4) Diabetes mellitus Code(s): E11.9 - TYPE 2 DIABETES MELLITUS WITHOUT COMPLICATIONS Status: Chronic Qualifiers: Diabetes mellitus type: type 2 Comment: Controlled with Insulin Glargine 30 bid, ISS, ADA (5) Tobacco abuse Code(s): Z72.0 - TOBACCO USE Status: Chronic Comment: tobacco cessation resources (6) Anxiety and depression Code(s): F41.8 - OTHER SPECIFIED ANXIETY DISORDERS Status: Chronic Comment: Clonazepam, Trazodone - Plan PT/OT, social work msw, out of bed/ambulate, DVT proph w/SCDs Stable currently -: Wean Cardizem gtt -: Continue rate-control with Metoprolol and Cardizem -: Resume Amiodarone 200mg daily -: [facility] evaluation when medically stable * .
[2018-04-18] MEDS: traZODone HCl 150 MG TAB PO SCH (21:01)
[2018-04-19] MEDS: Amiodarone 200 MG TAB PO SCH (08:58)
[2018-04-19] MEDS: clonazePAM 0.5 MG TAB PO SCH ×2 (08:58→21:24)
[2018-04-19] MEDS: Gabapentin 300 MG CAP PO SCH ×3 (08:59→21:25)
[2018-04-19] MEDS: Digoxin 0.25 MG TAB PO SCH (08:59)
[2018-04-19] MEDS: Famotidine 20 MG TAB PO SCH ×2 (08:59→21:25)
[2018-04-19] MEDS: Metoprolol Tartrate 50 MG TAB PO SCH ×2 (08:59→21:25)
[2018-04-19] MEDS ORDERED: Clopidogrel Bisulfate 75 MG TAB ONE (09:04)
[2018-04-19] MEDS: Insulin Glargine 30 UNITS in Pre-Filled Syringe 1 EACH SC SCH ×2 (09:07→21:25)
[2018-04-19] MEDS: HumaLOG 300 UNITS/3 ML VIAL SC PRN ×2 (09:10→11:35)
--- NOTE | 2018-04-19 13:49 | EKG ---
Test Reason : Blood Pressure : / mmHG Vent. Rate : 143 BPM Atrial Rate : 136 BPM P-R Int : 000 ms QRS Dur : 138 ms QT Int : 354 ms P-R-T Axes : 000 052 -21 degrees QTc Int : 546 ms Atrial fibrillation with rapid ventricular response Right bundle branch block Abnormal ECG Confirmed by BRIAN SALEEM, RUFINA ([id number]), photographic editor BETY CAICEDO ([id number]) on 04/19/2018 1:49:00 PM Referred By: Confirmed By:RUFINA TORRES MD
[2018-04-19] MEDS: Rivaroxaban 10 MG TAB PO SCH (17:16)
--- NOTE | 2018-04-19 17:40 | PDOC.PN ---
- Subjective Encounter Start Date: 04/19/18 Encounter Start Time: 07:20 Pt seen for followup re: atrial fibrillation with RVR. Denies chest pain or shortness of breath. Expresses suicidal ideation. - Objective Resuscitation Status: Resuscitation Status FULL:Full Resuscitation MAR Reviewed: Yes Vital Signs & Weight: Vital Signs (12 hours) Temp Pulse Resp BP Pulse Ox 04/19/18 15:59 97.7 F 97 18 128/74 95 04/19/18 11:41 97.5 F L 81 17 130/74 92 L 04/19/18 07:53 97.5 F L 91 16 130/81 97 Weight Weight 192 lb 12.8 oz I&O: 04/18/18 04/19/18 04/20/18 06:59 06:59 06:59 Intake Total 160 490 Output Total 800 950 Balance -640 -460 Result Diagrams: 04/18/18 04:43 04/18/18 04:43 Additional Labs: Accuchecks 04/19/18 04/19/18 04/19/18 16:50 10:35 06:19 POC Glucose 70 214 H 208 H 04/18/18 20:13 POC Glucose 232 H EKG Reviewed by me: Yes (Tele: hany mckeon) Phys Exam - Physical Examination Constitutional: NAD HEENT: moist MMs Neck: supple Respiratory: clear to auscultation bilateral Cardiovascular: irregular Gastrointestinal: soft Musculoskeletal: no edema Neurological: moves all 4 limbs Psychiatric: normal affect Dx/Plan (1) Atrial fibrillation with RVR Code(s): I48.91 - UNSPECIFIED ATRIAL FIBRILLATION Status: Resolved Comment: rate is better today, medically cleared for discharge on CCB and BB and rivaroxaban (2) Suicidal ideation Code(s): R45.851 - SUICIDAL IDEATIONS Status: Acute Comment: [facility] re- evaluation (3) Carotid stenosis Code(s): I65.29 - OCCLUSION AND STENOSIS OF UNSPECIFIED CAROTID ARTERY Status : Chronic Qualifiers: Laterality: left Qualified Code(s): I65.22 - Occlusion and stenosis of left carotid artery Comment: medical mgmt (4) HTN (hypertension) Code(s): I10 - ESSENTIAL (PRIMARY) HYPERTENSION Status: Chronic Qualifiers: Hypertension type: essential hypertension Qualified Code(s): I10 - Essential (primary) hypertension Comment: controlled - Plan * . Review of Systems - Review of Systems Respiratory: negative: Cough, Shortness of Breath, SOB with Excertion, Pleuritic Pain, Wheezing Cardiovascular: negative: chest pain, palpitations, orthopnea, paroxysmal nocturnal dyspnea, edema, light headedness - Medications/Allergies Allergies/Adverse Reactions: Allergies Allergy/AdvReac Type Severity Reaction Status Date / Time ZARA Inhibitors Allergy Severe ANGIOEDEMA Verified 03/16/18 17:52 Medications: Current Medications Acetaminophen (Tylenol) 1,000 mg PO Q6H PRN PRN Reason: Mild Pain (1-3) Amiodarone HCl (Cordarone) 200 mg PO DAILY [facility] Last Admin: 04/19/18 08:58 Dose: 200 mg Aspirin (Aspirin Chewable) 81 mg PO QAM [facility] Last Admin: 04/19/18 08:59 Dose: 81 mg Clonazepam (Klonopin) 0.5 mg PO BID [facility] Last Admin: 04/19/18 08:58 Dose: 0.5 mg Clonidine (Catapres) 0.1 mg PO Q4H PRN PRN Reason: SBP >= 180 Dextrose/Water (Dextrose 50%) 25 gm SLOW IVP PRN PRN PRN Reason: Hypoglycemia Digoxin (Lanoxin) 0.25 mg PO QAM [facility] Last Admin: 04/19/18 08:59 Dose: 0.25 mg Diltiazem HCl (Cardizem Cd) 120 mg PO BID [facility] Last Admin: 04/19/18 08:58 Dose: 120 mg Famotidine (Pepcid) 20 mg PO BID [facility] Last Admin: 04/19/18 08:59 Dose: 20 mg Gabapentin (Neurontin) 300 mg PO TID [facility] Last Admin: 04/19/18 14:48 Dose: 300 mg Glucagon (Glucagon) 1 mg IM PRN PRN PRN Reason: Hypoglycemia Hydralazine HCl (Apresoline) 10 mg SLOW IVP Q4H PRN PRN Reason: SBP > 180 and HR < 70 Dextrose/Water (D5w) 1,000 mls @ 0 mls/hr IV .Q0M PRN PRN Reason: Hypoglycemia Insulin Glargine 30 units/ (Miscellaneous Medication) 0.3 mls @ 0 mls/hr SC BID [facility] Last Admin: 04/19/18 09:07 Dose: 0.3 mls Insulin Human Lispro (Humalog) 0 units SC .MILD SLIDING SCALE PRN PRN Reason: Mild Correctional Scale Last Admin: 04/19/18 11:35 Dose: 3 unit Insulin Human Lispro (Humalog) 0 units SC .BEDTIME SLIDING SC PRN PRN Reason: Bedtime Correctional Scale Metoprolol Tartrate (Lopressor) 50 mg PO BID [facility] Last Admin: 04/19/18 08:59 Dose: 50 mg Ondansetron HCl (Zofran Odt) 4 mg PO Q6H PRN PRN Reason: Nausea/Vomiting Ondansetron HCl (Zofran) 4 mg IVP Q6H PRN PRN Reason: Nausea/Vomiting Rivaroxaban (Xarelto) 20 mg PO QPM[facility] Last Admin: 04/19/18 17:16 Dose: 20 mg Sertraline HCl (Zoloft) 50 mg PO DAILY [facility] Last Admin: 04/19/18 08:59 Dose: 50 mg Sodium Chloride (Flush - Normal Saline) 10 ml IVF Q12HR [facility] Last Admin: 04/19/18 09:00 Dose: 10 ml Sodium Chloride (Flush - Normal Saline) 10 ml IVF PRN PRN PRN Reason: Saline Flush Trazodone HCl (Desyrel) 150 mg PO HS [facility] Last Admin: 04/18/18 21:01 Dose: 150 mg
[2018-04-19] MEDS: traZODone HCl 150 MG TAB PO SCH (21:24)
[2018-04-19] MEDS ORDERED: diphenhydrAMINE 25 MG CAP PO SCH (23:00)
[2018-04-20 05:25] LABS: Platelet Count 330 thou/uL (130-400)
[2018-04-20 07:24] VITALS: BP 125/63; TEMP 97.6
[2018-04-20] MEDS: Digoxin 0.25 MG TAB PO SCH (08:05)
[2018-04-20] MEDS: Famotidine 20 MG TAB PO SCH (08:06)
[2018-04-20] MEDS: Gabapentin 300 MG CAP PO SCH (08:06)
[2018-04-20] MEDS: Metoprolol Tartrate 50 MG TAB PO SCH (08:06)
[2018-04-20] MEDS: Amiodarone 200 MG TAB PO SCH (08:06)
[2018-04-20] MEDS: clonazePAM 0.5 MG TAB PO SCH (08:07)
[2018-04-20] MEDS: Insulin Glargine 30 UNITS in Pre-Filled Syringe 1 EACH SC SCH (08:07)
[2018-04-20] MEDS ORDERED: Digoxin 0.25 MG TAB PO SCH (08:26)
[2018-04-20] MEDS ORDERED: Digoxin 0.125 MG TAB PO SCH (09:00)
[2018-04-20] MEDS ORDERED: Atorvastatin Calcium 40 MG TAB PO SCH (21:00)
--- NOTE | 2018-04-20 22:54 | DIS ---
DATE OF ADMISSION: 04/17/2018 DATE OF DISCHARGE: 04/20/2018 PRIMARY CARE PHYSICIAN: Franklyn Desouza M.D. DISCHARGE DIAGNOSES: 1. Atrial fibrillation with rapid ventricular response. 2. Suicidal ideation. 3. Chronic left carotid artery occlusion. CONSULTATIONS DURING THIS HOSPITALIZATION: Cardiology, Dr. Cline. CONDITION OF PATIENT ON THE DAY OF DISCHARGE: Stable. I assessed Mr. Briceno on the day of discharge. He denies any chest pain or shortness of breath. Vital signs are stable. S1 and S2 are heard, regul ar. Lungs are clear to auscultation bilaterally. DISCHARGE MEDICATIONS: Amiodarone 200 mg daily, aspirin 81 mg daily, Lipitor 40 mg at bedtime, clona zepam 0.5 mg 2 times a day, digoxin 0.125 mg daily, Cardizem-CD 120 mg 2 times a day, Neurontin 300 m g 3 times a day, Lantus insulin 30 units 2 times a day, Lopressor 50 mg 2 times a day, rivaroxaban 20 mg every evening, and Zoloft 50 mg daily. HOSPITAL COURSE: Mr. Briceno is a pleasant 73-year-old gentleman who was admitted to [facility] for atrial fibrillation with rapid ventricular response on 04/17/2018. Please refer D jeb Field's history and physical note dated 04/17/2018 for further details. He was seen by Cardiology Service. He was monitored on telemetry. He was started on beta santiago and digoxin, and his calcium channel santiago was continued. The patient improved in terms of ventricular response rate. The patient also expressed suicidal ideation and plan to commit suicide by overdosing on insulin. He was seen by [facility] and was recommended inpatient psychiatric therapy. He is being discharged to [facility] for further management. On the day of discharge, his hemoglobin 14 and hematocrit 43. Creatinine is normal at 0.86. Many thanks for allowing me to participate in your patient's care. Please feel free to contact me wi th any questions or concerns. DISCHARGE DESTINATION: [facility]. TOTAL AMOUNT OF TIME SPENT COORDINATING THIS DISCHARGE: 32 minutes.
== END 2018-04-20 12:18 | disposition short-term general hospital (02) | DRG 309 ==
LOC: ERS 14:11 → 2NO 15:32
PROVIDERS: ADMIT Family Medicine; ATTEND Family Medicine
DX: I48.91 Unspecified atrial fibrillation (principal); R45.851 Suicidal ideations; I50.22 Chronic systolic (congestive) heart failure; F17.210 Nicotine dependence, cigarettes, uncomplicated; Z95.0 Presence of cardiac pacemaker; E11.9 Type 2 diabetes mellitus without complications; E78.5 Hyperlipidemia, unspecified; I11.0 Hypertensive heart disease with heart failure; I65.22 Occlusion and stenosis of left carotid artery; G47.33 Obstructive sleep apnea (adult) (pediatric); F41.9 Anxiety disorder, unspecified; F32.9 Major depressive disorder, single episode, unspecified; Z79.899 Other long term (current) drug therapy; Z79.01 Long term (current) use of anticoagulants; Z79.4 Long term (current) use of insulin; Z79.84 Long term (current) use of oral hypoglycemic drugs; Z88.8 Allergy status to other drugs, medicaments and biological substances
CPT/HCPCS: 36415; 36416; 71045; 71275; 80048; 80053; 80306; 80307; 81003; 81015; 82010; 82330; 82553; 82565; 82803; 83690; 83880; 84484; 85007; 85014; 85018; 85025; 85027; 85049; 85379; 93005; 96365; 96366; 96368; 96372; G8978-GP-CJ; G8979-GP-CJ; G8980-GP-CJ; J1160; J1650; J7050

== ENCOUNTER 2018-05-11 14:01 | Inpatient (IN) | payer MEDICARE, MEDICAID ==
[2018-05-11 14:26] LABS: #Basophils 0.1 thou/uL (0.0-0.2); #Eosinphils 0.2 thou/uL (0.0-0.7); #Lymphocytes 1.9 thou/uL (1.20-3.40); #Monocytes 0.8 thou/uL (0.11-0.59); %Eosinophils 1.7 % (0.0-10.0); %Lymphocytes 19.3 % (21.0-51.0); %Monocytes 7.6 % (0.0-10.0); %Neutrophils 70.5 % (42.0-75.0); Hemoglobin 13.5 g/dL (14.0-18.0); Mean Corpuscular HGB CONC 31.4 g/dL (32.0-36.0); Mean Corpuscular Hemoglobin 28.9 pg (27.0-31.0); Mean Corpuscular Volume 92.1 fL (78.0-98.0); Mean Platelet Volume 7.4 fL (7.4-10.4); Platelet Count 528 thou/uL (130-400); RBC Distribution Width 13.6 % (11.5-14.5); Red Blood Cell (RBC) Count 4.67 mill/uL (4.70-6.10); White Blood Cell (WBC) Count 9.9 thou/uL (4.8-10.8)
[2018-05-11 14:49] LABS: ALT (SGPT) 34 U/L (8-55); AST (SGOT) 11 U/L (5-34); Albumin 3.5 g/dL (3.4-4.8); Alkaline Phosphatase 175 U/L (40-150); Anion Gap 12 mmol/L (10-20); BUN (Urea Nitrogen) 20 mg/dL (8.4-25.7); Bilirubin, Total 0.4 mg/dL (0.2-1.2); Calc. Creatinine Clearance 0 mL/min (70-130); Calcium 9.5 mg/dL (7.8-10.44); Carbon Dioxide 25 mmol/L (23-31); Chloride 101 mmol/L (98-107); Estimated GFR-MDRD 70; Globulin 4.2 g/dL (2.4-3.5); Glucose 323 mg/dL (83-110); Potassium 4.7 mmol/L (3.5-5.1); Protein, Total 7.7 g/dL (5.8-8.1); Sodium 133 mmol/L (136-145)
[2018-05-11] MEDS ORDERED: Diltiazem 125 MG/25 ML ONE (14:52)
[2018-05-11 14:53] LABS: CKMB 1.4 ng/mL (0-6.6); Troponin I Less than 0.010 ng/mL (< 0.028)
[2018-05-11 15:01] LABS: Bilirubin Negative (Negative); Blood, Urine Negative (Negative); Clarity CLEAR (Clear); Glucose, Urine (Dipstick) >=1000 mg/dL (Negative); Leukocyte Negative (Negative); Nitrite Negative (Negative); Protein, Urine (Dipstick) 100 mg/dL (Neg-Trace); Specific Gravity, Urine 1.023 (1.002-1.036); Urobilinogen 0.2 mg/dL (0.2-1.0)
[2018-05-11 15:03] LABS: Bacteria/HPF None Seen HPF (None Seen); Hyaline Casts/LPF 0-3 HYALINE CAST LPF (0-3 Hyaline); RBC/HPF 0-3 HPF (0-3); Squamous Epithelial None Seen HPF (0-3); WBC/HPF None Seen HPF (0-3)
[2018-05-11] MEDS ORDERED: Diltiazem HCl 125 MG, Admixture Fee 1 EACH in Sodium Chloride 0.9% 100 ML IVPB SCH (15:15)
--- NOTE | 2018-05-11 15:31 | RAD ---
UPRIGHT PORTABLE CHEST 1 VIEW: HISTORY: A 73-year-old male with a history of generalized weakness and anxiety over missing medication. COMPARISON: 04/17/2018. FINDINGS: Bilateral vascular congestion with some bilateral interstitial and linear and reticulonodular parench ymal changes. Metallic density small foreign bodies overlie the left chest. Right ICD. Bilateral c ostophrenic angle blunting. IMPRESSION: Stable to slightly progressive bilateral vascular congestion and interstitial, linear, reticulonodula r parenchymal lung changes with bilateral costophrenic angle blunting. Certainly, some degree of acu te interstitial edema or nonspecific bilateral atypical pneumonitis in addition to underlying chronic interstitial lung changes suspected. Short-term followup for clearing is recommended. POS: SENG
[2018-05-11 18:04] LABS: Troponin I 0.013 ng/mL (< 0.028)
[2018-05-11 18:33] VITALS: BMI 28.3
[2018-05-11 21:02] LABS: Troponin I Less than 0.010 ng/mL (< 0.028)
[2018-05-11] MEDS ORDERED: Calcium Carbonate 500 MG ChewTAB PO PRN (21:09)
[2018-05-11] MEDS ORDERED: Dextrose 50% Abboject 50 ML SYRINGE IVP PRN (23:32)
[2018-05-11] MEDS ORDERED: Dextrose 5% in Water 1,000 ML IV PRN (23:32)
[2018-05-11] MEDS: HumaLOG 300 UNITS/3 ML VIAL SC PRN (23:43)
[2018-05-11] MEDS ORDERED: traZODone HCl 150 MG TAB PO SCH (23:45)
[2018-05-11] MEDS ORDERED: Rivaroxaban 10 MG TAB PO SCH (23:45)
--- NOTE | 2018-05-12 03:03 | HP ---
PRIMARY CARE PROVIDER: Franklyn Desouza M.D. CHIEF COMPLAINT: Palpitations. HISTORY OF PRESENT ILLNESS: Mr. Briceno is a pleasant 73-year-old gentleman, who was seen at [facility] on 05/12/2018. He was hospitalized at this facility from 04/17/2018 to 2017 for atrial fibrillation with rapid ventricular response. [facility] [place] for suicidal ideation following that hospitalization. He reports that he started having palpitations yesterday. He reports that it is associated with weak ness and chest pressure. He denies any fevers or chills. He denies any nausea or vomiting. He repo rts that he has not taken his medications in approximately a week. He did have the medications deliv ered to him two nights ago, but he has not started taking them yet. REVIEW OF SYSTEMS: All other systems reviewed and found to be negative. 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 PAST SURGICAL HISTORY: Status post bilateral inguinal hernia repair, status post bilateral humeral f ractures repair, status post aortobifemoral bypass grafting and endarterectomy and status post AICD/p acemaker removal with subsequent replacement. FAMILY HISTORY: The patient denies any family history of premature coronary artery disease. SOCIAL HISTORY: The patient is smoking up to 1-1/2 packs of cigarettes a day. He reports occasional alcohol use. He denies any recreational drug use. CODE STATUS: I discussed his code status. He is FULL CODE. ALLERGIES: ZARA INHIBITORS. CURRENT MEDICATIONS: Lasix 40 mg 2 times a day, hydralazine 25 mg 3 times a day, Humulin R 4 units s ubcutaneously 3 times a day, Lantus insulin 45 units subcutaneously at bedtime, metoprolol tartrate 5 0 mg 2 times a day, potassium chloride 10 mEq daily, and trazodone 150 mg at bedtime. PHYSICAL EXAMINATION: GENERAL: On examination, Mr. Briceno is awake and alert, not in acute distress. VITAL SIGNS: Blood pressure is 102/59, pulse 116, respiratory rate 16, and oxygen saturation 96% on room air. He is afebrile. EYES: No scleral icterus. No conjunctival pallor. ENT: Moist mucosal membranes, no oropharyngeal erythema or exudates. NECK: Supple, nontender, trachea is midline. RESPIRATORY: Accessory muscles of breathing are not active. Chest wall movements are symmetric bila terally. Lungs are clear to auscultation, without wheeze, rhonchi or crepitations. CARDIOVASCULAR: S1 and S2 are heard, tachycardic and irregular. Peripheral pulses palpable. No car otid bruit, no pericardial rub. ABDOMEN: Soft, nontender, bowel sounds are heard, no hepatomegaly, no splenomegaly. NEUROLOGIC: Cranial nerves II-XII intact. Deep tendon reflexes are 2+. MUSCULOSKELETAL: Power is 5/5 in all 4 extremities. SKIN: No rashes or subcutaneous nodules. LYMPHATIC: No cervical lymphadenopathy. PSYCHIATRIC: Normal mood, normal affect, patient is oriented to person and place, not to time. IMAGING AND LABORATORY DATA: Mr. Briceno's labs and investigations were reviewed. I reviewed his electr ocardiogram, which shows atrial fibrillation with rapid ventricular response, no ST changes to sugges t an acute coronary syndrome. I also reviewed his chest x-ray, which does not show any pulmonary inf iltrates. He does have bilateral vascular congestion. He has a normal white count, normocytic anemi a with hemoglobin 13.5, elevated platelet count of 128,000, decreased sodium of 133, elevated glucose of 323, elevated alkaline phosphatase of 175, otherwise unremarkable comprehensive metabolic profile , normal troponin I x3, normal TSH and normal creatinine. Urinalysis is positive for protein and glu cose. ASSESSMENT AND PLAN: Mr. Briceno is a pleasant 73-year-old gentleman, who was seen at [facility] on 05/12/2018. His problem list includes: 1. Atrial fibrillation with rapid ventricular response: Mr. Briceno is presenting with recurrent atrial fibrillation with rapid ventricular response in the context of medication noncompliance. He has bee n started on Cardizem drip, which I will continue for now. He is being admitted to telemetry floor o n observation status. 2. Hyponatremia: Mild, likely asymptomatic, we will recheck. 3. Diabetes mellitus, type 2: Start Accu-Cheks and insulin sliding scale. 4. Hypertension: Monitor vital signs, titrate antihypertensives as needed. 5. History of combined heart failure: Appears to be stable at this time. 6. Tobacco abuse: The patient has been counseled regarding tobacco cessation. Start nicotine repla cement therapy. Many thanks for allowing me to participate in your patient's care. Please feel free to contact me wi th any questions or concerns. LEVEL OF RISK: High. LEVEL OF COMPLEXITY: High.
[2018-05-12 09:01] LABS: #Basophils 0.1 thou/uL (0.0-0.2); #Eosinphils 0.1 thou/uL (0.0-0.7); #Lymphocytes 1.5 thou/uL (1.20-3.40); #Monocytes 0.8 thou/uL (0.11-0.59); #Neutrophils 6.9 thou/uL (1.40-6.50); %Basophils 0.8 % (0.0-1.0); %Eosinophils 0.9 % (0.0-10.0); %Lymphocytes 16.1 % (21.0-51.0); %Monocytes 8.5 % (0.0-10.0); %Neutrophils 73.8 % (42.0-75.0); Hemoglobin 13.1 g/dL (14.0-18.0); Mean Corpuscular HGB CONC 31.3 g/dL (32.0-36.0); Mean Corpuscular Hemoglobin 28.6 pg (27.0-31.0); Mean Corpuscular Volume 91.3 fL (78.0-98.0); Mean Platelet Volume 7.2 fL (7.4-10.4); Platelet Count 538 thou/uL (130-400); RBC Distribution Width 13.6 % (11.5-14.5); Red Blood Cell (RBC) Count 4.59 mill/uL (4.70-6.10); White Blood Cell (WBC) Count 9.3 thou/uL (4.8-10.8)
[2018-05-12 09:23] LABS: ALT (SGPT) 27 U/L (8-55); AST (SGOT) 14 U/L (5-34); Albumin 3.2 g/dL (3.4-4.8); Alkaline Phosphatase 149 U/L (40-150); Anion Gap 9 mmol/L (10-20); BUN (Urea Nitrogen) 15 mg/dL (8.4-25.7); Bilirubin, Total 0.4 mg/dL (0.2-1.2); Calc. Creatinine Clearance 90 mL/min (70-130); Calcium 8.9 mg/dL (7.8-10.44); Carbon Dioxide 27 mmol/L (23-31); Chloride 104 mmol/L (98-107); Estimated GFR-MDRD 75; Globulin 3.8 g/dL (2.4-3.5); Glucose 299 mg/dL (83-110); Potassium 5.1 mmol/L (3.5-5.1); Sodium 135 mmol/L (136-145)
[2018-05-12] MEDS: Diltiazem HCl 125 MG, Admixture Fee 1 EACH in Sodium Chloride 0.9% 100 ML IVPB SCH ×2 (09:30→14:37)
[2018-05-12] MEDS ORDERED: Amiodarone 200 MG TAB PO SCH (09:30)
[2018-05-12] MEDS ORDERED: Metoprolol Tartrate 25 MG TAB PO SCH ×2 (10:00→21:00)
[2018-05-12 10:05] LABS: Digoxin Less than 0.15 ng/mL (0.8-2.0)
--- NOTE | 2018-05-12 10:08 | PDOC.PN ---
- Subjective Encounter Start Date: 05/12/18 Encounter Start Time: 09:00 Subjective: f/u on admission for Afib w/ RVR -: Patient states he is tired today but otherwise no complaints -: Patient is not sure what meds he has been taking - Objective Vital Signs & Weight: Vital Signs (12 hours) Temp Pulse Resp BP BP Pulse Ox 05/12/18 06:57 98.6 F 120 H 24 H 112/68 96 05/12/18 03:00 98.3 F 117 H 17 117/91 H 96 05/12/18 00:15 98.2 F 116 H 16 102/59 L 96 05/12/18 00:10 98.2 F 116 H 16 102/59 L 96 Weight Weight 92.108 kg I&O: 05/11/18 05/12/18 05/13/18 06:59 06:59 06:59 Intake Total 480 Output Total 1430 375 Balance -950 -375 Result Diagrams: 05/12/18 08:52 05/12/18 08:52 Additional Labs: Accuchecks 05/12/18 05/11/18 06:19 20:54 POC Glucose 279 H 368 H Phys Exam - Physical Examination Constitutional: NAD HEENT: PERRLA, moist MMs Neck: no nodes, no JVD Respiratory: no wheezing, no rales, clear to auscultation bilateral Cardiovascular: irregular AFib with HR in 120's Gastrointestinal: soft, non-tender Musculoskeletal: no edema, pulses present Neurological: non-focal, normal sensation Lymphatic: no nodes Psychiatric: normal affect, A&O x 3 Skin: no rash, normal turgor Dx/Plan (1) Hyperlipidemia Code(s): E78.5 - HYPERLIPIDEMIA, UNSPECIFIED Status: Chronic Comment: Continue home statin. (2) Anxiety and depression Code(s): F41.8 - OTHER SPECIFIED ANXIETY DISORDERS Status: Chronic Comment: Clonazepam, Trazodone (3) COPD (chronic obstructive pulmonary disease) Status: Chronic Comment: stable, Continue on Nebs. (4) Chronic anticoagulation Code(s): Z79.01 - [employer] (CURRENT) USE OF 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 Status: Chronic Comment: Continue on Xaelto (5) Chronic systolic (congestive) heart failure Code(s): I50.22 - CHRONIC SYSTOLIC (CONGESTIVE) HEART FAILURE Status: Acute Comment: Likely Diastolic HF, contributing to Afib. Will continue with lasix, cannot USe for Allergy. (6) Diabetes mellitus Code(s): E11.9 - TYPE 2 DIABETES MELLITUS WITHOUT COMPLICATIONS Status: Chronic Qualifiers: Diabetes mellitus type: type 2 Comment: Controlled with Insulin Glargine 30 bid, ISS, ADA (7) HTN (hypertension) Code(s): I10 - ESSENTIAL (PRIMARY) HYPERTENSION Status: Chronic Qualifiers: Hypertension type: essential hypertension Qualified Code(s): I10 - Essential (primary) hypertension Comment: controlled (8) Atrial fibrillation with RVR Code(s): I48.91 - UNSPECIFIED ATRIAL FIBRILLATION Status: Acute Comment: rate is better today, medically cleared for discharge on CCB and BB and rivaroxaban (9) Dehydration Code(s): E86.0 - DEHYDRATION Status: Acute - Plan cont current plan of care, 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 Freeman changed amiodarone/lopressor dose -: Will make an inpt, follow cardiology recommendations -: Monitor labs, vitals * .
[2018-05-12] MEDS: HumaLOG 300 UNITS/3 ML VIAL SC PRN ×2 (11:55→17:09)
[2018-05-12] MEDS: Gabapentin 300 MG CAP PO SCH ×2 (14:37→20:15)
[2018-05-12] MEDS ORDERED: Digoxin 0.5 MG/2 ML AMP SLOW IVP SCH ×2 (16:30→22:00)
[2018-05-12] MEDS: Atorvastatin Calcium 40 MG TAB PO SCH (20:13)
[2018-05-12] MEDS: Amiodarone 200 MG TAB PO SCH (20:14)
[2018-05-12] MEDS: Rivaroxaban 10 MG TAB PO SCH (20:14)
[2018-05-12] MEDS: clonazePAM 0.5 MG TAB PO SCH (20:14)
[2018-05-12] MEDS: Metoprolol Tartrate 50 MG TAB PO SCH (20:15)
[2018-05-12] MEDS: traZODone HCl 150 MG TAB PO SCH (20:15)
[2018-05-12] MEDS: diphenhydrAMINE 25 MG CAP PO PRN (20:32)
[2018-05-12] MEDS ORDERED: Insulin Glargine 30 UNITS in Pre-Filled Syringe SC SCH (21:00)
--- NOTE | 2018-05-13 01:13 | CON ---
DATE OF CONSULTATION: 05/12/2018 HISTORY: Ken Briceno is a 73-year-old male that I have been following for quite some time. For very detailed history of his cardiac problems, please see dictation from 01/2018. At that time, in 01/2018, he was admitted with atrial fibrillation, placed on amiodarone and developed significant sinus bradycardia and a dual-chamber pacemaker was placed. He then returned again in 03/2018 with an infected pacer site. The pacemaker had to be removed and it was then placed on the right side. It was questionable if he took his antibiotics once discharged. He has been admitted also with atrial fibrillation secondary to not taking his medications. Whenever he comes to the office, he never brings his medications. He is very uncertain what he takes and I think he probably does not take any medicines at home. When he was last hospitalized here, I tried to emphasize that he needed to go to a facility where his medicines are given to him and not be reliant on him taking his own medications; however, apparently, he was sent to assisted living and he is supposed to take his medicines there. At the time of discharge from here 3 weeks ago, he was sent to [facility] for further management of suicidal ideation. He was seen in the office earlier this week and was again in atrial fibrillation with rapid ventricular response. Looking at his pacemaker, it appeared that he was in atrial fibrillation most of the time since the pacemaker was placed. He is uncertain what medicines he is taking and at times will state that he really does not take any medication. Arrangements were made to resume his medicines and prescriptions were given. He now presents complaining of feeling of increased heart rate, shortness of breath, and at times chest pressure. PAST MEDICAL HISTORY: Noncompliance, diabetes, hyperlipidemia, COPD, atrial fibrillation, history of atrial flutter ablation, obesity, obstructive sleep apnea, history of cardiomyopathy in the past with ejection fraction of 30%-35% that was improved once he was returned to sinus rhythm, chronic anticoagulation. PAST SURGICAL HISTORY: Hernia repair, left shoulder surgery, aortobifemoral bypass, atrial flutter ablation, left humeral fracture repair, pacemaker insertion and then removal for infection, and then placement of a pacemaker on the right side. MEDICATIONS: That he is supposed to be taking amiodarone 200 daily, aspirin 81 q.a.m., atorvastatin 40 at bedtime, Klonopin 0.5 b.i.d., digoxin 0.125 q.a.m., diltiazem 120 b.i.d., furosemide 40 q.a.m., Neurontin 300 t.i.d., insulin 30 units b.i.d., metoprolol 50 b.i.d., potassium chloride 10 mEq daily, Xarelto 20 mg q.p.m., sertraline 50 daily, and trazodone 150 at bedtime. ALLERGIES: ZARA INHIBITORS caused probable angioedema in the past. SOCIAL HISTORY: He continues to smoke 2 packs per day. He has been a heavy drinker in the past. FAMILY HISTORY: Negative for coronary artery disease. REVIEW OF SYSTEMS: Twelve-point review of systems is unremarkable. PHYSICAL EXAMINATION: VITAL SIGNS: Blood pressure 134/90, pulse of 108 and irregularly irregular. HEENT: PERRL. NECK: Supple. CHEST: Clear. CARDIAC: S1 and S2 are normal without any S3, S4, or murmurs. ABDOMEN: Normal bowel sounds without tenderness. EXTREMITIES: Revealed no clubbing, cyanosis, or edema. NEUROLOGIC: Grossly intact. SKIN: Warm and dry. LABORATORY DATA AND IMAGIN: On the monitor, he is in atrial fibrillation with fast ventricular response. There are nonspecific ST and T-wave changes and incomplete right bundle branch block. Hemoglobin 13.1, hematocrit 41.9, white count 9300, platelets 538,000. Sodium 135, potassium 5.1, chloride 104, carbon dioxide 27, BUN 15, creatinine 0.98. Cardiac enzymes are negative x3. Digoxin is less than 0.15. IMPRESSION: 1. Noncompliance with medications. He appears to not have the ability to take his medications and needs to be in a facility where he was given his medications. 2. Recurrence of atrial fibrillation with fast ventricular response. 3. Peripheral vascular disease, status post aortobifemoral bypass for severe claudication. He does not have any further leg pain like he was having prior to aortobifemoral bypass. 4. Hypertension. 5. Hypercholesterolemia. 6. Diabetes. 7. The patient continues to smoke 2 packs per day. 8. History of ethanol abuse with arrest for DWI. 9. Obstructive sleep apnea, noncompliant with CPAP. 10. Negative Cardiolite in 04/2013. 11. History of left atrial thrombus in 06/2013. 12. History of atrial flutter ablation. 13. Gastroesophageal reflux disease. 14. History of angioedema with ZARA inhibitors. PLAN: The patient will be restarted on his medications and will be reloaded with amiodarone. Arrangements needed to be made for him to go to a facility where he is given his medications. After control of his rate and loading with amiodarone for several days, consideration may need to be given to transesophageal echo and electrical cardioversion. MTDD
[2018-05-13] MEDS: Diltiazem HCl 125 MG, Admixture Fee 1 EACH in Sodium Chloride 0.9% 100 ML IVPB SCH ×2 (02:46→15:27)
[2018-05-13 04:18] LABS: #Basophils 0.1 thou/uL (0.0-0.2); #Eosinphils 0.1 thou/uL (0.0-0.7); #Lymphocytes 1.5 thou/uL (1.20-3.40); #Monocytes 0.6 thou/uL (0.11-0.59); #Neutrophils 6.2 thou/uL (1.40-6.50); %Basophils 0.8 % (0.0-1.0); %Eosinophils 0.6 % (0.0-10.0); %Lymphocytes 17.6 % (21.0-51.0); %Monocytes 6.9 % (0.0-10.0); %Neutrophils 74.1 % (42.0-75.0); Hemoglobin 12.7 g/dL (14.0-18.0); Mean Corpuscular HGB CONC 31.4 g/dL (32.0-36.0); Mean Corpuscular Volume 92.2 fL (78.0-98.0); Mean Platelet Volume 7.5 fL (7.4-10.4); Platelet Count 490 thou/uL (130-400); RBC Distribution Width 13.5 % (11.5-14.5); Red Blood Cell (RBC) Count 4.39 mill/uL (4.70-6.10); White Blood Cell (WBC) Count 8.3 thou/uL (4.8-10.8)
[2018-05-13 04:49] LABS: ALT (SGPT) 22 U/L (8-55); AST (SGOT) 13 U/L (5-34); Alkaline Phosphatase 139 U/L (40-150); Anion Gap 7 mmol/L (10-20); BUN (Urea Nitrogen) 19 mg/dL (8.4-25.7); Bilirubin, Total 0.4 mg/dL (0.2-1.2); Calc. Creatinine Clearance 90 mL/min (70-130); Calcium 8.9 mg/dL (7.8-10.44); Carbon Dioxide 27 mmol/L (23-31); Chloride 105 mmol/L (98-107); Estimated GFR-MDRD 75; Globulin 3.5 g/dL (2.4-3.5); Glucose 266 mg/dL (83-110); Potassium 4.4 mmol/L (3.5-5.1); Protein, Total 6.5 g/dL (5.8-8.1); Sodium 135 mmol/L (136-145)
[2018-05-13] MEDS: HumaLOG 300 UNITS/3 ML VIAL SC PRN ×3 (06:10→17:47)
[2018-05-13] MEDS: clonazePAM 0.5 MG TAB PO SCH ×2 (08:18→20:33)
[2018-05-13] MEDS: Amiodarone 200 MG TAB PO SCH ×2 (08:18→20:33)
[2018-05-13] MEDS: Gabapentin 300 MG CAP PO SCH ×3 (08:19→20:34)
[2018-05-13] MEDS: Digoxin 0.125 MG TAB PO SCH (08:19)
[2018-05-13] MEDS: Furosemide 40 MG TAB PO SCH (08:20)
[2018-05-13] MEDS: Metoprolol Tartrate 50 MG TAB PO SCH ×2 (08:20→20:33)
--- NOTE | 2018-05-13 16:00 | PDOC.PN ---
- Subjective Encounter Start Date: 05/13/18 Encounter Start Time: 16:00 Subjective: f/u for A-fib RVR on Cardizem gtt and now Amiodarone po loading. -: Rate controlled currently. No new complaints. - Objective MAR Reviewed: Yes Vital Signs & Weight: Vital Signs (12 hours) Temp Pulse Resp BP Pulse Ox 05/13/18 10:50 95 05/13/18 08:19 73 05/13/18 07:28 97.7 F 63 20 107/58 L 94 L Weight Weight 203 lb 1 oz I&O: 05/12/18 05/13/18 05/14/18 06:59 06:59 06:59 Intake Total 480 470 Output Total 1430 1375 Balance -950 -905 Result Diagrams: 05/13/18 03:57 05/13/18 03:57 Additional Labs: Accuchecks 05/13/18 05/12/18 05/12/18 06:08 20:12 16:34 POC Glucose 249 H 175 H 374 H Laboratory Tests 04/17/18 04/18/18 05/11/18 14:34 04:43 14:18 Troponin I Less than 0.010 Lipase 90 H 27 TSH 3rd Generation Digoxin 05/11/18 05/11/18 05/11/18 14:18 17:31 20:18 Troponin I 0.013 Less than 0.010 Lipase TSH 3rd Generation 3.4348 Digoxin 05/12/18 08:52 Troponin I Lipase TSH 3rd Generation Digoxin Less than 0.15 L Radiology Reviewed by me: Yes (Echo - EF 55-60%, mod TR) EKG Reviewed by me: Yes (Tele - A-fib, V-paced in 70's) Phys Exam - Physical Examination Constitutional: NAD HEENT: PERRLA, sclera anicteric, oral pharynx no lesions Neck: no nodes, no JVD, supple, full ROM scattered coarse sounds S1, S2 Cardiovascular: no significant murmur, no rub, gallop, irregular Gastrointestinal: soft, non-tender, no distention, positive bowel sounds Musculoskeletal: no edema, pulses present Neurological: normal sensation, moves all 4 limbs Psychiatric: A&O x 3 Skin: normal turgor, cap refill <2 seconds Dx/Plan (1) Atrial fibrillation with RVR Code(s): I48.91 - UNSPECIFIED ATRIAL FIBRILLATION Status: Acute Comment: Cardizem gtt, continue Amiodarone 400mg BID, continue rate-control measures (2) Chronic anticoagulation 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(s): 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 Status: Chronic Comment: Continue on Xarelto (3) Diabetes mellitus Code(s): E11.9 - TYPE 2 DIABETES MELLITUS WITHOUT COMPLICATIONS Status: Chronic Qualifiers: Diabetes mellitus type: type 2 Comment: Labile, resume Insulin Glargine 30 bid, ISS, ADA (4) Tobacco abuse Code(s): Z72.0 - TOBACCO USE Status: Chronic Comment: tobacco cessation resources, Nicotine patch 21mg daily (5) Noncompliance with medication regimen Code(s): Z91.14 - PATIENT'S OTHER NONCOMPLIANCE WITH MEDICATION REGIMEN Status : Chronic Comment: Likely will benefit from supervised medical care, currently in Assisted living at [place] - Plan 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
[2018-05-13] MEDS: Nicotine 21 MG PATCH TD SCH (17:46)
[2018-05-13] MEDS: Rivaroxaban 10 MG TAB PO SCH (20:34)
[2018-05-13] MEDS: Atorvastatin Calcium 40 MG TAB PO SCH (20:34)
[2018-05-13] MEDS: Insulin Glargine 30 UNITS in Pre-Filled Syringe 1 EACH SC SCH (20:34)
[2018-05-13] MEDS: traZODone HCl 150 MG TAB PO SCH (20:34)
[2018-05-14] MEDS: diphenhydrAMINE 25 MG CAP PO PRN (03:40)
[2018-05-14 05:51] LABS: ALT (SGPT) 21 U/L (8-55); AST (SGOT) 15 U/L (5-34); Albumin 3.2 g/dL (3.4-4.8); Alkaline Phosphatase 153 U/L (40-150); Anion Gap 9 mmol/L (10-20); BUN (Urea Nitrogen) 18 mg/dL (8.4-25.7); Bilirubin, Total 0.3 mg/dL (0.2-1.2); Calc. Creatinine Clearance 91 mL/min (70-130); Calcium 8.9 mg/dL (7.8-10.44); Carbon Dioxide 28 mmol/L (23-31); Chloride 101 mmol/L (98-107); Estimated GFR-MDRD 76; Globulin 3.7 g/dL (2.4-3.5); Glucose 251 mg/dL (83-110); Potassium 4.1 mmol/L (3.5-5.1); Protein, Total 6.9 g/dL (5.8-8.1); Sodium 134 mmol/L (136-145)
[2018-05-14 06:43] LABS: #Basophils 0.1 thou/uL (0.0-0.2); #Eosinphils 0.3 thou/uL (0.0-0.7); #Lymphocytes 1.6 thou/uL (1.20-3.40); #Monocytes 0.6 thou/uL (0.11-0.59); #Neutrophils 4.9 thou/uL (1.40-6.50); %Basophils 0.9 % (0.0-1.0); %Eosinophils 4.1 % (0.0-10.0); %Monocytes 8.5 % (0.0-10.0); %Neutrophils 65.4 % (42.0-75.0); Hemoglobin 13.2 g/dL (14.0-18.0); Mean Corpuscular HGB CONC 31.1 g/dL (32.0-36.0); Mean Corpuscular Hemoglobin 28.7 pg (27.0-31.0); Mean Corpuscular Volume 92.4 fL (78.0-98.0); Mean Platelet Volume 7.5 fL (7.4-10.4); Platelet Count 509 thou/uL (130-400); RBC Distribution Width 13.6 % (11.5-14.5); Red Blood Cell (RBC) Count 4.61 mill/uL (4.70-6.10); White Blood Cell (WBC) Count 7.5 thou/uL (4.8-10.8)
[2018-05-14] MEDS ORDERED: Sodium Chloride 0.9% 10 ML ONE (08:04)
[2018-05-14] MEDS: Insulin Glargine 30 UNITS in Pre-Filled Syringe 1 EACH SC SCH ×2 (08:26→21:08)
[2018-05-14] MEDS: HumaLOG 300 UNITS/3 ML VIAL SC PRN ×2 (08:27→11:37)
[2018-05-14] MEDS: Amiodarone 200 MG TAB PO SCH ×2 (08:28→21:10)
[2018-05-14] MEDS: Furosemide 40 MG TAB PO SCH (08:29)
[2018-05-14] MEDS: Gabapentin 300 MG CAP PO SCH ×3 (08:29→21:10)
[2018-05-14] MEDS: Digoxin 0.125 MG TAB PO SCH (08:29)
[2018-05-14] MEDS: clonazePAM 0.5 MG TAB PO SCH ×2 (08:29→21:09)
[2018-05-14] MEDS: Metoprolol Tartrate 50 MG TAB PO SCH ×2 (08:29→21:09)
--- NOTE | 2018-05-14 09:19 | PDOC.PN ---
- Subjective Encounter Start Date: 05/14/18 Encounter Start Time: 09:10 Subjective: f/u for A-fib RVR on Cardizem gtt now d/c'd and receiving Amiodarone -: Digoxin, Metoprolol and Xarelto. - Objective MAR Reviewed: Yes Vital Signs & Weight: Vital Signs (12 hours) Temp Pulse Resp BP Pulse Ox 05/14/18 08:29 84 05/14/18 08:24 98.5 F 89 17 120/72 92 L 05/14/18 05:05 97.6 F 68 17 123/68 92 L 05/14/18 00:00 74 139/72 Weight Weight 203 lb 1 oz I&O: 05/13/18 05/14/18 05/15/18 06:59 06:59 06:59 Intake Total 470 1060 Output Total 1375 1300 Balance -905 -240 Result Diagrams: 05/14/18 04:52 05/14/18 04:52 Additional Labs: Accuchecks 05/14/18 05/13/18 05/13/18 06:14 19:27 17:05 POC Glucose 251 H 242 H 161 H 05/13/18 14:08 POC Glucose 302 H Laboratory Tests 04/17/18 04/18/18 05/11/18 14:34 04:43 14:18 Troponin I Less than 0.010 Lipase 90 H 27 TSH 3rd Generation Digoxin 05/11/18 05/11/18 05/11/18 14:18 17:31 20:18 Troponin I 0.013 Less than 0.010 Lipase TSH 3rd Generation 3.4348 Digoxin 05/12/18 08:52 Troponin I Lipase TSH 3rd Generation Digoxin Less than 0.15 L EKG Reviewed by me: Yes (Tele - A-fib in 90-100's) Phys Exam - Physical Examination Constitutional: NAD HEENT: PERRLA, sclera anicteric, oral pharynx no lesions Neck: no nodes, no JVD, supple, full ROM basilar coarse sounds, few scattered wheezes S1, S2 Cardiovascular: no significant murmur, no rub, gallop, irregular Gastrointestinal: soft, non-tender, no distention, positive bowel sounds Musculoskeletal: no edema, pulses present Neurological: normal sensation, moves all 4 limbs Psychiatric: A&O x 3 Skin: normal turgor, cap refill <2 seconds Dx/Plan (1) Atrial fibrillation with RVR Code(s): I48.91 - UNSPECIFIED ATRIAL FIBRILLATION Status: Acute Comment: Cardizem gtt d/c'd, continue Amiodarone 400mg BID, Metoprolol 50mg BID and Digoxin 0.125mg daily (2) Chronic anticoagulation Code(s): Z79.01 - RESIDENTIAL (CURRENT) USE OF 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 Status: Chronic Comment: Continue on Xarelto (3) Diabetes mellitus Code(s): E11.9 - TYPE 2 DIABETES MELLITUS WITHOUT COMPLICATIONS Status: Chronic Qualifiers: Diabetes mellitus type: type 2 Comment: Labile, resume Insulin Glargine 30 bid, ISS, ADA (4) Tobacco abuse Code(s): Z72.0 - TOBACCO USE Status: Chronic Comment: tobacco cessation resources, Nicotine patch 21mg daily (5) Noncompliance with medication regimen Code(s): Z91.14 - PATIENT'S OTHER NONCOMPLIANCE WITH MEDICATION REGIMEN Status : Chronic Comment: Likely will benefit from supervised medical care, currently in Assisted living at [place] - Plan 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
[2018-05-14] MEDS: Nicotine 21 MG PATCH TD SCH (17:29)
[2018-05-14] MEDS: traZODone HCl 150 MG TAB PO SCH (21:09)
[2018-05-14] MEDS: Atorvastatin Calcium 40 MG TAB PO SCH (21:10)
[2018-05-14] MEDS: Rivaroxaban 10 MG TAB PO SCH (21:11)
[2018-05-15 05:49] LABS: Hemoglobin A1c 9.6 % (4.0-6.0)
[2018-05-15 06:01] LABS: Anion Gap 10 mmol/L (10-20); BUN (Urea Nitrogen) 20 mg/dL (8.4-25.7); Calc. Creatinine Clearance 75 mL/min (70-130); Calcium 8.8 mg/dL (7.8-10.44); Carbon Dioxide 29 mmol/L (23-31); Chloride 101 mmol/L (98-107); Estimated GFR-MDRD 62; Glucose 174 mg/dL (83-110); Potassium 4.1 mmol/L (3.5-5.1); Sodium 136 mmol/L (136-145)
[2018-05-15] MEDS: clonazePAM 0.5 MG TAB PO SCH ×2 (09:14→20:56)
[2018-05-15] MEDS: Amiodarone 200 MG TAB PO SCH ×2 (09:14→20:56)
[2018-05-15] MEDS: Metoprolol Tartrate 50 MG TAB PO SCH ×2 (09:15→20:55)
[2018-05-15] MEDS: Digoxin 0.125 MG TAB PO SCH (09:15)
[2018-05-15] MEDS: Furosemide 40 MG TAB PO SCH (09:15)
[2018-05-15] MEDS: Gabapentin 300 MG CAP PO SCH ×3 (09:15→20:56)
[2018-05-15] MEDS: Insulin Glargine 30 UNITS in Pre-Filled Syringe 1 EACH SC SCH ×2 (11:56→20:53)
--- NOTE | 2018-05-15 13:47 | CON ---
DATE OF CONSULTATION: 05/15/2018 REFERRING PHYSICIAN: Dr. Juan Carlos Freeman. I am seeing Mr. 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 Persistent atrial arrhythmias. A. Prior history of atrial flutter status post CTA ablation. B. History of transient amiodarone use before compliance, C. status post dual chamber pacemaker implantation in 03/2018 following a skin erosion of prior pacemaker implant. 2. Congestive heart failure, reduced left ventricular ejection fraction at 30- 35% in the past. A. Follow up 2D echo from 03/18/2018 shows ejection fraction 50-55%. 3. History of noncompliance. 4. History of a peripheral vascular disease with aortobifemoral bypass grafting , 5. History of left atrial appendage thrombus back in 06/2013. 6. History of chronic obstructive pulmonary disease. 7. History of gastroesophageal reflux disease. 8. History of hypercholesterolemia, Hypertension and Diabetes. ALLERGIES: ZARA INHIBITORS. MEDICATIONS: At home include amiodarone, aspirin, Lipitor, calcium carbonate, clonazepam, dextrose, digoxin, diphenhydramine, Lasix, gabapentin, glucagon, insulin, metoprolol tartrate 50 mg twice a day, nicotine patch, Xarelto 20 mg a day, sertraline, trazodone. SUBJECTIVE: Mr. Briceno is a very poor historians. He is here due to palpitations with associated chest pressure sensations. He denies fevers or chills, nausea or vomiting and he has not taken his medication for at least a week. Hence he ran out, but later when he got all of the medication he also has not restarted yet. Currently he is not majorly symptomatic. No PND, orthopnea, or lower extremity edema noted. No fever, chills, cough. No stroke-like symptoms. No bleeding issues noted. The rest of the 12 point review of systems otherwise unremarkable. PAST HISTORY: As above. He has also history of depression and suicidal ideation were noted at the last visit. SOCIAL HISTORY: Current smoker, occasional alcohol. Denies drug use. Lives in [facility]. FAMILY HISTORY: Negative per reports. OBJECTIVE: VITAL SIGNS: Blood pressure is 139/74, heart rate 97, respiration is 18, temperature 98.2 degrees Fahrenheit. GENERAL: This is an alert and oriented man in no apparent no distress. NECK: Supple. Jugular veins are distended. CHEST: Clear, without crackles. CARDIAC: Heart sounds are irregularly irregular. S1 and S2 variable. No murmur or gallop. Right prepectoral pacemaker insertion site is healing adequately. ABDOMEN: Benign. EXTREMITISE: Lower extremities without edema, clubbing or cyanosis. NEUROLOGIC: Nonfocal. DATABASE: The EKG was reviewed revealing atrial fibrillation with initially rapid ventricular rates, improving rate control during hospitalization noted with administration of medications. LABORATORY DATA: White count 7.5, hemoglobin 13.2, platelet count is 509. Sodium 136, potassium 4.1, BUN is 20, creatinine 1.16. Digoxin level was low at 0.15. IMPRESSION AND PLAN: Ms. Briceno is a pleasant 73-year-old man with prior history of atrial arrhythmias, prior CTI ablation about 5 years ago and now episodes of atrial fibrillation. He has very poor compliance of medications and his rates are poorly control while not taking his medications. He was discharged on amiodarone at home. There is suspicion that he has not been taking his medications. Now he is getting better controlled resuming his medications. Rate is reasonably controlled. TREATMENT OPTIONS: Could be continued rate control with digoxin, metoprolol, also back on the amiodarone medications. This could leave us an option of potential cardioversion, although likely better compliance with his medication regimen would be the safest. If he continues on amiodarone, tapering dosages of this medication will be necessary. Monitoring AST and ALT will be closely informed and avoidance of ETOH abuse also advised. Alternatively, as a last resort consideration for AV evelia ablation could be made, although at this point would avoid that. Pulmonary venous isolation procedure is a remote possibility only after we can be assured of compliance with medications. MTDD
--- NOTE | 2018-05-15 14:31 | PDOC.PN ---
- Subjective Encounter Start Date: 05/15/18 Encounter Start Time: 14:30 Subjective: f/u for A-fib RVR medically managed with Metoprolol, Digoxin and Amiodarone -: Feels ok overall. States the Nicotine patch helps a little. - Objective MAR Reviewed: Yes Vital Signs & Weight: Vital Signs (12 hours) Temp Pulse Resp BP Pulse Ox 05/15/18 12:03 98.2 F 84 18 115/74 95 05/15/18 09:15 97 05/15/18 07:42 98.2 F 97 18 113/74 95 05/15/18 04:43 97.8 F 99 18 114/73 92 L Weight Weight 200 lb 6.4 oz I&O: 05/14/18 05/15/18 05/16/18 06:59 06:59 06:59 Intake Total 1060 1440 Output Total 1300 1240 Balance -240 200 Result Diagrams: 05/14/18 04:52 05/15/18 05:20 Additional Labs: Accuchecks 05/15/18 05/15/18 05/14/18 11:02 06:14 20:46 POC Glucose 112 H 174 H 286 H 05/14/18 16:56 POC Glucose 88 EKG Reviewed by me: Yes (Tele - A-fib in 80's) Phys Exam - Physical Examination Constitutional: NAD HEENT: PERRLA, sclera anicteric, oral pharynx no lesions Neck: no nodes, no JVD, supple, full ROM occasional exp wheeze Respiratory: no rales, no rhonchi, clear to auscultation bilateral S1, S2 Cardiovascular: no significant murmur, no rub, gallop, irregular Gastrointestinal: soft, non-tender, no distention, positive bowel sounds Musculoskeletal: no edema, pulses present Neurological: normal sensation, moves all 4 limbs Psychiatric: A&O x 3 Skin: no rash, normal turgor, cap refill <2 seconds Dx/Plan (1) Atrial fibrillation with RVR Code(s): I48.91 - UNSPECIFIED ATRIAL FIBRILLATION Status: Acute Comment: Cardizem gtt d/c'd, continue Amiodarone 400mg BID, Metoprolol 50mg BID and Digoxin 0.125mg daily, Amiodarone tapering over the next month, no current plan for ablation due hx of non-compliance (2) Chronic anticoagulation Code(s): Z79.01 - GROUP HOME (CURRENT) USE OF 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 Status: Chronic Comment: Continue on Xarelto (3) Diabetes mellitus Code(s): E11.9 - TYPE 2 DIABETES MELLITUS WITHOUT COMPLICATIONS Status: Chronic Qualifiers: Diabetes mellitus type: type 2 Comment: Labile, resume Insulin Glargine 30 bid, ISS, ADA (4) Tobacco abuse Code(s): Z72.0 - TOBACCO USE Status: Chronic Comment: tobacco cessation resources, Nicotine patch 21mg daily (5) Noncompliance with medication regimen Code(s): Z91.14 - PATIENT'S OTHER NONCOMPLIANCE WITH MEDICATION REGIMEN Status : Chronic Comment: Likely will benefit from supervised medical care, currently in Assisted living at [place] - Plan 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
[2018-05-15] MEDS: Nicotine 21 MG PATCH TD SCH (17:04)
[2018-05-15] MEDS: Atorvastatin Calcium 40 MG TAB PO SCH (20:55)
[2018-05-15] MEDS: traZODone HCl 150 MG TAB PO SCH (20:55)
[2018-05-15] MEDS: Rivaroxaban 10 MG TAB PO SCH (20:56)
[2018-05-16] MEDS ORDERED: Sodium Chloride 0.9% 10 ML ONE (08:26)
[2018-05-16] MEDS: Metoprolol Tartrate 50 MG TAB PO SCH ×2 (09:05→21:30)
[2018-05-16] MEDS: clonazePAM 0.5 MG TAB PO SCH ×2 (09:05→21:30)
[2018-05-16] MEDS: Amiodarone 200 MG TAB PO SCH ×2 (09:05→21:30)
[2018-05-16] MEDS: Digoxin 0.125 MG TAB PO SCH (09:05)
[2018-05-16] MEDS: Furosemide 40 MG TAB PO SCH (09:06)
[2018-05-16] MEDS: Gabapentin 300 MG CAP PO SCH ×3 (09:06→21:30)
[2018-05-16] MEDS: Insulin Glargine 30 UNITS in Pre-Filled Syringe 1 EACH SC SCH ×2 (09:06→21:31)
[2018-05-16] MEDS: HumaLOG 300 UNITS/3 ML VIAL SC PRN (12:16)
--- NOTE | 2018-05-16 13:43 | PDOC.CTH ---
Cardiology Progress Note - Subjective EP progress note: Patient feels well today. No new cardiac issues overnight. Converted to SR. Denies heart racing, palpitations, chest pain/pressure, dizziness, or passing out. - Objective Vital Signs Temp Pulse Resp BP Pulse Ox 05/16/18 12:05 97.9 F 60 18 128/68 95 05/16/18 09:05 68 05/16/18 07:39 98.2 F 63 18 146/69 H 95 05/16/18 04:00 97.3 F L 61 18 113/57 L 93 L Weight 200 lb 8 oz 05/15/18 05/16/18 05/17/18 06:59 06:59 06:59 Intake Total 1440 318 Output Total 1240 250 Balance 200 68 - Physical Examination General/Neuro: alert & oriented x3 (poor historian), NAD Neck: carotid US brisk, no JVD present Lungs: CTA, unlabored respirations Heart: PMI normal, RRR Abdomen: NT/ND, soft Other PE findings: right sided PPM implant site well healed - Telemetry Telemetry Rhythm: SR - Labs Result Diagrams: 05/14/18 04:52 05/15/18 05:20 Troponin/CKMB CK-MB (CK-2) 1.4 ng/mL (0-6.6) 05/11/18 14:18 Troponin I Less than 0.010 ng/mL (< 0.028) 05/11/18 20:18 - Assessment/Plan 1. Persistent atrial fibrillation - medical noncomplaince. Reloaded on Amiodarone. Converted to SR over HS. 2. Dual chamber PPM - pending device check later today 3. Medical noncompliance 4. Alcohol abuse, questionable. - avoid alcohol while on OAC and Amiodarone. 5. Elevated CHADS2-VASC - Continue Xarelto for CVA prophylaxis Continue metoprolol and amiodarone taper. Recommend Amiodarone 200mg BID upon discharge x 2 weeks then 200mg daily thereafter.
--- NOTE | 2018-05-16 16:01 | PDOC.PN ---
- Subjective Encounter Start Date: 05/16/18 Encounter Start Time: 11:10 No complaints. Feels ok. Eating well. - Objective Vital Signs & Weight: Vital Signs (12 hours) Temp Pulse Resp BP Pulse Ox 05/16/18 12:05 97.9 F 60 18 128/68 95 05/16/18 09:05 68 05/16/18 07:39 98.2 F 63 18 146/69 H 95 05/16/18 04:00 97.3 F L 61 18 113/57 L 93 L Weight Weight 200 lb 8 oz I&O: 05/15/18 05/16/18 05/17/18 06:59 06:59 06:59 Intake Total 1440 318 Output Total 1240 250 Balance 200 68 Result Diagrams: 05/14/18 04:52 05/15/18 05:20 Additional Labs: Accuchecks 05/16/18 05/16/18 05/15/18 11:43 06:30 20:19 POC Glucose 184 H 132 H 206 H 05/15/18 16:40 POC Glucose 180 H Phys Exam - Physical Examination Constitutional: NAD Respiratory: no wheezing, no rales, no rhonchi, clear to auscultation bilateral Diminished Cardiovascular: RRR, no significant murmur, no rub Gastrointestinal: soft, non-tender, no distention, positive bowel sounds Large ventral hernia Musculoskeletal: no edema Psychiatric: normal affect Dx/Plan (1) Atrial fibrillation with RVR Code(s): I48.91 - UNSPECIFIED ATRIAL FIBRILLATION Status: Acute Comment: Cardizem gtt d/c'd, continue Amiodarone 400mg BID, Metoprolol 50mg BID and Digoxin 0.125mg daily, Amiodarone tapering over the next month, no current plan for ablation due hx of non-compliance (2) Noncompliance with medication regimen Code(s): Z91.14 - PATIENT'S OTHER NONCOMPLIANCE WITH MEDICATION REGIMEN Status : Chronic Comment: Likely will benefit from supervised medical care, currently in Assisted living at [place] (3) Chronic systolic (congestive) heart failure Code(s): I50.22 - CHRONIC SYSTOLIC (CONGESTIVE) HEART FAILURE Status: Acute Comment: Likely Diastolic HF, contributing to Afib. Will continue with lasix, cannot USe for Allergy. (4) COPD (chronic obstructive pulmonary disease) Status: Chronic Comment: stable, Continue on Nebs. (5) Diabetes mellitus Code(s): E11.9 - TYPE 2 DIABETES MELLITUS WITHOUT COMPLICATIONS Status: Chronic Qualifiers: Diabetes mellitus type: type 2 Comment: Labile, resume Insulin Glargine 30 bid, ISS, ADA (6) Dyslipidemia Code(s): E78.5 - HYPERLIPIDEMIA, UNSPECIFIED Status: Chronic (7) HTN (hypertension) Code(s): I10 - ESSENTIAL (PRIMARY) HYPERTENSION Status: Chronic Qualifiers: Hypertension type: essential hypertension Qualified Code(s): I10 - Essential (primary) hypertension Comment: controlled - Plan * Reloaded with amio. Converted to NSR. Continue with the amio. Cards following. Looks like he will do well if he stays on meds, but that has presented a challenge. Working placement. He needs to additional help for the generalized weakness and deconditioning. Cori consult PT/OT.
[2018-05-16] MEDS: Nicotine 21 MG PATCH TD SCH (16:27)
[2018-05-16] MEDS: Rivaroxaban 10 MG TAB PO SCH (21:29)
[2018-05-16] MEDS: Atorvastatin Calcium 40 MG TAB PO SCH (21:30)
[2018-05-16] MEDS: traZODone HCl 150 MG TAB PO SCH (21:30)
[2018-05-17] MEDS: Amiodarone 200 MG TAB PO SCH ×2 (09:23→21:46)
[2018-05-17] MEDS: Insulin Glargine 30 UNITS in Pre-Filled Syringe 1 EACH SC SCH ×2 (09:23→21:47)
[2018-05-17] MEDS: Digoxin 0.125 MG TAB PO SCH (09:24)
[2018-05-17] MEDS: Gabapentin 300 MG CAP PO SCH ×3 (09:24→21:47)
[2018-05-17] MEDS: Furosemide 40 MG TAB PO SCH (09:24)
[2018-05-17] MEDS: Metoprolol Tartrate 50 MG TAB PO SCH ×2 (09:24→21:47)
[2018-05-17] MEDS: clonazePAM 0.5 MG TAB PO SCH ×2 (09:26→21:47)
[2018-05-17] MEDS: HumaLOG 300 UNITS/3 ML VIAL SC PRN (12:36)
--- NOTE | 2018-05-17 16:14 | PDOC.CTH ---
Cardiology Progress Note - Subjective EP progress note: Patient seen and evaluated. No new cardiac concerns or complaints today. Denies heart racing, palpitations, chest pain/pressure, dizziness, or passing out. No stroke like symptoms. - Objective Vital Signs Temp Pulse Pulse Pulse Resp BP BP 05/17/18 15:51 98 F 60 18 05/17/18 12:05 97.6 F 81 18 05/17/18 11:32 60 81 138/60 148/77 H 05/17/18 09:24 76 05/17/18 08:12 61 77 131/61 130/63 05/17/18 07:50 05/17/18 07:48 99 F 76 18 BP BP Pulse Ox Pulse Ox 05/17/18 15:51 154/80 H 94 L 05/17/18 12:05 148/77 H 96 05/17/18 11:32 05/17/18 09:24 05/17/18 08:12 92 L 05/17/18 07:50 96 05/17/18 07:48 128/62 96 Weight 197 lb 05/16/18 05/17/18 05/18/18 06:59 06:59 06:59 Intake Total 318 1980 Output Total 250 2500 Balance 68 -520 - Physical Examination General/Neuro: alert & oriented x3, NAD Neck: carotid US brisk, no JVD present Lungs: CTA, unlabored respirations Heart: PMI normal, RRR Abdomen: NT/ND, soft - Telemetry Telemetry Rhythm: SR - Labs Result Diagrams: 05/14/18 04:52 05/15/18 05:20 Troponin/CKMB CK-MB (CK-2) 1.4 ng/mL (0-6.6) 05/11/18 14:18 Troponin I Less than 0.010 ng/mL (< 0.028) 05/11/18 20:18 - Assessment/Plan 1. Persistent atrial fibrillation - medical noncomplaince. Reloaded on Amiodarone. In SR since yesterday. - stable device check 3. Medical noncompliance 4. Alcohol abuse, questionable. - avoid alcohol while on OAC and Amiodarone. 5. Elevated CHADS2-VASC - Continue Xarelto for CVA prophylaxis Continue metoprolol and amiodarone taper. Recommend Amiodarone 200mg BID upon discharge x 2 weeks then 200mg daily thereafter.
--- NOTE | 2018-05-17 16:14 | PDOC.PN ---
- Subjective Encounter Start Date: 05/17/18 Encounter Start Time: 14:00 Doing well. No complaints. - Objective Vital Signs & Weight: Vital Signs (12 hours) Temp Pulse Pulse Pulse Resp BP BP 05/17/18 15:51 98 F 60 18 05/17/18 12:05 97.6 F 81 18 05/17/18 11:32 60 81 138/60 148/77 H 05/17/18 09:24 76 05/17/18 08:12 61 77 131/61 130/63 05/17/18 07:50 05/17/18 07:48 99 F 76 18 BP BP Pulse Ox Pulse Ox 05/17/18 15:51 154/80 H 94 L 05/17/18 12:05 148/77 H 96 05/17/18 11:32 05/17/18 09:24 05/17/18 08:12 92 L 05/17/18 07:50 96 05/17/18 07:48 128/62 96 Weight Weight 197 lb I&O: 05/16/18 05/17/18 05/18/18 06:59 06:59 06:59 Intake Total 318 1980 Output Total 250 2500 Balance 68 -520 Result Diagrams: 05/14/18 04:52 05/15/18 05:20 Additional Labs: Accuchecks 05/17/18 05/17/18 05/16/18 10:57 05:35 20:44 POC Glucose 290 H 272 H 128 H 05/16/18 17:21 POC Glucose 97 Phys Exam - Physical Examination Constitutional: NAD Respiratory: no wheezing, no rales, no rhonchi, clear to auscultation bilateral Cardiovascular: RRR Gastrointestinal: soft, non-tender Large ventral hernia Musculoskeletal: no edema Dx/Plan (1) Atrial fibrillation with RVR Code(s): I48.91 - UNSPECIFIED ATRIAL FIBRILLATION Status: Acute Comment: Cardizem gtt d/c'd, continue Amiodarone 400mg BID, Metoprolol 50mg BID and Digoxin 0.125mg daily, Amiodarone tapering over the next month, no current plan for ablation due hx of non-compliance (2) Noncompliance with medication regimen Code(s): Z91.14 - PATIENT'S OTHER NONCOMPLIANCE WITH MEDICATION REGIMEN Status : Chronic Comment: Likely will benefit from supervised medical care, currently in Assisted living at [facility] (3) Chronic systolic (congestive) heart failure Code(s): I50.22 - CHRONIC SYSTOLIC (CONGESTIVE) HEART FAILURE Status: Acute Comment: Likely Diastolic HF, contributing to Afib. Will continue with lasix, cannot USe for Allergy. (4) COPD (chronic obstructive pulmonary disease) Status: Chronic Comment: stable, Continue on Nebs. (5) Diabetes mellitus Code(s): E11.9 - TYPE 2 DIABETES MELLITUS WITHOUT COMPLICATIONS Status: Chronic Qualifiers: Diabetes mellitus type: type 2 Comment: Labile, resume Insulin Glargine 30 bid, ISS, ADA (6) Dyslipidemia Code(s): E78.5 - HYPERLIPIDEMIA, UNSPECIFIED Status: Chronic (7) HTN (hypertension) Code(s): I10 - ESSENTIAL (PRIMARY) HYPERTENSION Status: Chronic Qualifiers: Hypertension type: essential hypertension Qualified Code(s): I10 - Essential (primary) hypertension Comment: controlled - Plan * Still waiting on placement. Continue current plan.
[2018-05-17] MEDS: Nicotine 21 MG PATCH TD SCH (17:05)
[2018-05-17] MEDS: Atorvastatin Calcium 40 MG TAB PO SCH (21:47)
[2018-05-17] MEDS: Rivaroxaban 10 MG TAB PO SCH (21:47)
[2018-05-17] MEDS: traZODone HCl 150 MG TAB PO SCH (21:48)
[2018-05-18 05:59] LABS: Hemoglobin 13.2 g/dL (14.0-18.0); Platelet Count 429 thou/uL (130-400)
[2018-05-18] MEDS: Amiodarone 200 MG TAB PO SCH (09:40)
[2018-05-18] MEDS: Furosemide 40 MG TAB PO SCH (09:41)
[2018-05-18] MEDS: Insulin Glargine 30 UNITS in Pre-Filled Syringe 1 EACH SC SCH (09:41)
[2018-05-18] MEDS: Metoprolol Tartrate 50 MG TAB PO SCH (09:41)
[2018-05-18] MEDS: Gabapentin 300 MG CAP PO SCH ×2 (09:41→15:11)
[2018-05-18] MEDS: Digoxin 0.125 MG TAB PO SCH (09:41)
[2018-05-18] MEDS: clonazePAM 0.5 MG TAB PO SCH (09:41)
[2018-05-18] MEDS: HumaLOG 300 UNITS/3 ML VIAL SC PRN (11:17)
--- NOTE | 2018-05-18 14:46 | PDOC.CTH ---
Cardiology Progress Note - Subjective EP progress note: Patient seen and evaluated. No new cardiac concerns or complaints today. Denies heart racing, palpitations, chest pain/pressure, dizziness, or passing out. No stroke like symptoms. - Objective Vital Signs Temp Pulse Resp BP BP Pulse Ox 05/18/18 11:59 98.8 F 60 14 132/75 94 L 05/18/18 09:41 63 05/18/18 07:12 97.5 F L 63 18 123/60 92 L 05/18/18 07:10 92 L 05/18/18 04:00 97.5 F L 60 16 129/73 92 L Weight 200 lb 05/17/18 05/18/18 05/19/18 06:59 06:59 06:59 Intake Total 1980 840 Output Total 2500 1800 Balance -520 -960 - Physical Examination General/Neuro: alert & oriented x3, NAD Neck: carotid US brisk, no JVD present Lungs: CTA, unlabored respirations Heart: PMI normal, RRR Abdomen: NT/ND, soft - Telemetry Telemetry Rhythm: SR - Labs Result Diagrams: 05/18/18 05:16 05/18/18 05:16 Troponin/CKMB CK-MB (CK-2) 1.4 ng/mL (0-6.6) 05/11/18 14:18 Troponin I Less than 0.010 ng/mL (< 0.028) 05/11/18 20:18 - Assessment/Plan 1. Persistent atrial fibrillation - medical noncomplaince. Reloaded on Amiodarone. In Sinus rhythm. - stable device check 3. Medical noncompliance 4. Alcohol abuse, questionable. - avoid alcohol while on OAC and Amiodarone. 5. Elevated CHADS2-VASC - Continue Xarelto for CVA prophylaxis Continue current EP treatment plan with metoprolol and amiodarone. Recommend Amiodarone 200mg BID upon discharge x 2 weeks then 200mg daily thereafter.
[2018-05-18] MEDS: Nicotine 21 MG PATCH TD SCH (17:00)
[2018-05-18 17:52] VITALS: BP 144/73; TEMP 98
--- NOTE | 2018-05-19 14:38 | DIS ---
DATE OF ADMISSION: 05/12/2018 DATE OF DISCHARGE: 05/18/2018 DISCHARGE DIAGNOSES: 1. Atrial fibrillation. 2. History of alcohol abuse. 3. Possible medical noncompliance. 4. Chronic systolic heart failure. 5. Chronic obstructive pulmonary disease. 6. Diabetes mellitus. 7. Dyslipidemia. 8. Hypertension. HOSPITAL COURSE: This patient is a 73-year-old male who presented via the Emergency Department. He was reporting palpitations and rapid heart rate. The patient was found to be in atrial fibrillation with a rapid ventricular response. He was started on a Cardizem drip and admitted to the hospital. The patient had improvement in his heart rate. It was felt that the patient was likely having some i ssues maintaining his medication regimen as had been previously prescribed. The patient was reloaded with amiodarone and subsequently had improvement in his rate control and rhythm. It was felt that t he patient would benefit from going to a facility where he can get additional help with his medicatio ns. This process was initiated and ultimately a long-term facility accepted the patient. Nitin rocha, at the time of discharge, the patient refused to go anywhere, but back to his apartment. I had a long conversation with him regarding his medications and the concerns about his utilization of the medications properly. The patient reassured me that he would be compliant with his medications. He was oriented and appeared to adequately understand the situation; therefore within his prerogative to decide where he went for his disposition. PHYSICAL EXAMINATION: VITAL SIGNS: On the day of discharge, temperature was 98, pulse 77, respirations 18, O2 saturation 9 8% on room air, BP was 144/73. HEART: Regular without murmurs. LUNGS: Had some scattered fine rales, but otherwise fair air exchange. ABDOMEN: Soft, nontender, nondistended. Positive bowel sounds. No masses, no organomegaly. EXTREMITIES: Warm and dry with trace edema. DISPOSITION: The patient is discharged to home. DISCHARGE INSTRUCTIONS: He will be on a heart healthy diet. His activity is as tolerated. He will be on amiodarone 300 mg b.i.d. for 2 weeks and then drop back to 200 mg every day, digoxin 0.125 ever y day. He will continue aspirin, Klonopin, Neurontin, Lopressor, Lantus, Zoloft, Lipitor, potassium, Lasix, trazodone, and Xarelto. He is to follow up with Dr. Franklyn Desouza in [address] Freeman in 2-3 weeks. He can return to the Emergency Department should he have any problems prior to that ti .
== END 2018-05-18 19:19 | disposition home or self-care (01) | DRG 309 ==
LOC: ERS 14:01 → 2SW 17:00 → OBSVTOIN 05-12 09:58 → 2NO 05-13 10:36
PROVIDERS: ADMIT Internal Medicine; ATTEND Internal Medicine
DX: I48.1 Persistent atrial fibrillation (principal); I50.32 Chronic diastolic (congestive) heart failure; E87.1 Hypo-osmolality and hyponatremia; E11.9 Type 2 diabetes mellitus without complications; I11.0 Hypertensive heart disease with heart failure; Z95.0 Presence of cardiac pacemaker; J44.9 Chronic obstructive pulmonary disease, unspecified; G47.33 Obstructive sleep apnea (adult) (pediatric); F41.9 Anxiety disorder, unspecified; F32.9 Major depressive disorder, single episode, unspecified; Z91.5 Personal history of self-harm; F17.210 Nicotine dependence, cigarettes, uncomplicated; Z88.8 Allergy status to other drugs, medicaments and biological substances; Z79.899 Other long term (current) drug therapy; Z79.4 Long term (current) use of insulin; Z91.14 Patient's other noncompliance with medication regimen; K21.9 Gastro-esophageal reflux disease without esophagitis; Z79.82 Long term (current) use of aspirin; Z79.01 Long term (current) use of anticoagulants; E78.5 Hyperlipidemia, unspecified; E66.9 Obesity, unspecified; F10.10 Alcohol abuse, uncomplicated; E86.0 Dehydration; Z68.28 Body mass index [BMI] 28.0-28.9, adult
CPT/HCPCS: 36415; 36416; 71045; 80048; 80053; 80162; 81003; 81015; 82553; 82565; 83036; 84443; 84484; 85014; 85018; 85025; 85049; 90471; 90662; 93005; 96365; 96366; 96376; G0008; G8978-GP-CK; G8979-GP-CJ; G8987-GO-CI; G8988-GO-CI; G8989-GO-CI; J1160; J7050

== ENCOUNTER 2018-05-22 10:46 | Inpatient (IN) | payer MEDICARE, MEDICAID ==
[2018-05-22 11:31] LABS: #Basophils 0.1 thou/uL (0.0-0.2); #Lymphocytes 1.4 thou/uL (1.20-3.40); #Monocytes 0.6 thou/uL (0.11-0.59); #Neutrophils 6.5 thou/uL (1.40-6.50); %Basophils 0.9 % (0.0-1.0); %Eosinophils 0.2 % (0.0-10.0); %Lymphocytes 16.8 % (21.0-51.0); %Monocytes 6.8 % (0.0-10.0); %Neutrophils 75.4 % (42.0-75.0); Hemoglobin 15.1 g/dL (14.0-18.0); Mean Corpuscular HGB CONC 31.7 g/dL (32.0-36.0); Mean Corpuscular Hemoglobin 28.3 pg (27.0-31.0); Mean Corpuscular Volume 89.5 fL (78.0-98.0); Mean Platelet Volume 8.3 fL (7.4-10.4); Platelet Count 317 thou/uL (130-400); RBC Distribution Width 13.5 % (11.5-14.5); Red Blood Cell (RBC) Count 5.32 mill/uL (4.70-6.10); White Blood Cell (WBC) Count 8.6 thou/uL (4.8-10.8)
[2018-05-22 11:54] LABS: ALT (SGPT) 18 U/L (8-55); AST (SGOT) 16 U/L (5-34); Acetaminophen Less than 6.0 mcg/mL (10.0-30.0); Albumin 3.5 g/dL (3.4-4.8); Alcohol Less than 10 mg/dL (Less than 10); Alkaline Phosphatase 153 U/L (40-150); Anion Gap 13 mmol/L (10-20); BUN (Urea Nitrogen) 20 mg/dL (8.4-25.7); Bilirubin, Total 0.3 mg/dL (0.2-1.2); Calc. Creatinine Clearance 0 mL/min (70-130); Calcium 9.6 mg/dL (7.8-10.44); Carbon Dioxide 24 mmol/L (23-31); Chloride 104 mmol/L (98-107); Estimated GFR-MDRD 70; Globulin 4.2 g/dL (2.4-3.5); Glucose 172 mg/dL (83-110); Protein, Total 7.7 g/dL (5.8-8.1); Salicylate Less than 8.0 mg/dL (15.0-30.0); Sodium 137 mmol/L (136-145)
[2018-05-22 12:15] LABS: Bilirubin Small (Negative); Blood, Urine Negative (Negative); Clarity CLEAR (Clear); Glucose, Urine (Dipstick) >=1000 mg/dL (Negative); Leukocyte Negative (Negative); Nitrite Negative (Negative); Protein, Urine (Dipstick) 100 mg/dL (Neg-Trace); Specific Gravity, Urine 1.035 (1.002-1.036)
[2018-05-22 12:18] LABS: Bacteria/HPF None Seen HPF (None Seen); Hyaline Casts/LPF 0-3 HYALINE CAST LPF (0-3 Hyaline); Pathc Cast-AUWi Flag 0.29 (0-2.49); RBC/HPF 0-3 HPF (0-3); Squamous Epithelial None Seen HPF (0-3); WBC/HPF None Seen HPF (0-3)
[2018-05-22] MEDS ORDERED: Amiodarone 200 MG TAB PO SCH (22:30)
[2018-05-22] MEDS ORDERED: Atorvastatin Calcium 40 MG TAB PO SCH (22:30)
[2018-05-22] MEDS ORDERED: Metoprolol Tartrate 50 MG TAB PO SCH (22:45)
[2018-05-22] MEDS ORDERED: Rivaroxaban 10 MG TAB PO SCH (22:45)
[2018-05-22] MEDS ORDERED: Gabapentin 300 MG CAP PO SCH (22:45)
[2018-05-22] MEDS ORDERED: metFORMIN 500 MG TAB PO SCH (22:45)
[2018-05-22] MEDS ORDERED: Insulin Glargine 30 UNITS in Pre-Filled Syringe 1 EACH SC SCH (22:45)
[2018-05-22 22:48] LABS: Digoxin 0.22 ng/mL (0.8-2.0)
[2018-05-23] MEDS ORDERED: metFORMIN 500 MG TAB PO SCH (08:00)
[2018-05-23] MEDS ORDERED: Metoprolol Tartrate 50 MG TAB PO SCH (09:00)
[2018-05-23] MEDS ORDERED: Gabapentin 300 MG CAP PO SCH (09:00)
[2018-05-23] MEDS ORDERED: Amiodarone 200 MG TAB PO SCH (09:00)
[2018-05-23] MEDS ORDERED: Insulin Glargine 30 UNITS in Pre-Filled Syringe 1 EACH SC SCH (09:00)
[2018-05-23] MEDS ORDERED: Furosemide 40 MG TAB PO SCH (09:00)
[2018-05-23] MEDS ORDERED: Rivaroxaban 10 MG TAB PO SCH (21:00)
[2018-05-23] MEDS ORDERED: Atorvastatin Calcium 40 MG TAB PO SCH (21:00)
== END 2018-05-23 01:32 | DRG 918 ==
LOC: ERS 10:46 → ERHOLD 13:51
PROVIDERS: ADMIT Internal Medicine; ATTEND Internal Medicine
DX: T38.3X2A Poisoning by insulin and oral hypoglycemic [antidiabetic] drugs, intentional self-harm, initial encounter (principal); F32.9 Major depressive disorder, single episode, unspecified; E11.9 Type 2 diabetes mellitus without complications; F17.210 Nicotine dependence, cigarettes, uncomplicated; I48.91 Unspecified atrial fibrillation; J44.9 Chronic obstructive pulmonary disease, unspecified; Z79.4 Long term (current) use of insulin; Z79.01 Long term (current) use of anticoagulants; Z79.82 Long term (current) use of aspirin; Z79.899 Other long term (current) drug therapy; Z95.0 Presence of cardiac pacemaker
CPT/HCPCS: 36415; 36416; 80053; 80162; 80307; 81003; 81015; 84443; 85025; 93005; 96360; 96361

== ENCOUNTER 2018-10-06 02:49 | Inpatient (IN) | payer MEDICARE, MEDICAID ==
[2018-10-06 03:24] LABS: #Basophils 0.1 thou/uL (0.0-0.2); #Eosinphils 0.2 thou/uL (0.0-0.7); #Monocytes 0.7 thou/uL (0.11-0.59); #Neutrophils 5.7 thou/uL (1.40-6.50); %Eosinophils 2.4 % (0.0-10.0); %Lymphocytes 22.9 % (21.0-51.0); %Monocytes 8.1 % (0.0-10.0); %Neutrophils 65.6 % (42.0-75.0); Hemoglobin 8.2 g/dL (14.0-18.0); Mean Corpuscular HGB CONC 32.9 g/dL (32.0-36.0); Mean Corpuscular Hemoglobin 30.5 pg (27.0-31.0); Mean Corpuscular Volume 92.9 fL (78.0-98.0); Mean Platelet Volume 7.9 fL (7.4-10.4); Platelet Count 336 thou/uL (130-400); RBC Distribution Width 13.7 % (11.5-14.5); Red Blood Cell (RBC) Count 2.69 mill/uL (4.70-6.10); White Blood Cell (WBC) Count 8.7 thou/uL (4.8-10.8)
[2018-10-06 03:36] LABS: ALT (SGPT) 16 U/L (8-55); AST (SGOT) 13 U/L (5-34); Albumin 3.9 g/dL (3.4-4.8); Alkaline Phosphatase 83 U/L (40-150); Anion Gap 14 mmol/L (10-20); BUN (Urea Nitrogen) 28 mg/dL (8.4-25.7); Bilirubin, Total 0.3 mg/dL (0.2-1.2); CK (CPK) 48 U/L (30-200); Calc. Creatinine Clearance 0 mL/min (70-130); Calcium 9.1 mg/dL (7.8-10.44); Carbon Dioxide 28 mmol/L (23-31); Chloride 102 mmol/L (98-107); Estimated GFR-MDRD Greater than 90; Globulin 3.3 g/dL (2.4-3.5); Glucose 170 mg/dL (83-110); Lipase 161 U/L (8-78); Protein, Total 7.2 g/dL (5.8-8.1); Sodium 140 mmol/L (136-145)
[2018-10-06 03:42] LABS: Digoxin 0.51 ng/mL (0.8-2.0)
[2018-10-06] MEDS ORDERED: Aspirin Chewable 81 MG TAB ONE (04:50)
[2018-10-06 07:19] LABS: Troponin I 0.018 ng/mL (< 0.028)
--- NOTE | 2018-10-06 08:05 | RAD ---
FRadiograph chest one view: 10/06/2018 3:15 AM HISTORY: 73 year old male with chest pain FINDINGS: Hyperinflation consistent with COPD. No cardiomegaly. Right subclavian pacemaker. Blunting and mild e levation of left lateral costophrenic angle, favored to represent pleural thickening rather than smal l pleural effusion. No consolidation. No pneumothorax. Tiny metallic fragments overlie the left upper and midlung field. IMPRESSION: 1. Probable left lateral basilar pleural thickening rather than small left pleural effusion. 2. Adjacent mild left basilar pulmonary scarring. 3. Emphysema. 4. Pacemaker. 5. No definite acute findings.
[2018-10-06 10:01] LABS: Troponin I 0.026 ng/mL (< 0.028)
[2018-10-06] MEDS ORDERED: Guaifenesin DM 100-10/5 ML UDCUP PO PRN (10:47)
[2018-10-06] MEDS ORDERED: Zolpidem Tartrate 5 MG TAB PO PRN (10:47)
[2018-10-06] MEDS ORDERED: Acetaminophen 325 MG TAB PO PRN (10:47)
[2018-10-06] MEDS ORDERED: Ondansetron PF 4 MG/2 ML Vial IVP PRN (10:47)
[2018-10-06] MEDS ORDERED: Dextrose 5% in Water 1,000 ML IV PRN (10:52)
[2018-10-06] MEDS ORDERED: Dextrose 50% Abboject 50 ML SYRINGE SLOW IVP PRN (10:52)
[2018-10-06] MEDS ORDERED: HumaLOG 300 UNITS/3 ML VIAL SC PRN (10:52)
[2018-10-06 11:50] LABS: Hemoglobin A1c 5.5 % (4.0-6.0)
[2018-10-06 13:27] LABS: Troponin I 0.035 ng/mL (< 0.028)
[2018-10-06] MEDS: Gabapentin 300 MG CAP PO SCH ×2 (15:25→22:11)
--- NOTE | 2018-10-06 15:51 | HP ---
CHIEF COMPLAINT: Chest pain. HISTORY OF PRESENT ILLNESS: This is a 73-year-old male with a past medical history of diabetes, neuropathy, history of paroxysmal atrial fibrillation, presenting to the hospital with substernal chest pain. The patient states that the pain started randomly. No pain pattern noted. The patient stated that he has been admitted in the past due to coronary artery disease and chest pain. However, states that he does not have any history of stenting or heart attack. The patient states that he had some discomfort lasting a few minutes and decided to bring it up to medical attention. No alleviating or aggravating factors noted. The pain is pressure-like in length and substernal in nature. Of note, the patient was found to have first set of troponins which were negative. ALLERGIES: NO KNOWN DRUG ALLERGIES. PAST MEDICAL HISTORY: Positive for diabetes mellitus type 2; atrial fibrillation, paroxysmal; hyperlipidemia; anxiety as well as heart failure; and CKD stage 3. FAMILY HISTORY: Unknown. SOCIAL HISTORY: Social drinker. Nonsmoker. HOME MEDICATIONS: See MAR. REVIEW OF SYSTEMS: All systems reviewed and pertinent positives in HPI, otherwise negative. PHYSICAL EXAMINATION: VITAL SIGNS: Blood pressure is 120/88, heart rate of 89, O2 saturation is 98%, and temperature of 98. GENERAL: The patient is lying in bed. No acute discomfort. enforcement officer at bedside. The patient shackled to the bed. HEENT: Pupils are equal, round, and reactive to light and accommodation. Extraocular muscles intact. Oral cavity moist and pink. NECK: Supple, mobile, and nontender. Thyroid appreciated. PULMONARY: Reveals clear to auscultation bilaterally. No respiratory distress. CARDIOVASCULAR: Reveals S1 and S2. No murmurs, rubs, or gallops appreciated. ABDOMEN: Positive bowel sounds. Soft, nontender, rotund. EXTREMITIES: 1+ pitting edema in bilateral lower extremities. No cyanosis or clubbing noted. NEUROLOGIC: Cranial nerves 2 through 12 intact. No loss of motor or sensory function. DIAGNOSTIC DATA: Laboratory-yanez; CBC and BMP reviewed. ASSESSMENT: 1. Chest discomfort. 2. Anemia. 3. Chronic kidney disease, stage 3. 4. Hypertension. 5. Paroxysmal atrial fibrillation. 6. Coronary artery disease. 7. Hyperlipidemia. PLAN: 1. At this point in time, I will admit the patient to Internal Medicine Team. 2. We will consult Cardiology. 3. Continue with his home medications. 4. We will hold anticoagulation for now given low hemoglobin. We will await cardiac input before continuing anticoagulation. The patient had an echo in early 2018, which was a difficult study due to body habitus. We will repeat an echocardiogram. The patient wishes to remain full code. 5. We will do insulin for his diabetes mellitus. We will check A1c. Trend enzymes for the next 24 hours. If the patient is stable for the next 24 hours and cleared by Cardiology, we will probably discharge the patient in the morning. Case and plan discussed with the patient at length. He understood and agreed with this plan. Job ID: [id number]
[2018-10-06 16:39] VITALS: BMI 27.1
--- NOTE | 2018-10-06 18:14 | CON ---
DATE OF CONSULTATION: 10/06/2018 REASON FOR CONSULTATION: Chest pain. HISTORY OF PRESENT ILLNESS: Mr. Briceno is a 73-year-old gentleman, who is a patient of Dr. Juan Carlos Freeman. He has previous history of sick sinus syndrome, status post pacemaker implantation. No previous history of underlying coronary artery disease. He does have a previous history of cardiomyopathy with LVEF of 30% to 35%. He recently presented with chest pain. It was located in the left region with left arm radiation. No other ameliorating, exacerbating, or precipitating factors present. OBJECTIVE: VITAL SIGNS: Blood pressure 120/57, pulse 65, temperature 97.4. GENERAL: Patient is a pleasant man, who is in no acute distress. The patient appears their stated age. NEUROLOGIC: The patient is alert and oriented x3 with no focal neurologic deficits. HEENT: Sclerae without icterus. Mouth has moist mucous membranes with normal pallor. NECK: No JVD. Carotid upstroke brisk. No bruits bilaterally. LUNGS: Clear to auscultation with unlabored respirations. BACK: No scoliosis or kyphosis. CARDIAC: Regular rate and rhythm with normal S1 and S2. No S3 or S4 noted. No significant rubs, murmurs, thrills, or gallops noted throughout the precordium. PMI is not displaced. There is no parasternal heave. ABDOMEN: Soft, nontender, nondistended. No peritoneal signs present. No hepatosplenomegaly. No abnormal striae. EXTREMITIES: 2+ femoral and 2+ dorsalis pedis pulses. No cyanosis, clubbing, or edema. SKIN: No gross abnormalities. PERTINENT LABORATORY DATA: Hemoglobin 8.2. Peak troponin 0.035. IMPRESSION: Chest pain. RECOMMENDATIONS: At this point, recommend medical therapy. His hemoglobin has markedly decreased to 8.2. We would continue to rule out by CKs and troponins. If negative, from my standpoint, will be okay for discharge to home. Last echo performed in the office dated 05/08/2018 with LVEF of 45% to 50%. He does have underlying atrial fibrillation with history of noncompliance. He is currently on anticoagulation therapy including Xarelto. We will continue. Job ID: [id number]
[2018-10-06] MEDS ORDERED: Amiodarone 200 MG TAB PO SCH (21:00)
[2018-10-06] MEDS ORDERED: Heparin 5,000 UNITS/ML VIAL SC SCH (21:00)
[2018-10-06] MEDS ORDERED: Atorvastatin Calcium 40 MG TAB PO SCH (21:00)
[2018-10-06 21:46] LABS: Troponin I 0.026 ng/mL (< 0.028)
[2018-10-06] MEDS: Insulin Glargine 10 UNITS in Pre-Filled Syringe 1 EACH SC SCH (22:25)
[2018-10-06] MEDS: Metoprolol Tartrate 50 MG TAB PO SCH (22:25)
[2018-10-06] MEDS ORDERED: Digoxin 0.125 MG TAB PO SCH (22:30)
[2018-10-06] MEDS ORDERED: traZODone HCl 150 MG TAB PO SCH (23:15)
[2018-10-07 07:10] LABS: #Basophils 0.1 thou/uL (0.0-0.2); #Eosinphils 0.2 thou/uL (0.0-0.7); #Lymphocytes 1.9 thou/uL (1.20-3.40); #Monocytes 0.8 thou/uL (0.11-0.59); %Basophils 1.1 % (0.0-1.0); %Eosinophils 1.5 % (0.0-10.0); %Lymphocytes 17.6 % (21.0-51.0); %Monocytes 7.4 % (0.0-10.0); %Neutrophils 72.4 % (42.0-75.0); Hemoglobin 6.8 g/dL (14.0-18.0); Mean Corpuscular HGB CONC 32.6 g/dL (32.0-36.0); Mean Corpuscular Hemoglobin 30.3 pg (27.0-31.0); Mean Corpuscular Volume 93.1 fL (78.0-98.0); Mean Platelet Volume 7.8 fL (7.4-10.4); Platelet Count 311 thou/uL (130-400); RBC Distribution Width 13.4 % (11.5-14.5); Red Blood Cell (RBC) Count 2.25 mill/uL (4.70-6.10)
[2018-10-07 07:34] LABS: Anion Gap 9 mmol/L (10-20); BUN (Urea Nitrogen) 18 mg/dL (8.4-25.7); Calc. Creatinine Clearance 97 mL/min (70-130); Calcium 8.6 mg/dL (7.8-10.44); Carbon Dioxide 30 mmol/L (23-31); Chloride 103 mmol/L (98-107); Estimated GFR-MDRD 87; Glucose 138 mg/dL (83-110); Iron 19 ug/dL (65-175); Iron Binding Capacity, Total 358 mcg/dL (261-462); Sodium 138 mmol/L (136-145)
[2018-10-07] MEDS: Furosemide 20 MG TAB PO SCH (08:25)
[2018-10-07] MEDS: Aspirin Chewable 81 MG TAB PO SCH (08:26)
[2018-10-07] MEDS: Amiodarone 200 MG TAB PO SCH ×2 (08:26→21:04)
[2018-10-07] MEDS: FLUoxetine HCl 20 MG CAP PO SCH (08:26)
[2018-10-07] MEDS: Potassium Chloride 10 MEQ TAB PO SCH (08:27)
[2018-10-07] MEDS: Metoprolol Tartrate 50 MG TAB PO SCH ×2 (08:27→21:04)
[2018-10-07] MEDS ORDERED: Amiodarone 200 MG TAB PO SCH (09:00)
[2018-10-07] MEDS ORDERED: Digoxin 0.125 MG TAB PO SCH (09:00)
--- NOTE | 2018-10-07 10:30 | PDOC.PN ---
- Subjective Encounter Start Date: 10/07/18 Encounter Start Time: 10:25 Patient seen and examined, states he had black stools overnight, no other issues or complaints, police justice at bedside, all questions answered. - Objective Vital Signs & Weight: Vital Signs (12 hours) Temp Pulse Resp BP Pulse Ox 10/07/18 07:55 98 F 73 16 133/84 94 L 10/07/18 03:50 97.8 F 80 18 134/63 94 L 10/06/18 23:02 70 18 160/71 H 95 10/06/18 22:34 74 Weight Weight 194 lb 3 oz I&O: 10/06/18 10/07/18 10/08/18 06:59 06:59 06:59 Intake Total 360 Output Total 750 Balance -390 Result Diagrams: 10/07/18 06:44 10/07/18 06:44 Additional Labs: Accuchecks 10/07/18 10/06/18 10/06/18 05:55 20:22 17:06 POC Glucose 135 H 335 H 244 H Phys Exam - Physical Examination Constitutional: NAD HEENT: PERRLA, moist MMs, sclera anicteric Neck: no nodes, no JVD, supple Respiratory: no wheezing, no rales, no rhonchi Cardiovascular: RRR, no rub systolic murmur Gastrointestinal: soft, non-tender, no distention, positive bowel sounds Musculoskeletal: pulses present, edema present Dx/Plan (1) GI bleed Code(s): K92.2 - GASTROINTESTINAL HEMORRHAGE, UNSPECIFIED Status: Acute (2) COPD (chronic obstructive pulmonary disease) Status: Chronic Comment: stable, Continue on Nebs. (3) Diabetes mellitus Code(s): E11.9 - TYPE 2 DIABETES MELLITUS WITHOUT COMPLICATIONS Status: Chronic Comment: Labile, resume Insulin Glargine 30 bid, ISS, ADA (4) Dyslipidemia Code(s): E78.5 - HYPERLIPIDEMIA, UNSPECIFIED Status: Chronic (5) Obesity (BMI 30.0-34.9) Code(s): E66.9 - OBESITY, UNSPECIFIED Status: Chronic - Plan * Hgb 6.8 today, patient stating he had black stools overnight, will change to inpt * transfuse PRBC, GI consult, will place NPO for now * protonix 40mg IV q12hrs, hemodynamically stable * CBC repeat at 6pm today * repeat labs in AM * case and plan d/w patient at length, he understood and agreed with this plan.
[2018-10-07] MEDS: HumaLOG 300 UNITS/3 ML VIAL SC PRN (11:39)
[2018-10-07] MEDS ORDERED: Pantoprazole 40 MG VIAL IVP SCH (14:17)
[2018-10-07] MEDS ORDERED: Sodium Chloride 0.9% (PF) 10 ML VIAL FS PRN (14:20)
--- NOTE | 2018-10-07 14:59 | PDOC.CTH ---
Cardiology Progress Note - Subjective Patient at first says feeling fine, then when asked specific symptoms will admit to all. (CP, SOB, dizziness). Hgb down to 6.8 today and awaiting inpatient GI consult. - Objective Vital Signs Temp Pulse Resp BP Pulse Ox 10/07/18 11:35 98.2 F 69 16 120/56 L 92 L 10/07/18 07:55 98 F 73 16 133/84 94 L 10/07/18 03:50 97.8 F 80 18 134/63 94 L Weight 194 lb 3 oz 10/06/18 10/07/18 10/08/18 06:59 06:59 06:59 Intake Total 360 Output Total 750 Balance -390 - Physical Examination General/Neuro: alert & oriented x3 Neck: no JVD present Lungs: CTA Heart: RRR Abdomen: NT/ND - Telemetry Telemetry Rhythm: pacing - Labs Result Diagrams: 10/07/18 06:44 10/07/18 06:44 Troponin/CKMB Troponin I 0.026 ng/mL (< 0.028) 10/06/18 21:03 - Assessment/Plan 1. Acute anemia (? GI bleed) 2. s/p pacemaker 3. Paroxysmal AF 4. 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
--- NOTE | 2018-10-07 20:48 | CON ---
DATE OF CONSULTATION: 10/07/2018 REASON FOR CONSULTATION: GI bleeding. HISTORY OF PRESENT ILLNESS: Ken Briceno is a 73-year-old man, who was admitted to the hospital yesterday. He has a history of sick sinus syndrome status post pacemaker placement and atrial fibrillation on Xarelto. He has congestive heart failure with ejection fraction 30% to 35% as well as COPD and chronic kidney disease. He is a prisoner. He states that over the past 3 weeks or so, his stools have changed to jet black in color, every bowel movement has been black, though he is not having diarrhea. Bowel movements remain about once per day. He has not had any significant abdominal pain with this, however, he presented to the emergency department yesterday with complaint of substernal chest pain and some shortness of breath. Laboratories demonstrated new anemia with hemoglobin 8.2 down from 15 just 5 months ago. This morning, hemoglobin further declined to 6.8 and he did have some witnessed dark stool this morning. He has been hemodynamically stable. Troponins have been negative. He is set to receive 2 units RBCs later today. I am starting him on IV PPI. The patient presented with chest pain, but is not having chest pain at this point. He has no significant abdominal discomfort, nausea, or vomiting, though he has a large ventral hernia which bothers him. He denies any nonsteroidal anti-inflammatory drug use. It does not appear that he is on any acid suppression as an outpatient. Xarelto is being held. REVIEW OF SYSTEMS: Full review of systems including constitutional, head, eyes, ears, nose, throat, GI, , cardiovascular, respiratory, musculoskeletal, neurologic systems are negative except as noted in the HPI. PAST MEDICAL HISTORY: Sick sinus syndrome, status post pacemaker placement, diabetes with neuropathy, atrial fibrillation on Xarelto, cardiomyopathy with ejection fraction 30% to 35%, hyperlipidemia, COPD, anxiety, chronic kidney disease stage 3. ALLERGIES: ZARA INHIBITORS. OUTPATIENT MEDICATIONS: Insulin, Xarelto 20 mg daily, aspirin 81 mg daily, amiodarone, atorvastatin, metformin, metoprolol, Lasix, trazodone, potassium chloride, digoxin, fluoxetine. FAMILY HISTORY: He says his father had unspecified colon problems. SOCIAL HISTORY: No smoking. Alcohol use is social prior to incarceration. PHYSICAL EXAMINATION: VITAL SIGNS: Temperature 98.2, pulse 69, blood pressure 120/56, and 92% oxygen saturation on room air. GENERAL: A 73-year-old man, sitting up in bed comfortably, in no distress. SKIN: He is pale. No jaundice, no rashes were palpable. EYES: No scleral icterus. Extraocular movements intact. ENT: Mucous membranes moist. No oral lesions. LYMPH: No submandibular or supraclavicular lymphadenopathy. THYROID: Nontender to palpation. HEART: Regular rate and rhythm. LUNGS: Clear to auscultation bilaterally. ABDOMEN: Bowel sounds are present throughout. Soft, nontender to palpation. He does have a large ventral hernia with bowel easily reducible. EXTREMITIES: No peripheral edema. VESSELS: Radial pulses 2+ bilaterally. NEUROLOGIC: Cranial nerves 2 through 12 intact bilaterally. No focal deficits. LABORATORY STUDIES: Hemoglobin is 6.8 down from 8.2 yesterday and down from 15 last May. WBC is 11, platelets 311, MCV normal at 93. BUN on admission was 28, now down to 18; creatinine is 0.87, sodium 138, potassium 4.0, glucose 267, ferritin is 119, iron 19, 5% iron saturation. Troponin negative. Hemoglobin A1c 5.5. Lipase 161. LFTs all normal with total bilirubin 0.3, alkaline phosphatase 83, AST 13, ALT 16, albumin 3.9. IMAGING STUDIES: Chest x-ray from yesterday shows COPD and a pacemaker in place. No acute changes. ASSESSMENT AND PLAN: 1. Melena, over the past 3 weeks. 2. Acute blood loss anemia. He has dropped his hemoglobin from 15 just 5 months ago, now down to 8.2 and then 6.8 this morning. This all seems consistent with subacute upper gastrointestinal bleeding source. Note, the patient is not on any chronic acid suppression. Further investigation is certainly warranted. Start IV Protonix 40 mg every 12 hours. The patient has been made n.p.o. We will plan to perform diagnostic EGD tomorrow. Continue to hold the Xarelto. If the EGD is completely negative, then we would probably administer bowel preparation tomorrow night for colonoscopy the following day. Continue to trend hemoglobin and hematocrit and transfuse as needed. Further recommendations following EGD tomorrow. Thank you for the consultation. Please call anytime with questions or concerns. Job ID: [id number]
[2018-10-07] MEDS ORDERED: Non-Formulary Item 1 EACH (Rivaroxaban [Xarelto] 20 MG) PO SCH (21:00)
[2018-10-07] MEDS: Pantoprazole 40 MG VIAL IVP SCH (21:02)
[2018-10-07] MEDS: Atorvastatin Calcium 40 MG TAB PO SCH (21:04)
[2018-10-07] MEDS: Digoxin 0.125 MG TAB PO SCH (21:04)
[2018-10-07] MEDS: traZODone HCl 150 MG TAB PO SCH (21:05)
[2018-10-07] MEDS: Insulin Glargine 10 UNITS in Pre-Filled Syringe 1 EACH SC SCH (21:05)
[2018-10-08 00:51] LABS: #Lymphocytes 1.8 thou/uL (1.20-3.40); #Monocytes 0.9 thou/uL (0.11-0.59); #Neutrophils 8.1 thou/uL (1.40-6.50); %Basophils 0.4 % (0.0-1.0); %Eosinophils 0.3 % (0.0-10.0); %Lymphocytes 16.4 % (21.0-51.0); %Monocytes 8.1 % (0.0-10.0); %Neutrophils 74.8 % (42.0-75.0); Hemoglobin 8.4 g/dL (14.0-18.0); Mean Corpuscular HGB CONC 32.8 g/dL (32.0-36.0); Mean Corpuscular Hemoglobin 29.9 pg (27.0-31.0); Mean Corpuscular Volume 91.2 fL (78.0-98.0); Platelet Count 276 thou/uL (130-400); RBC Distribution Width 14.3 % (11.5-14.5); Red Blood Cell (RBC) Count 2.79 mill/uL (4.70-6.10); White Blood Cell (WBC) Count 10.8 thou/uL (4.8-10.8)
[2018-10-08 05:29] LABS: #Eosinphils 0.2 thou/uL (0.0-0.7); #Lymphocytes 1.7 thou/uL (1.20-3.40); #Monocytes 0.9 thou/uL (0.11-0.59); %Basophils 0.4 % (0.0-1.0); %Eosinophils 1.6 % (0.0-10.0); %Lymphocytes 17.4 % (21.0-51.0); %Monocytes 9.2 % (0.0-10.0); %Neutrophils 71.4 % (42.0-75.0); Hemoglobin 8.1 g/dL (14.0-18.0); Mean Corpuscular HGB CONC 32.3 g/dL (32.0-36.0); Mean Corpuscular Hemoglobin 29.7 pg (27.0-31.0); Mean Corpuscular Volume 91.8 fL (78.0-98.0); Platelet Count 276 thou/uL (130-400); RBC Distribution Width 14.3 % (11.5-14.5); Red Blood Cell (RBC) Count 2.74 mill/uL (4.70-6.10); White Blood Cell (WBC) Count 9.8 thou/uL (4.8-10.8)
[2018-10-08 05:46] LABS: Anion Gap 10 mmol/L (10-20); BUN (Urea Nitrogen) 19 mg/dL (8.4-25.7); Calc. Creatinine Clearance 96 mL/min (70-130); Calcium 8.4 mg/dL (7.8-10.44); Carbon Dioxide 26 mmol/L (23-31); Chloride 105 mmol/L (98-107); Estimated GFR-MDRD 85; Glucose 167 mg/dL (83-110); Potassium 4.1 mmol/L (3.5-5.1); Sodium 137 mmol/L (136-145)
[2018-10-08] MEDS ORDERED: PROPOFOL 200 MG/20 ML VIAL ONE (10:06)
[2018-10-08] MEDS ORDERED: Lidocaine 1% PF 5 ML VIAL ONE (10:06)
[2018-10-08] MEDS: Amiodarone 200 MG TAB PO SCH ×2 (12:34→20:27)
[2018-10-08] MEDS: Aspirin Chewable 81 MG TAB PO SCH (12:34)
[2018-10-08] MEDS: Potassium Chloride 10 MEQ TAB PO SCH (12:34)
[2018-10-08] MEDS: Furosemide 20 MG TAB PO SCH (12:35)
[2018-10-08] MEDS: FLUoxetine HCl 20 MG CAP PO SCH (12:36)
[2018-10-08] MEDS: Metoprolol Tartrate 50 MG TAB PO SCH ×2 (12:36→20:27)
[2018-10-08] MEDS: Pantoprazole 40 MG VIAL IVP SCH ×2 (12:37→20:30)
--- NOTE | 2018-10-08 14:32 | PDOC.PN ---
- Subjective Encounter Start Date: 10/08/18 Encounter Start Time: 14:30 Patient seen and examined, no new issues or complaints, all questions answered. - Objective Vital Signs & Weight: Vital Signs (12 hours) Temp Pulse Resp BP Pulse Ox 10/08/18 12:01 97.8 F 75 18 133/70 94 L 10/08/18 08:00 98.0 F 79 18 159/75 H 92 L Weight Weight 195 lb I&O: 10/07/18 10/08/18 10/09/18 06:59 06:59 06:59 Intake Total 360 1660 Output Total 750 1170 Balance -390 490 Result Diagrams: 10/08/18 04:42 10/08/18 04:42 Additional Labs: Accuchecks 10/08/18 10/07/18 10/07/18 12:03 20:56 17:15 POC Glucose 180 H 172 H 171 H Phys Exam - Physical Examination Constitutional: NAD HEENT: PERRLA, moist MMs, sclera anicteric Neck: no nodes, no JVD, supple Respiratory: no wheezing, no rales, no rhonchi Cardiovascular: RRR, no significant murmur, no rub Gastrointestinal: soft, non-tender, no distention, positive bowel sounds Musculoskeletal: pulses present, edema present Neurological: non-focal, normal sensation Dx/Plan (1) GI bleed Code(s): K92.2 - GASTROINTESTINAL HEMORRHAGE, UNSPECIFIED Status: Acute (2) COPD (chronic obstructive pulmonary disease) Status: Chronic Comment: stable, Continue on Nebs. (3) Diabetes mellitus Code(s): E11.9 - TYPE 2 DIABETES MELLITUS WITHOUT COMPLICATIONS Status: Chronic Comment: Labile, resume Insulin Glargine 30 bid, ISS, ADA (4) Dyslipidemia Code(s): E78.5 - HYPERLIPIDEMIA, UNSPECIFIED Status: Chronic (5) Obesity (BMI 30.0-34.9) Code(s): E66.9 - OBESITY, UNSPECIFIED Status: Chronic - Plan * pending EGD for today * Hgb stable * repeat labs in AM * case and plan d/w patient at length, he understood and agreed with this plan.
[2018-10-08] MEDS: HumaLOG 300 UNITS/3 ML VIAL SC PRN (17:54)
--- NOTE | 2018-10-08 18:58 | OP ---
DATE OF PROCEDURE: 10/08/2018 FAITH HEALER SURGEON: None. PROCEDURES PERFORMED: Esophagogastroduodenoscopy with control of hemorrhage and biopsies. INDICATIONS: 1. Melena. 2. Acute blood loss anemia. 3. Atrial fibrillation on Xarelto. MEDICATIONS: See Anesthesia record. FINDINGS: After discussion of the risks, benefits, and alternatives of the procedure, informed consent was obtained and witnessed. Pre-endoscopic cardiopulmonary examination was satisfactory. Time-out was performed before sedation was achieved. Sedation was achieved with Anesthesia assistance in the endoscopy unit. A Pentax adult upper endoscope was placed into the oropharynx and passed through the cricopharyngeus under direct visualization. The esophageal mucosa appeared normal throughout with a normal-appearing Z-line. There was no evidence of any esophageal varices. The endoscope was advanced into the stomach. Forward and retroflexed views of the entire gastric mucosa were obtained. There was no evidence of any gastric varices. There was no old blood or active bleeding in the stomach. In the gastric antrum, there were 2 small arteriovenous malformations. These were nonbleeding. I treated these lesions with argon plasma coagulation at a setting of 2 L/minute and 25 blackwood, with good result. Hemostasis was maintained. The endoscope was advanced beyond the pylorus and into the first and second portions of the duodenum. Within the duodenal bulb and the proximal second portion of the duodenum, there was patchy erythema and edema with several shallow nonbleeding erosions. Biopsies were obtained from the duodenum. The upper endoscope was completely withdrawn and the patient allowed to recover. The patient tolerated the procedure well. There were no immediate postprocedure complications. IMPRESSION: 1. 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 2. Erosive duodenitis without bleeding. Duodenal biopsies obtained. 3. Otherwise normal esophagogastroduodenoscopy. RECOMMENDATIONS: 1. Pantoprazole 40 mg twice daily for 1 month. 2. Follow up pathology on the duodenal biopsies. 3. Consider stopping the Xarelto if possible, as it is likely that the patient has more arteriovenous malformations involving the small bowel. 4. Advance diet. Job ID: [id number]
[2018-10-08] MEDS: Atorvastatin Calcium 40 MG TAB PO SCH (20:27)
[2018-10-08] MEDS: Digoxin 0.125 MG TAB PO SCH (20:27)
[2018-10-08] MEDS: traZODone HCl 150 MG TAB PO SCH (20:27)
[2018-10-08] MEDS: Insulin Glargine 10 UNITS in Pre-Filled Syringe 1 EACH SC SCH (20:28)
[2018-10-08] MEDS ORDERED: diphenhydrAMINE 25 MG CAP PO PRN (20:54)
[2018-10-09 05:24] LABS: #Eosinphils 0.2 thou/uL (0.0-0.7); #Lymphocytes 1.5 thou/uL (1.20-3.40); %Basophils 0.2 % (0.0-1.0); %Monocytes 10.6 % (0.0-10.0); %Neutrophils 72.2 % (42.0-75.0); Hemoglobin 8.6 g/dL (14.0-18.0); Mean Corpuscular Volume 90.9 fL (78.0-98.0); Mean Platelet Volume 7.9 fL (7.4-10.4); Platelet Count 306 thou/uL (130-400); Red Blood Cell (RBC) Count 2.88 mill/uL (4.70-6.10); White Blood Cell (WBC) Count 9.7 thou/uL (4.8-10.8)
[2018-10-09 05:44] LABS: Anion Gap 10 mmol/L (10-20); BUN (Urea Nitrogen) 17 mg/dL (8.4-25.7); Calc. Creatinine Clearance 76 mL/min (70-130); Calcium 8.6 mg/dL (7.8-10.44); Carbon Dioxide 27 mmol/L (23-31); Chloride 103 mmol/L (98-107); Estimated GFR-MDRD 65; Glucose 182 mg/dL (83-110); Potassium 4.1 mmol/L (3.5-5.1); Sodium 136 mmol/L (136-145)
[2018-10-09] MEDS: HumaLOG 300 UNITS/3 ML VIAL SC PRN (05:54)
[2018-10-09 08:21] VITALS: BP 127/81; TEMP 97.7
--- NOTE | 2018-10-09 08:22 | PRG ---
DATE OF SERVICE: 10/09/2018 SUBJECTIVE: Mr. Briceno has no new complaints today. Tolerating his diet. Hemodynamically stable. Hemoglobin also stable at 8.6 this morning. OBJECTIVE: VITAL SIGNS: Temperature 98.2, pulse 70, blood pressure 109/55, and 93% oxygen saturation on room air. GENERAL: No acute distress. HEART: Regular rate and rhythm. LUNGS: Clear to auscultation bilaterally. ABDOMEN: Soft, nontender to palpation throughout. EXTREMITIES: No peripheral edema. LABORATORY STUDIES: Hemoglobin up to 8.6, WBC 9.7, platelets 306. Sodium 136, potassium 4.1, BUN 17, creatinine 1.11, glucose 182. ASSESSMENT AND PLAN: 1. Gastric arteriovenous malformations, both treated with argon plasma coagulation yesterday. 2. Erosive duodenitis without bleeding, duodenal biopsies obtained yesterday. 3. Acute blood loss anemia, stabilized. 4. Atrial fibrillation, on Xarelto. We will follow up pathology results on the duodenal biopsies. Still recommend he be on a twice daily proton pump inhibitor for the next month. The risks and benefits of continued anticoagulation need to be considered, but from a GI perspective, obviously if anticoagulation could be minimized or stop that would be for the best. 5. GI will sign off, but please call back anytime with questions or concerns. Job ID: [id number]
[2018-10-09] MEDS: Furosemide 20 MG TAB PO SCH (09:44)
[2018-10-09] MEDS: Amiodarone 200 MG TAB PO SCH (09:45)
[2018-10-09] MEDS: Metoprolol Tartrate 50 MG TAB PO SCH (09:46)
[2018-10-09] MEDS: Aspirin Chewable 81 MG TAB PO SCH (09:46)
[2018-10-09] MEDS: FLUoxetine HCl 20 MG CAP PO SCH (09:46)
[2018-10-09] MEDS: Pantoprazole 40 MG VIAL IVP SCH (09:46)
[2018-10-09] MEDS: Potassium Chloride 10 MEQ TAB PO SCH (09:47)
--- NOTE | 2018-10-09 12:18 | PDOC.EVN ---
Event Note - Event Note Event Note: [facility] #[id number]
--- NOTE | 2018-10-09 13:28 | DIS ---
DATE OF ADMISSION: 10/07/2018 DATE OF DISCHARGE: 10/09/2018 ADMITTING DIAGNOSES: Chest pain, anemia, gastrointestinal bleed, essential hypertension, and diabetes mellitus type 2. DISCHARGE DIAGNOSES: Gastrointestinal bleed, resolved; chest pain, resolved; hypertension; diabetes mellitus type 2. HOSPITAL COURSE: A 73-year-old male, admitted to the hospital with black tarry stools. Seen by GI and Cardiology. The patient had endoscopy done, found to have two bleeding vessels, both of which were cauterized and stopped. The patient was given a blood transfusion as well. Lowest hemoglobin was 6.8. The patient at that point in the time of discharge had hemoglobin of 8.1, which then went up to 8.6 on the day of discharge. The patient was given Protonix 40 b.i.d. Asked to hold his anticoagulation upon that time of discharge and follow up with his PCP within 1 week for further management and care. The patient was stable. Denied any nausea, vomiting, diarrhea, constipation, chest pain, fevers, or shortness of breath. CONDITION: Stable. Case and plan discussed at length. He understood and agreed with this plan. DISPOSITION: Back to [facility]. FOLLOWUP: Follow up with PCP and GI within 1 week. PROGNOSIS: Good. ACTIVITY: As tolerated with assistance as needed. DIET: Low-fat, low-calorie, high-fiber diet. MEDICATIONS: See VERNA. Job ID: [id number]
[2018-10-22] MEDS ORDERED: Amiodarone 200 MG TAB PO SCH (09:00)
== END 2018-10-09 12:44 | DRG 378 ==
LOC: ERS 02:49 → ERHOLD 05:22 → 2SW 15:55 → OBSVTOIN 10-07 10:24
PROVIDERS: ADMIT Internal Medicine; ATTEND Internal Medicine
PROC: 30233N1 Transfusion of Nonautologous Red Blood Cells into Peripheral Vein, Percutaneous Approach (ICD-10-PCS; 2018-10-07)
PROC: 0W3P8ZZ Control Bleeding in Gastrointestinal Tract, Via Natural or Artificial Opening Endoscopic (ICD-10-PCS; principal; 2018-10-08)
PROC: 0DB68ZX Excision of Stomach, Via Natural or Artificial Opening Endoscopic, Diagnostic (ICD-10-PCS; 2018-10-08)
DX: K55.21 Angiodysplasia of colon with hemorrhage (principal); D62 Acute posthemorrhagic anemia; E11.22 Type 2 diabetes mellitus with diabetic chronic kidney disease; E11.40 Type 2 diabetes mellitus with diabetic neuropathy, unspecified; I48.0 Paroxysmal atrial fibrillation; E78.5 Hyperlipidemia, unspecified; F41.9 Anxiety disorder, unspecified; N18.3 Chronic kidney disease, stage 3 (moderate); I12.9 Hypertensive chronic kidney disease with stage 1 through stage 4 chronic kidney disease, or unspecified chronic kidney disease; I25.10 Atherosclerotic heart disease of native coronary artery without angina pectoris; J44.9 Chronic obstructive pulmonary disease, unspecified; E66.9 Obesity, unspecified; K29.80 Duodenitis without bleeding; Z95.0 Presence of cardiac pacemaker; Z68.27 Body mass index [BMI] 27.0-27.9, adult
CPT/HCPCS: 36415; 36416; 36430; 71045; 80048; 80053; 80162; 82274; 82550; 82728; 83036; 83540; 83550; 83690; 84484; 85025; 86850; 86900; 86901; 88305; 93005; 94760; C9113; J1644; J1825; J2001; J2704; P9016; Q0163

== ENCOUNTER 2018-10-11 21:50 | Emergency (ER) | payer MEDICAID, MEDICARE, OTHER ==
[2018-10-11 22:18] LABS: #Basophils 0.1 thou/uL (0.0-0.2); #Eosinphils 0.3 thou/uL (0.0-0.7); #Lymphocytes 1.9 thou/uL (1.20-3.40); #Monocytes 0.7 thou/uL (0.11-0.59); #Neutrophils 5.2 thou/uL (1.40-6.50); %Eosinophils 3.2 % (0.0-10.0); %Lymphocytes 23.1 % (21.0-51.0); %Monocytes 8.8 % (0.0-10.0); Hemoglobin 9.6 g/dL (14.0-18.0); Mean Corpuscular HGB CONC 32.6 g/dL (32.0-36.0); Mean Corpuscular Hemoglobin 29.5 pg (27.0-31.0); Mean Corpuscular Volume 90.3 fL (78.0-98.0); Mean Platelet Volume 7.5 fL (7.4-10.4); Platelet Count 360 thou/uL (130-400); RBC Distribution Width 13.9 % (11.5-14.5); Red Blood Cell (RBC) Count 3.27 mill/uL (4.70-6.10); White Blood Cell (WBC) Count 8.1 thou/uL (4.8-10.8)
[2018-10-11 22:36] LABS: ALT (SGPT) 14 U/L (8-55); AST (SGOT) 11 U/L (5-34); Albumin 3.5 g/dL (3.4-4.8); Alkaline Phosphatase 115 U/L (40-150); Anion Gap 13 mmol/L (10-20); BUN (Urea Nitrogen) 16 mg/dL (8.4-25.7); Bilirubin, Total 0.3 mg/dL (0.2-1.2); Calc. Creatinine Clearance 0 mL/min (70-130); Calcium 8.9 mg/dL (7.8-10.44); Carbon Dioxide 24 mmol/L (23-31); Chloride 105 mmol/L (98-107); Estimated GFR-MDRD 84; Globulin 3.8 g/dL (2.4-3.5); Glucose 130 mg/dL (83-110); Potassium 4.4 mmol/L (3.5-5.1); Protein, Total 7.3 g/dL (5.8-8.1); Sodium 138 mmol/L (136-145)
--- NOTE | 2018-10-11 23:53 | RAD ---
PORTABLE CHEST ONE VIEW: 10/11/18 at 11:39 p.m. HISTORY: Chest pain. FINDINGS/IMPRESSION: Comparison made with exam of 10/06/18. No significant interval change is seen since the previous exam of 10/06/18. POS: MELISSA
--- NOTE | 2018-10-14 12:00 | EKG ---
Test Reason : Blood Pressure : / mmHG Vent. Rate : 102 BPM Atrial Rate : 102 BPM P-R Int : 000 ms QRS Dur : 136 ms QT Int : 386 ms P-R-T Axes : 000 -06 012 degrees QTc Int : 503 ms Demand pacemaker; interpretation is based on intrinsic rhythm Atrial fibrillation with rapid ventricular response with premature ventricular or aberrantly conducte d complexes Right bundle branch block Abnormal ECG Confirmed by NAE Eng, PHOENIX ([id number]), story editor BETY CAICEDO ([id number]) on 10/14/2018 12:00:01 PM Referred By: Confirmed By:PHOENIX SONI M.D.
== END 2018-10-12 00:05 ==
LOC: ERS 21:50 → EEVIPCON 21:50 → ERS 10-12 00:05
DX: R07.89 Other chest pain (principal); E11.9 Type 2 diabetes mellitus without complications; I48.91 Unspecified atrial fibrillation; I10 Essential (primary) hypertension; J44.9 Chronic obstructive pulmonary disease, unspecified; F32.9 Major depressive disorder, single episode, unspecified; Z79.4 Long term (current) use of insulin; Z87.891 Personal history of nicotine dependence; Z79.899 Other long term (current) drug therapy; Z79.82 Long term (current) use of aspirin; Z79.01 Long term (current) use of anticoagulants
CPT/HCPCS: 36415; 71045; 80053; 83880; 84484; 85025; 93005; 96360

== ENCOUNTER 2019-01-24 11:39 | Outpatient (CLI) | payer OTHER ==
--- NOTE | 2019-01-24 13:35 | MRI ---
Lumbar spine MRI without contrast: 01/24/2019 HISTORY: Low back pain, frequent falls TECHNIQUE: Multiplanar multisequence MR imaging of the lumbar spine obtained without contrast FINDINGS: The sagittal STIR imaging demonstrates no focal area of osseous marrow edema. On the basis of 5 lumbar type vertebral bodies, the conus medullaris terminates at L1. T12-L1: No central canal or neural foraminal stenosis. L1-2: There is disc desiccation and mild disc bulge. Mild bilateral facet hypertrophy present. No sig nificant central canal or neural foraminal stenosis. L2-3: There is disc desiccation and mild disc bulge with bilateral facet hypertrophy. No significant central canal stenosis. Mild bilateral neural foraminal stenosis. L3-4: Disc space narrowing, disc desiccation, and disc bulge present. There is a superimposed disc pr otrusion in the right paracentral/right foraminal region. There is mild associated right lateral recess stenosis and mild associated right neural foraminal stenosis. No significant left neural carolyn inal stenosis. L4-5: Bilateral facet hypertrophy, left greater than right. There is disc desiccation and mild disc b ulge. No significant central canal stenosis. There is posterolateral/lateral osteophyte formation on the left which leads to a moderate degree of left neural foraminal stenosis. No significant right neural foraminal stenosis. L5-S1: There is disc space narrowing and disc desiccation with mild bilateral facet hypertrophy. No s ignificant central canal or neural foraminal stenosis. Image retroperitoneal structures demonstrate no acute findings. IMPRESSION: Lumbar spine degenerative disc disease as detailed above. Transcribed Date/Time: 01/24/2019 1:47 PM
== END 2019-01-24 11:40 | disposition home or self-care (01) ==
LOC: MRI 11:39
PROVIDERS: ATTEND Specialist
DX: M54.5 Low back pain (principal); M51.36 Other intervertebral disc degeneration, lumbar region
CPT/HCPCS: 72148

== ENCOUNTER 2019-05-16 16:33 | Emergency (ER) | payer MEDICARE, OTHER ==
[2019-05-16 17:25] LABS: #Basophils 0.1 thou/uL (0.0-0.2); #Eosinphils 0.2 thou/uL (0.0-0.7); #Lymphocytes 1.3 thou/uL (1.20-3.40); #Monocytes 0.8 thou/uL (0.11-0.59); #Neutrophils 6.5 thou/uL (1.40-6.50); %Basophils 0.8 % (0.0-1.0); %Lymphocytes 14.6 % (21.0-51.0); %Neutrophils 73.5 % (42.0-75.0); Hemoglobin 8.8 g/dL (14.0-18.0); Mean Corpuscular HGB CONC 30.4 g/dL (32.0-36.0); Mean Corpuscular Volume 72.4 fL (78.0-98.0); Mean Platelet Volume 8.4 fL (7.4-10.4); Platelet Count 319 thou/uL (130-400); RBC Distribution Width 15.7 % (11.5-14.5); Red Blood Cell (RBC) Count 3.99 mill/uL (4.70-6.10); White Blood Cell (WBC) Count 8.9 thou/uL (4.8-10.8)
[2019-05-16 17:49] LABS: Hypochromia SLIGHT = 6-15 cells (100X) (0-5/hpf); MDiff Complete? YES; Microcytosis SLIGHT = 6-15 cells (100X) (0-5/hpf); Ovalocytes SLIGHT = 2-5 cells (100X) (0-1/hpf); Platelet Morphology Comment Appears Adequate; Polychromasia SLIGHT = 2-3 cells (100X) (0-2/hpf); Schistocytes SLIGHT = 2-5 cells (100X) (0-1/hpf); Target Cells SLIGHT = 2-5 cells (100X) (0-1/hpf); Tear Drops SLIGHT = 2-5 cells (100X) (0-1/hpf)
== END 2019-05-16 17:36 | disposition home or self-care (01) ==
LOC: ERS 16:33
DX: D64.9 Anemia, unspecified (principal); I48.91 Unspecified atrial fibrillation; E11.9 Type 2 diabetes mellitus without complications; I10 Essential (primary) hypertension; J44.9 Chronic obstructive pulmonary disease, unspecified; Z87.891 Personal history of nicotine dependence; F32.9 Major depressive disorder, single episode, unspecified
CPT/HCPCS: 36415; 82274; 85025

== ENCOUNTER 2019-06-14 08:29 | Day surgery (SDC) | payer OTHER ==
[2019-06-13 12:42] VITALS: BMI 25.1
--- NOTE | 2019-06-14 11:46 | OP ---
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 PROCEDURES: 1. Esophagogastroduodenoscopy, diagnostic. 2. Colonoscopy with snare polypectomy. INDICATIONS: 1. Chronic anemia. 2. Chronic diarrhea. 3. The patient has not had a prior colonoscopy. MEDICATIONS: See Anesthesia record. FINDINGS: After discussion of the risks, benefits, and alternatives of the procedure, informed consent was obtained and witnessed. Pre-endoscopic cardiopulmonary examination was satisfactory. Time-out was performed before sedation was achieved. Sedation was achieved with Anesthesia assistance in the endoscopy unit. A Pentax adult upper endoscope was placed into the oropharynx and passed through the cricopharyngeus under direct visualization. The esophageal mucosa appeared normal throughout with a normal-appearing Z-line. The endoscope was advanced into the stomach. Forward and retroflexed views of the entire gastric mucosa were obtained. The gastric mucosa appeared normal throughout. The endoscope was advanced into the first and second portions of the duodenum, which also appeared normal. The upper endoscope was completely withdrawn. The patient was repositioned. Digital rectal exam was performed, which was unremarkable. A Pentax adult colonoscope was inserted into the anus and passed forward to the cecum in the usual fashion. The cecal base was identified by the appendiceal orifice as well as the ileocecal valve. The terminal ileum was intubated and the ileal mucosa appeared normal. The colonoscope was then slowly withdrawn in a gradual and circumferential manner with careful examination of the entire colonic mucosa. The quality of the prep was good. In the proximal transverse colon at 80 cm, there is a large sessile polyp measuring about 1.8 cm in diameter. The polyp was ulcerated and there was a small amount of active oozing from the polyp. It was completely removed in one piece with hot snare polypectomy and retrieved for pathology. There was another sessile polyp measuring about 8 mm in the same area of the transverse colon. This was completely removed with hot snare and retrieved for pathology. More distally in the transverse colon there was another sessile polyp measuring about 5 mm in diameter. This was completely removed with hot snare and retrieved for pathology. There were no other polyps found in the colon. There was diverticulosis on the left side of the colon. Retroflexion in the rectum was unremarkable. The colonoscope was completely withdrawn and the patient allowed to recover. The patient tolerated the procedure well. There were no immediate postprocedure complications. IMPRESSION: 1. Normal EGD. 2. 1.8 cm transverse colon polyp, ulcerated, completely removed with hot snare and retrieved for pathology. 3. 8 mm transverse colon polyp, completely removed with hot snare and retrieved for pathology. 4. 5 mm transverse colon polyp, completely removed with hot snare and retrieved for pathology. 5. Left-sided diverticulosis. 6. Otherwise normal colonoscopy to the terminal ileum. RECOMMENDATIONS: 1. Follow up pathology on the colon polyps. 2. Repeat colonoscopy based on pathology results. 3. Imodium can be taken as needed for intermittent diarrhea symptoms. 4. Follow up in the GI clinic as needed. Job ID: [id number]
[2019-06-14] MEDS ORDERED: PROPOFOL 200 MG/20 ML VIAL ONE (14:31)
== END 2019-06-14 11:50 | disposition home or self-care (01) ==
LOC: SDC 08:29
PROVIDERS: ATTEND Internal Medicine
PROC: 0DJ08ZZ Inspection of Upper Intestinal Tract, Via Natural or Artificial Opening Endoscopic (ICD-10-PCS; principal; 2019-06-14)
PROC: 0DBL8ZZ Excision of Transverse Colon, Via Natural or Artificial Opening Endoscopic (ICD-10-PCS; principal; 2019-06-14)
DX: D64.9 Anemia, unspecified (principal); K52.9 Noninfective gastroenteritis and colitis, unspecified; D12.3 Benign neoplasm of transverse colon; K57.30 Diverticulosis of large intestine without perforation or abscess without bleeding; I48.91 Unspecified atrial fibrillation; F41.9 Anxiety disorder, unspecified; J44.9 Chronic obstructive pulmonary disease, unspecified; I42.9 Cardiomyopathy, unspecified; I50.9 Heart failure, unspecified; E11.9 Type 2 diabetes mellitus without complications; E78.00 Pure hypercholesterolemia, unspecified; I49.5 Sick sinus syndrome; Z79.4 Long term (current) use of insulin; Z79.82 Long term (current) use of aspirin; Z79.899 Other long term (current) drug therapy; Z88.8 Allergy status to other drugs, medicaments and biological substances; Z95.0 Presence of cardiac pacemaker; Z87.891 Personal history of nicotine dependence
CPT/HCPCS: 36416; 88305; J2704

== ENCOUNTER 2019-07-19 10:19 | Emergency (ER) | payer MEDICARE, OTHER ==
[2019-07-19 11:16] LABS: #Eosinphils 0.1 thou/uL (0.0-0.7); #Lymphocytes 1.5 thou/uL (1.20-3.40); #Neutrophils 6.3 thou/uL (1.40-6.50); %Basophils 0.5 % (0.0-1.0); %Lymphocytes 16.5 % (21.0-51.0); %Monocytes 11.5 % (0.0-10.0); %Neutrophils 70.6 % (42.0-75.0); Hemoglobin 7.4 g/dL (14.0-18.0); Mean Corpuscular HGB CONC 29.5 g/dL (32.0-36.0); Mean Corpuscular Hemoglobin 20.8 pg (27.0-31.0); Mean Corpuscular Volume 70.6 fL (78.0-98.0); Mean Platelet Volume 8.5 fL (7.4-10.4); Platelet Count 355 thou/uL (130-400); RBC Distribution Width 16.5 % (11.5-14.5); Red Blood Cell (RBC) Count 3.56 mill/uL (4.70-6.10); White Blood Cell (WBC) Count 8.9 thou/uL (4.8-10.8)
[2019-07-19 11:28] LABS: ALT (SGPT) 19 U/L (8-55); AST (SGOT) 21 U/L (5-34); Alkaline Phosphatase 139 U/L (40-110); Anion Gap 10 mmol/L (10-20); BUN (Urea Nitrogen) 16 mg/dL (8.4-25.7); Bilirubin, Total 0.3 mg/dL (0.2-1.2); Calc. Creatinine Clearance 0 mL/min (70-130); Calcium 8.5 mg/dL (7.8-10.44); Carbon Dioxide 29 mmol/L (23-31); Chloride 105 mmol/L (98-107); Estimated GFR-MDRD 84; Globulin 4.8 g/dL (2.4-3.5); Glucose 79 mg/dL (83-110); Potassium 4.3 mmol/L (3.5-5.1); Protein, Total 7.8 g/dL (5.8-8.1); Sodium 140 mmol/L (136-145)
[2019-07-19 11:49] LABS: Hypochromia SLIGHT = 6-15 cells (100X) (0-5/hpf); MDiff Complete? YES; Microcytosis MODERATE=15-30 cells (100X) (0-5/hpf); Platelet Morphology Comment Appears Adequate; Polychromasia SLIGHT = 2-3 cells (100X) (0-2/hpf)
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
--- NOTE | 2019-07-21 15:33 | EKG ---
Test Reason : Blood Pressure : / mmHG Vent. Rate : 061 BPM Atrial Rate : 061 BPM P-R Int : 288 ms QRS Dur : 134 ms QT Int : 462 ms P-R-T Axes : 000 049 038 degrees QTc Int : 465 ms Atrial-paced rhythm with prolonged AV conduction Right bundle branch block Abnormal ECG Confirmed by BRIAN SALEEM, RUFINA ([id number]), editor news EBTY CAICEDO ([id number]) on 07/21/2019 3:33:13 PM Referred By: Confirmed By:RUFINA TORRES MD
== END 2019-07-19 13:54 | disposition home or self-care (01) ==
LOC: ERS 10:19
DX: D64.9 Anemia, unspecified (principal); I48.91 Unspecified atrial fibrillation; E11.9 Type 2 diabetes mellitus without complications; I10 Essential (primary) hypertension; J44.9 Chronic obstructive pulmonary disease, unspecified; F32.9 Major depressive disorder, single episode, unspecified; Z87.891 Personal history of nicotine dependence; Z79.899 Other long term (current) drug therapy; Z79.4 Long term (current) use of insulin
CPT/HCPCS: 36415; 71045; 80053; 82550; 83605; 83880; 84484; 85025; 86850; 86900; 86901; 87040; 87804; 93005

== ENCOUNTER 2019-08-07 08:57 | Emergency (ER) | payer OTHER, SELFPAY ==
[2019-08-07 09:31] LABS: Hemoglobin 11.1 g/dL (14.0-18.0); Mean Corpuscular HGB CONC 31.8 g/dL (32.0-36.0); Mean Corpuscular Hemoglobin 23.3 pg (27.0-31.0); Mean Corpuscular Volume 73.3 fL (78.0-98.0); Mean Platelet Volume 9.8 fL (7.4-10.4); Platelet Count 317 thou/uL (130-400); RBC Distribution Width 25.9 % (11.5-14.5); Red Blood Cell (RBC) Count 4.74 mill/uL (4.70-6.10); White Blood Cell (WBC) Count 16.4 thou/uL (4.8-10.8)
[2019-08-07 09:39] LABS: Digoxin 0.78 ng/mL (0.8-2.0)
[2019-08-07 09:41] LABS: ALT (SGPT) 25 U/L (8-55); AST (SGOT) 28 U/L (5-34); Albumin 3.8 g/dL (3.4-4.8); Alkaline Phosphatase 154 U/L (40-110); Anion Gap 18 mmol/L (10-20); BUN (Urea Nitrogen) 16 mg/dL (8.4-25.7); Bilirubin, Total 0.5 mg/dL (0.2-1.2); CK (CPK) 60 U/L (30-200); Calc. Creatinine Clearance 0 mL/min (70-130); Calcium 9.3 mg/dL (7.8-10.44); Carbon Dioxide 24 mmol/L (23-31); Chloride 100 mmol/L (98-107); Estimated GFR-MDRD 67; Globulin 4.7 g/dL (2.4-3.5); Glucose 89 mg/dL (83-110); Potassium 4.6 mmol/L (3.5-5.1); Protein, Total 8.5 g/dL (5.8-8.1); Sodium 137 mmol/L (136-145)
--- NOTE | 2019-08-07 09:41 | CT ---
CT BRAIN WITHOUT CONTRAST: HISTORY:Fall, headache, neck pain COMPARISON:03/16/2018 FINDINGS: There are foci of decreased attenuation in the periventricular white matter, consistent with chronic small vessel ischemic disease. No evidence of acute infarct, hemorrhage, midline shift or abnormal extra-axial fluid collections is seen. The ventricular size is appropriate and the basilar cisterns are patent. The bony calvarium is intact. The visualized paranasal sinuses and mastoid air cells are well aerated. IMPRESSION: No CT evidence of acute intracranial process.
[2019-08-07 09:56] LABS: Anisocytosis SLIGHT = 6-15 cells (100X) (0-5/hpf); Hypochromia SLIGHT = 6-15 cells (100X) (0-5/hpf); Lymphocytes 3 % (21-51); MDiff Complete? YES; Monocytes 6 % (0-10); Neutrophil 91 % (42-75); Platelet Morphology Comment Appears Adequate; Polychromasia SLIGHT = 2-3 cells (100X) (0-2/hpf)
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
[2019-08-07 10:21] LABS: Bilirubin Negative (Negative); Blood, Urine Negative (Negative); Clarity Clear (Clear); Glucose, Urine (Dipstick) Normal (Negative); Leukocyte Negative Leu/uL (Negative); Nitrite Negative (Negative); Protein, Urine (Dipstick) Negative (Neg-Trace); Urobilinogen Normal mg/dL (Less than 2)
== END 2019-08-07 11:30 ==
LOC: ERS 08:57
DX: M54.2 Cervicalgia (principal); R51 Headache; E10.9 Type 1 diabetes mellitus without complications; I10 Essential (primary) hypertension; Z87.891 Personal history of nicotine dependence; F32.9 Major depressive disorder, single episode, unspecified; W18.30XA Fall on same level, unspecified, initial encounter
CPT/HCPCS: 36415; 70450; 71045; 72125; 80053; 80162; 81003; 82550; 84484; 85025; 93005; L0120